=== PATIENT | female | born 1950 | race Two or more races ===

== ENCOUNTER 2025-06-16 16:02 | Inpatient (IN) | payer MEDICARE, MEDICAID ==
[~2025-06-16] VITALS: Ht 162.6 cm; Wt 97.7 kg
--- NOTE | 2025-06-16 16:23 | ED.PDOC ---
History of Present Illness HPI Comments HPI: 74 year old female presents to the ED via EMS with a chief complaint of generalized weakness onset 2 weeks. Per EMS, patient has been experiencing generalized weakness of the past 2 weeks, family noticed weakness worsened today. For the past 2 days she has been experiencing hematuria, diffused abdominal pain as well as bilateral lower extremity swelling. Patient was able to ambulate with assistance. Denies headache, dizziness, fever, chills, nausea, vomiting, chest pain, shortness of breath. No other symptoms or modifying factors present at this time. Initial Vitals BP: 116/67 HR: 82 RR: 16 O2 Sat: 95% Temp: 98.8 F Past Medical history: fibromyalgia, HTN Past Surgical history: Hernia repair Medications: denies Social History: Denies smoking, ETOH, and drug use. Allergies: NKDA misa: gen weak, hematuria, abd pain HPI: Poor Historian. REVIEW OF SYSTEMS: CONSTITUTIONAL: Denies acute: fever, diaphoresis, chills, HEAD: Denies acute: headache, photophobia Eyes: Denies acute: Double vision, vision loss, eye pain, eye discharge. EARS: Denies acute: tinnitus, hearing loss, ear discharge, ear pain, THROAT: Denies acute: sore throat, swelling, difficulty swallowing , pain with swallowing, change in voice. NECK: Denies acute: neck pain, neck swelling, stiff neck. HEART: Denies acute : chest pain, palpitations, LUNGS: Denies acute: SOB, wheezing, cough, hemoptysis ABDOMEN: Denies acute: , Vomiting, diarrhea, melena , hematemesis, hematochezia SKIN: Denies acute: rash, redness, lesions, itchiness. EXTREMITIES: Denies acute: calf pain, numbness, tingling, weakness, denies pain in extremity. Denies acute: Low back pain. Neuro: Denies acute: focal neurological deficit, motor or sensory focal neurological deficit, tremors, seizure like activity, confusion, dizziness, change in mental status, loss of bowel or bladder function, cauda equina like symptoms. : Denies acute: dysuria, flank pain, increase in urinary frequency. PSYCH: Denies acute: hallucination, suicidal ideation, homicidal ideation. FEMALE: Denies acute: abnormal vaginal bleeding, foul odor, unusual discharge. PHYSICAL EXAM: General: -----moderate---acute distress, awake and alert. Head: normocephalic, atraumatic. Neck: supple, trachea is midline, no swelling. Throat: Normal phonation. Dry oral mucosa Eyes:, no erythema, no purulent discharge, no proptosis, no icterus. Heart: regular rate, regular rhythm, no significant murmur appreciated. Lungs: no apparent respiratory distress, Able to speak in full sentences. No wheezing, no rhonchi, no crackles. No stridors Clear to auscultation bilaterally. Abdomen: Generalized tender to palpation, slightly distended, soft, no guarding, no rebound, + bowel sounds. Obese Neuro: Awake, Alert, oriented to name, self, situation, follows commands GCS=15. Speech is normal. Skin: no petechia, no purpura, no cyanosis, non-pale, not jaundice. Lower extremities: --2/4 bilateral- Pitting edema no deformity, no focal swelling, no calf TTP. Makes eye contact. moves all four extremities. Face: no apparent facial droop. Noted right [id number] anterior cornelius bruise. Patient recalls a fall from a standing position without any head or neck injury or loss of consciousness. Pedal pulses are palpable. ED COURSE: DISCLAIMER: This medical document was created using an electronic medical record system with voice recognition software and computerized dictation system. Although this document has been carefully reviewed, there might still be some phonetic and typographical errors. Occasional wrong-word or "sound-alike" substitutions may have occurred due to the inherent limitations of voice recognition software. These areas are purely typographical due to imperfections of the software programs and do not reflect any compromise in the patient's medical care. Please read the chart carefully and recognize, using context, where these substitutions have occurred. Chief Complaint: General Weakness Time Seen by MD: 16:10 Reviewed Notes: Medications, Allergies Allergies: Coded Allergies: Codeine (Verified Allergy, Unknown, 06/16/25) Home Meds Reported Medications Atenolol (Atenolol) 50 Mg Tab, 50 MG PO BID for 30 Days, MG 06/17/25 Information Source: Patient, Emergency Med Personnel Mode of Arrival: EMS Severity: Moderate Timing: Weeks Duration: Since onset Prehospital treatment: None Past Medical History PAST MEDICAL HISTORY: HTN Surgical History: Hernia Repair [employer] History: No Pertinent [employer] History Family History Family History: Reviewed,noncontributory to illness, No family hx of Cancer, No family hx of DM, No family hx of Heart conchis, No family hx of HTN, No family hx ofKidney conchis, No family hx of Liver conchis, No family hx of Lung conchis, No family hx of Stroke Social History Smoker: Non-Smoker Alcohol: Denies ETOH Use Drugs: Denies Drug Use Lives In: Home Was a procedure done? Was a procedure done?: No Differential Dx Considerations may include: As far as generalized weakness: Includes but not limited to thyroid disease, encephalopathy, electrolyte abnormality, sepsis, infection, intracranial pathology, drug adverse effects, arrhythmia, kidney insufficiency, ACS, CVA, malignancy, anemia As far as abdominal pain: DDX include Diverticulitis, colitis, gastroenteritis, acute abdomen, SBO, enteritis, constipation, volvulus, appendicitis, Gallbladder disease, choledocolithiasis, ascending cholangitis, pancreatitis, intraAbdominal mass/neoplasm, hepatitis, UTI, pylonephritis, kidney stone, aneurysm, dissection, Inflammatory bowel disease, gastroparesis, ischemic bowel, X-Ray, Labs, Meds, VS Vital Signs Date Time Temp Pulse Resp B/P (MAP) Pulse Ox O2 Delivery O2 Flow Rate FiO2 06/16/25 20:09 93 Room Air* 0 21 06/16/25 20:08 98.1 83 20 115/57 (76) 93 98.1 06/16/25 20:00 82 06/16/25 18:30 97.5 79 20 108/52 (70) 94 97.5 06/16/25 16:45 Room Air* 0 21 06/16/25 16:30 97.5 83 14 110/60 (77) 95 97.5 06/16/25 16:27 82 06/16/25 16:04 98.8 82 16 116/67 95 98.8 Lab Test 06/16/25 20:42 06/16/25 18:37 06/16/25 16:40 06/16/25 16:37 Range/Units Prothrombin Time 12.7 H 9.3-11.8 sec Prothrombin Time INR 1.22 H 0.9-1.15 Activated Partial Thromboplast Time 40.1 H 24.5-34.5 SEC Hemoglobin A1c 5.8 H <5.7 % A1C Phosphorus Level 5.0 2.4-5.1 mg/dL Magnesium Level 2.1 1.6-2.6 mg/dL Troponin I High Sensitivity 13 16 </=34 ng/L Triglycerides Level 152 H < 150 mg/dL Cholesterol Level 94 < 200 mg/dL LDL Cholesterol 50 < 100 mg/dL HDL Cholesterol 8 L 40-59 mg/dL Vitamin B12 Level 371 211-911 pg/mL Vitamin D 25-Hydroxy 6.7 L 30.0-100 ng/mL Thyroid Stimulating Hormone (TSH) 1.24 0.55-4.78 uIU/mL Urine Color Yellow Yellow Urine Clarity Turbid H Clear Urine pH 5.5 5.0-9.0 Urine Specific [place] 1.014 1.001-1.035 Urine Protein Trace H Negative Urine Ketones Negative Negative Urine Blood Negative Negative /uL Urine Nitrite Negative Negative Urine Bilirubin Negative Negative Urine Urobilinogen 3 H Negative mg/dL Urine Leukocyte Esterase Negative Negative /uL Urine RBC 2 0 - 4 /hpf Urine Microscopic WBC 5 0-5 /HPF Urine Squamous Epithelial Cells Few <5 /hpf Urine Bacteria None seen None Seen /hpf Urine Glucose Normal Normal mg/dL Beta-Hydroxybutyric Acid 2.296 H < 0.4 mmol/L Test 06/16/25 16:30 Range/Units White Blood Count 20.4 H 4.4-10.8 10^3/uL Red Blood Count 3.44 L 4.0-5.20 10^6/uL Hemoglobin 9.1 L 12.2-16.2 g/dL Hematocrit 28.2 L 36.0-46.0 % Mean Corpuscular Volume 82.1 80.0-100.0 fL Mean Corpuscular Hemoglobin 26.6 L 28.0-32.0 pg Mean Corpuscular Hemoglobin Concent 32.4 32.0-36.0 g/dL Red Cell Distribution Width 18.0 H 11.8-14.3 % Platelet Count 305 140-450 10^3/uL Mean Platelet Volume 7.6 6.9-10.8 fL Neutrophils (%) (Auto) 37.0-80.0 % Lymphocytes (%) (Auto) 10.0-50.0 % Monocytes (%) (Auto) 0.0-12.0 % Basophils (%) (Auto) 0.0-2.0 % Neutrophils # (Auto) 1.6-8.6 10 ^3/uL Lymphocytes # (Auto) 0.4-5.4 10 ^3/uL Monocytes # (Auto) 0-1.3 10 ^3/uL Differential Total Cells Counted 100.0 100 Neutrophils % (Manual) 81 H 37.0-80.0 Band Neutrophils % (Manual) 11 Lymphocytes % (Manual) 2 L 10.0-50.0 Monocytes % (Manual) 6 0-12 Eosinophils % (Manual) 0 0-7 Basophils % (Manual) 0 0.0-2.0 Metamyelocytes % (manual) 0 Myelocytes % (Manual) 0 Promyelocytes % (Manual) 0 Blast Cells % (Manual) 0 Reactive Lymphocytes 0 Platelet Estimate Adequate Anisocytosis (manual) Slight Tear Drop Cells Few [place] Cells Few Sodium Level 125 L 136-145 mmol/L Potassium Level 2.5 *L 3.5-5.1 mmol/L Chloride Level 91 L 98-107 mmol/L Carbon Dioxide Level 15 L 20-31 mmol/L Anion Gap 19 H 5-15 Blood Urea Nitrogen 72 H 9-23 mg/dL Creatinine 2.12 H 0.550-1.02 mg/dL Glomerular Filtration Rate Calc 24 >90 mL/min BUN/Creatinine Ratio 34.0 H 10.0-20.0 Serum Glucose 97 74-106 mg/dL Lactic Acid Level 1.4 0.4-2.0 mmol/L Calcium Level 7.4 L 8.7-10.4 mg/dL Magnesium Level 2.0 1.6-2.6 mg/dL Total Bilirubin 0.4 0.2-1.0 mg/dL Aspartate Amino Transferase (AST) 26 13-40 U/L Alanine Aminotransferase (ALT) 19 7-40 U/L Alkaline Phosphatase 128 H 46-116 U/L Troponin I High Sensitivity 15 </=34 ng/L B-Type Natriuretic Peptide 1669.81 0-100 pg/mL Total Protein 6.1 5.7-8.2 g/dL Albumin 2.2 L 3.2-4.8 g/dL Lipase 19 12-53 U/L Microbiology Date/Time Source Procedure Growth Status 06/16/25 18:36 Blood Blood Culture - Final NO GROWTH AFTER 5 DAYS OF INCUBATION. Complete 06/16/25 18:20 Blood Blood Culture - Final NO GROWTH AFTER 5 DAYS OF INCUBATION. Complete [address] [address] Ph: [phone] DIAGNOSTIC IMAGING Diagnostic Imaging Report : [id number] Signed PATIENT: SHANNON BULLOCK ACCT: [id number] UNIT: [id number] : 1950 LOC: ER ROOM / BED: / AGE / SEX: 74 / F ADM STATUS: REG ER SERVICE 44 ORDERING PHYSICIAN: SURENDRA MATT DO PROCEDURE(s): PELUS - PELVIC REASON: poss vag bleed ORDER NUMBER(s): [id number], ACCESSION NUMBER(s): [id number] EXAM: US PELVIC CLINICAL HISTORY: poss vag bleed TECHNIQUE: Transabdominal ultrasound of the pelvis with color Doppler flow as clinically indicated. COMPARISON: None Findings: Uterus measures 9.1 x 4.3 x 8.0 cm in size with relatively heterogeneous echotexture and normal contours. Endometrial thickness measures 1.1 cm with smooth contour. Cervix appears grossly unremarkable. Bilateral ovaries not visualized. No free fluid in the cul-de-sac. Anterior to the uterus, there is a 10.2 x 8.1 x 1.7 cm complex fluid collection. Impression: 1. Prominent uterus with thickened endometrium measuring 1.1 cm. Recommend contrast-enhanced MRI and tissue sampling for further evaluation. 2. 10.2 x 8.1 x 1.7 cm complex fluid collection anterior to the uterus, nonspecific. Attention on MRI. 3. Bilateral ovaries not visualized. ATED BY: CODI CAMACHO DO DICTATED DATE/TIME: 06/16/251745 SIGNED BY: CODI CAMACHO DO SIGNED DATE/TIME: 06/16/251745 CC: [address] [address] Ph: [phone] DIAGNOSTIC IMAGING Diagnostic Imaging Report : [id number] Signed PATIENT: SHANNON BULLOCK ACCT: [id number] UNIT: [id number] : 1950 LOC: ER ROOM / BED: / AGE / SEX: 74 / F ADM STATUS: REG ER SERVICE 13 ORDERING PHYSICIAN: SURENDRA MATT DO PROCEDURE(s): CXRP - CHEST PORTABLE REASON: gen weak, hematuria, abd pain ORDER NUMBER(s): [id number], ACCESSION NUMBER(s): [id number] INDICATION: gen weak, hematuria, abd pain TECHNIQUE: Frontal view of the chest. COMPARISON: None FINDINGS/IMPRESSION: Low lung volumes. The lungs are clear. There is prominence of the cardiomediastinal silhouette, likely accentuated by technique. No pleural effusion or pneumothorax. No acute osseous abnormality. ATED BY: CLAUDE COLLINS MD DICTATED DATE/TIME: 06/16/251743 SIGNED BY: CLAUDE COLLINS MD SIGNED DATE/TIME: 06/16/251743 CC: [place] [id number] Ph: [phone] DIAGNOSTIC IMAGING Diagnostic Imaging Report : [id number] Signed PATIENT: SHANNON BULLOCK ACCT: [id number] UNIT: [id number] : 1950 LOC: ER ROOM / BED: / AGE / SEX: 74 / F ADM STATUS: REG ER SERVICE 13 ORDERING PHYSICIAN: SURENDRA MATT DO PROCEDURE(s): ABPL - CT AB PEL WO CON-NO ORAL OR IV REASON: gen weak, hematuria, abd pain ORDER NUMBER(s): [id number], ACCESSION NUMBER(s): [id number] Indication: gen weak, hematuria, abd pain Technique: CT axial images of the abdomen and pelvis are obtained without contrast. Coronal and sagittal reformats were obtained. Radiation Dose Information: CTDI volume is 22.77 mGy. Dose-length product is 1196 mGy*cm Comparison: None FINDINGS: There is limited interpretation of the abdomen and pelvis without administration of intravenous contrast. Lung bases demonstrate atelectasis. Adrenal glands, spleen, pancreas unremarkable in shape. Liver unremarkable in shape. Gallbladder contracted/removed. No hydronephrosis. Colonic diverticular disease. Bowel wall thickening of the sigmoid colon. Moderate volume stool in the colon. Abdominal aortic atherosclerotic disease. Bladder decompressed by Morocho catheter. Complex collection in the lower anterior abdomen measuring 21.7 x 8.0 cm. Smaller anterior abdominal complex collection measuring 3.6 x 2.2 cm. Pelvic cul-de-sac complex collection measuring 2.4 x 7.2 cm. Collection anterior to the uterus and superior to the bladder measuring 6.4 x 2.2 cm. Left inguinal hernia which appears tip containing portion of the bladder. The hernia measures 4.8 x 4.1 cm. Hernia signal of the bladder measures 1.8 x 2.0 cm. Soft tissue edema/anasarca. Heterogeneous appearance of the uterus. Recommend pelvic ultrasound to evaluate. Bladder decompressed by Morocho catheter. Moderate bilateral sacroiliac degenerative joint disease. Moderate thoracolumbar degenerative disc disease. Acute/subacute posterior left 11th and 12th rib fractures. IMPRESSION: Limited evaluation without contrast. Multiple complex abdominal and pelvic collections measuring 21.7 x 8.0 cm, 3.6 x 2.2 cm, 2.4 x 2.7 cm and 6.4 x 2.2 cm. These could represent abscesses. Sigmoid colon wall thickening with underlying diverticular disease could represent diverticulitis/perforated diverticulitis. Recommend surgical consultation. Heterogeneous appearance of the uterus. Recommend pelvic ultrasound to evaluate. To exclude a uterine mass/ neoplasm. Left inguinal hernia containing a small portion of the bladder measuring 4.8 x 4.1 cm. There is thickening of the bladder wall within the hernia. Correlate for incarcerated Soft tissue edema/anasarca. Acute/ subacute posterior left 11th and 12th rib fractures. Other findings as described ATED BY: NIGEL JAMES MD DICTATED DATE/TIME: 06/16/251745 SIGNED BY: NIGEL JAMES MD SIGNED DATE/TIME: 06/16/251745 CC: Time of 1ST Reevaluation: 16:40 Reevaluation 1ST: Unchanged Time of 2ND Reevaluation: 18:42 (The case was discussed with the general surgery on-call team (HPI, physical exam, labs and diagnostic tests that were available at the time of disposition, ED course, treatment plan) on the phone. They agreed to come and evaluate the patient in the ED. Dr. Gonzalez. ) Patient Education/Counseling: Diagnosis, Treatment Family Education/Counseling: No Family Present Comments MDM: patient presented with the above HPI.---generalized weakness/abdominal pain---workup was initiated. patient was found with the above mentioned diagnosis. the following medications were ordered: please refer to order lists of meds and tests obtained by myself Dr. Matt. Patient ED course and VS have been stabilized. Patient has been reassessed in the ED and remained in a stable condition. Pertinent incidental findings were discussed with the patient and/or family. Patient/family voices understanding and is agreeable with plan. Patient has been observed in the ED adequate length of time to insure improvement/stability. Escalation of care considered: Consideration of escalation to observation or admission Patient was ADMITTED to the medicine team for further evaluation and treatment of their presentation. All the reports of any imaging studies that were ordered by myself were reviewed by myself. Departure 1 Departure Time of Disposition: 18:43 Impression: Primary Impression: Sepsis Additional Impressions: Abnormal finding on CT scan Abdominal mass Inguinal hernia Rib fracture Mass of uterus Leukocytosis Generalized weakness Hyponatremia Hypokalemia Acute renal failure Hypoalbuminemia Disposition: ADMITTED INPATIENT Admit to: [facility] Condition: Guarded Discharged With: Self Critical Care Note Critical Care Time?: Yes (1 hr-critical care time only) Heart Score Heart Score: Heart Score Response (Comments) Value History N/A 0 EKG N/A 0 Age N/A 0 Risk Factors N/A 0 Troponin N/A 0 Total 0 I personally scribed for SURENDRA MATT DO ([email or web address]) on 06/16/25 at 16:23. Electronically submitted by Radha Gallardo ([email or web address]). I personally scribed for SURENDRA MATT DO ([email or web address]) on 06/16/25 at 16:51. Electronically submitted by Radha Gallardo ([email or web address]). I personally scribed for SURENDRA MATT DO ([email or web address]) on 06/16/25 at 18:32. Electronically submitted by Radha Gallardo ([email or web address]). SURENDRA MATT DO Jun 16, 2025 16:23
--- NOTE | 2025-06-16 16:46 | ECG ---
[facility] Test Date: 2025-06-16 Test Time: 16:18:30 Pat Name: SHANNON BULLOCK Department: Room: [address] [place] [address] Gender: F [employer] Consultant: SHIRA : 1950 Requested By: SURENDRA MATT Order Number: [id number] Reading MD: Frederick Nino Measurements Intervals [place] Rate: 82 P: 50 [place]: 159 QRS: 8 QRSD: 99 T: -1 QT: 407 QTc: 476 Interpretive Statements Sinus rhythm Multiform ventricular premature complexes Inferior infarct, old Electronically Signed On 06-24-2025 21:37:13 PDT by Frederick Nino Please click the below link to view image of tracing.
[2025-06-16 17:10] LABS: Urine Protein, UAD TRACE (Negative)
--- NOTE | 2025-06-16 17:45 | DVH ---
Indication: gen weak, hematuria, abd pain Technique: CT axial images of the abdomen and pelvis are obtained without contrast. Coronal and sagit elli reformats were obtained. Radiation Dose Information: CTDI volume is 22.77 mGy. Dose-length product is 1196 mGy*cm Comparison: None FINDINGS: There is limited interpretation of the abdomen and pelvis without administration of intravenous contr ast. Lung bases demonstrate atelectasis. Adrenal glands, spleen, pancreas unremarkable in shape. Liver unremarkable in shape. Gallbladder con tracted/removed. No hydronephrosis. Colonic diverticular disease. Bowel wall thickening of the sigmoid colon. Moderate volume stool in t he colon. Abdominal aortic atherosclerotic disease. Bladder decompressed by Morocho catheter. Complex collection in the lower anterior abdomen measuring 21.7 x 8.0 cm. Smaller anterior abdominal complex collection measuring 3.6 x 2.2 cm. Pelvic cul-de-sac complex collection measuring 2.4 x 7.2 cm. Collection anterior to the uterus and superior to the bladder measuring 6.4 x 2.2 cm. Left inguinal hernia which appears tip containing portion of the bladder. The hernia measures 4.8 x 4.1 cm. Hernia signal of the bladder measures 1.8 x 2.0 cm. Soft tissue edema/anasarca. Heterogeneous appearance of the uterus. Recommend pelvic ultrasound to evaluate. Bladder decompressed by Morocho catheter. Moderate bilateral sacroiliac degenerative joint disease. Moderate thoracolumbar degenerative disc disease. Acute/subacute posterior left 11th and 12th rib fractures. IMPRESSION: Limited evaluation without contrast. Multiple complex abdominal and pelvic collections measuring 21.7 x 8.0 cm, 3.6 x 2.2 cm, 2.4 x 2.7 cm and 6.4 x 2.2 cm. These could represent abscesses. Sigmoid colon wall thickening with underlying diverticular disease could represent diverticulitis/per forated diverticulitis. Recommend surgical consultation. Heterogeneous appearance of the uterus. Recommend pelvic ultrasound to evaluate. To exclude a uterin e mass/ neoplasm. Left inguinal hernia containing a small portion of the bladder measuring 4.8 x 4.1 cm. There is thick ening of the bladder wall within the hernia. Correlate for incarcerated Soft tissue edema/anasarca. Acute/ subacute posterior left 11th and 12th rib fractures. Other findings as described
--- NOTE | 2025-06-16 17:46 | DVH ---
INDICATION: gen weak, hematuria, abd pain TECHNIQUE: Frontal view of the chest. COMPARISON: None FINDINGS/IMPRESSION: Low lung volumes. The lungs are clear. There is prominence of the cardiomediastinal silhouette, li nadia accentuated by technique. No pleural effusion or pneumothorax. No acute osseous abnormality.
--- NOTE | 2025-06-16 17:47 | DVH ---
EXAM: US PELVIC CLINICAL HISTORY: poss vag bleed TECHNIQUE: Transabdominal ultrasound of the pelvis with color Doppler flow as clinically indicated. COMPARISON: None Findings: Uterus measures 9.1 x 4.3 x 8.0 cm in size with relatively heterogeneous echotexture and normal conto urs. Endometrial thickness measures 1.1 cm with smooth contour. Cervix appears grossly unremarkable. Bilateral ovaries not visualized. No free fluid in the cul-de-sac. Anterior to the uterus, there is a 10.2 x 8.1 x 1.7 cm complex fluid collection. Impression: 1. Prominent uterus with thickened endometrium measuring 1.1 cm. Recommend contrast-enhanced MRI and tissue sampling for further evaluation. 2. 10.2 x 8.1 x 1.7 cm complex fluid collection anterior to the uterus, nonspecific. Attention on MR I. 3. Bilateral ovaries not visualized.
[2025-06-16 17:55] LABS: Hemoglobin 9.1 g/dL (12.2-16.2); Mean Corpuscular Hemoglobin 26.6 pg (28.0-32.0)
[2025-06-16 17:57] LABS: Hematocrit 28.2 % (36.0-46.0); Mean Corpuscular Volume 82.1 fL (80.0-100.0)
[2025-06-16 18:13] LABS: Alanine Aminotransferase 19 U/L (7-40); Anion Gap 19 (5-15); BUN/Creatinine Ratio 34.0 (10.0-20.0); Glucose 97 mg/dL (74-106); Lipase 19 U/L (12-53); Magnesium 2.0 mg/dL (1.6-2.6); Total Protein 6.1 g/dL (5.7-8.2)
[2025-06-16 18:14] LABS: Bilirubin, Total 0.4 mg/dL (0.2-1.0)
[2025-06-16 18:17] LABS: Albumin 2.2 g/dL (3.2-4.8); Alkaline Phosphatase 128 U/L (46-116); Blood Urea Nitrogen 72 mg/dL (9-23); Calcium 7.4 mg/dL (8.7-10.4); Carbon Dioxide 15 mmol/L (20-31); Chloride 91 mmol/L (98-107); Sodium 125 mmol/L (136-145)
[2025-06-16 18:18] LABS: Potassium 2.5 mmol/L (3.5-5.1)
[2025-06-16] MEDS: SODIUM CHLORIDE 0.9% 1,000 ML IV ONE ×3 (18:29→20:45)
[2025-06-16] MEDS: PIPERACILLIN-TAZOB 3.375GM 100 ML IV ONE (18:51)
[2025-06-16 19:07] LABS: Anisocytosis Slight; Total Cells Counted 100.0 (100)
[2025-06-16 19:08] LABS: Tear Drop Cells FEW
[2025-06-16 20:09] VITALS: O2SAT 93
--- NOTE | 2025-06-16 20:22 | DVHINCON2 ---
Consultation - Surgical Date Seen: Jun 16, 2025 Referring Physician Referring Physician ER Reason for Consultation Abdominal pain History of Present Illness History of Present Illness 74 year old female presents to the ED via EMS with a chief complaint of genera lized weakness onset 2 weeks. Per EMS, patient has been experiencing generalized weakness of the past 2 weeks, family noticed weakness worsened today. For the past 2 days she has been experiencing hematuria, diffused abdominal pain as well as bilateral lower extremity swelling. Patient has not felt well in over a month bed-bound for proximally two weeks. She does have a history of fibromyalgia as well as diverticulitis. Her appetite has diminished over the last two weeks as well. She continues to have normal bowel movements. Not nauseous or vomiting no fevers or chills. Currently complaining of lower abdominal pain. Has had her gallbladder removed as well as incisional hernia repair in the past. Last admission was approximately five years ago for an incisional hernia repair Past Medical/Surgical History Past Medical/Surgical History Fibromyalgia hypertension, cholecystectomy, incisional hernia repair Family and Social History Family and Social History nonsmoker nondrinker Allergies and medications Allergies: Coded Allergies: Codeine (Verified Allergy, Unknown, 06/16/25) Review of systems Review of Systems: HEENT:Normal, CVS:Normal, RESPIRATORY:Normal, GI:Abnormal (Generalized abdominal discomfort), :Abnormal, MSK:Abnormal (Lower extremity edema and weakness unable to stand), NEURO:Abnormal Examination Vital signs Vital Signs Date Time Temp Pulse Resp B/P (MAP) Pulse Ox O2 Delivery O2 Flow Rate FiO2 06/16/25 20:09 93 Room Air* 0 21 06/16/25 20:08 98.1 83 20 115/57 (76) 98.1 Medications Current Medications Medications (Trade) Dose Ordered Sig/Venessa Route PRN Reason Start Time Stop Time Status Last Admin Potassium Chloride 100 ml @ 50 mls/hr Q2H IV 06/16/25 18:45 06/16/25 22:44 Laboratory Labs Test 06/16/25 18:37 06/16/25 16:40 06/16/25 16:30 Range/Units Troponin I High Sensitivity 16 </=34 ng/L Urine Color Yellow Yellow Urine Clarity Turbid H Clear Urine pH 5.5 5.0-9.0 Urine Specific [place] 1.014 1.001-1.035 Urine Protein Trace H Negative Urine Ketones Negative Negative Urine Blood Negative Negative /uL Urine Nitrite Negative Negative Urine Bilirubin Negative Negative Urine Urobilinogen 3 H Negative mg/dL Urine Leukocyte Esterase Negative Negative /uL Urine RBC 2 0 - 4 /hpf Urine Microscopic WBC 5 0-5 /HPF Urine Squamous Epithelial Cells Few <5 /hpf Urine Bacteria None seen None Seen /hpf Urine Glucose Normal Normal mg/dL White Blood Count 20.4 H 4.4-10.8 10^3/uL Red Blood Count 3.44 L 4.0-5.20 10^6/uL Hemoglobin 9.1 L 12.2-16.2 g/dL Hematocrit 28.2 L 36.0-46.0 % Mean Corpuscular Volume 82.1 80.0-100.0 fL Mean Corpuscular Hemoglobin 26.6 L 28.0-32.0 pg Mean Corpuscular Hemoglobin Concent 32.4 32.0-36.0 g/dL Red Cell Distribution Width 18.0 H 11.8-14.3 % Platelet Count 305 140-450 10^3/uL Mean Platelet Volume 7.6 6.9-10.8 fL Neutrophils (%) (Auto) 37.0-80.0 % Lymphocytes (%) (Auto) 10.0-50.0 % Monocytes (%) (Auto) 0.0-12.0 % Basophils (%) (Auto) 0.0-2.0 % Neutrophils # (Auto) 1.6-8.6 10 ^3/uL Lymphocytes # (Auto) 0.4-5.4 10 ^3/uL Monocytes # (Auto) 0-1.3 10 ^3/uL Differential Total Cells Counted 100.0 100 Neutrophils % (Manual) 81 H 37.0-80.0 Band Neutrophils % (Manual) 11 Lymphocytes % (Manual) 2 L 10.0-50.0 Monocytes % (Manual) 6 0-12 Eosinophils % (Manual) 0 0-7 Basophils % (Manual) 0 0.0-2.0 Metamyelocytes % (manual) 0 Myelocytes % (Manual) 0 Promyelocytes % (Manual) 0 Blast Cells % (Manual) 0 Reactive Lymphocytes 0 Platelet Estimate Adequate Anisocytosis (manual) Slight Tear Drop Cells Few Theodore Cells Few Sodium Level 125 L 136-145 mmol/L Potassium Level 2.5 *L 3.5-5.1 mmol/L Chloride Level 91 L 98-107 mmol/L Carbon Dioxide Level 15 L 20-31 mmol/L Anion Gap 19 H 5-15 Blood Urea Nitrogen 72 H 9-23 mg/dL Creatinine 2.12 H 0.550-1.02 mg/dL Glomerular Filtration Rate Calc 24 >90 mL/min BUN/Creatinine Ratio 34.0 H 10.0-20.0 Serum Glucose 97 74-106 mg/dL Lactic Acid Level 1.4 0.4-2.0 mmol/L Calcium Level 7.4 L 8.7-10.4 mg/dL Magnesium Level 2.0 1.6-2.6 mg/dL Total Bilirubin 0.4 0.2-1.0 mg/dL Aspartate Amino Transferase (AST) 26 13-40 U/L Alanine Aminotransferase (ALT) 19 7-40 U/L Alkaline Phosphatase 128 H 46-116 U/L B-Type Natriuretic Peptide 1669.81 0-100 pg/mL Total Protein 6.1 5.7-8.2 g/dL Albumin 2.2 L 3.2-4.8 g/dL Lipase 19 12-53 U/L Indication: gen weak, hematuria, abd pain Technique: CT axial images of the abdomen and pelvis are obtained without contrast. Coronal and sagittal reformats were obtained. Radiation Dose Information: CTDI volume is 22.77 mGy. Dose-length product is 1196 mGy*cm Comparison: None FINDINGS: There is limited interpretation of the abdomen and pelvis without administration of intravenous contrast. Lung bases demonstrate atelectasis. Adrenal glands, spleen, pancreas unremarkable in shape. Liver unremarkable in shape. Gallbladder contracted/removed. No hydronephrosis. Colonic diverticular disease. Bowel wall thickening of the sigmoid colon. Moderate volume stool in the colon. Abdominal aortic atherosclerotic disease. Bladder decompressed by Morocho catheter. Complex collection in the lower anterior abdomen measuring 21.7 x 8.0 cm. Smaller anterior abdominal complex collection measuring 3.6 x 2.2 cm. Pelvic cul-de-sac complex collection measuring 2.4 x 7.2 cm. Collection anterior to the uterus and superior to the bladder measuring 6.4 x 2.2 cm. Left inguinal hernia which appears tip containing portion of the bladder. The hernia measures 4.8 x 4.1 cm. Hernia signal of the bladder measures 1.8 x 2.0 cm. Soft tissue edema/anasarca. Heterogeneous appearance of the uterus. Recommend pelvic ultrasound to evaluate. Bladder decompressed by Morocho catheter. Moderate bilateral sacroiliac degenerative joint disease. Moderate thoracolumbar degenerative disc disease. Acute/subacute posterior left 11th and 12th rib fractures. IMPRESSION: Limited evaluation without contrast. Multiple complex abdominal and pelvic collections measuring 21.7 x 8.0 cm, 3.6 x 2.2 cm, 2.4 x 2.7 cm and 6.4 x 2.2 cm. These could represent abscesses. Sigmoid colon wall thickening with underlying diverticular disease could represent diverticulitis/perforated diverticulitis. Recommend surgical consultation. Heterogeneous appearance of the uterus. Recommend pelvic ultrasound to evaluate. To exclude a uterine mass/ neoplasm. Left inguinal hernia containing a small portion of the bladder measuring 4.8 x 4.1 cm. There is thickening of the bladder wall within the hernia. Correlate for incarcerated Soft tissue edema/anasarca. Acute/ subacute posterior left 11th and 12th rib fractures. Other findings as described Examination: GENERAL:Normal, HEENT:Normal, NECK:Normal, LUNGS:Normal, CVS:Nor mal, ABDOMEN:Abnormal (Vague diffuse abdominal tenderness no rebound no guarding), MSK:Abnormal (1+ pitting edema), SKIN:Normal, NEURO:Normal, :Normal Problem List/Assessment/Plan Problems: (1) Abdominal mass Assessment and Plan Abdominal pain multiple fluid collections diverticulitis possible perforated diverticulitis. We will need IV fluid hydration IV antibiotics, Morocho catheter, strict I's and O's, We will re-evaluate in the morning for possible IR drainage versus surgical exploration. Plan discussed with Plan discussed with: Patient, Spouse Visit Coding Surgery Date of Service if different f: Jun 16, 2025 Billing Provider: MENDOZA MERRITT Jr., MD Surgery Visit Codes: 50770 - INP CONSULT <80 MIN MENDOZA MERRITT Jr., MD Jun 16, 2025 20:21
[2025-06-16] MEDS: SODIUM CHLORIDE 0.9% 1,000 ML IV SCH (20:30)
[2025-06-16] MEDS: POTASSIUM CHL 20MEQ/100ML 100 ML IV SCH (20:30)
--- NOTE | 2025-06-16 20:33 | DVHHPRES ---
History of Present Illness Resident Creating Document: JOHNATHON PIMENTEL History of Present Illness Dinora Montano this is a 74-year-old female patient who presents to ED with chief complaint of progressive drowsiness, generalized weakness and slurred speech which started two weeks before her admission. Per who is at bedside, she has not been herself recently and was concerned of a "flare-up of fibromyalgia" prompting him to bring her to the hospital via EMS. reports that when they try to mobilize her from the bed to the wheelchair patient fell with no loss of consciousness and bruised her right leg. also reports that patient presented abnormal uterine bleeding (spotting) for the past few months. Due to her clinical status could not obtain review of systems. Obtain past medical history from . Past medical history: Hypertension, Fibromyalgia, diverticulosis with multiple episodes of diverticulitis last episode was approximately one year. Surgical history: Colonoscopy completed five years ago which was within normal limits, cholecystectomy, umbilical hernia repair Family history: Noncontributory Social history: Lives in [place] with family (next of kin is ). Denies current tobacco, alcohol and other drug abuse. Allergies: Seasonal Home medication: Atenolol and Motrin p.r.n. Patient seen and examined at bedside. Patient is drowsy, oriented in all spheres, feels better after receiving IV antibiotics. Has no new complaints. Past Medical History Per HPI Past Surgical History Per HPI Family History Per HPI Past Social History Per HPI Review of Systems Review of Systems Per HPI Allergies: Coded Allergies: Codeine (Verified Allergy, Unknown, 06/16/25) Medications Current Medications Medications Dose Ordered Sig/Venessa Route Start Time Stop Time Status Last Admin Dose Admin Potassium Chloride 100 ml @ 50 mls/hr Q2H IV 06/16/25 18:45 06/16/25 22:44 Exam Vital Signs Vital Signs Date Time Temp Pulse Resp B/P (MAP) Pulse Ox O2 Delivery O2 Flow Rate FiO2 06/16/25 20:09 93 Room Air* 0 21 06/16/25 20:08 98.1 83 20 115/57 (76) 98.1 Exam Patient lying in bed, in no acute distress General: Melgar, febrile, mucosae are moist Cardiovascular: Normal S1 and S2. No murmurs, gallops or rubs Respiratory: Normal ventilation mechanics. Clear lung sounds on auscultation Abdomen: Soft, nontender, no organomegaly, normal bowel sounds MSK/skin: Mobilizes 4 limbs. Skin is dry and warm. Bilateral suprapatellar pitting edema Neurological: Oriented in 3 spheres, drowsy and somnolent. Slurred speech. No motor no sensitive deficits. Pupils are isocoric and reactive Labs/Xrays Labs Test 06/16/25 18:37 06/16/25 16:40 06/16/25 16:30 Range/Units Troponin I High Sensitivity 16 </=34 ng/L Urine Color Yellow Yellow Urine Clarity Turbid H Clear Urine pH 5.5 5.0-9.0 Urine Specific [place] 1.014 1.001-1.035 Urine Protein Trace H Negative Urine Ketones Negative Negative Urine Blood Negative Negative /uL Urine Nitrite Negative Negative Urine Bilirubin Negative Negative Urine Urobilinogen 3 H Negative mg/dL Urine Leukocyte Esterase Negative Negative /uL Urine RBC 2 0 - 4 /hpf Urine Microscopic WBC 5 0-5 /HPF Urine Squamous Epithelial Cells Few <5 /hpf Urine Bacteria None seen None Seen /hpf Urine Glucose Normal Normal mg/dL White Blood Count 20.4 H 4.4-10.8 10^3/uL Red Blood Count 3.44 L 4.0-5.20 10^6/uL Hemoglobin 9.1 L 12.2-16.2 g/dL Hematocrit 28.2 L 36.0-46.0 % Mean Corpuscular Volume 82.1 80.0-100.0 fL Mean Corpuscular Hemoglobin 26.6 L 28.0-32.0 pg Mean Corpuscular Hemoglobin Concent 32.4 32.0-36.0 g/dL Red Cell Distribution Width 18.0 H 11.8-14.3 % Platelet Count 305 140-450 10^3/uL Mean Platelet Volume 7.6 6.9-10.8 fL Neutrophils (%) (Auto) 37.0-80.0 % Lymphocytes (%) (Auto) 10.0-50.0 % Monocytes (%) (Auto) 0.0-12.0 % Basophils (%) (Auto) 0.0-2.0 % Neutrophils # (Auto) 1.6-8.6 10 ^3/uL Lymphocytes # (Auto) 0.4-5.4 10 ^3/uL Monocytes # (Auto) 0-1.3 10 ^3/uL Differential Total Cells Counted 100.0 100 Neutrophils % (Manual) 81 H 37.0-80.0 Band Neutrophils % (Manual) 11 Lymphocytes % (Manual) 2 L 10.0-50.0 Monocytes % (Manual) 6 0-12 Eosinophils % (Manual) 0 0-7 Basophils % (Manual) 0 0.0-2.0 Metamyelocytes % (manual) 0 Myelocytes % (Manual) 0 Promyelocytes % (Manual) 0 Blast Cells % (Manual) 0 Reactive Lymphocytes 0 Platelet Estimate Adequate Anisocytosis (manual) Slight Tear Drop Cells Few Zak Cells Few Sodium Level 125 L 136-145 mmol/L Potassium Level 2.5 *L 3.5-5.1 mmol/L Chloride Level 91 L 98-107 mmol/L Carbon Dioxide Level 15 L 20-31 mmol/L Anion Gap 19 H 5-15 Blood Urea Nitrogen 72 H 9-23 mg/dL Creatinine 2.12 H 0.550-1.02 mg/dL Glomerular Filtration Rate Calc 24 >90 mL/min BUN/Creatinine Ratio 34.0 H 10.0-20.0 Serum Glucose 97 74-106 mg/dL Lactic Acid Level 1.4 0.4-2.0 mmol/L Calcium Level 7.4 L 8.7-10.4 mg/dL Magnesium Level 2.0 1.6-2.6 mg/dL Total Bilirubin 0.4 0.2-1.0 mg/dL Aspartate Amino Transferase (AST) 26 13-40 U/L Alanine Aminotransferase (ALT) 19 7-40 U/L Alkaline Phosphatase 128 H 46-116 U/L B-Type Natriuretic Peptide 1669.81 0-100 pg/mL Total Protein 6.1 5.7-8.2 g/dL Albumin 2.2 L 3.2-4.8 g/dL Lipase 19 12-53 U/L SEPSIS Sepsis Screen Date sepsis recognized/suspect: Jun 16, 2025 Time Sepsis recognized/suspect: 2007 Recent Procedure: No On Antibiotic Therapy: No Respiratory Rate >20: No Heart Rate >90: No Temp<36 C (96.8 F) or >38.3 C: No SBP <90 or MAP <65 mmHG: No New Acute Mental Status Change: No Is the patient on CPAP, BIPAP,: No Physician Orders Conduit Mechanic (06/16/25 ) Chest Portable (06/16/25 16:14) Ct Ab Pel Wo Con-No Oral Or Iv (06/16/25 16:14) Troponin-I Hs (06/16/25 19:14) Pelvic (06/16/25 16:45) * Surgical Consult (06/16/25 ) Blood Culture (06/16/25 18:20) Potassium Chl 20meq/100ml (06/16/25 18:45) Vital Signs Date Time Temp Pulse Resp B/P (MAP) Pulse Ox O2 Delivery O2 Flow Rate FiO2 06/16/25 20:09 93 Room Air* 0 21 06/16/25 20:08 98.1 83 20 115/57 (76) 93 98.1 06/16/25 18:30 97.5 79 20 108/52 (70) 94 97.5 06/16/25 16:45 Room Air* 0 21 06/16/25 16:30 97.5 83 14 110/60 (77) 95 97.5 06/16/25 16:27 82 06/16/25 16:04 98.8 82 16 116/67 95 98.8 Laboratory Tests Test 06/16/25 16:30 Lactic Acid Level 1.4 mmol/L (0.4-2.0) White Blood Count 20.4 10^3/uL (4.4-10.8) H Medications Medications Dose Ordered Sig/Venessa Route Start Time Stop Time Status Last Admin Dose Admin Piperacillin Sod/ Tazobactam Sod 100 ml @ 100 mls/hr ONCE ONCE IV 06/16/25 18:15 06/16/25 19:14 DC 06/16/25 18:51 100 MLS/HR Sodium Chloride 1,000 ml @ 1,000 mls/hr Q1H ONCE IV 06/16/25 18:15 06/16/25 19:14 DC 06/16/25 18:29 1,000 MLS/HR Assessment/Plan Assessment/Plan ASSESSMENT Metabolic encephalopathy secondary to sepsis Sepsis due to complicated diverticulitis Complicated diverticulitis with multiple abscesses JILLIAN hemodynamically mediated (VMN) Metabolic acidosis with elevated anion gap and normal lactic acid Acute respiratory failure likely secondary to congestive heart failure Acute congestive heart failure (unknown LVEF) Questionable uterine malignancy Hyponatremia Hypokalemia Normocytic anemia Obesity Hypertension Fibromyalgia PLAN Completed head CT which showed no acute intracranial pathology Completed abdomen and pelvis CT: Multiple complex collections compatible with abscess, perforated diverticulitis, heterogeneous uterus compatible with uterine mass/neoplasm (recommend eventual MRI), left inguinal hernia Surgery was consulted, recommended re-evaluation in 24 hours and probable Interventional Radiology drainage we will be required. Currently under empiric IV antibiotic (meropenem and vancomycin) Ordered pancultures (blood, urine, sputum) Patient was given IV fluids, but presents acute respiratory failure probably secondary to CHF, discontinuing IV fluids. Currently on IV diuretics (20 mg IV daily). Echocardiogram was ordered Patient has elevated anion gap and acidosis with normal lactic acid. If acidosis keeps on worsening, evaluate need for bicarbonate drip Evaluate need for MRI of pelvis. Replenish electrolytes Goals of care discussed with patient and family for over 18 minutes: Full code status Discussed plan with Dr. Dueñas, patient and nurses: Patient has sepsis secondary to complicated diverticulitis with multiple abscesses seen in abdomen and pelvis CT, surgical aides teacher evaluated the patient recommending re- evaluation in the a.m. and probable interventional radiology drainage. Currently under broad-spectrum empiric IV antibiotic, had to discontinue IV fluids due to fluid overload, require electrolyte replenishment and oxygen therapy. Patient has poor prognosis Plan discussed with: Patient, Spouse, Other (Nurses) Date of Service: Jun 16, 2025 Billing Provider: MEKA DUEÑAS MD Common Visit Codes: 79647-UKCSWBR INP/OBS CARE (HIGH) Secondary Visit Codes: 23645-DAMDTEGX CARE PLAN 30 MINUTES JOHNATHON PIMENTEL RESIDENT Jun 16, 2025 20:33
[2025-06-16] MEDS ORDERED: ACETAMINOPHEN 325 MG TAB PO PRN (20:45)
[2025-06-16] MEDS ORDERED: NITROGLYCERIN 0.4 MG SL TAB SL PRN (20:45)
[2025-06-16] MEDS ORDERED: MORPHINE SULFATE INJ 2 MG/ml SYRG IV PRN ×2 (20:45)
[2025-06-16 21:21] LABS: Magnesium 2.1 mg/dL (1.6-2.6)
[2025-06-16] MEDS: FUROSEMIDE 40 MG/4 ML VIAL IV ONE (21:30)
[2025-06-16 21:33] LABS: INR 1.22 (0.9-1.15); Partial Thromboplastin Time 40.1 SEC (24.5-34.5); Prothrombin Time 12.7 sec (9.3-11.8)
[2025-06-16] MEDS ORDERED: POTASSIUM CHL 20MEQ/100ML 100 ML IV SCH (21:45)
[2025-06-16 21:56] LABS: Base Excess -11.2 mmol/L (-2.0-3.0)
[2025-06-16] MEDS: ALBUMIN 25% 100 ML IV ONE (22:00)
[2025-06-16 22:18] LABS: Cholesterol 94.0 mg/dL (< 200); HDL Cholesterol 8.0 mg/dL (40-59); Triglycerides 152.0 mg/dL (< 150)
[2025-06-16 23:45] VITALS: BP 119/55; PULSE 87; RESP 17; TEMP 97.5; O2SAT 97
[2025-06-16 23:51] LABS: BUN/Creatinine Ratio 28.8 (10.0-20.0)
[2025-06-16 23:56] LABS: Chloride 95 mmol/L (98-107); Sodium 127 mmol/L (136-145)
[2025-06-17] VITALS (85 sets, daily range): BP systolic 71–151; BP diastolic 39–71; PULSE 71–97; RESP 14–81; TEMP 97.5–98.5; O2SAT 96–100
[2025-06-17 00:04] LABS: Anion Gap 18 (5-15); Blood Urea Nitrogen 57 mg/dL (9-23); Calcium 7.5 mg/dL (8.7-10.4); Carbon Dioxide 14 mmol/L (20-31); Glucose 106 mg/dL (74-106); Potassium 2.5 mmol/L (3.5-5.1)
--- NOTE | 2025-06-17 00:08 | DVH ---
EXAM: CT HEAD WITHOUT CONTRAST INDICATION: ALOC TECHNIQUE: CT of the head without intravenous contrast. Radiation Dose Information: CT Dose: CTDI volume is 68.29 mGy. Dose-length product is 1367.49 mGy*cm The dose indicators for CT are the volume Computed Tomography (CT) Dose Index (CTDIvol) and the Dose Length Product (DLP), and are measured in units of mGy and mGy-cm, respectively. These indicators are not patient dose, but values generated from the CT scanner acquisition factors. The report includes radiation exposure data for exposures received during this examination. COMPARISON: None FINDINGS: There is no evidence of acute intracranial hemorrhage, extra-axial collection, mass effect, midline s hift, herniation or hydrocephalus. The ventricles, sulci and cisterns are age appropriate. The ovalle-white differentiation is intact. Patchy periventricular and subcortical white matter hypoattenuation is nonspecific but may be related to small vessel ischemic disease. The visualized paranasal sinuses and mastoid air cells are clear. The surrounding soft tissues and osseous structures are unremarkable. IMPRESSION: 1. No acute intracranial abnormality.
[2025-06-17] MEDS: MEROPENEM 500MG IVPB 50 ML IV SCH (00:53)
[2025-06-17] MEDS ORDERED: ATEN50TA PO (01:27)
[2025-06-17 02:42] LABS: Hemoglobin 8.1 g/dL (12.2-16.2)
[2025-06-17 02:44] LABS: Hematocrit 24.8 % (36.0-46.0); Mean Corpuscular Hemoglobin 26.9 pg (28.0-32.0); Mean Corpuscular Volume 82.1 fL (80.0-100.0)
[2025-06-17 02:59] LABS: Alanine Aminotransferase 17 U/L (7-40); Alkaline Phosphatase 109 U/L (46-116); Anion Gap 18 (5-15); BUN/Creatinine Ratio 30.8 (10.0-20.0); Total Protein 6.5 g/dL (5.7-8.2)
[2025-06-17 03:00] LABS: Bilirubin, Total 0.5 mg/dL (0.2-1.0)
[2025-06-17 03:03] LABS: Albumin 2.7 g/dL (3.2-4.8); Blood Urea Nitrogen 64 mg/dL (9-23); Calcium 7.6 mg/dL (8.7-10.4); Carbon Dioxide 15 mmol/L (20-31); Chloride 95 mmol/L (98-107); Glucose 107 mg/dL (74-106); Potassium 2.7 mmol/L (3.5-5.1); Sodium 128 mmol/L (136-145)
[2025-06-17 03:25] LABS: Total Cells Counted 100.0 (100)
[2025-06-17] MEDS: POTASSIUM CHL 20MEQ/100ML 100 ML IV SCH (03:56)
[2025-06-17 04:51] LABS: Amphetamine Screen, Urine Neg (NEGATIVE); Barbiturate Scree,Urine Neg (NEGATIVE); Benzodiazephine Screen, Urine Neg (NEGATIVE); Cannabinoid Screen, Urine Neg (NEGATIVE); Cocaine Screen, Urine Neg (NEGATIVE); Opiate Scree,Urine Neg (NEGATIVE); Phencyclidine Screen, Urine Neg (NEGATIVE)
[2025-06-17] MEDS ORDERED: PIPERACILLIN-TAZOB 3.375GM 100 ML IV SCH (06:00)
[2025-06-17] MEDS ORDERED: VANCOMYCIN PER PHARMACY 0 MG IV SCH (08:30)
[2025-06-17] MEDS ORDERED: VANCOMYCIN 1GM/250ML KIT 250 ML IV ONE (09:00)
--- NOTE | 2025-06-17 09:17 | DVH ---
EXAM: XY CHEST PORTABLE Indication: SOB Technique: Single frontal view of the chest was obtained Comparison: XY CHEST PORTABLE on DOS: 06/16/25 FINDINGS: Lines and Tubes: None Lungs: Elevation of the right hemidiaphragm with right basilar atelectasis. Low lung volumes. No pneumothorax. Cardiomediastinal contours: Unremarkable. Atherosclerotic vascular calcifications of the thoracic ao rta are noted. Bones: No acute osseous abnormality. IMPRESSION: Elevation of the right hemidiaphragm with right basilar atelectasis. Low lung volumes.
--- NOTE | 2025-06-17 09:29 | DVH ---
CLINICAL HISTORY: hematuria TECHNIQUE: Complete ultrasound exam of the kidneys and bladder was performed. COMPARISON: None FINDINGS: Evaluation is limited due to suboptimal visualization of the kidneys. The right kidney has normal echogenicity and measures 11.1 cm. There is no focal parenchymal abnormal ity or evidence for stone. There is no hydronephrosis. The left kidney has normal echogenicity and measures 9.6 cm. There is no focal parenchymal abnormali ty or evidence for stone. There is no hydronephrosis. The bladder is not seen, likely decompressed by Morocho catheter. There is trace ascites. IMPRESSION: No significant sonographic abnormality of the kidneys.
[2025-06-17] MEDS: ALBUTEROL SULF 2.5 MG/0.5ML(0.5%) NEB SOLN NEB ONE (09:53)
[2025-06-17] MEDS: IPRATROPIUM BROM 0.5 MG/2.5ML INH SOL NEB ONE (09:53)
[2025-06-17] MEDS: SODIUM CHLORIDE 0.9% 500 ML IV ONE (10:00)
[2025-06-17 10:01] LABS: Hematocrit 27.2 % (36.0-46.0); Hemoglobin 8.5 g/dL (12.2-16.2); Mean Corpuscular Hemoglobin 26.6 pg (28.0-32.0); Mean Corpuscular Volume 85.0 fL (80.0-100.0); Nucleated Red Blood Cells % 0.1 %
[2025-06-17] MEDS: ETOMIDATE (2MG/ML) 20ML VIAL IV ONE ×2 (10:07→10:15)
[2025-06-17] MEDS: fentaNYL Drip 2500mCg/250mlNS 250 ML IV ONE (10:07)
[2025-06-17] MEDS: PROPOFOL 100 ML IV ONE (10:08)
[2025-06-17] MEDS: MIDAZOLAM DRIP 50 mg/50mL 50 ML IV ONE (10:08)
[2025-06-17] MEDS: ROCURONIUM 10MG/ML 10ML VIAL IV ONE ×2 (10:08→10:15)
[2025-06-17] MEDS: MIDAZOLAM DRIP 50 mg/50mL 50 ML IV SCH (10:15)
[2025-06-17] MEDS: PROPOFOL 100 ML IV SCH (10:15)
[2025-06-17] MEDS: NOREPINEPHRINE 8 MG/250ML KIT 250 ML IV SCH (10:19)
[2025-06-17] MEDS: PHENYLEPHRINE IV 250 ML IV ONE (10:34)
[2025-06-17 10:43] LABS: Anion Gap 18 (5-15)
[2025-06-17 10:46] LABS: Calcium 7.6 mg/dL (8.7-10.4); Carbon Dioxide 12 mmol/L (20-31); Chloride 98 mmol/L (98-107); Potassium 3.4 mmol/L (3.5-5.1); Sodium 128 mmol/L (136-145)
[2025-06-17 10:48] LABS: BUN/Creatinine Ratio 25.6 (10.0-20.0); Glucose 103 mg/dL (74-106)
[2025-06-17 10:53] LABS: Blood Urea Nitrogen 56 mg/dL (9-23)
--- NOTE | 2025-06-17 11:28 | DVHPN2 ---
Progress Note Date Seen: Jun 17, 2025 Medical Necessity Reason Pt with a Central, PICC or Fol: No Objective vital signs Vital Sign Date Time Temp Pulse Resp B/P (MAP) Pulse Ox O2 Delivery O2 Flow Rate FiO2 06/17/25 10:19 85 20 80/39 (53) 100 100 06/17/25 09:53 Nasal Cannula* 2 06/17/25 05:00 98.3 98.3 Total Intake and Output 06/16/25 06/16/25 06/17/25 15:00 23:00 07:00 Intake Total 1100 ml 350 ml Output Total 150 ml Balance 1100 ml 200 ml medications Current Medications Medications Dose Ordered Sig/Venessa Route Start Time Stop Time Status Last Admin Dose Admin Acetaminophen 325 mg Q4HP PRN PO 06/16/25 20:45 Morphine Sulfate 2 mg Q4HPRN PRN IV 06/16/25 20:45 Meropenem 50 ml @ 17 mls/hr Q12HR IV 06/16/25 22:00 06/17/25 00:53 17 MLS/HR Vancomycin HCl 0 ml @ 0 mls/hr UD IV 06/17/25 08:30 UNV Norepinephrine Bitartrate 250 ml @ 3.75 mls/hr Q24H IV 06/17/25 08:45 Furosemide 20 mg DAILY IV 06/17/25 10:00 Propofol 100 ml @ 2.661 mls/ hr Q24H IV 06/17/25 10:15 Midazolam HCl 50 ml @ 1 mls/hr Q24H IV 06/17/25 10:15 Fentanyl Citrate 250 ml @ 2.5 mls/hr Q24H IV 06/17/25 10:15 laboratory and microbiology Laboratory Tests 06/17/25 09:33 Test 06/17/25 09:33 Range/Units Serum Glucose 103 74-106 mg/dL Problem List/Assessment/Plan Problem List/Assessment/Plan 06/17/25 I ARRIVED TO EXAMINE PATIENT SHE WAS BEING INTUBATED, SHE IS HYPOTENSIVE AND TACHYCARDIC. SHE NEEDS TO BE RE HYDRATED AND MEDICALLY STABILIZED AND I WILL OPERATE ON HER TOMORROW IF SHE IS STABLE ENOUGH TO TOLERATE ANESTHESIA Plan discussed with: POP Taylor MD Jun 17, 2025 11:28
[2025-06-17 11:35] LABS: Base Excess -16.3 mmol/L (-2.0-3.0)
--- NOTE | 2025-06-17 11:51 | DVH ---
EXAM: XY R ANKLE 2 VIEW XRAY CLINICAL INDICATION: Mechanical fall TECHNIQUE: XY R ANKLE 2 VIEW XRAY Comparison: None FINDINGS/IMPRESSION: There is no evidence of acute fracture or dislocation. The visualized joint space is well maintained. The alignment is anatomical. There is no radiopaque foreign body.
[2025-06-17] MEDS: fentaNYL Drip 2500mCg/250mlNS 250 ML IV SCH (12:00)
--- NOTE | 2025-06-17 12:23 | DVH ---
CHEST RADIOGRAPH Indication: POST INTUBATION. Technique: Single frontal view of the chest was obtained COMPARISON: XY CHEST PORTABLE on DOS: 06/17/25, XY CHEST PORTABLE on DOS: 06/16/25 FINDINGS: Lines and Tubes: Endotracheal tube and enteric catheter and right central venous catheter in satisfac tory position. Lungs: Congestion Pleura: No effusion. No pneumothorax. Cardiomediastinal contours: Cardiomegaly Bones: Unremarkable IMPRESSION: Lines and tubes in satisfactory position.
[2025-06-17 13:13] LABS: Hematocrit 25.5 % (36.0-46.0); Hemoglobin 8.0 g/dL (12.2-16.2); Mean Corpuscular Hemoglobin 26.3 pg (28.0-32.0); Mean Corpuscular Volume 83.7 fL (80.0-100.0); Nucleated Red Blood Cells % 0.1 %
[2025-06-17 13:27] LABS: Alanine Aminotransferase 18 U/L (7-40); Anion Gap 16 (5-15); BUN/Creatinine Ratio 29.5 (10.0-20.0); Bilirubin, Total 0.4 mg/dL (0.2-1.0); Magnesium 2.1 mg/dL (1.6-2.6); Potassium 3.6 mmol/L (3.5-5.1); Total Protein 6.3 g/dL (5.7-8.2)
[2025-06-17 13:29] LABS: Albumin 2.4 g/dL (3.2-4.8); Alkaline Phosphatase 119 U/L (46-116); Blood Urea Nitrogen 66 mg/dL (9-23); Calcium 7.6 mg/dL (8.7-10.4); Carbon Dioxide 14 mmol/L (20-31); Chloride 98 mmol/L (98-107); Glucose 126 mg/dL (74-106); Sodium 128 mmol/L (136-145)
--- NOTE | 2025-06-17 13:32 | DVHPNRES ---
Progress Note Date Seen: Jun 17, 2025 Resident Creating Document: STEPHEN SCHULTZ RESIDENT Has the PT tested + for MRSA If YES, has PT been informed?: No Medical Necessity Reason Pt with a Central, PICC or Fol: Yes The following are medically ne: Central Line, Turner Catheter Reason for turner catheter: Strict I&O Subjective Review of Systems This is a 74-year-old female who presented to the ED with progressive drowsiness, generalized weakness, and slurred speech for two weeks. at bedside reported the patient has not been herself. She has had abnormal uterine bleeding (spotting for several months). She sustained a fall at home during attempted transfer from bed to wheelchair but denied loss of consciousness; noted right leg bruise. She was admitted by the inpatient admissions team. On the floor, she developed wheezing and hypoxia with persistent MAP <65 mmHg unresponsive to IV fluid boluses. She was intubated for airway protection and respiratory failure, started on norepinephrine infusion, and a central venous line was placed. Transferred to ICU for further management. Currently intubated, sedated, and mechanically ventilated. Hemodynamically supported with norepinephrine. Todays Progress / Updates * Procedures performed today: Intubation, central line placement, initiation of norepinephrine. * Hemodynamics: On norepinephrine to maintain MAP >65 mmHg. * Ventilation: FiO? 30%, SpO? 33089%. Post-intubation CXR confirmed satisfactory ETT/NGT and central line placement. * Renal: Rising creatinine (2.12 ? 2.24 mg/dL), BUN 72 ? 66 mg/dL, GFR ~2224.. * Electrolytes: hypokalemia corrected * Cardiac: Troponin mildly elevated (15 ? 39 ng/L), BNP pending. EKG NORMAL. Likely demand ischemia. * Heme: WBC trending up (20.4 ? 23.2 K), Hgb trending down (9.1 ? 8.0 g/dL), normocytic indices. * Liver function: Mild ALP elevation (128), AST/ALT normal. * Cultures: Blood culture no growth at 24 hrs. Urinalysis proteinuria, trace abnormalities, otherwise negative for infection. * Imaging: * CT Abd/Pelvis: Multiple complex abdominal/pelvic fluid collections (largest 21.7 x 8.0 cm) concerning for abscesses; sigmoid colon wall thickening (diverticulitis vs perforation); heterogeneous uterus concerning for malignancy; left inguinal hernia with bladder involvement; soft tissue anasarca. * Pelvic US: Enlarged uterus (9.1 4.3 8.0 cm) with thickened endometrium (1.1 cm); complex 10.2 8.1 1.7 cm fluid collection anterior to uterus; bilateral ovaries not visualized. * CXR pre-intubation: Right basilar atelectasis, low lung volumes. * CXR post-intubation: ETT, NG tube, and central line in place; cardiomegaly with pulmonary congestion. * General: Previously weak, drowsy. * Neuro: Slurred speech, altered sensorium; currently sedated. * CV: Hypotension requiring norepinephrine. * Resp: Wheezing, hypoxia ? intubated. * GI: Abdominal pain; imaging shows abscess/diverticulitis. * : Vaginal spotting x months. * MSK: Right leg bruise after fall. * Skin: Generalized edema/anasarca. Objective vital signs Vital Sign Date Time Temp Pulse Resp B/P (MAP) Pulse Ox O2 Delivery O2 Flow Rate FiO2 06/17/25 11:47 96 24 111/61 (78) 98 50 06/17/25 09:53 Nasal Cannula* 2 06/17/25 05:00 98.3 98.3 Total Intake and Output 06/16/25 06/16/25 06/17/25 15:00 23:00 07:00 Intake Total 1100 ml 350 ml Output Total 150 ml Balance 1100 ml 200 ml medications Current Medications Medications Dose Ordered Sig/Venessa Route Start Time Stop Time Status Last Admin Dose Admin Acetaminophen 325 mg Q4HP PRN PO 06/16/25 20:45 Morphine Sulfate 2 mg Q4HPRN PRN IV 06/16/25 20:45 Meropenem 50 ml @ 17 mls/hr Q12HR IV 06/16/25 22:00 06/17/25 00:53 17 MLS/HR Vancomycin HCl 0 ml @ 0 mls/hr UD IV 06/17/25 08:30 Norepinephrine Bitartrate 250 ml @ 3.75 mls/hr Q24H IV 06/17/25 08:45 06/17/25 10:19 3.75 MLS/HR Furosemide 20 mg DAILY IV 06/17/25 10:00 Propofol 100 ml @ 2.661 mls/ hr Q24H IV 06/17/25 10:15 Midazolam HCl 50 ml @ 1 mls/hr Q24H IV 06/17/25 10:15 06/17/25 10:15 1 MLS/HR Fentanyl Citrate 250 ml @ 2.5 mls/hr Q24H IV 06/17/25 10:15 06/17/25 12:00 2.5 MLS/HR Vancomycin HCl 250 ml @ 250 mls/hr Q1H IV 06/17/25 11:45 06/17/25 13:44 Examination * General: Intubated, sedated, critically ill. * HEENT: Normocephalic, ETT secured. * CV: Hypotensive on norepinephrine, regular rhythm. * Resp: Intubated; ventilator dependent; improved O? saturations. * Abdomen: Distended, diffuse tenderness prior to sedation. * Extremities: Right leg ecchymosis, bilateral edema. * Neuro: Sedated; encephalopathic prior to intubation. * Skin: Warm, pale, with edema. laboratory and microbiology Laboratory Tests 06/17/25 13:00 Test 06/17/25 13:00 Range/Units Serum Glucose 126 H 74-106 mg/dL Problem List/Assessment/Plan Problem List/Assessment/Plan Assessment 1. Septic shock due to complicated diverticulitis with multiple abscesses requiring intubation, vasopressors, central line. 2. Acute hypoxic respiratory failure requiring intubation and mechanical ventilation. 3. Complicated diverticulitis with intra-abdominal abscesses (?21.7 cm) rule out perforation. 4. Possible endometrial malignancy (abnormal bleeding, thickened endometrium, uterine heterogeneity). 5. JILLIAN (Stage II, KDIGO)/VMN likely multifactorial (sepsis, shock, nephrotoxic exposure). 6. Hyponatremia (moderate), hypokalemia (corrected), hypocalcemia, hypoalbuminemia. 7. Normocytic anemia rule out chronic disease vs acute blood loss. 8. type II NSTEMI/demand ischemia. 9. HTN 10. fibromyalgia, 11. obesity. Plan System Doss Neuro: * Sedation with midazolam + fentanyl, daily sedation breaks. * Neuro checks q2h. Respiratory: * Ventilator management: ARDSnet lung protective strategy. * Daily ABG + CXR. Cardiovascular: * Continue norepinephrine; titrate to maintain MAP >65. * Add vasopressin if high requirements. * Echocardiogram to evaluate cardiac function. * Trend troponins. * Infectious Disease / GI: * Continue meropenem + vancomycin. * Follow cultures (blood/urine/sputum). * General surgery following possible surgical drainage when stable. * Renal: * Monitor strict I&O, daily BMP. * Avoid nephrotoxins. * Nephrology consult if worsening JILLIAN. * Heme/Onc: * Transfuse if Hgb <7. * MANAGER OF FINANCIAL/Onc consult post-stabilization for uterine evaluation (possible biopsy/MRI). Electrolytes/Nutrition: * Replace K, Mg, Ca as needed. * Nutrition consult: initiate tube feeds once stable. Endocrine: * Monitor glucose, target [id number]. * TSH elevated (2.296 H) subclinical hypothyroidism; defer management until stable. Prophylaxis: * DVT: Heparin SQ unless contraindicated. * GI: Pantoprazole IV daily. * Stress ulcer prophylaxis continued. Lines/Tubes: * ETT, central line, Turner maintain aseptic precautions. Critical Care Time Spent >45 minutes in direct critical care management, including chart/lab/imaging review, family counseling, intubation, vasopressor initiation, central line placement, and coordination with ICU and surgical teams. Discussion Case discussed in detail with the attending physician, including the clinical presentation, diagnostic workup, and comprehensive management plan. Plan discussed with: Spouse My Orders My Orders Orders - STEPHEN SCHULTZ RESIDENT Procedure Category Date Status Time Ct Ab Pel With Oral CT 06/17/25 Logged Con Only 12:59 Comprehensive LAB 06/18/25 Verified Metabolic Panel 04:00 Date of Service: Jun 17, 2025 Billing Provider: ELDA MULLER MD Common Visit Codes: 28708-[id number] CARE 30-74 MIN STEPHEN SCHULTZ RESIDENT Jun 17, 2025 13:32 ELDA MULLER MD Jun 23, 2025 22:26
--- NOTE | 2025-06-17 13:36 | DVH ---
EXAM: US BILAT LOWER DVT Clinical History: Lower limb swelling Comparison: None Technique: Duplex Doppler evaluation of the deep venous systems of both lower extremities from the common femora l veins to the popliteal veins including color Doppler and spectral/pulsed waveform analysis was perf ormed. Findings: No visible intraluminal venous thrombus. No evidence of incompressibility or abnormal color or spectr al Doppler flow visualized in the deep bilateral lower extremity veins. Proximal greater saphenous ve ins are grossly unremarkable. Impression: 1. No sonographic evidence of deep venous thrombosis throughout the bilateral lower extremities from the popliteal veins to the common femoral veins.
[2025-06-17 14:15] LABS: Protein, Urine 101.6 mg/dL (1-14)
[2025-06-17] MEDS: VANCOMYCIN 1GM/250ML KIT 250 ML IV SCH ×2 (14:49→16:30)
[2025-06-17] MEDS: FUROSEMIDE 20 MG/2 ML VIAL IV ONE (14:50)
[2025-06-17] MEDS: FUROSEMIDE 20 MG/2 ML VIAL IV SCH (14:51)
[2025-06-17] MEDS: OMNIPAQUE 12mg/ml 500ml ORAL SOLUTION PO ONE (17:01)
[2025-06-17] MEDS: PANTOPRAZOLE 40 MG/10 ML VIAL INJ IV ONE (20:14)
--- NOTE | 2025-06-17 20:58 | DVHNC2 ---
Intubation Indication: Respiratory Insufficiency Prep: Preoxygenation Pretreated with: Sedation, Other (etomidate) Medicated with: Other (rocuronium) Intubation Approach: Orotracheal Intubation size: cm (23 cm) Informed consent obtained: Yes Risks/benefits/alt described: Yes UTO Consent The risks and benefits of the procedure and the sedation options and risk were discussed with the patient's healthcare proxy. All questions were answered and informed consent was obtained. Notes Procedure: Endotracheal Intubation INDICATION: Acute respiratory failure, accessory muscle usage Physician: MD Gene CONSENT: Emergent procedure. Implied. The risks and benefits of the procedure and the sedation options and risk were discussed with the patient's healthcare proxy. All questions were answered and informed consent was obtained. Time out time: Patient medications and allergies reviewed. Patient identification and proposed procedure were verified prior to the procedure by the physician, and a nurse in the patient's room. The heart rate, respiratory rate, oxygen saturations, blood pressure, adequacy of pulmonary ventilation, and response to care were monitored throughout the procedure. The physical status of the patient was reassessed after the procedure. PROCEDURE SUMMARY: A time out was performed. My hands were washed immediately prior to the procedure. I wore a surgical cap, mask with protective eyewear, gown and gloves throughout the procedure. The patient was placed on a phototypesetting equipment monitor including continuous pulse oximetry. The patient received 16 mg Etomidate and 50 mg rocuronium for induction. Cricoid pressure was maintained from time induction agent was given to time of cuff balloon inflation. Using a MAC 4 GlideoScope and a size 8.0 endotracheal tube with stylet, the patient was intubated on the 1 attempt. The stylet was removed and cuff balloon was inflated. Appropriate endotracheal tube position was con firmed by direct visualization of vocal cord passage, fogging of the tube, CO2 colorimetric indicator and symmetric breath sounds. The tube was secured at 23 cm at the lips. Post intubation chest x-ray is demonstrates the ETT between 2-6 cm above the nadir. CPT Code: 13936 Date of Service: Jun 17, 2025 Billing Provider: ELDA MULLER MD Common Visit Codes: PROCEDURE ONLY Procedure Codes: [id number] STEPHEN SCHULTZ RESIDENT Jun 17, 2025 20:58 ELDA MULELR MD Jun 23, 2025 22:28
--- NOTE | 2025-06-17 20:58 | DVHNC2 ---
Central Line Recorder of insertion practice: Medical Records Coordinator, Observer Occupation of cornice upholsterer: Name of cornice upholsterer (Jon Rouse) Indication: Hypotension, Volume resuscitation, Suspected infection Room prepared for procedure: Yes Medical Records Coordinator performed hand hygien: Yes Maximal sterile barrier precau: Mask/Eye shield, Sterile gown, Cap, Sterlie gloves, Large sterlie drape Skin Preparation: Chlorhexidine gluconate, Providine iodine, Alcohol Skin preparation completely dr: Yes Insertion site: Right, Internal jugular Central line catheter type: Tunneled- not dialysis Number of lumens: 3 Central line exchanged over a: No Antiseptic ointment applied to: Yes Post Assessment: Chest X-Ray Informed consent obtained: Yes () Risks/benefits/alt described: Yes () UTO Consent Yes.During the informed consent discussion regarding the procedure, or treatment, I explained the following to the patient's : a. Nature of the procedure or treatment and who will perform the procedure or treatment. b. Necessity for procedure and the possible benefits. c. Risks and complications (most common and serious). d. Alternative treatments and the risks, benefits and side effects of each (including no treatment). e. Likelihood of the patient achieving her goals without this procedure and surgery treatment. f. Problems that might occur during the recuperation. Notes INTERNAL JUGULAR CENTRAL LINE (Central Line) PLACEMENT PROCEDURE NOTE: Recorder of insertion practice: Medical Records Coordinator Occupation of cornice upholsterer: Other (Resident physician) Indication: Hypotension Room prepared for procedure: Yes Medical Records Coordinator performed hand hygien: Yes Maximal sterile barrier precau: Mask/Eye shield, Sterile gown, Cap, Sterlie gloves, Large sterlie drape Skin Preparation: Chlorhexidine gluconate, Iodine. Skin preparation completely dry: Yes IJ Line Location: Right IJ PROCEDURE SUMMARY: The [facility] Central Line Insertion Practices form was completed by an independent healthcare worker starting with the first handwash prior to starting sterile technique. A time out was performed. My hands were washed immediately prior to the procedure. I wore a surgical cap, mask with protective eyewear, full gown and sterile gloves throughout the procedure. The patient was placed in Tr endelenburg position. RIGHT chest region was prepped using chlorhexidine scrub and draped in sterile fashion using a full drape and sterile probe cover and sterile gel employed. The medial and lateral heads of the sternocleidomastoid muscle were identified as was the carotid pulse. The Internal Jugular vein was identified using the ultrasound. Anesthesia was achieved over the vein using 1% lidocaine. Using real-time out of plane guidance, the introducer needle was inserted into the Internal Jugular vein under direct ultrasound visualization. Venous blood was withdrawn. The syringe was removed and a guidewire was advanced into the introducer needle. The guidewire was visualized in the Internal Jugular Vein by ultrasound in both short and long axis. A small incision was made at the skin surface with a scalpel and the introducer needle was exchanged for a dilator over the guidewire. After appropriate dilation was obtained, the dilator was exchanged over the wire for the central venous catheter. The wire was removed and the catheter was sutured to skin. A sterile sorbaview shield was placed over the catheter at the insertion site with date and time of placement. The patient tolerated the procedure without any hemodynamic compromise. At time of procedure completion, all ports aspirated and flushed properly. Checked pleural slide with bedside ultrasound without signs of pneumothorax. Post-procedure chest x-ray is pending at this time. Estimated blood loss is 10 ml (approx). Performed by Mikel Webb MD and Devendra Schultz MD at bedside. Follow up CXR bedside to confirm. Supervised by the attending Dr. Mills Date of Service: Jun 17, 2025 Billing Provider: ELDA MILLS MD Common Visit Codes: PROCEDURE ONLY Procedure Codes: [id number] NON-TUNNEL CV CATH DEVENDRA SCHULTZ Jun 17, 2025 20:58 ELDA MILLS MD Jun 23, 2025 22:27
[2025-06-18] VITALS (108 sets, daily range): BP systolic 55–161; BP diastolic 25–89; PULSE 63–90; RESP 11–30; TEMP 97.7–98.2; O2SAT 78–100
--- NOTE | 2025-06-18 00:18 | DVHINCON2 ---
Date of service: Jun 17, 2025 Referring Physician Tu Reason for Consultation Cardiac clearance for surgery History of Present Illness This is a 74-year-old female with a PMH of Hypertension, Fibromyalgia, diverticulosis with multiple episodes of diverticulitis who presents to ED with via EMS with a complaint of progressive drowsiness, generalized weakness and slurred speech x 2 weeks. Patient's at bedside states the patient has not been herself recently and was concerned of a "flare-up of fibromyalgia". reports that when they try to mobilize her from the bed to the wheelchair patient fell with no loss of consciousness and bruised her right leg. also reports that patient presented abnormal uterine bleeding (spotting) for the past few months. WBC 23.2, HGB 8, HCT 25.5, NA 128, BUN 66, HEAD CD REACTOR OPERATOR 2.24, CA 7.6, TROP 39. CT ABD PEL shows multiple complex abdominal and pelvic collections measuring 21.7 x 8.0 cm, 3.6 x 2.2 cm, 2.4 x 2.7 cm and 6.4 x 2.2 cm. Sigmoid colon wall thickening with underlying diverticular disease could represent diverticulitis/perforated diverticulitis. Heterogeneous appearance of the uterus. Left inguinal hernia containing a small portion of the bladder measuring 4.8 x 4.1 cm. There is thickening of the bladder wall within the hernia. Soft tissue edema/anasarca. Acute/ subacute posterior left 11th and 12th rib fractures. Patient was intubate for airway protection this afternoon.Patient was admitted to the hospital. I am asked to consult on this patient. Allergies: Coded Allergies: Codeine (Verified Allergy, Unknown, 06/16/25) Home Meds Reported Medications Atenolol (Atenolol) 50 Mg Tab, 50 MG PO BID for 30 Days, MG 06/17/25 Current Medications Current Medications Medications (Trade) Dose Ordered Sig/Venessa Route PRN Reason Start Time Stop Time Status Last Admin Sodium Chloride 1,000 ml @ 60 mls/hr [id number] IV 06/16/25 20:45 06/17/25 08:34 DC 06/16/25 22:30 Acetaminophen (Tylenol Tablet) 325 mg Q4HP PRN PO MILD PAIN (1-3 PAIN SCALE) 06/16/25 20:45 Morphine Sulfate 2 mg Q4HPRN PRN IV SEVERE PAIN (7-10 PAIN SCALE) 06/16/25 20:45 06/17/25 18:36 DC Nitroglycerin (Ntrostat Sublingual) 0.4 mg Q5MINP PRN SL FOR CHEST PAIN 06/16/25 20:45 06/17/25 08:34 DC Morphine Sulfate 2 mg Q30M PRN IV FOR CHEST PAIN 06/16/25 20:45 06/17/25 08:34 DC Piperacillin Sod/ Tazobactam Sod 100 ml @ 25 mls/hr Q8HR IV 06/17/25 06:00 06/16/25 21:51 DC Potassium Chloride 100 ml @ 50 mls/hr Q2H IV 06/16/25 21:45 06/16/25 22:34 DC Meropenem 50 ml @ 17 mls/hr Q12HR IV 06/16/25 22:00 06/17/25 16:19 Potassium Chloride 100 ml @ 50 mls/hr Q2H IV 06/17/25 03:45 06/17/25 09:44 DC 06/17/25 08:42 Vancomycin HCl 0 ml @ 0 mls/hr UD IV 06/17/25 08:30 Norepinephrine Bitartrate 250 ml @ 3.75 mls/hr Q24H IV 06/17/25 08:45 06/17/25 10:19 Furosemide (Lasix Injection) 20 mg DAILY IV 06/17/25 10:00 06/17/25 14:51 Propofol 100 ml @ 2.661 mls/ hr Q24H IV 06/17/25 10:15 Midazolam HCl 50 ml @ 1 mls/hr Q24H IV 06/17/25 10:15 06/17/25 10:15 Fentanyl Citrate 250 ml @ 2.5 mls/hr Q24H IV 06/17/25 10:15 06/17/25 12:00 Vancomycin HCl 250 ml @ 250 mls/hr Q1H IV 06/17/25 11:45 06/17/25 13:44 DC 06/17/25 16:46 Vancomycin HCl 250 ml @ 250 mls/hr Q1H IV 06/17/25 16:30 06/17/25 17:29 DC Pantoprazole Sodium (Protonix) 40 mg DAILY IV 06/18/25 10:00 Review of Systems unable to review: Patient is intubated. Vital Signs Vital Signs Date Time Temp Pulse Resp B/P (MAP) Pulse Ox O2 Delivery O2 Flow Rate FiO2 06/17/25 20:00 99/52 06/17/25 19:00 73 26 99 06/17/25 18:10 30 06/17/25 18:00 Mechanical Ventilator+ 06/17/25 12:39 98.5 98.5 06/17/25 09:53 2 Physical Exam GENERAL: Ill appearing, intubated on ventilator. Obese. EYES: PERRL, EOMI. Anicteric. HENT: Moist mucous membranes. LUNGS: breath sounds. CARDIOVASCULAR: Regular rate and rhythm. ABDOMEN: Soft, nontender and nondistended. EXTREMITIES: No edema. SKIN: Warm, dry. Labs/Diagnostic Data Labs Test 06/17/25 16:14 06/17/25 13:00 06/17/25 11:27 06/17/25 09:33 Range/Units White Blood Count 23.2 #H 4.4-10.8 10^3/uL Red Blood Count 3.04 L 4.0-5.20 10^6/uL Hemoglobin 8.0 L 12.2-16.2 g/dL Hematocrit 25.5 L 36.0-46.0 % Mean Corpuscular Volume 83.7 80.0-100.0 fL Mean Corpuscular Hemoglobin 26.3 L 28.0-32.0 pg Mean Corpuscular Hemoglobin Concent 31.4 L 32.0-36.0 g/dL Red Cell Distribution Width 18.1 H 11.8-14.3 % Platelet Count 280 140-450 10^3/uL Mean Platelet Volume 7.4 6.9-10.8 fL Neutrophils (%) (Auto) 94.1 H 37.0-80.0 % Lymphocytes (%) (Auto) 1.9 L 10.0-50.0 % Monocytes (%) (Auto) 3.8 0.0-12.0 % Eosinophils (%) (Auto) 0.1 0.0-7.0 % Basophils (%) (Auto) 0.1 0.0-2.0 % Neutrophils # (Auto) 21.8 H 1.6-8.6 10 ^3/uL Lymphocytes # (Auto) 0.4 0.4-5.4 10 ^3/uL Monocytes # (Auto) 0.9 0-1.3 10 ^3/uL Eosinophils # (Auto) 0 0-0.8 10 ^3/uL Basophils # (Auto) 0 0-0.2 10 ^3/uL Nucleated Red Blood Cells 0.1 % Sodium Level 128 L 136-145 mmol/L Potassium Level 3.6 3.5-5.1 mmol/L Chloride Level 98 98-107 mmol/L Carbon Dioxide Level 14 L 20-31 mmol/L Anion Gap 16 H 5-15 Blood Urea Nitrogen 66 #H 9-23 mg/dL Creatinine 2.24 H 0.550-1.02 mg/dL Glomerular Filtration Rate Calc 22 >90 mL/min BUN/Creatinine Ratio 29.5 H 10.0-20.0 Serum Glucose 126 H 74-106 mg/dL Calcium Level 7.6 L 8.7-10.4 mg/dL Magnesium Level 2.1 1.6-2.6 mg/dL Total Bilirubin 0.4 0.2-1.0 mg/dL Aspartate Amino Transferase (AST) 19 13-40 U/L Alanine Aminotransferase (ALT) 18 7-40 U/L Alkaline Phosphatase 119 H 46-116 U/L Troponin I High Sensitivity 39 *H </=34 ng/L Total Protein 6.3 5.7-8.2 g/dL Albumin 2.4 L 3.2-4.8 g/dL Blood Gas Specimen Type Arterial Blood Gas Sample Site Right radial Blood Gas Patient Temperature 37.0 Arterial Blood Date Drawn [id number] Arterial Blood pH 7.092 *L 7.350-7.450 Arterial Blood Partial Pressure CO2 42.3 32.0-45.0 mmHg Arterial Blood Partial Pressure O2 307.2 *H 83.0-108.0 mmHg Arterial Blood HCO3 12.6 L 21.0-28.0 mmol/L Arterial Blood Oxygen Saturation 99.0 H 94.0-98.0 % Arterial Blood Base Excess -16.3 L -2.0-3.0 mmol/L Arterial Blood Oxyhemoglobin 98.3 H 94.0-98.0 % Arterial Blood Carboxyhemoglobin 0.4 L 0.5-1.5 % Arterial Blood Methemoglobin 0.3 0.0-1.5 % Donnell Test Modified Blood Gas Total Hemoglobin 9.50 L 12.0-16.0 g/dL Blood Gas Set Respiration Rate 20.0 Blood Gas Modality Vent - ac FiO2 % 100.0 Blood Gas Tidal Volume 350.0 Blood Gas PEEP or CPAP 5.0 Blood Gas Critical Value Read Back Yes Blood Gas Notified Whom Blood Gas Notified Time [id number] Blood Gas Notified By Justyna louis rt Lactic Acid Level 1.1 0.4-2.0 mmol/L HIV (1&2) Antibody Negative Negative Test 06/17/25 03:45 06/17/25 02:31 06/16/25 21:48 06/16/25 20:42 Range/Units Urine Creatinine 78.91 30.0-125.0 mg/dL Urine Protein/Creatinine Ratio 1.29 Urine Total Protein 101.6 H 1-14 mg/dL Urine Opiates Screen Neg NEGATIVE Urine Fentanyl Screen Neg NEGATIVE Urine Barbiturates Screen Neg NEGATIVE Urine Phencyclidine Screen Neg NEGATIVE Urine Amphetamines Screen Neg NEGATIVE Urine Benzodiazepines Screen Neg NEGATIVE Urine Cocaine Screen Neg NEGATIVE Urine Cannabinoids Screen Neg NEGATIVE Differential Total Cells Counted 100.0 100 Neutrophils % (Manual) 85 H 37.0-80.0 Band Neutrophils % (Manual) 8 Lymphocytes % (Manual) 2 L 10.0-50.0 Monocytes % (Manual) 3 0-12 Eosinophils % (Manual) 0 0-7 Basophils % (Manual) 0 0.0-2.0 Metamyelocytes % (manual) 2 Myelocytes % (Manual) 0 Promyelocytes % (Manual) 0 Blast Cells % (Manual) 0 Reactive Lymphocytes 0 Platelet Estimate Adequate Blood Gas Liter Flow 0.00 Prothrombin Time 12.7 H 9.3-11.8 sec Prothrombin Time INR 1.22 H 0.9-1.15 Activated Partial Thromboplast Time 40.1 H 24.5-34.5 SEC Hemoglobin A1c 5.8 H <5.7 % A1C Phosphorus Level 5.0 2.4-5.1 mg/dL Triglycerides Level 152 H < 150 mg/dL Cholesterol Level 94 < 200 mg/dL LDL Cholesterol 50 < 100 mg/dL HDL Cholesterol 8 L 40-59 mg/dL Vitamin B12 Level 371 211-911 pg/mL Vitamin D 25-Hydroxy 6.7 L 30.0-100 ng/mL Thyroid Stimulating Hormone (TSH) 1.24 0.55-4.78 uIU/mL Test 06/16/25 16:40 06/16/25 16:37 06/16/25 16:30 Range/Units Urine Color Yellow Yellow Urine Clarity Turbid H Clear Urine pH 5.5 5.0-9.0 Urine Specific [place] 1.014 1.001-1.035 Urine Protein Trace H Negative Urine Ketones Negative Negative Urine Blood Negative Negative /uL Urine Nitrite Negative Negative Urine Bilirubin Negative Negative Urine Urobilinogen 3 H Negative mg/dL Urine Leukocyte Esterase Negative Negative /uL Urine RBC 2 0 - 4 /hpf Urine Microscopic WBC 5 0-5 /HPF Urine Squamous Epithelial Cells Few <5 /hpf Urine Bacteria None seen None Seen /hpf Urine Glucose Normal Normal mg/dL Beta-Hydroxybutyric Acid 2.296 H < 0.4 mmol/L Anisocytosis (manual) Slight Tear Drop Cells Few [place] Cells Few B-Type Natriuretic Peptide 1669.81 0-100 pg/mL Lipase 19 12-53 U/L Microbiology Date/Time Source Procedure Growth Status 06/16/25 18:36 Blood Blood Culture - Preliminary NO GROWTH AFTER 24 HOURS OF INCUBATION. Resulted Assessment Metabolic encephalopathy secondary to sepsis. Sepsis due to complicated diverticulitis. Complicated diverticulitis with multiple abscesses. JILLIAN hemodynamically mediated (VMN). Metabolic acidosis with elevated anion gap and normal lactic acid. Acute respiratory failure likely secondary to congestive heart failure. Acute congestive heart failure (unknown LVEF). Questionable uterine malignancy. Hyponatremia. Hypokalemia. Normocytic anemia. Obesity. Hypertension. Fibromyalgia. Plan/Recommendation I agree with your ongoing assessment and care of plan. Echocardiogram. Diuretics with Lasix. IV antibiotics as ordered. Vasopressors for hemodynamic support. GI prophylactics. Additional plan as per the hospital course. Critical care time of 90 minutes provided to include time spent evaluation of patient at bedside, when appropriate patient/family education for diagnosis, t reatment plan, review of pertinent medical information and discussion of care with specialty providers and PCP.Mechanical ventilator parameters, treatment and adjustments have personally been reviewed by me and treatment plan by cloth winding supervisor has also been reviewed. Plan discussed with: Other DANYELLE GIRALDO MD Jun 17, 2025 20:35
[2025-06-18 04:29] LABS: Hematocrit 25.6 % (36.0-46.0)
[2025-06-18 04:31] LABS: Hemoglobin 8.6 g/dL (12.2-16.2); Mean Corpuscular Hemoglobin 27.7 pg (28.0-32.0); Mean Corpuscular Volume 82.8 fL (80.0-100.0)
[2025-06-18 04:38] LABS: Alanine Aminotransferase 20 U/L (7-40); Alkaline Phosphatase 113 U/L (46-116); Anion Gap 15 (5-15); BUN/Creatinine Ratio 27.7 (10.0-20.0); Bilirubin, Total 0.4 mg/dL (0.2-1.0); Chloride 99 mmol/L (98-107); Total Protein 6.2 g/dL (5.7-8.2)
[2025-06-18 04:43] LABS: Albumin 2.4 g/dL (3.2-4.8); Blood Urea Nitrogen 70 mg/dL (9-23); Calcium 7.3 mg/dL (8.7-10.4); Carbon Dioxide 14 mmol/L (20-31); Glucose 138 mg/dL (74-106); Potassium 2.9 mmol/L (3.5-5.1); Sodium 128 mmol/L (136-145)
[2025-06-18 05:20] LABS: Total Cells Counted 100.0 (100)
[2025-06-18] MEDS: VASOPRESSIN 20 UNIT/ML ONE (05:23)
[2025-06-18] MEDS: VASOPRESSIN 20 UNITS in SODIUM CHL 0.9% 99 ML IV SCH (05:24)
[2025-06-18] MEDS: POTASSIUM CHL 20MEQ/100ML 100 ML IV SCH (05:24)
[2025-06-18 07:19] LABS: Base Excess -14.7 mmol/L (-2.0-3.0)
--- NOTE | 2025-06-18 07:56 | ECG ---
[facility] Test Date: 2025-06-17 Test Time: 09:25:11 Pat Name: SHANNON BULLOCK Department: Respiratoy Room: [address] [place] [address] Gender: F Director Of Finance: : 1950 Requested By: JUWAN BRIGHT Order Number: [id number] Reading MD: Frederick Nino Measurements Intervals [place] Rate: 81 P: 44 NE: 150 QRS: 9 QRSD: 97 T: -18 QT: 402 QTc: 467 Interpretive Statements Sinus rhythm Inferior infarct, age indeterminate Electronically Signed On 06-22-2025 21:37:05 PDT by Frederick Nino Please click the below link to view image of tracing.
--- NOTE | 2025-06-18 09:05 | DVHINCON2 ---
Date of service: Jun 17, 2025 Referring Physician hospitalist Reason for Consultation possible ovarian mass History of Present Illness pt is intubated cant obtain any information ,pelvic sono reveald 9 wks size uterus with thickened endometrium ,some collection of fluid ant to uterus noted Past Medical History htn,diverticular ds,fibromyalgai Past Surgical History cholecystectomy,umbilical hernia Family History na Social History na Allergies: Coded Allergies: Codeine (Verified Allergy, Unknown, 06/16/25) Home Meds Reported Medications Atenolol (Atenolol) 50 Mg Tab, 50 MG PO BID for 30 Days, MG 06/17/25 Current Medications Current Medications Medications (Trade) Dose Ordered Sig/Venessa Route PRN Reason Start Time Stop Time Status Last Admin Furosemide (Lasix Injection) 20 mg DAILY IV 06/17/25 10:00 06/17/25 14:51 Propofol 100 ml @ 2.661 mls/ hr Q24H IV 06/17/25 10:15 Midazolam HCl 50 ml @ 1 mls/hr Q24H IV 06/17/25 10:15 06/18/25 00:58 Fentanyl Citrate 250 ml @ 2.5 mls/hr Q24H IV 06/17/25 10:15 06/17/25 12:00 Vancomycin HCl 250 ml @ 250 mls/hr Q1H IV 06/17/25 11:45 06/17/25 13:44 DC 06/17/25 16:46 Vancomycin HCl 250 ml @ 250 mls/hr Q1H IV 06/17/25 16:30 06/17/25 17:29 DC Pantoprazole Sodium (Protonix) 40 mg DAILY IV 06/18/25 10:00 Potassium Chloride 100 ml @ 50 mls/hr Q2H IV 06/18/25 05:15 06/18/25 09:14 06/18/25 06:51 Vasopressin 20 units/Sodium Chloride 100 ml @ 9 mls/hr Q11H7M IV 06/18/25 05:15 06/18/25 05:24 Review of Systems Constitutional: no fever, chill, weight loss HEENT: no eye pain, no hearing loss, no oral lesion, no scleral icterus Heart: no chest pain, no chest pressure Lung: no cough, no dyspnea with exertion Abdomen: see HPI : no pain with urination, normal appearing urine Musculoskeletal: no joint pain, no muscle pain Neurological: no seizure, no loss of sensation, no weakness in extremities Pysch: no depression, no anxiety Derm: no rash, no jaundice Vital Signs Vital Signs Date Time Temp Pulse Resp B/P (MAP) Pulse Ox O2 Delivery O2 Flow Rate FiO2 06/18/25 08:19 67 26 91/67 (75) 98 30 06/18/25 07:30 Mechanical Ventilator+ 06/18/25 07:30 97.8 97.8 06/18/25 07:30 0 Physical Exam intubated breasts -symmet,no masses CARDIAC: [tachy rate ABDOMEN: distebnded pelvic-not done due to lack of consent Labs/Diagnostic Data Labs Test 06/18/25 06:50 06/18/25 04:10 06/17/25 16:14 06/17/25 13:00 Range/Units Blood Gas Specimen Type Arterial Blood Gas Sample Site Right radial Blood Gas Patient Temperature 37.0 Arterial Blood Date Drawn [id number] Arterial Blood pH 7.211 *L 7.350-7.450 Arterial Blood Partial Pressure CO2 30.4 L 32.0-45.0 mmHg Arterial Blood Partial Pressure O2 97.3 83.0-108.0 mmHg Arterial Blood HCO3 11.9 L 21.0-28.0 mmol/L Arterial Blood Oxygen Saturation 96.1 94.0-98.0 % Arterial Blood Base Excess -14.7 L -2.0-3.0 mmol/L Arterial Blood Oxyhemoglobin 95.0 94.0-98.0 % Arterial Blood Carboxyhemoglobin 0.8 0.5-1.5 % Arterial Blood Methemoglobin 0.3 0.0-1.5 % Donnell Test Modified Blood Gas Total Hemoglobin 9.20 L 12.0-16.0 g/dL Blood Gas Set Respiration Rate 24.0 Blood Gas Modality Vent - ac FiO2 % 30.0 Blood Gas Tidal Volume 350.0 Blood Gas PEEP or CPAP 5.0 Blood Gas Critical Value Read Back yes Blood Gas Notified Whom robi whittaker Blood Gas Notified Time [id number] Blood Gas Notified By esther dominguez White Blood Count 18.2 H 4.4-10.8 10^3/uL Red Blood Count 3.09 L 4.0-5.20 10^6/uL Hemoglobin 8.6 L 12.2-16.2 g/dL Hematocrit 25.6 L 36.0-46.0 % Mean Corpuscular Volume 82.8 80.0-100.0 fL Mean Corpuscular Hemoglobin 27.7 L 28.0-32.0 pg Mean Corpuscular Hemoglobin Concent 33.5 32.0-36.0 g/dL Red Cell Distribution Width 18.2 H 11.8-14.3 % Platelet Count 248 140-450 10^3/uL Mean Platelet Volume 7.2 6.9-10.8 fL Neutrophils (%) (Auto) 37.0-80.0 % Lymphocytes (%) (Auto) 10.0-50.0 % Monocytes (%) (Auto) 0.0-12.0 % Basophils (%) (Auto) 0.0-2.0 % Neutrophils # (Auto) 1.6-8.6 10 ^3/uL Lymphocytes # (Auto) 0.4-5.4 10 ^3/uL Monocytes # (Auto) 0-1.3 10 ^3/uL Differential Total Cells Counted 100.0 100 Neutrophils % (Manual) 83 H 37.0-80.0 Band Neutrophils % (Manual) 4 Lymphocytes % (Manual) 3 L 10.0-50.0 Monocytes % (Manual) 2 0-12 Eosinophils % (Manual) 3 0-7 Basophils % (Manual) 0 0.0-2.0 Metamyelocytes % (manual) 4 Myelocytes % (Manual) 1 Promyelocytes % (Manual) 0 Blast Cells % (Manual) 0 Reactive Lymphocytes 0 Platelet Estimate Adequate Sodium Level 128 L 136-145 mmol/L Potassium Level 2.9 L 3.5-5.1 mmol/L Chloride Level 99 98-107 mmol/L Carbon Dioxide Level 14 L 20-31 mmol/L Anion Gap 15 5-15 Blood Urea Nitrogen 70 H 9-23 mg/dL Creatinine 2.53 H 0.550-1.02 mg/dL Glomerular Filtration Rate Calc 19 >90 mL/min BUN/Creatinine Ratio 27.7 H 10.0-20.0 Serum Glucose 138 H 74-106 mg/dL Calcium Level 7.3 L 8.7-10.4 mg/dL Magnesium Level 2.0 1.6-2.6 mg/dL Total Bilirubin 0.4 0.2-1.0 mg/dL Aspartate Amino Transferase (AST) 20 13-40 U/L Alanine Aminotransferase (ALT) 20 7-40 U/L Alkaline Phosphatase 113 46-116 U/L Total Protein 6.2 5.7-8.2 g/dL Albumin 2.4 L 3.2-4.8 g/dL Random Vancomycin Level 25.8 H 5-10 ug/mL CA 125 Antigen 232.0 H 0.0-38.1 U/mL Eosinophils (%) (Auto) 0.1 0.0-7.0 % Eosinophils # (Auto) 0 0-0.8 10 ^3/uL Basophils # (Auto) 0 0-0.2 10 ^3/uL Nucleated Red Blood Cells 0.1 % Troponin I High Sensitivity 39 *H </=34 ng/L Test 06/17/25 09:33 06/17/25 03:45 06/17/25 02:31 06/16/25 21:48 Range/Units Lactic Acid Level 1.1 0.4-2.0 mmol/L HIV (1&2) Antibody Negative Negative Urine Creatinine 78.91 30.0-125.0 mg/dL Urine Protein/Creatinine Ratio 1.29 Urine Total Protein 101.6 H 1-14 mg/dL Urine Opiates Screen Neg NEGATIVE Urine Fentanyl Screen Neg NEGATIVE Urine Barbiturates Screen Neg NEGATIVE Urine Phencyclidine Screen Neg NEGATIVE Urine Amphetamines Screen Neg NEGATIVE Urine Benzodiazepines Screen Neg NEGATIVE Urine Cocaine Screen Neg NEGATIVE Urine Cannabinoids Screen Neg NEGATIVE Blood Gas Liter Flow 0.00 Test 06/16/25 20:42 06/16/25 16:40 06/16/25 16:37 06/16/25 16:30 Range/Units Prothrombin Time 12.7 H 9.3-11.8 sec Prothrombin Time INR 1.22 H 0.9-1.15 Activated Partial Thromboplast Time 40.1 H 24.5-34.5 SEC Hemoglobin A1c 5.8 H <5.7 % A1C Phosphorus Level 5.0 2.4-5.1 mg/dL Triglycerides Level 152 H < 150 mg/dL Cholesterol Level 94 < 200 mg/dL LDL Cholesterol 50 < 100 mg/dL HDL Cholesterol 8 L 40-59 mg/dL Vitamin B12 Level 371 211-911 pg/mL Vitamin D 25-Hydroxy 6.7 L 30.0-100 ng/mL Thyroid Stimulating Hormone (TSH) 1.24 0.55-4.78 uIU/mL Urine Color Yellow Yellow Urine Clarity Turbid H Clear Urine pH 5.5 5.0-9.0 Urine Specific [place] 1.014 1.001-1.035 Urine Protein Trace H Negative Urine Ketones Negative Negative Urine Blood Negative Negative /uL Urine Nitrite Negative Negative Urine Bilirubin Negative Negative Urine Urobilinogen 3 H Negative mg/dL Urine Leukocyte Esterase Negative Negative /uL Urine RBC 2 0 - 4 /hpf Urine Microscopic WBC 5 0-5 /HPF Urine Squamous Epithelial Cells Few <5 /hpf Urine Bacteria None seen None Seen /hpf Urine Glucose Normal Normal mg/dL Beta-Hydroxybutyric Acid 2.296 H < 0.4 mmol/L Anisocytosis (manual) Slight Tear Drop Cells Few [place] Cells Few B-Type Natriuretic Peptide 1669.81 0-100 pg/mL Lipase 19 12-53 U/L Microbiology Date/Time Source Procedure Growth Status 06/16/25 18:36 Blood Blood Culture - Preliminary NO GROWTH AFTER 24 HOURS OF INCUBATION. Resulted Primary Diagnosis sepsis endometrial hyperplasia per sono findings Plan pt will undergo expl lap needs to fu out pt for pap and endometrial biopsy thank you for this consultation will sign off Plan discussed with: Other Visit Coding OBGYN Date of Service: Jun 17, 2025 Billing Provider: TATY STOLL DO COLD WORKING SUPERVISOR Common Visit Codes: [id number] INP/OBS CARE(HIGH) COLD WORKING SUPERVISOR Consultation Codes: [id number] CONSULT <110MIN TATY STOLL DO Jun 18, 2025 09:05
--- NOTE | 2025-06-18 10:17 | DVH ---
CHEST RADIOGRAPH Indication: pulmonary vascular congestion Technique: Single frontal view of the chest was obtained Comparison: XY CHEST PORTABLE on DOS: 06/17/25, XY CHEST PORTABLE on DOS: 06/17/25, XY CHEST PORTABLE o n DOS: 06/16/25, XY CHEST PORTABLE on DOS: 06/17/25 FINDINGS: Lines and Tubes: Endotracheal tube and enteric catheter and right central venous catheter in satisfac tory position. Lungs: Congestion Pleura: No effusion. No pneumothorax. Cardiomediastinal contours: Cardiomegaly Bones: Unremarkable IMPRESSION: Lines and tubes in satisfactory position.
[2025-06-18] MEDS ORDERED: HYDROmorphone HCL 2 MG/ML VL/or syr ONE (10:29)
[2025-06-18] MEDS ORDERED: fentaNYL CITRATE 5 ML ONE (10:29)
[2025-06-18] MEDS ORDERED: MIDAZOLAM HCL 2MG/2ML 2ml VIAL (1mg/ml) ONE (10:29)
[2025-06-18] MEDS ORDERED: fentaNYL CITRATE 100 MCG/2 ML VL ONE (10:29)
[2025-06-18] MEDS: POTASSIUM CHLORIDE 40 MEQ, LIDOCAINE 1% (LOCAL ANESTH.) 4 ML in SODIUM CHL 0.9% 250 ML IV ONE (10:35)
[2025-06-18 10:52] LABS: Hepatitis B Surface Antigen Negative (Negative); Hepatitis C Antibody Negative (Negative)
[2025-06-18] MEDS: POTASSIUM CHL 20MEQ/100ML 100 ML IV ONE (11:01)
[2025-06-18] MEDS: PANTOPRAZOLE 40 MG/10 ML VIAL INJ IV SCH (11:06)
[2025-06-18] MEDS: LACTATED RINGER'S 2,000 ML IV ONE (13:45)
--- NOTE | 2025-06-18 14:17 | DVHOP ---
DATE OF SURGERY: 06/18/2025 PREOPERATIVE DIAGNOSES: * Septic shock. * Abdominal sepsis. * Abdominal and pelvic abscesses. * Uterine mass. * History of diverticulitis. ANESTHESIA: General endotracheal anesthesia accomplished by Orion Pantoja MD DESCRIPTION OF PROCEDURE: The abdomen was prepped and draped. Midline incision was made and copious amount of foul-smelling purulent material was evacuated. Cultures and sensitivities were submitted. The pus was approximately 1.5-2 liters in volume. There were pus pockets between loops of bowel, behind the uterus, anterior to the uterus, next to the concretions surrounding small bowel and large bowel. Tedious operation ensued with division of adhesions and evacuation of multiple inner loop abscesses. The patient's uterus was palpated. It contained a firm mass. There was extrusion of the mass through what appeared to be a perforation in the posterior aspect of the uterus. The tubes were affected, were edematous and swollen. It was at this point decided to proceed with a supracervical hysterectomy which was accomplished utilizing the Endo MITCHELL staplers. The cervix was dilated and a T tube was placed into the vagina through the cuff of the cervical hysterectomy. The patient's hysterectomy being completed (Dr. Orellana was requested to render an intraoperative consultation and confirmed the suspicion of a malignancy within the uterus), the patient's abdomen was profusely irrigated with warm saline which was aspirated. Two Jesus-Urbano drains were placed into the pelvis and into the space of Retzius as well as anteriorly. The drains were exteriorized separately and secured with 2-0 nylon sutures. Following assurance of complete hemostasis and assurance of accurate needle and sponge counts, the patient's abdomen was closed. It is of note that the patient has a Marlex mesh in the upper reaches of this abdominal incision which by definition is as well infected. However, due to the patient's unstable condition, no attempt was made at removing the Marlex. The skin was loosely approximated and a wound VAC was applied over the incision. The patient remained relatively stable throughout the procedure and left the operating room following an accurate needle and sponge count. Her Rocky was not in the waiting room behind the operating room or above in the [facility] waiting room. I had to call the patient's at [phone] and describe the findings as well as the poor prognosis for the patient due to the chronicity of her infection, due to the fact that she is septic, due to the fact that she has impending multiple organ failure. The patient's understood my explanation. All questions were answered. MD BRIGETTE Andres/HEAVENLY TID: [id number] RECEIPT: [id number]
[2025-06-18 14:38] LABS: Base Excess -12.9 mmol/L (-2.0-3.0)
[2025-06-18] MEDS: HYDROCORTISONE SOD SUCC 100 MG/2ML INJ VIAL IV ONE (16:46)
--- NOTE | 2025-06-18 17:57 | DVHPNRES ---
Progress Note Date Seen: Jun 18, 2025 Resident Creating Document: STEPHEN SCHULTZ RESIDENT Has the PT tested + for MRSA If YES, has PT been informed?: No Medical Necessity Reason Pt with a Central, PICC or Fol: Yes The following are medically ne: Central Line, Turner Catheter Reason for turner catheter: Strict I&O Subjective Review of Systems Today she underwent exploratory laparotomy with hysterectomy, bilateral salpingo-oophorectomy, and evacuation of multiple intra-abdominal abscesses. Intra-op findings included: * 1.52 L foul-smelling purulent material in multiple pockets throughout abdomen. * Firm uterine mass with posterior wall perforation, suspicious for malignancy (OB-RN LPN LVN intra-op consult confirmed). * Bilateral tubes edematous and swollen. * Abdomen irrigated, two MATT drains placed, wound VAC applied, A-line inserted. Immediate post-op course: Received ~2 L crystalloid in OR. Urine output improved (600 mL). Currently on norepinephrine 8 mcg/min, vasopressin 0.03 U/min, sedation with midazolam 35 mg/hr, fentanyl drip. Ventilated, SpO? 99% on FiO? 30%. Hemodynamics: BP 112/43, MAP 66, pulse 68. * Procedures today: hysterectomy + BSO, abscess drainage, wound VAC, MATT drains 2, A-line. * Hemodynamics: On norepinephrine and vasopressin for septic shock. * Ventilation: Intubated, FiO? 30%, SpO? 99%. * I&O: Positive balance; urine output improving post-op (600 mL). * Labs (06/17): * WBC 23.2 (?, sepsis) * Hgb 8.6 (anemia) * Plt 248 (normal) * Na 128 (hyponatremia) * K 2.9 ? repleted (hypokalemia) * HCO? 11.9, pH 7.20, Cristhian? 30.4, Becky? 97.3 (high-anion gap metabolic acidosis, partially compensated) * BUN 70, Cr 2.53 (JILLIAN) * Ca 7.6 (hypocalcemia), Mg 2.0 (nl) * LFTs WNL * CA-125 232 (?, concerning for uterine malignancy) * Neuro: Encephalopathy, sedated/intubated. * CV: Hypotension requiring pressors. * Resp: Intubated, mechanical ventilation. * GI: Abdominal pain prior to sedation; post-laparotomy with drains/VAC. * : Abnormal vaginal bleeding prior to surgery. * MSK: Right leg bruise post-fall. * Skin: Generalized edema, wound VAC. Objective vital signs Vital Sign Date Time Temp Pulse Resp B/P (MAP) Pulse Ox O2 Delivery O2 Flow Rate FiO2 06/18/25 17:28 124/43 06/18/25 16:45 68 24 98 06/18/25 16:00 30 06/18/25 16:00 Mechanical Ventilator+ 06/18/25 15:00 97.7 97.7 06/18/25 07:30 0 Total Intake and Output 06/17/25 06/17/25 06/18/25 15:00 23:00 07:00 Intake Total 60.00 ml 769.00 ml 481.50 ml Output Total 100 ml 300 ml Balance 60.00 ml 669.00 ml 181.50 ml medications Current Medications Medications Dose Ordered Sig/Venessa Route Start Time Stop Time Status Last Admin Dose Admin Acetaminophen 325 mg Q4HP PRN PO 06/16/25 20:45 Meropenem 50 ml @ 17 mls/hr Q12HR IV 06/16/25 22:00 06/18/25 11:02 17 MLS/HR Vancomycin HCl 0 ml @ 0 mls/hr UD IV 06/17/25 08:30 Propofol 100 ml @ 2.661 mls/ hr Q24H IV 06/17/25 10:15 Midazolam HCl 50 ml @ 1 mls/hr Q24H IV 06/17/25 10:15 06/18/25 16:46 3 MLS/HR Fentanyl Citrate 250 ml @ 2.5 mls/hr Q24H IV 06/17/25 10:15 06/17/25 12:00 2.5 MLS/HR Pantoprazole Sodium 40 mg DAILY IV 06/18/25 10:00 06/18/25 11:06 40 MG Vasopressin 20 units/Sodium Chloride 100 ml @ 9 mls/hr Q11H7M IV 06/18/25 05:15 06/18/25 14:33 9 MLS/HR Hydrocortisone Sodium Succinate 100 mg Q12HR IV 06/18/25 22:00 Norepinephrine Bitartrate 32 mg/ Sodium Chloride 250 ml @ 0.938 mls/ hr Q24H IV 06/18/25 16:45 Examination * General: Critically ill, intubated, sedated. * HEENT: Pupils sluggish but reactive. ETT secured. * CV: Regular rhythm, on pressors, A-line in place. * Resp: Intubated, ventilator support, bilateral air entry. * Abdomen: Post-laparotomy with midline incision, wound VAC, two MATT drains. Abdomen soft with decreased bowel sounds. * : Turner catheter in place, adequate urine output. * Extremities: No cyanosis, mild edema. Right leg bruise. * Neuro: Sedated. Previously encephalopathic. * Skin: Warm, pale, wound VAC dressing. laboratory and microbiology Laboratory Tests 06/18/25 04:10 Test 06/18/25 04:10 Range/Units Serum Glucose 138 H 74-106 mg/dL Microbiology Date/Time Source Procedure Growth Status 06/18/25 12:53 Abdomen Gram Stain - Final Resulted 06/18/25 12:53 Abdomen Anaerobic Culture Pending Resulted 06/18/25 12:53 Abdomen Aerobic Culture Pending Resulted 06/17/25 10:41 Sputum Gram Stain - Final Resulted 06/17/25 10:41 Sputum Respiratory Culture - Preliminary Resulted 06/16/25 18:36 Blood Blood Culture - Preliminary NO GROWTH AFTER 24 HOURS OF INCUBATION. Resulted Problem List/Assessment/Plan Problem List/Assessment/Plan Assessment 1. Septic shock due to complicated diverticulitis with multiple intra-abdominal abscesses, status post hysterectomy, BSO, abscess evacuation. POA 2. Acute hypoxic respiratory failure, mechanically ventilated due to sepsis POA 3. Suspected uterine malignancy (firm uterine mass, CA-125 232, intra-op OB-RN LPN LVN impression). POA 4. High-anion gap metabolic acidosis (HCO? 11.9, AG 15) with pH 7.2. POA 5. Acute kidney injury (Stage 3, KDIGO) Cr 2.53, oliguric. POA 6. Electrolyte abnormalities: Hyponatremia, hypokalemia (repleted), hypocalcemia, hypoalbuminemia. POA 7. Normocytic anemia Hgb 8.6, likely multifactorial. POA 8. Troponin elevation likely Type II NSTEMI/demand ischemia due to sepsis POA 9. Generalized anasarca. 10. HTN, 11. fibromyalgia, 12. obesity. Plan System-Doss Neuro: * Continue sedation (midazolam, fentanyl). * Daily sedation holiday, neuro checks. Respiratory: * Ventilator management per [facility] protocol. * Daily ABG, CXR. * Pulmonary/critical care following. Cardiovascular: * Continue norepinephrine (8 mcg/min). * Continue vasopressin 0.03 U/min. * Maintain MAP >65. * Echocardiogram to assess LVEF. * Trend troponin, monitor for ischemia. Infectious Disease / GI / Post-Op: * Continue broad spectrum abx (meropenem + vancomycin). * Follow intra-op cultures/sensitivities. * Surgery following for drain/wound VAC management. * OB-RN LPN LVN/Oncology follow-up for malignancy evaluation. Renal: * Strict I&O, daily BMP. * Monitor urine output via Turner. * Nephrology consult for JILLIAN, possible DIRECTOR MEDICAL SURGICAL if worsening. Heme/Onc: * Transfuse if Hgb <7. * Oncology referral for suspected uterine malignancy once stable. Electrolytes/Nutrition: * Replete K, Mg, Ca aggressively. * Start enteral nutrition once bowel function returns. * Albumin low monitor nutrition status. Endocrine: * Glucose monitoring, target [id number]. * TSH elevated but defer management until stable. Prophylaxis: * DVT: SQ heparin (unless contraindicated). * GI: IV pantoprazole. * Stress ulcer prophylaxis continued. Lines/Tubes: * ETT, central line, A-line, Turner, 2 MATT drains, wound VAC. Maintain aseptic care Critical Care Time Spent >45 minutes in direct critical care management, including chart/lab/imaging review, family counseling, intubation, vasopressor initiation, central line placement, and coordination with ICU and surgical teams. Discussion Case discussed in detail with the attending physician, including the clinical presentation, diagnostic workup, and comprehensive management plan. Plan discussed with: Spouse, Son My Orders My Orders Orders - STEPHEN SCHULTZ RESIDENT Procedure Category Date Status Time Chest Xray 1 View XY 06/18/25 Resulted 07:46 Chest Xray 1 View XY 06/19/25 Logged 04:00 Abg W/ Co-Ox RT 06/19/25 Logged 04:00 Complete Blood Count LAB 06/19/25 Verified 04:00 Comprehensive LAB 06/19/25 Verified Metabolic Panel 04:00 Hemoglobin & LAB 06/18/25 Logged Hematocrit 22:00 Hemoglobin & LAB 06/19/25 Verified Hematocrit 10:00 Hemoglobin & LAB 06/19/25 Verified Hematocrit 22:00 Hemoglobin & LAB 06/20/25 Verified Hematocrit 10:00 Hemoglobin & LAB 06/20/25 Verified Hematocrit 22:00 Dietary Evaluation Review Comments: 1. TPN per pharmacy if NPO>7 days 2. If GI assessible, Vital AF 1.2 @45ml/hr providing 81g Protein 1296kcal, 876ml free water Expected Outcomes/Goals: meeting pt's nutrition needs at 75-100% recovered GI function gradual wt loss Date of Service: Jun 18, 2025 Billing Provider: ELDA MULLER MD Common Visit Codes: [id number] CARE 30-74 MIN STEPHEN SCHULTZ RESIDENT Jun 18, 2025 17:57 ELDA MULLER MD Jun 23, 2025 22:28
[2025-06-18] MEDS: NOREPINEPHRINE 8 MG/250ML KIT 250 ML IV ONE (17:59)
--- NOTE | 2025-06-18 19:23 | DVHSR ---
APPROVED REPORT EXAM: Two-dimensional and M-mode echocardiogram with Doppler and color Doppler. Blood Pressure: 100/67 mmHg INDICATION CHF RISK FACTORS Height: 64, Weight: 195 DIMENSIONS LVDd4.6 (3.8-5.7cm)LA (2D)4.3 (1.9-4.0cm)Aortic Root3.0 (2.0-3.7cm) LVDs3.1 (2.5-4.0cm)LA (MM) (1.9-4.0cm)Aortic Cusp Exc1.7 (1.5-2.0cm) EF (%) 60.0 (55-70%)Rt. Atrium5.5 (1.9-4.0cm)Asc. Aorta cm IVSd0.9 (0.7-1.1cm)RV (D) (1.8-2.4cm) PWd1.1 (0.7-1.1cm) Mitral Valve MitralMitral Stenosis E wave0.90m/sMV Mean GR.mmHg A wave0.90m/sMV Peak GR.62mmHg E/A ratio1.02D MVAcm2 DECEL [id number] 1/2 [id number] IVRTmsDop MVA3.78cm2 Aortic Valve Aortic ValveAortic Stenosis V11.12m/Balwinder Mean GR.9mmHg V21.97m/Balwinder Peak GR.16mmHg LVOT Diameter2.1 (1.8-2.4cm)Doppler AVA1.97cm2 Tricuspid Valve TR Velocity3.70m/s [id number] Other Information Technically limited study due to patient on a vent. Conclusion MILD LVH AND MILD LV DIASTOLIC DYSFUNCTION LV EF IS 65% MODERATELY DILATED RV,LA AND RA CRITICAL PULMONARY HYPERTENSION RVSP IS 93 MM OF HG AND IS VERY HIGH NO EFFUSION
[2025-06-18] MEDS: HYDROCORTISONE SOD SUCC 100 MG/2ML INJ VIAL IV SCH (21:40)
[2025-06-18] MEDS: NOREPINEPHRINE BITARTRATE 32 MG in SODIUM CHL 0.9% 218 ML IV SCH (21:53)
[2025-06-18 22:18] LABS: Hematocrit 20.8 % (36.0-46.0)
[2025-06-18 22:21] LABS: Hemoglobin 6.7 g/dL (12.2-16.2)
--- NOTE | 2025-06-18 22:38 | DVHPN2 ---
Progress Note - Dictate Date Seen: Jun 18, 2025 Has the PT tested + for MRSA If YES, has PT been informed?: No Medical Necessity Reason Pt with a Central, PICC or Fol: Yes The following are medically ne: Central Line, Turner Catheter Reason for turner catheter: Strict I&O Subjective Patient was seen and evaluated in follow up in the ICU. Patient is intubated and sedated on ventilator. 30% FiO2. WBC 18.2, HGB 8.6, HCT 25.6, NA 128, K 2.9, CO2 14, BUN 70, SANDWICH PEDDLER 2.53, CA 7.3. Chest x-ray shows cardiomegaly. vital signs Vital Sign Date Time Temp Pulse Resp B/P (MAP) Pulse Ox O2 Delivery O2 Flow Rate FiO2 06/18/25 11:06 86/42 06/18/25 10:19 65 28 100 30 06/18/25 07:30 Mechanical Ventilator+ 06/18/25 07:30 97.8 97.8 06/18/25 07:30 0 Total Intake and Output 06/17/25 06/17/25 06/18/25 15:00 23:00 07:00 Intake Total 60.00 ml 769.00 ml 481.50 ml Output Total 100 ml 300 ml Balance 60.00 ml 669.00 ml 181.50 ml medications Current Medications Medications Dose Ordered Sig/Venessa Route Start Time Stop Time Status Last Admin Dose Admin Acetaminophen 325 mg Q4HP PRN PO 06/16/25 20:45 Meropenem 50 ml @ 17 mls/hr Q12HR IV 06/16/25 22:00 06/18/25 11:02 17 MLS/HR Vancomycin HCl 0 ml @ 0 mls/hr UD IV 06/17/25 08:30 Norepinephrine Bitartrate 250 ml @ 3.75 mls/hr Q24H IV 06/17/25 08:45 06/18/25 11:05 33.75 MLS/HR Furosemide 20 mg DAILY IV 06/17/25 10:00 06/18/25 11:06 20 MG Propofol 100 ml @ 2.661 mls/ hr Q24H IV 06/17/25 10:15 Midazolam HCl 50 ml @ 1 mls/hr Q24H IV 06/17/25 10:15 06/18/25 00:58 3 MLS/HR Fentanyl Citrate 250 ml @ 2.5 mls/hr Q24H IV 06/17/25 10:15 06/17/25 12:00 2.5 MLS/HR Pantoprazole Sodium 40 mg DAILY IV 06/18/25 10:00 06/18/25 11:06 40 MG Vasopressin 20 units/Sodium Chloride 100 ml @ 9 mls/hr Q11H7M IV 06/18/25 05:15 06/18/25 05:24 9 MLS/HR objective GENERAL: Ill appearing, intubated on ventilator. Obese. EYES: PERRL, EOMI. Anicteric. HENT: Moist mucous membranes. LUNGS: breath sounds. CARDIOVASCULAR: Regular rate and rhythm. ABDOMEN: Soft, nontender and nondistended. EXTREMITIES: No edema. SKIN: Warm, dry. laboratory and microbiology Laboratory Tests 06/18/25 04:10 Test 06/18/25 04:10 Range/Units Serum Glucose 138 H 74-106 mg/dL Problem List Metabolic encephalopathy secondary to sepsis. Sepsis due to complicated diverticulitis. Complicated diverticulitis with multiple abscesses. JILLIAN hemodynamically mediated (VMN). Metabolic acidosis with elevated anion gap and normal lactic acid. Acute respiratory failure likely secondary to congestive heart failure. Acute congestive heart failure (unknown LVEF). Questionable uterine malignancy. Hyponatremia. Hypokalemia. Normocytic anemia. Obesity. Hypertension. Fibromyalgia. Assessment/Plan Continued all current supportive medical care. Echocardiogram. Diuretics with Lasix. IV antibiotics as ordered. Vasopressors for hemodynamic support. GI prophylactics. Additional plan as per the hospital course. Critical care time of 45 minutes provided to include time spent evaluation of patient at bedside, when appropriate patient/family education for diagnosis, treatment plan, review of pertinent medical information and discussion of care with specialty providers and PCP.Mechanical ventilator parameters, treatment and adjustments have personally been reviewed by me and treatment plan by ballet teacher has also been reviewed. Dietary Evaluation Review Comments: 1. TPN per pharmacy if NPO>7 days 2. If GI assessible, Vital AF 1.2 @45ml/hr providing 81g Protein 1296kcal, 876ml free water Expected Outcomes/Goals: meeting pt's nutrition needs at 75-100% recovered GI function gradual wt loss Plan discussed with: Other DANYELLE GIRALDO MD Jun 18, 2025 12:42
[2025-06-19] VITALS (104 sets, daily range): BP systolic 95–149; BP diastolic 31–59; PULSE 62–75; RESP 0–38; TEMP 97.5–98.3; O2SAT 98–100
--- NOTE | 2025-06-19 06:10 | DVH ---
CHEST RADIOGRAPH Indication: Acute hypoxic respiratory failure Technique: Single frontal view of the chest was obtained COMPARISON: XY CHEST XRAY 1 VIEW on DOS: 06/18/25, XY CHEST PORTABLE on DOS: 06/17/25, XY CHEST PORTABL E on DOS: 06/17/25, XY CHEST PORTABLE on DOS: 06/16/25 FINDINGS: Lines and Tubes: Unchanged. Lungs: Mild interval increase in prominence of the pulmonary vasculature and interstitium. Pleura: No effusion. No pneumothorax. Cardiomediastinal contours: Unremarkable Bones: Unremarkable IMPRESSION: 1. Mild interval increase in prominence of the pulmonary vasculature and interstitium. 2. Lines and tubes unchanged.
--- NOTE | 2025-06-19 07:41 | DVHPN2 ---
Progress Note Date Seen: Jun 19, 2025 Has the PT tested + for MRSA If YES, has PT been informed?: No Medical Necessity Reason Pt with a Central, PICC or Fol: Yes The following are medically ne: Central Line, Turner Catheter Reason for turner catheter: Strict I&O Objective vital signs Vital Sign Date Time Temp Pulse Resp B/P (MAP) Pulse Ox O2 Delivery O2 Flow Rate FiO2 06/19/25 06:45 69 24 140/48 (78) 99 117/49 (71) 06/19/25 06:00 Mechanical Ventilator+ 30 30 06/19/25 04:00 97.6 97.6 06/18/25 20:00 0 Total Intake and Output 06/18/25 06/18/25 06/19/25 15:00 23:00 07:00 Intake Total 431.50 ml 334.626 ml 519.878 ml Output Total 650 ml 750 ml Balance 431.50 ml -315.374 ml -230.122 ml medications Current Medications Medications Dose Ordered Sig/Venessa Route Start Time Stop Time Status Last Admin Dose Admin Acetaminophen 325 mg Q4HP PRN PO 06/16/25 20:45 Meropenem 50 ml @ 17 mls/hr Q12HR IV 06/16/25 22:00 06/18/25 21:41 17 MLS/HR Vancomycin HCl 0 ml @ 0 mls/hr UD IV 06/17/25 08:30 Propofol 100 ml @ 2.661 mls/ hr Q24H IV 06/17/25 10:15 Midazolam HCl 50 ml @ 1 mls/hr Q24H IV 06/17/25 10:15 06/18/25 16:46 3 MLS/HR Fentanyl Citrate 250 ml @ 2.5 mls/hr Q24H IV 06/17/25 10:15 06/19/25 00:12 7.5 MLS/HR Pantoprazole Sodium 40 mg DAILY IV 06/18/25 10:00 06/18/25 11:06 40 MG Vasopressin 20 units/Sodium Chloride 100 ml @ 9 mls/hr Q11H7M IV 06/18/25 05:15 06/19/25 00:16 9 MLS/HR Hydrocortisone Sodium Succinate 100 mg Q12HR IV 06/18/25 22:00 06/18/25 21:40 100 MG Norepinephrine Bitartrate 32 mg/ Sodium Chloride 250 ml @ 0.938 mls/ hr Q24H IV 06/18/25 16:45 06/18/25 21:53 6.563 MLS/HR laboratory and microbiology Laboratory Tests 06/18/25 22:00 06/18/25 04:10 Test 06/18/25 04:10 Range/Units Serum Glucose 138 H 74-106 mg/dL Problem List/Assessment/Plan Problem List/Assessment/Plan 06/17/25 I ARRIVED TO EXAMINE PATIENT SHE WAS BEING INTUBATED, SHE IS HYPOTENSIVE AND TACHYCARDIC. SHE NEEDS TO BE RE HYDRATED AND MEDICALLY STABILIZED AND I WILL OPERATE ON HER TOMORROW IF SHE IS STABLE ENOUGH TO TOLERATE ANESTHESIA 06/19/25 patient remains sedated and intubated, BP being supported, heart rate in the 80's, abdomen soft, non distended MATT drainage serosanguineous, H?H low, will transfuse. good urine output, labs pending. Plan discussed with: Other Dietary Evaluation Review Comments: 1. TPN per pharmacy if NPO>7 days 2. If GI assessible, Vital AF 1.2 @45ml/hr providing 81g Protein 1296kcal, 876ml free water Expected Outcomes/Goals: meeting pt's nutrition needs at 75-100% recovered GI function gradual wt loss POP REYNA MD Jun 19, 2025 07:41
[2025-06-19 07:45] LABS: Base Excess -13.8 mmol/L (-2.0-3.0)
[2025-06-19 09:07] LABS: Hematocrit 25.1 % (36.0-46.0); Hemoglobin 7.9 g/dL (12.2-16.2); Mean Corpuscular Hemoglobin 27.2 pg (28.0-32.0); Mean Corpuscular Volume 87.0 fL (80.0-100.0); Nucleated Red Blood Cells % 0.1 %
[2025-06-19 09:22] LABS: Alanine Aminotransferase 17 U/L (7-40); Albumin 2.0 g/dL (3.2-4.8); Alkaline Phosphatase 95 U/L (46-116); Anion Gap 15 (5-15); BUN/Creatinine Ratio 36.8 (10.0-20.0); Blood Urea Nitrogen 75 mg/dL (9-23); Calcium 7.5 mg/dL (8.7-10.4); Carbon Dioxide 13 mmol/L (20-31); Chloride 103 mmol/L (98-107); Glucose 160 mg/dL (74-106); Potassium 4.1 mmol/L (3.5-5.1); Sodium 131 mmol/L (136-145); Total Protein 5.1 g/dL (5.7-8.2)
[2025-06-19 09:23] LABS: Bilirubin, Total 0.3 mg/dL (0.2-1.0)
[2025-06-19 11:37] LABS: INR 1.35 (0.9-1.15); Partial Thromboplastin Time 44.0 SEC (24.5-34.5); Prothrombin Time 13.9 sec (9.3-11.8)
--- NOTE | 2025-06-19 13:52 | DVHPNRES ---
Progress Note Date Seen: Jun 19, 2025 Resident Creating Document: JUWAN BRIGHT RESIDENT Has the PT tested + for MRSA If YES, has PT been informed?: No Medical Necessity Reason Pt with a Central, PICC or Fol: Yes The following are medically ne: Central Line, Turner Catheter Reason for turner catheter: Strict I&O Subjective Review of Systems Patient seen and examined at bedside Currently sedated and intubated Status post exploratory laparotomy day one Objective vital signs Vital Sign Date Time Temp Pulse Resp B/P (MAP) Pulse Ox O2 Delivery O2 Flow Rate FiO2 06/19/25 12:15 95/39 06/19/25 11:10 67 24 99 30 06/19/25 08:00 Mechanical Ventilator+ 0 06/19/25 07:45 98.0 98.0 Total Intake and Output 06/18/25 06/18/25 06/19/25 15:00 23:00 07:00 Intake Total 431.50 ml 334.626 ml 519.878 ml Output Total 650 ml 970 ml Balance 431.50 ml -315.374 ml -450.122 ml medications Current Medications Medications Dose Ordered Sig/Venessa Route Start Time Stop Time Status Last Admin Dose Admin Acetaminophen 325 mg Q4HP PRN PO 06/16/25 20:45 Meropenem 50 ml @ 17 mls/hr Q12HR IV 06/16/25 22:00 06/19/25 12:16 17 MLS/HR Vancomycin HCl 0 ml @ 0 mls/hr UD IV 06/17/25 08:30 Propofol 100 ml @ 2.661 mls/ hr Q24H IV 06/17/25 10:15 Midazolam HCl 50 ml @ 1 mls/hr Q24H IV 06/17/25 10:15 06/18/25 16:46 3 MLS/HR Fentanyl Citrate 250 ml @ 2.5 mls/hr Q24H IV 06/17/25 10:15 06/19/25 00:12 7.5 MLS/HR Pantoprazole Sodium 40 mg DAILY IV 06/18/25 10:00 06/19/25 12:16 40 MG Vasopressin 20 units/Sodium Chloride 100 ml @ 9 mls/hr Q11H7M IV 06/18/25 05:15 06/19/25 12:15 9 MLS/HR Hydrocortisone Sodium Succinate 100 mg Q12HR IV 06/18/25 22:00 06/19/25 12:16 100 MG Norepinephrine Bitartrate 32 mg/ Sodium Chloride 250 ml @ 0.938 mls/ hr Q24H IV 06/18/25 16:45 06/18/25 21:53 6.563 MLS/HR Examination Examination General Appearance: Sedated and intubated HEENT: EOMI Respiratory: Clear to auscultation, Normal air movement on mechanical ventilator Cardiovascular: Regular rate, Normal S1, Normal S2 Abdominal: Normal bowel sounds Extremities: Pedal edema, No cyanosis, No edema, Normal pulses, No tenderness/swelling Skin: No rashes, No breakdown Neuro: Sedated laboratory and microbiology Laboratory Tests 06/19/25 08:44 Test 06/19/25 08:44 Range/Units Serum Glucose 160 H 74-106 mg/dL Microbiology Date/Time Source Procedure Growth Status 06/18/25 12:53 Abdomen Gram Stain - Final Resulted 06/18/25 12:53 Abdomen Anaerobic Culture - Preliminary Resulted 06/18/25 12:53 Abdomen Aerobic Culture - Preliminary Resulted 06/17/25 10:41 Sputum Gram Stain - Final Resulted 06/17/25 10:41 Sputum Respiratory Culture - Preliminary Resulted 06/16/25 18:36 Blood Blood Culture - Preliminary NO GROWTH AFTER 48 HOURS OF INCUBATION. Resulted Labs and/or images reviewed: Labs reviewed by me, Image(s) reviewed by me Problem List/Assessment/Plan Problem List/Assessment/Plan Assessment/plan Neurology # metabolic encephalopathy due to sepsis Head CT Treat the underlying cause # sedation Currently on Versed and fentanyl Cardiology # shock, likely septic shock Currently on norepinephrine and vasopressin Hydrocortisone 100 mg q.12, we will taper # history of hypertension Currently in shock # generalized anasarca Seen on CT Likely due to hypo albuminuria and JILLIAN We will order echo Respiratory # Acute hypoxemic respiratory failure due to sepsis On mechanical ventilator Hematology oncology # severe anemia requiring blood transfusion Transfuse 2 units of PRBC per surgeon H&H # coagulopathy due to sepsis Monitor Endocrine and metabolism # hypoalbuminemia We will resume nutrition after surgical clearance # asymptomatic hypocalcemia Monitor Musculoskeletal # Acute/ subacute posterior left 11th and 12th rib fractures -we will monitor Nephrology # hyponatremia, hypovolemic, mild Monitor #hypokalemia -IV potassium -Monitor BMP # non-anion gap metabolic acidosis with partial compensated respiratory alkalosis Monitor with ABG # JILLIAN due to vasomotor nephropathy due to sepsis IV fluids On pressor Monitor GI # PPD prophylaxis Protonix # multiple complex abdominal and pelvic abscesses status post exploratory laparotomy Surgery on board Status post exploratory laparotomy IV antibiotics # acute diverticulitis with possible diverticular abscess Surgery on board Status post exploratory laparotomy IV antibiotics Genitourinary # ? Incarcerated left inguinal hernia CT: Left inguinal hernia containing a small portion of the bladder measuring 4.8 x 4.1 cm. There is thickening of the bladder wall within the hernia. Correlate for incarcerated Surgical consult # pelvic mass status post hysterectomy # ruptured uterus status post hysterectomy -surgery and OBGYN board # Turner catheter Infectious disease # sepsis with septic shock Due to abdominal and pelvic abscesses IV antibiotic Status post cystectomy IV fluids Lines : Right IJ 04/18/25 : Transfuse 2 units of PRBC as per surgeon. Kidney function improving, continue with IV fluids lactated ringer at 30 cc/hour considering patient's volume overload status. We will keep the patient NPO till surgeon's recommendations start diet, we will consider adding IV nutrition after surgeon's recommendation. Continue with the IV antibiotics. Patient is currently on norepinephrine and vasopressin. Repeat H&H. Family at bedside explained of the condition of the patient. Code status discussed with family for greater than 21 minutes, full code Case discussion with Dr. Mills Plan discussed with: Patient, Other My Orders My Orders Orders - JUWAN BRIGHT Procedure Category Date Status Time Hydrocortisone PHA 06/18/25 In Process Succinate Inj 22:00 Sodium Chl 0.9% PHA 06/18/25 In Process (Ns... 16:45 Communication Order ORDERS 06/19/25 Transmitted 06:49 Lactated Ringer's PHA 06/19/25 In Process 11:00 Dietary Evaluation Review Comments: 1. TPN per pharmacy if NPO>7 days 2. If GI assessible, Vital AF 1.2 @45ml/hr providing 81g Protein 1296kcal, 876ml free water Expected Outcomes/Goals: meeting pt's nutrition needs at 75-100% recovered GI function gradual wt loss Date of Service: Jun 19, 2025 Billing Provider: ELDA MILLS MD Common Visit Codes: [id number] CARE 30-74 MIN JUWAN BRIGHT Jun 19, 2025 13:52 ELDA MILLS MD Jun 23, 2025 22:29
[2025-06-19] MEDS: LACTATED RINGER'S 1,000 ML IV ONE (14:47)
[2025-06-19] MEDS ORDERED: VANCOMYCIN 1GM/250ML KIT 250 ML IV ONE (16:00)
[2025-06-19] MEDS: LACTATED RINGER'S 1,000 ML IV SCH (17:30)
--- NOTE | 2025-06-19 19:32 | DVHPN2 ---
Progress Note - Dictate Date Seen: Jun 19, 2025 Has the PT tested + for MRSA If YES, has PT been informed?: No Medical Necessity Reason Pt with a Central, PICC or Fol: Yes The following are medically ne: Central Line, Turner Catheter Reason for turner catheter: Strict I&O Subjective Patient was seen and evaluated in follow up in the ICU. Patient is intubated and sedated on ventilator. 30% FiO2. Echocardiogram shows LV EF of 65%. Patient is s/p exploratory laparotomy. Kori received 1 unit PRBCs. WBC 23.9, HGB 7.9, HCT 25.1, BUN 75, RUBBER PRODUCTION MACHINE OPERATOR 2.04, CA 7.5. Chest x-ray shows mild interval increase in prominence of the pulmonary vasculature and interstitium. vital signs Vital Sign Date Time Temp Pulse Resp B/P (MAP) Pulse Ox O2 Delivery O2 Flow Rate FiO2 06/19/25 18:00 24 99 Mechanical Ventilator+ 30 30 06/19/25 18:00 64 06/19/25 18:00 121/46 (71) 109/42 (64) 06/19/25 17:30 97.5 97.5 06/19/25 08:00 0 Total Intake and Output 06/18/25 06/18/25 06/19/25 15:00 23:00 07:00 Intake Total 431.50 ml 334.626 ml 519.878 ml Output Total 780 ml 970 ml Balance 431.50 ml -445.374 ml -450.122 ml medications Current Medications Medications Dose Ordered Sig/Venessa Route Start Time Stop Time Status Last Admin Dose Admin Acetaminophen 325 mg Q4HP PRN PO 06/16/25 20:45 Meropenem 50 ml @ 17 mls/hr Q12HR IV 06/16/25 22:00 06/19/25 12:16 17 MLS/HR Vancomycin HCl 0 ml @ 0 mls/hr UD IV 06/17/25 08:30 Propofol 100 ml @ 2.661 mls/ hr Q24H IV 06/17/25 10:15 Midazolam HCl 50 ml @ 1 mls/hr Q24H IV 06/17/25 10:15 06/18/25 16:46 3 MLS/HR Fentanyl Citrate 250 ml @ 2.5 mls/hr Q24H IV 06/17/25 10:15 06/19/25 00:12 7.5 MLS/HR Pantoprazole Sodium 40 mg DAILY IV 06/18/25 10:00 06/19/25 12:16 40 MG Vasopressin 20 units/Sodium Chloride 100 ml @ 9 mls/hr Q11H7M IV 06/18/25 05:15 06/19/25 12:15 9 MLS/HR Hydrocortisone Sodium Succinate 100 mg Q12HR IV 06/18/25 22:00 06/19/25 12:16 100 MG Norepinephrine Bitartrate 32 mg/ Sodium Chloride 250 ml @ 0.938 mls/ hr Q24H IV 06/18/25 16:45 06/18/25 21:53 6.563 MLS/HR Lactated Ringer's 1,002 ml @ 30 mls/hr Q24H IV 06/19/25 17:30 objective GENERAL: Ill appearing, intubated on ventilator. Obese. EYES: PERRL, EOMI. Anicteric. HENT: Moist mucous membranes. LUNGS: breath sounds. CARDIOVASCULAR: Regular rate and rhythm. ABDOMEN: Soft, nontender and nondistended. EXTREMITIES: No edema. SKIN: Warm, dry. laboratory and microbiology Laboratory Tests 06/19/25 08:44 Test 06/19/25 08:44 Range/Units Serum Glucose 160 H 74-106 mg/dL Problem List Metabolic encephalopathy secondary to sepsis. Sepsis due to complicated diverticulitis. Complicated diverticulitis with multiple abscesses. JILLIAN hemodynamically mediated (VMN). Metabolic acidosis with elevated anion gap and normal lactic acid. Acute respiratory failure likely secondary to congestive heart failure. Acute congestive heart failure (unknown LVEF). Questionable uterine malignancy. Hyponatremia. Hypokalemia. Normocytic anemia. Obesity. Hypertension. Fibromyalgia. Pulmonary HTN. Assessment/Plan Continued all current supportive medical care. IV antibiotics as ordered. Vasopressors for hemodynamic support. GI prophylactics. Additional plan as per the hospital course. Critical care time of 45 minutes provided to include time spent evaluation of patient at bedside, when appropriate patient/family education for diagnosis, treatment plan, review of pertinent medical information and discussion of care with specialty providers and PCP.Mechanical ventilator parameters, treatment and adjustments have personally been reviewed by me and treatment plan by shake loader has also been reviewed. Dietary Evaluation Review Comments: 1. TPN per pharmacy if NPO>7 days 2. If GI assessible, Vital AF 1.2 @45ml/hr providing 81g Protein 1296kcal, 876ml free water Expected Outcomes/Goals: meeting pt's nutrition needs at 75-100% recovered GI function gradual wt loss Plan discussed with: Other DANYELLE GIRALDO MD Jun 19, 2025 18:43
[2025-06-19] MEDS: VANCOMYCIN 500mg/100mL 100 ML IV ONE (20:56)
[2025-06-19 21:11] LABS: Hematocrit 26.0 % (36.0-46.0); Hemoglobin 8.5 g/dL (12.2-16.2); Mean Corpuscular Hemoglobin 27.5 pg (28.0-32.0); Mean Corpuscular Volume 84.4 fL (80.0-100.0); Nucleated Red Blood Cells % 0.1 %
[2025-06-19 21:26] LABS: Alanine Aminotransferase 14 U/L (7-40); Alkaline Phosphatase 86 U/L (46-116); Anion Gap 14 (5-15); BUN/Creatinine Ratio 28.4 (10.0-20.0); Chloride 105 mmol/L (98-107); Potassium 3.7 mmol/L (3.5-5.1)
[2025-06-19 21:41] LABS: Albumin 2.1 g/dL (3.2-4.8); Bilirubin, Total 0.2 mg/dL (0.2-1.0); Blood Urea Nitrogen 59 mg/dL (9-23); Calcium 7.8 mg/dL (8.7-10.4); Carbon Dioxide 14 mmol/L (20-31); Glucose 161 mg/dL (74-106); Sodium 133 mmol/L (136-145); Total Protein 5.4 g/dL (5.7-8.2)
[2025-06-20] VITALS (107 sets, daily range): BP systolic 96–157; BP diastolic 42–70; PULSE 55–71; RESP 12–29; TEMP 97.5–97.9; O2SAT 97–100
[2025-06-20 04:31] LABS: Alanine Aminotransferase 14 U/L (7-40); Albumin 1.9 g/dL (3.2-4.8); Alkaline Phosphatase 87 U/L (46-116); Anion Gap 15 (5-15); BUN/Creatinine Ratio 38.9 (10.0-20.0); Blood Urea Nitrogen 79 mg/dL (9-23); Calcium 7.6 mg/dL (8.7-10.4); Carbon Dioxide 13 mmol/L (20-31); Chloride 106 mmol/L (98-107); Glucose 165 mg/dL (74-106); Magnesium 2.0 mg/dL (1.6-2.6); Potassium 3.4 mmol/L (3.5-5.1); Sodium 134 mmol/L (136-145); Total Protein 4.9 g/dL (5.7-8.2)
[2025-06-20 04:32] LABS: Bilirubin, Total 0.2 mg/dL (0.2-1.0)
[2025-06-20 05:06] LABS: Mean Corpuscular Volume 87.4 fL (80.0-100.0); Nucleated Red Blood Cells % 0.1 %
[2025-06-20 05:10] LABS: Hematocrit 25.8 % (36.0-46.0); Hemoglobin 8.3 g/dL (12.2-16.2); Mean Corpuscular Hemoglobin 28.3 pg (28.0-32.0)
[2025-06-20 06:05] LABS: Base Excess -12.9 mmol/L (-2.0-3.0)
--- NOTE | 2025-06-20 06:11 | DVH ---
INDICATION: sob TECHNIQUE: Single frontal view of the chest was obtained COMPARISON: XY CHEST XRAY 1 VIEW on DOS: 06/19/25, XY CHEST XRAY 1 VIEW on DOS: 06/18/25, XY CHEST PORT ABLE on DOS: 06/17/25, XY CHEST PORTABLE on DOS: 06/17/25, XY CHEST PORTABLE on DOS: 06/16/25, XY CHEST XRAY 1 VIEW on DOS: 06/19/25 FINDINGS: Lines and Tubes: Unchanged. Lungs: Mild interval increase in prominence of the pulmonary vasculature and interstitium. Pleura: No effusion. No pneumothorax. Cardiomediastinal contours: Unremarkable Bones: Unremarkable IMPRESSION: 1. Mild interval increase in prominence of the pulmonary vasculature and interstitium. 2. Lines and tubes unchanged.
[2025-06-20] MEDS: POTASSIUM CHL 20MEQ/100ML 100 ML IV ONE (09:39)
--- NOTE | 2025-06-20 10:15 | DVHPN2 ---
Subjective Date Seen: Jun 20, 2025 Post op day Post op day: 2 Objective Vitals Vital Sign Date Time Temp Pulse Resp B/P (MAP) Pulse Ox O2 Delivery O2 Flow Rate FiO2 06/20/25 09:10 63 24 122/56 (78) 100 30 06/20/25 06:00 Mechanical Ventilator+ 06/20/25 04:00 97.8 97.8 06/19/25 20:00 0 Total Intake and Output 06/19/25 06/19/25 06/20/25 15:00 23:00 07:00 Intake Total 184.564 ml 879.315 ml 212.877 ml Output Total 390 ml 350 ml Balance 184.564 ml 489.315 ml -137.123 ml Medications Current Medications Medications Dose Ordered Sig/Venessa Route Start Time Stop Time Status Last Admin Dose Admin Acetaminophen 325 mg Q4HP PRN PO 06/16/25 20:45 Meropenem 50 ml @ 17 mls/hr Q12HR IV 06/16/25 22:00 06/20/25 09:39 17 MLS/HR Vancomycin HCl 0 ml @ 0 mls/hr UD IV 06/17/25 08:30 Propofol 100 ml @ 2.661 mls/ hr Q24H IV 06/17/25 10:15 Midazolam HCl 50 ml @ 1 mls/hr Q24H IV 06/17/25 10:15 06/20/25 04:27 3 MLS/HR Fentanyl Citrate 250 ml @ 2.5 mls/hr Q24H IV 06/17/25 10:15 06/20/25 04:28 10 MLS/HR Pantoprazole Sodium 40 mg DAILY IV 06/18/25 10:00 06/20/25 09:38 40 MG Vasopressin 20 units/Sodium Chloride 100 ml @ 9 mls/hr Q11H7M IV 06/18/25 05:15 06/19/25 21:57 9 MLS/HR Hydrocortisone Sodium Succinate 100 mg Q12HR IV 06/18/25 22:00 06/20/25 09:38 100 MG Norepinephrine Bitartrate 32 mg/ Sodium Chloride 250 ml @ 0.938 mls/ hr Q24H IV 06/18/25 16:45 06/20/25 03:56 2.813 MLS/HR Lactated Ringer's 1,002 ml @ 30 mls/hr Q24H IV 06/19/25 17:30 General: Obese Abdominal: Soft, No distension Labs and Microbiology Laboratory Tests 06/20/25 03:34 Test 06/20/25 03:34 Range/Units Serum Glucose 165 H 74-106 mg/dL Ass/Plan Labs and/or images reviewed: Labs reviewed by me, Image(s) reviewed by me Problem List Metabolic encephalopathy secondary to sepsis. Sepsis due to complicated diverticulitis. Complicated diverticulitis with multiple abscesses. JILLIAN hemodynamically mediated (VMN). Metabolic acidosis with elevated anion gap and normal lactic acid. Acute respiratory failure likely secondary to congestive heart failure. Acute congestive heart failure (unknown LVEF). Questionable uterine malignancy. Hyponatremia. Hypokalemia. Normocytic anemia. Obesity. Hypertension. Fibromyalgia. Pulmonary HTN. Assessment/Plan s/p exploratory laparotomy and supracervical hysterectomy. POD#2 currently intubated and sedated. The abdomen is soft and nondistended. The Jesus-Urbano drains have minimal serosanguineous output. Support for blood pressure is being provided with a vasopressor. The wound is clean, dry, and intact, and a wound vacuum is in place. Laboratory results and notes were reviewed. Plan: The case was discussed with Dr. Patel. continue with the current treatment regimen, which includes intravenous hydration and intravenous antibiotics. Prognosis: Poor Plan discussed with Dr. Patel Visit Coding Surgery Date of Service if different f: Jun 20, 2025 Billing Provider: POP PATEL MD Surgery Visit Codes: [id number] INP/OBS CARE(HIGH) FARRUKH CHOW NP Jun 20, 2025 10:15
[2025-06-20 11:01] LABS: Hematocrit 23.8 % (36.0-46.0); Hemoglobin 7.8 g/dL (12.2-16.2)
[2025-06-20] MEDS: SODIUM BICARB 8.4% 50Meq/50ml SYR Vial IV ONE (14:51)
--- NOTE | 2025-06-20 14:55 | DVHPNRES ---
Progress Note Date Seen: Jun 20, 2025 Resident Creating Document: STEPHEN SCHULTZ RESIDENT Has the PT tested + for MRSA If YES, has PT been informed?: No Medical Necessity Reason Pt with a Central, PICC or Fol: Yes The following are medically ne: Central Line, Turner Catheter Reason for turner catheter: Strict I&O Subjective Review of Systems Remains intubated and sedated in ICU. Hemodynamics: On norepinephrine; vasopressin being weaned. Hydrocortisone stress-dose standardized to 50 mg IV q6h. Antimicrobials/sedation/analgesia: Meropenem + vancomycin, midazolam infusion, fentanyl for analgesia. Surgery/wound: Abdomen soft, non-distended. Wound VAC in place; two MATT drains with minimal output, no sanguineous drainage. Cultures: Respiratory culture Staphylococcus aureus (no MRSA detected) current coverage appropriate. Blood cultures negative to date. CXR: Mild interval increase in pulmonary vascular congestion. Vitals currently: BP 126/56, MAP ~79; HR 56 (sinus lisa); RR 24 (vented); SpO? >96% on low FiO . Urine output improving. Progress: Stable perfusion on single pressor; vaso being weaned. Surgical sites clean, drains scant. Treatments: Lung-protective ventilation; norepi titration; hydrocortisone 50 q6h; meropenem + vanc; sedation/analgesia; electrolyte repletion. Bain new data: WBC 21.9 (from 21.3), Hgb 8.3 (from 8.5), Plt 136; Na 134, K 3.4 (repleted), BUN 79, Cr 2.03 (eGFR 25), BUN/Cr 38.9. ABG: pH 7.242, Cristhian? 31.6, HCO? 13.3 ? metabolic acidosis with respiratory compensation. ROS (limited by intubation/sedation) General: no fevers reported. Neuro: sedated, no purposeful complaints. CV: pressor-dependent shock improving. Resp: vented; no visible distress. GI: post- op abdomen as above; no emesis via OGT. : Turner with adequate output. Skin/MSK: right-leg ecchymosis from prior fall; no new rashes/bleeding. Objective vital signs Vital Sign Date Time Temp Pulse Resp B/P (MAP) Pulse Ox O2 Delivery O2 Flow Rate FiO2 06/20/25 13:05 57 24 122/57 (78) 100 30 9/28/25 12:00 Mechanical Ventilator+ 06/20/25 12:00 97.6 97.6 06/20/25 08:00 0 Total Intake and Output 06/19/25 06/19/25 06/20/25 15:00 23:00 07:00 Intake Total 184.564 ml 879.315 ml 212.877 ml Output Total 390 ml 350 ml Balance 184.564 ml 489.315 ml -137.123 ml medications Current Medications Medications Dose Ordered Sig/Venessa Route Start Time Stop Time Status Last Admin Dose Admin Acetaminophen 325 mg Q4HP PRN PO 06/16/25 20:45 Meropenem 50 ml @ 17 mls/hr Q12HR IV 06/16/25 22:00 06/20/25 09:39 17 MLS/HR Vancomycin HCl 0 ml @ 0 mls/hr UD IV 06/17/25 08:30 Propofol 100 ml @ 2.661 mls/ hr Q24H IV 06/17/25 10:15 Midazolam HCl 50 ml @ 1 mls/hr Q24H IV 06/17/25 10:15 06/20/25 12:43 2 MLS/HR Fentanyl Citrate 250 ml @ 2.5 mls/hr Q24H IV 06/17/25 10:15 06/20/25 04:28 10 MLS/HR Pantoprazole Sodium 40 mg DAILY IV 06/18/25 10:00 06/20/25 09:38 40 MG Vasopressin 20 units/Sodium Chloride 100 ml @ 9 mls/hr Q11H7M IV 06/18/25 05:15 06/19/25 21:57 9 MLS/HR Norepinephrine Bitartrate 32 mg/ Sodium Chloride 250 ml @ 0.938 mls/ hr Q24H IV 06/18/25 16:45 06/20/25 03:56 2.813 MLS/HR Lactated Ringer's 1,002 ml @ 30 mls/hr Q24H IV 06/19/25 17:30 Hydrocortisone Sodium Succinate 50 mg Q6HR IV 06/20/25 18:00 UNV Examination General: Intubated, sedated, critically ill but not in distress. HEENT: Pupils reactive; ETT secure; OGT in place. CV: Regular rhythm; extremities warm, mild edema. Resp: Bilateral breath sounds; synchronous with ventilator. Abdomen: Soft, non-distended; midline incision clean/dry/intact with wound VAC functioning; two MATT drains with minimal, non-bloody output; bowel sounds hypoactive. : Turner draining clear yellow. Skin: No new rashes/pressure injuries; right-leg ecchymosis stable. laboratory and microbiology Laboratory Tests 06/20/25 10:40 06/20/25 03:34 Test 06/20/25 03:34 Range/Units Serum Glucose 165 H 74-106 mg/dL Microbiology Date/Time Source Procedure Growth Status 06/18/25 12:53 Abdomen Gram Stain - Final Resulted 06/18/25 12:53 Abdomen Anaerobic Culture - Preliminary Resulted 06/18/25 12:53 Abdomen Aerobic Culture - Preliminary Resulted 06/17/25 10:41 Sputum Gram Stain - Final Complete 06/17/25 10:41 Respiratory Culture - Final Staphylococcus aureus Complete 06/16/25 18:36 Blood Blood Culture - Preliminary NO GROWTH AFTER 72 HOURS OF INCUBATION. Resulted Problem List/Assessment/Plan Problem List/Assessment/Plan Assessment 1. Septic shock due to complicated diverticulitis with multiple intra-abdominal abscesses, status post hysterectomy, BSO, abscess evacuation. POA 2. Acute hypoxic respiratory failure, mechanically ventilated due to sepsis POA 3. Suspected uterine malignancy (firm uterine mass, CA-125 [id number], intra-op OB-PBX INSTALLER impression). POA 4. High-anion gap metabolic acidosis (HCO? 11.9, AG 15) with pH 7.2. POA 5. Acute kidney injury (Stage 3, KDIGO) Cr 2.53, oliguric. POA 6. Electrolyte abnormalities: Hyponatremia, hypokalemia (repleted), hypocalcemia, hypoalbuminemia. POA 7. Normocytic anemia Hgb 8.6, likely multifactorial. POA 8. Troponin elevation likely Type II NSTEMI/demand ischemia due to sepsis POA 9. Generalized anasarca. 10. HTN, 11. fibromyalgia, 12. obesity Plan System-agudelo Neuro/Sedation & Analgesia * Continue midazolam infusion with fentanyl for analgesia; target RASS 2 to 0. * Daily SAT and readiness for SBT when norepi ?0.050.08 mcg/kg/min and FiO? ?40%, PEEP ?8. Respiratory * Lung-protective ventilation (VT 6 mL/kg IBW; plateau <30). * ABG in AM and PRN; VAP bundle (HOB 3045, oral CHG, subglottic suction, DVT/GI prophylaxis). Cardiovascular/Shock * Norepinephrine titrate to MAP ?65; wean vasopressin to off as tolerated. * Continue hydrocortisone 50 mg IV q6h; reassess for taper when off vasopressors ?24 h. * Strict I&O; consider gentle diuresis (furosemide) if congestion persists and pressor doses minimal. * If hemodynamics worsen, consider bedside echo for cardiac function/volume responsiveness. Infectious Disease / Surgery * Continue meropenem (renal dose) + vancomycin AUC-guided * Follow intra-op cultures and drain outputs; maintain wound VAC per protocol. * General Surgery & OB-Radiophone Operator/Radiophone Operator-Onc to follow; pathology pending. Renal/Fluids & Electrolytes * Renal-dose all meds; avoid nephrotoxins. * BMP/Mg/Phos q1224 h; K/Mg replacement to targets (K ?4.0, Mg ?2.0). * Nephrology consult if oliguria recurs, acidosis worsens, or PLASTIC PARTS FABRICATOR indications develop. AcidBase * Treat underlying sepsis/JILLIAN; ventilatory compensation appropriate. * Consider bicarbonate therapy only if pH ?7.15 or refractory hemodynamic compromise. Heme * Trend CBC daily; transfuse PRBC if Hgb <7 or instability. * Monitor platelets; if significant decline and heparin exposure >45 days ? 4T score and HIT testing. Endocrine/Glucose * ICU insulin protocol: target BG 251486 mg/dL. * Continue stress-dose steroids as above. Nutrition/GI * Mostly will initiate CLInemix from tomorrow. * Pantoprazole IV daily for stress-ulcer prophylaxis. Prophylaxis & Bundles * DVT prophylaxis: SCDs. * CLABSI/CAUTI bundles; pressure-injury prevention; daily device-necessity checklist (ETT, CVC, Turner, A-line, drains, wound VAC). Disposition * Continue ICU level care; evaluate daily for readiness to wean pressors/ventilation. Lines/Tubes: * ETT, central line, A-line, Turner, 2 MATT drains, wound VAC. Maintain aseptic care Critical Care Time Spent >45 minutes in direct critical care management, including chart/lab/imaging review, family counseling, intubation, vasopressor initiation, central line placement, and coordination with ICU and surgical teams. Discussion Case discussed in detail with the attending physician, including the clinical presentation, diagnostic workup, and comprehensive management plan. Plan discussed with: Spouse, Other (RN) My Orders My Orders Orders - STEPHEN SCHULTZ Procedure Category Date Status Time Complete Blood Count LAB 06/21/25 Verified 04:00 Comprehensive LAB 06/21/25 Verified Metabolic Panel 04:00 Chest Xray 1 View XY 06/21/25 Logged 04:00 Hydrocortisone PHA 06/20/25 Transmitted Succinate Inj 18:00 Dietary Evaluation Review Comments: 1. TPN per pharmacy if NPO>7 days 2. If GI assessible, Vital AF 1.2 @45ml/hr providing 81g Protein 1296kcal, 876ml free water Expected Outcomes/Goals: meeting pt's nutrition needs at 75-100% recovered GI function gradual wt loss Date of Service: Jun 20, 2025 Billing Provider: ELDA MULLER MD Common Visit Codes: [id number] CARE 30-74 MIN STEPHEN SCHULTZ RESIDENT Jun 20, 2025 14:55 ELDA MULLER MD Jun 23, 2025 22:29
[2025-06-20] MEDS: HYDROCORTISONE SOD SUCC 100 MG/2ML INJ VIAL IV SCH (17:35)
--- NOTE | 2025-06-20 21:37 | DVHPN2 ---
Progress Note - Dictate Date Seen: Jun 20, 2025 Has the PT tested + for MRSA If YES, has PT been informed?: No Medical Necessity Reason Pt with a Central, PICC or Fol: Yes The following are medically ne: Central Line, Turner Catheter Reason for turner catheter: Strict I&O Subjective Patient was seen and evaluated in follow up in the ICU. Patient is intubated and sedated on ventilator. 30% FiO2. Patient's Jesus-Urbano drains have minimal serosanguineous output. Wounds are clean, dry, and intact, and a wound vacuum is in place. WBC 21.9, HGB 7.8, HCT 23.8, K 3.4, CO2 13, BUN 79, HARNESS MAKER 2.03, CA 7.6. Chest x-ray shows mild interval increase in prominence of the pulmonary vasculature and interstitium. vital signs Vital Sign Date Time Temp Pulse Resp B/P (MAP) Pulse Ox O2 Delivery O2 Flow Rate FiO2 06/20/25 13:05 57 24 122/57 (78) 100 30 06/20/25 12:00 Mechanical Ventilator+ 06/20/25 12:00 97.6 97.6 06/20/25 08:00 0 Total Intake and Output 06/19/25 06/19/25 06/20/25 15:00 23:00 07:00 Intake Total 184.564 ml 879.315 ml 212.877 ml Output Total 390 ml 350 ml Balance 184.564 ml 489.315 ml -137.123 ml medications Current Medications Medications Dose Ordered Sig/Venessa Route Start Time Stop Time Status Last Admin Dose Admin Acetaminophen 325 mg Q4HP PRN PO 06/16/25 20:45 Meropenem 50 ml @ 17 mls/hr Q12HR IV 06/16/25 22:00 06/20/25 09:39 17 MLS/HR Vancomycin HCl 0 ml @ 0 mls/hr UD IV 06/17/25 08:30 Propofol 100 ml @ 2.661 mls/ hr Q24H IV 06/17/25 10:15 Midazolam HCl 50 ml @ 1 mls/hr Q24H IV 06/17/25 10:15 06/20/25 12:43 2 MLS/HR Fentanyl Citrate 250 ml @ 2.5 mls/hr Q24H IV 06/17/25 10:15 06/20/25 04:28 10 MLS/HR Pantoprazole Sodium 40 mg DAILY IV 06/18/25 10:00 06/20/25 09:38 40 MG Vasopressin 20 units/Sodium Chloride 100 ml @ 9 mls/hr Q11H7M IV 06/18/25 05:15 06/19/25 21:57 9 MLS/HR Hydrocortisone Sodium Succinate 100 mg Q12HR IV 06/18/25 22:00 06/20/25 09:38 100 MG Norepinephrine Bitartrate 32 mg/ Sodium Chloride 250 ml @ 0.938 mls/ hr Q24H IV 06/18/25 16:45 06/20/25 03:56 2.813 MLS/HR Lactated Ringer's 1,002 ml @ 30 mls/hr Q24H IV 06/19/25 17:30 objective GENERAL: Ill appearing, intubated on ventilator. Obese. EYES: PERRL, EOMI. Anicteric. HENT: Moist mucous membranes. LUNGS: breath sounds. CARDIOVASCULAR: Regular rate and rhythm. ABDOMEN: Soft, nontender and nondistended. EXTREMITIES: No edema. SKIN: Warm, dry. laboratory and microbiology Laboratory Tests 06/20/25 10:40 06/20/25 03:34 Test 06/20/25 03:34 Range/Units Serum Glucose 165 H 74-106 mg/dL Problem List Metabolic encephalopathy secondary to sepsis. Sepsis due to complicated diverticulitis. Complicated diverticulitis with multiple abscesses. JILLIAN hemodynamically mediated (VMN). Metabolic acidosis with elevated anion gap and normal lactic acid. Acute respiratory failure likely secondary to congestive heart failure. Acute congestive heart failure (unknown LVEF). Questionable uterine malignancy. Hyponatremia. Hypokalemia. Normocytic anemia. Obesity. Hypertension. Fibromyalgia. Pulmonary HTN. Assessment/Plan Continued all current supportive medical care. GI prophylactics. IV antibiotics as ordered. Vasopressors for hemodynamic support. Additional plan as per the hospital course. Critical care time of 45 minutes provided to include time spent evaluation of patient at bedside, when appropriate patient/family education for diagnosis, treatment plan, review of pertinent medical information and discussion of care with specialty providers and PCP.Mechanical ventilator parameters, treatment and adjustments have personally been reviewed by me and treatment plan by biochemistry specialist has also been reviewed. Dietary Evaluation Review Comments: 1. TPN per pharmacy if NPO>7 days 2. If GI assessible, Vital AF 1.2 @45ml/hr providing 81g Protein 1296kcal, 876ml free water Expected Outcomes/Goals: meeting pt's nutrition needs at 75-100% recovered GI function gradual wt loss Plan discussed with: Other DANYELLE GIRALDO MD Jun 20, 2025 13:40
--- NOTE | 2025-06-20 21:45 | DVHINCON2 ---
Date Seen: Jun 19, [address] Jacobsen Reason for Consultation Acute hypoxic respiratory failure requiring mechanical ventilator, pneumonia. History of Present Illness A 74-year-old woman with PMHx of hypertension, fibromyalgia, and diverticulosis with multiple episodes of diverticulitis who presented to the ED via EMS on 06/16/25 with c/o generalized weakness, onset 2 weeks. Family reported patient has not been herself recently and was concerned of a "flare-up of fibromyalgia," prompting the ED visit. Per report, over the past 2 days pt had been experiencing hematuria, diffuse abdominal pain, diminished appetite as well as bilateral lower extremity swelling. She has not felt well in over a month, bed- bound for approximately two weeks. reported that when they try to mobilize her from the bed to the wheelchair, patient fell - no LOC but bruised her right leg. also repor ts patient presented w/ abnormal uterine bleeding (spotting) for the past few months. Patient was admitted for further care. Pulmonary consultation is requested for evaluation and management of acute hypoxic respiratory failure requiring mechanical ventilator and pneumonia. Review of Systems: Unable to obtain d/t intubated status Past Medical History: Hypertension, Fibromyalgia. Diverticulosis with multiple episodes of diverticulitis; last episode was approximately one year ago. Past Surgical History: Colonoscopy completed five years ago which was within normal limits, cholecystectomy, umbilical hernia repair Medications: Reviewed. Allergies: Codeine. Seasonal. Family History: No family history of premature CAD. No family history of lung disorders. Social History: Nonsmoker. No alcohol or illicit drug use. Allergies: Coded Allergies: Codeine (Verified Allergy, Unknown, 06/16/25) Home Meds Reported Medications Atenolol (Atenolol) 50 Mg Tab, 50 MG PO BID for 30 Days, MG 06/17/25 Current Medications Current Medications Medications (Trade) Dose Ordered Sig/Venessa Route PRN Reason Start Time Stop Time Status Last Admin Hydrocortisone Sodium Succinate (Solu-CORTEF INJECTION) 50 mg Q6HR IV 06/20/25 18:00 06/20/25 17:35 Vital Signs Vital Signs Date Time Temp Pulse Resp B/P (MAP) Pulse Ox O2 Delivery O2 Flow Rate FiO2 06/20/25 20:36 61 24 115/51 (72) 100 30 06/20/25 20:00 Mechanical Ventilator+ 06/20/25 20:00 97.9 97.9 9/28/25 08:00 0 Physical Exam Gen.: Patient lying in bed in medical ICU. Sedated, intubated on mechanical ventilator. Head: Normocephalic, atraumatic. Eyes: PERRLA. Ears: Normal external anatomy. Throat: Endotracheal tube and orogastric tube in place. Neck: Supple, trachea midline. Chest: Transmitted breath sounds bilaterally. Decreased air entry bilaterally. No wheezing. Bibasilar crackles. Cardiovascular: Positive S1, positive S2. Regular rate and rhythm. Abdomen: Positive bowel sounds in all 4 quadrants. Soft, nontender, nondistended. : Morocho in place. Normal external genitalia. Rectal: Deferred. Skin: Warm, dry. Intact. Extremities: 2+ radial pulses bilaterally. No lower extremity edema. Neuro: Sedated. Labs/Diagnostic Data Labs Test 06/20/25 16:59 06/20/25 10:40 06/20/25 06:00 06/20/25 03:34 Range/Units Potassium Level 3.9 3.5-5.1 mmol/L Hemoglobin 7.8 L 12.2-16.2 g/dL Hematocrit 23.8 L 36.0-46.0 % Blood Gas Specimen Type Arterial Blood Gas Sample Site Arterial line Blood Gas Patient Temperature 37.0 Arterial Blood Date Drawn [id number] Arterial Blood pH 7.242 *L 7.350-7.450 Arterial Blood Partial Pressure CO2 31.6 L 32.0-45.0 mmHg Arterial Blood Partial Pressure O2 104.1 83.0-108.0 mmHg Arterial Blood HCO3 13.3 L 21.0-28.0 mmol/L Arterial Blood Oxygen Saturation 96.5 94.0-98.0 % Arterial Blood Base Excess -12.9 L -2.0-3.0 mmol/L Arterial Blood Oxyhemoglobin 95.5 94.0-98.0 % Arterial Blood Carboxyhemoglobin 1.0 0.5-1.5 % Arterial Blood Methemoglobin 0.0 0.0-1.5 % Donnell Test N/a Blood Gas Total Hemoglobin 9.00 L 12.0-16.0 g/dL Blood Gas Set Respiration Rate 24.0 Blood Gas Modality Vent - ac FiO2 % 30.0 Blood Gas Tidal Volume 350.0 Blood Gas PEEP or CPAP 5.0 Blood Gas Critical Value Read Back yes Blood Gas Notified Whom /nelli Blood Gas Notified Time [id number] Blood Gas Notified By counter hand lorna White Blood Count 21.9 H 4.4-10.8 10^3/uL Red Blood Count 2.95 L 4.0-5.20 10^6/uL Mean Corpuscular Volume 87.4 80.0-100.0 fL Mean Corpuscular Hemoglobin 28.3 28.0-32.0 pg Mean Corpuscular Hemoglobin Concent 32.4 32.0-36.0 g/dL Red Cell Distribution Width 18.0 H 11.8-14.3 % Platelet Count 136 L 140-450 10^3/uL Mean Platelet Volume 7.9 6.9-10.8 fL Neutrophils (%) (Auto) 95.8 H 37.0-80.0 % Lymphocytes (%) (Auto) 1.7 L 10.0-50.0 % Monocytes (%) (Auto) 2.3 0.0-12.0 % Eosinophils (%) (Auto) 0.1 0.0-7.0 % Basophils (%) (Auto) 0.1 0.0-2.0 % Neutrophils # (Auto) 21.0 H 1.6-8.6 10 ^3/uL Lymphocytes # (Auto) 0.4 0.4-5.4 10 ^3/uL Monocytes # (Auto) 0.5 0-1.3 10 ^3/uL Eosinophils # (Auto) 0 0-0.8 10 ^3/uL Basophils # (Auto) 0 0-0.2 10 ^3/uL Nucleated Red Blood Cells 0.1 % Sodium Level 134 L 136-145 mmol/L Chloride Level 106 98-107 mmol/L Carbon Dioxide Level 13 L 20-31 mmol/L Anion Gap 15 5-15 Blood Urea Nitrogen 79 #H 9-23 mg/dL Creatinine 2.03 H 0.550-1.02 mg/dL Glomerular Filtration Rate Calc 25 >90 mL/min BUN/Creatinine Ratio 38.9 H 10.0-20.0 Serum Glucose 165 H 74-106 mg/dL Calcium Level 7.6 L 8.7-10.4 mg/dL Magnesium Level 2.0 1.6-2.6 mg/dL Total Bilirubin 0.2 0.2-1.0 mg/dL Aspartate Amino Transferase (AST) 12 L 13-40 U/L Alanine Aminotransferase (ALT) 14 7-40 U/L Alkaline Phosphatase 87 46-116 U/L Total Protein 4.9 L 5.7-8.2 g/dL Albumin 1.9 L 3.2-4.8 g/dL Random Vancomycin Level 20.2 H 5-10 ug/mL Test 06/19/25 08:49 06/18/25 04:10 06/17/25 16:14 06/17/25 13:00 Range/Units Prothrombin Time 13.9 H 9.3-11.8 sec Prothrombin Time INR 1.35 H 0.9-1.15 Activated Partial Thromboplast Time 44.0 H 24.5-34.5 SEC Differential Total Cells Counted 100.0 100 Neutrophils % (Manual) 83 H 37.0-80.0 Band Neutrophils % (Manual) 4 Lymphocytes % (Manual) 3 L 10.0-50.0 Monocytes % (Manual) 2 0-12 Eosinophils % (Manual) 3 0-7 Basophils % (Manual) 0 0.0-2.0 Metamyelocytes % (manual) 4 Myelocytes % (Manual) 1 Promyelocytes % (Manual) 0 Blast Cells % (Manual) 0 Reactive Lymphocytes 0 Platelet Estimate Adequate CA 125 Antigen 232.0 H 0.0-38.1 U/mL Troponin I High Sensitivity 39 *H </=34 ng/L Test 06/17/25 09:33 06/17/25 03:45 06/17/25 02:31 06/16/25 21:48 Range/Units Lactic Acid Level 1.1 0.4-2.0 mmol/L HIV (1&2) Antibody Negative Negative Urine Creatinine 78.91 30.0-125.0 mg/dL Urine Protein/Creatinine Ratio 1.29 Urine Total Protein 101.6 H 1-14 mg/dL Urine Opiates Screen Neg NEGATIVE Urine Fentanyl Screen Neg NEGATIVE Urine Barbiturates Screen Neg NEGATIVE Urine Phencyclidine Screen Neg NEGATIVE Urine Amphetamines Screen Neg NEGATIVE Urine Benzodiazepines Screen Neg NEGATIVE Urine Cocaine Screen Neg NEGATIVE Urine Cannabinoids Screen Neg NEGATIVE Hepatitis A IgM Antibody Negative Hepatitis B Surface Antigen Negative Negative Hepatitis B Core IgM Antibody Negative Negative Hepatitis C Antibody Negative Negative Blood Gas Liter Flow 0.00 Test 06/16/25 20:42 06/16/25 16:40 06/16/25 16:37 06/16/25 16:30 Range/Units Hemoglobin A1c 5.8 H <5.7 % A1C Phosphorus Level 5.0 2.4-5.1 mg/dL Triglycerides Level 152 H < 150 mg/dL Cholesterol Level 94 < 200 mg/dL LDL Cholesterol 50 < 100 mg/dL HDL Cholesterol 8 L 40-59 mg/dL Vitamin B12 Level 371 211-911 pg/mL Vitamin D 25-Hydroxy 6.7 L 30.0-100 ng/mL Thyroid Stimulating Hormone (TSH) 1.24 0.55-4.78 uIU/mL Urine Color Yellow Yellow Urine Clarity Turbid H Clear Urine pH 5.5 5.0-9.0 Urine Specific Watkins 1.014 1.001-1.035 Urine Protein Trace H Negative Urine Ketones Negative Negative Urine Blood Negative Negative /uL Urine Nitrite Negative Negative Urine Bilirubin Negative Negative Urine Urobilinogen 3 H Negative mg/dL Urine Leukocyte Esterase Negative Negative /uL Urine RBC 2 0 - 4 /hpf Urine Microscopic WBC 5 0-5 /HPF Urine Squamous Epithelial Cells Few <5 /hpf Urine Bacteria None seen None Seen /hpf Urine Glucose Normal Normal mg/dL Beta-Hydroxybutyric Acid 2.296 H < 0.4 mmol/L Anisocytosis (manual) Slight Tear Drop Cells Few Zak Cells Few B-Type Natriuretic Peptide 1669.81 0-100 pg/mL Lipase 19 12-53 U/L Microbiology Date/Time Source Procedure Growth Status 06/18/25 12:53 Abdomen Gram Stain - Final Resulted 06/18/25 12:53 Abdomen Anaerobic Culture - Preliminary Resulted 06/18/25 12:53 Abdomen Aerobic Culture - Preliminary Resulted 06/17/25 10:41 Sputum Gram Stain - Final Complete 06/17/25 10:41 Respiratory Culture - Final Staphylococcus aureus Complete 06/16/25 18:36 Blood Blood Culture - Preliminary NO GROWTH AFTER 72 HOURS OF INCUBATION. Resulted Assessment Impression: Acute hypoxic respiratory failure On mechanical ventilator Hypokalemia Pneumonia with Staphylococcus aureus Anemia Septic shock Obesity, BMI 35.2 Plan: s/p intubation on mechanical ventilator. CXR image and report reviewed. Devices in place. . ABG reviewed, acidemia 2/2 metabolic acidosis. On AC mode; RR 24, VT 350, PEEP 5, FiO2 30% Titrate FIO2 to keep O2 saturation above 90%. VAP bundle. Daily ABG and CXR while intubated Sedate for ventilator synchrony Continue antibiotics. Follow up cultures. IV steroids On pressors for hemodynamic support Titrate to keep mean arterial pressure greater than 65 mmHg. Monitor renal function Monitor electrolytes. Supplement as necessary. Potassium supplementation Monitor ins and outs. Maintain euvolemia. Monitor hemoglobin Transfuse if less than 7.0 g/dL. Recommend diet and lifestyle modifications for weight reduction Obesity complicates all care GI prophylaxis. DVT prophylaxis. Prognosis: Poor given patient's multiple co-morbidities. Condition: Critical Rest of plan per hospitalist and other consultants. A total of 35 minutes of critical care time was spent reviewing the patient record, examining the patient, making a diagnostic and therapeutic plan, discussing this plan with the medical personnel, following up on diagnostic studies and following the patient for clinical stability excluding any and all procedures. At least 50% of this time was spent in direct, [id number] contact. Thank you, Dr. Jacobsen, for allowing me to participate in this patient's care. Further recommendations will depend on the patient's clinical course. Please do not hesitate to contact me if you have any questions or concerns. This medical document was created using an electronic medical record system with [employer] computerized dictation system. Although these documentations are being c arefully reviewed, there may still be some phonetic and typographical changes. The errors are purely typographical, due to imperfection on the software program, and do not reflect any compromise in the patient's medical care. Plan discussed with: Other (RN/) Date of Service: Jun 19, 2025 Billing Provider: TJ NGUYEN MD Common Visit Codes: [id number] INP/OBS CARE (HIGH), [id number] CARE 30- 74 MIN TJ NGUYEN MD Jun 20, 2025 21:45
[2025-06-20 22:23] LABS: Hemoglobin 7.1 g/dL (12.2-16.2)
[2025-06-20 22:24] LABS: Hematocrit 21.4 % (36.0-46.0)
--- NOTE | 2025-06-20 23:13 | DVHPN2 ---
Subjective DOS: 06/20/2025 [facility] Patient seen and examined at bedside. Sedated, intubated on mechanical ventilator. Overnight events reviewed. Changes from previous H/P or p: No Changes Objective Vitals Vital Signs Date Time Temp Pulse Resp B/P (MAP) Pulse Ox O2 Delivery O2 Flow Rate FiO2 06/20/25 22:47 61 24 112/49 (70) 100 30 06/20/25 20:00 Mechanical Ventilator+ 06/20/25 20:00 0 06/20/25 20:00 97.9 97.9 Intake/Output Intake and Output 06/20/25 07:00 Intake Total 1306.756 ml Output Total 740 ml Balance 566.756 ml IV Total 1014.756 ml Blood Product 292 ml Output Urine Total 400 ml Drainage Total 200 ml Other 140 ml Exam Gen.: Patient lying in bed in medical ICU. Sedated, intubated on mechanical ventilator. Head: Normocephalic, atraumatic. Eyes: PERRLA. Ears: Normal external anatomy. Throat: Endotracheal tube and orogastric tube in place. Neck: Supple, trachea midline. Chest: Transmitted breath sounds bilaterally. Decreased air entry bilaterally. No wheezing. Bibasilar crackles. Cardiovascular: Positive S1, positive S2. Regular rate and rhythm. Abdomen: Positive bowel sounds in all 4 quadrants. Soft, nontender, nondistended. : [place] in place. Normal external genitalia. Rectal: Deferred. Skin: Warm, dry. Intact. Extremities: 2+ radial pulses bilaterally. No lower extremity edema. Neuro: Sedated. Medications Current Medications Medications Dose Ordered Sig/[facility] Route Start Time Stop Time Status Last Admin Dose Admin Acetaminophen 325 mg Q4HP PRN PO 06/16/25 20:45 Meropenem 50 ml @ 17 mls/hr Q12HR IV 06/16/25 22:00 06/20/25 22:16 17 MLS/HR Vancomycin HCl 0 ml @ 0 mls/hr UD IV 06/17/25 08:30 Propofol 100 ml @ 2.661 mls/ hr Q24H IV 06/17/25 10:15 Midazolam HCl 50 ml @ 1 mls/hr Q24H IV 06/17/25 10:15 06/20/25 12:43 2 MLS/HR Fentanyl Citrate 250 ml @ 2.5 mls/hr Q24H IV 06/17/25 10:15 06/20/25 04:28 10 MLS/HR Pantoprazole Sodium 40 mg DAILY IV 06/18/25 10:00 06/20/25 09:38 40 MG Vasopressin 20 units/Sodium Chloride 100 ml @ 9 mls/hr Q11H7M IV 06/18/25 05:15 06/19/25 21:57 9 MLS/HR Norepinephrine Bitartrate 32 mg/ Sodium Chloride 250 ml @ 0.938 mls/ hr Q24H IV 06/18/25 16:45 06/20/25 15:22 0.938 MLS/HR Lactated Ringer's 1,002 ml @ 30 mls/hr Q24H IV 06/19/25 17:30 06/20/25 17:35 30 MLS/HR Hydrocortisone Sodium Succinate 50 mg Q6HR IV 06/20/25 18:00 06/20/25 17:35 50 MG Laboratory Results Laboratory Tests 06/20/25 03:34 06/20/25 16:59 06/20/25 22:17 Chemistry Test 06/20/25 03:34 Albumin 1.9 g/dL (3.2-4.8) L Calcium Level 7.6 mg/dL (8.7-10.4) L Magnesium Level 2.0 mg/dL (1.6-2.6) Total Protein 4.9 g/dL (5.7-8.2) L LFT Test 06/20/25 03:34 Alanine Aminotransferase (ALT) 14 U/L (7-40) Alkaline Phosphatase 87 U/L (46-116) Aspartate Amino Transferase (AST) 12 U/L (13-40) L Total Bilirubin 0.2 mg/dL (0.2-1.0) Urinalysis Test 06/16/25 16:40 06/17/25 03:45 Urine Color Yellow (Yellow) Urine Clarity Turbid (Clear) H Urine pH 5.5 (5.0-9.0) Urine Specific Baudette 1.014 (1.001-1.035) Urine Protein Trace (Negative) H Urine Ketones Negative (Negative) Urine Blood Negative /uL (Negative) Urine Nitrite Negative (Negative) Urine Bilirubin Negative (Negative) Urine Urobilinogen 3 mg/dL (Negative) H Urine Leukocyte Esterase Negative /uL (Negative) Urine RBC 2 /hpf (0 - 4) Urine Microscopic WBC 5 /HPF (0-5) Urine Squamous Epithelial Cells Few /hpf (<5) Urine Bacteria None seen /hpf (None Seen) Urine Glucose Normal mg/dL (Normal) Urine Creatinine 78.91 mg/dL (30.0-125.0) Urine Protein/Creatinine Ratio 1.29 Urine Total Protein 101.6 mg/dL (1-14) H Blood Gas Results Test 06/20/25 06:00 Arterial Blood pH 7.242 (7.350-7.450) FiO2 % 30.0 Microbiology Microbiology Date/Time Source Procedure Growth Status 06/18/25 12:53 Abdomen Gram Stain - Final Resulted 06/18/25 12:53 Abdomen Anaerobic Culture - Preliminary Resulted 06/18/25 12:53 Abdomen Aerobic Culture - Preliminary Resulted 06/17/25 10:41 Sputum Gram Stain - Final Complete 06/17/25 10:41 Respiratory Culture - Final Staphylococcus aureus Complete 06/16/25 18:36 Blood Blood Culture - Preliminary NO GROWTH AFTER 72 HOURS OF INCUBATION. Resulted Assessment/Plan Assessment/Plan Impression: Acute hypoxic respiratory failure On mechanical ventilator Hypokalemia Pneumonia with Staphylococcus aureus Anemia Septic shock Obesity, BMI 35.2 Events: Remains on vent support On AC mode; RR 24, VT 350, PEEP 5, FiO2 30% ABG reviewed, notable for acidemia d/t metabolic acidosis CXR reviewed, mild pulmonary vascular congestion. Devices in place. Continue antibiotics 2 amps bicarb given Monitor renal function Monitor electrolytes. Supplement as necessary. Potassium supplementation Monitor hemoglobin GI/DVT prophylaxis Labs and imaging reviewed. Rest of plan as noted below. Plan: s/p intubation on mechanical ventilator. On AC mode; RR 24, VT 350, PEEP 5, FiO2 30% Titrate FIO2 to keep O2 saturation above 90%. VAP bundle. Daily ABG and CXR while intubated Sedate for ventilator synchrony Continue antibiotics. Follow up cultures. IV steroids Pressors as necessary for hemodynamic support Titrate to keep mean arterial pressure greater than 65 mmHg. Monitor renal function Monitor electrolytes. Supplement as necessary. Potassium supplementation Monitor ins and outs. Maintain euvolemia. Monitor hemoglobin Transfuse if less than 7.0 g/dL. Recommend diet and lifestyle modifications for weight reduction Obesity complicates all care GI prophylaxis. DVT prophylaxis. Prognosis: Poor given patient's multiple co-morbidities. Condition: Critical Rest of plan per hospitalist and other consultants. A total of 35 minutes of critical care time was spent reviewing the patient record, examining the patient, making a diagnostic and therapeutic plan, discussing this plan with the medical personnel, following up on diagnostic studies and following the patient for clinical stability excluding any and all procedures. At least 50% of this time was spent in direct, [id number] contact. Thank you, Dr. Jacobsen, for allowing me to participate in this patient's care. Further recommendations will depend on the patient's clinical course. Please do not hesitate to contact me if you have any questions or concerns. This medical document was created using an electronic medical record system with [employer] dictation system. Although these documentations are being carefully reviewed, there may still be some phonetic and typographical changes. The errors are purely typographical, due to imperfection on the software program, and do not reflect any compromise in the patient's medical care Plan discussed with: Other (NEISHA Smith) Date of Service: Jun 20, 2025 Billing Provider: TJ NGUYEN MD Common Visit Codes: [id number] INP/OBS CARE(HIGH), [id number] CARE 30-74 MIN TJ NGUYEN MD Jun 20, 2025 23:13
[2025-06-21] VITALS (110 sets, daily range): BP systolic 106–143; BP diastolic 45–73; PULSE 51–63; RESP 21–26; TEMP 97.1–98.2; O2SAT 98–100
--- NOTE | 2025-06-21 04:43 | DVH ---
CHEST RADIOGRAPH Indication: Acute hypoxic respi failure Technique: Single frontal view of the chest was obtained COMPARISON: XY CHEST PORTABLE on DOS: 06/20/25, XY CHEST XRAY 1 VIEW on DOS: 06/19/25, XY CHEST XRAY 1 VIEW on DOS: 06/18/25, XY CHEST PORTABLE on DOS: 06/17/25, XY CHEST PORTABLE on DOS: 06/17/25 FINDINGS: Lines and Tubes: Unchanged. Lungs: Stable appearing diffuse increased prominence of the pulmonary vasculature, bibasilar pulmonar y airspace disease and small bilateral pleural effusions. No pneumothorax. Cardiomediastinal contours: Cardiomegaly. Bones: Unremarkable IMPRESSION: 1. Stable diffuse increased prominence of the pulmonary vasculature, Bibasilar pulmonary airspace dis ease and bilateral pleural effusions. 2. Cardiomegaly. 3. Lines and tubes unchanged.
[2025-06-21 05:17] LABS: Hematocrit 21.0 % (36.0-46.0); Mean Corpuscular Hemoglobin 28.2 pg (28.0-32.0); Mean Corpuscular Volume 84.2 fL (80.0-100.0)
[2025-06-21 05:32] LABS: Alanine Aminotransferase 12 U/L (7-40); Alkaline Phosphatase 79 U/L (46-116); Anion Gap 12 (5-15); BUN/Creatinine Ratio 38.1 (10.0-20.0); Potassium 3.6 mmol/L (3.5-5.1); Sodium 138 mmol/L (136-145)
[2025-06-21 05:41] LABS: Albumin 2.0 g/dL (3.2-4.8); Bilirubin, Total 0.2 mg/dL (0.2-1.0); Blood Urea Nitrogen 69 mg/dL (9-23); Calcium 7.6 mg/dL (8.7-10.4); Carbon Dioxide 18 mmol/L (20-31); Chloride 108 mmol/L (98-107); Glucose 113 mg/dL (74-106); Total Protein 4.7 g/dL (5.7-8.2)
[2025-06-21 06:05] LABS: Base Excess -8.1 mmol/L (-2.0-3.0)
[2025-06-21 06:20] LABS: Hemoglobin 7.0 g/dL (12.2-16.2)
[2025-06-21 06:46] LABS: Total Cells Counted 100.0 (100)
[2025-06-21] MEDS: MEROPENEM 1GM IVPB 50 ML IV SCH (10:00)
[2025-06-21 10:32] LABS: Hematocrit 20.8 % (36.0-46.0)
--- NOTE | 2025-06-21 10:57 | DVHPNRES ---
Progress Note Date Seen: Jun 21, 2025 Resident Creating Document: STEPHEN SCHULTZ RESIDENT Has the PT tested + for MRSA If YES, has PT been informed?: No Medical Necessity Reason Pt with a Central, PICC or Fol: Yes The following are medically ne: Central Line, Turner Catheter Reason for turner catheter: Strict I&O Subjective Review of Systems Patient remains intubated and sedated in ICU.? Hemodynamics: Now off norepinephrine and vasopressin, hemodynamically stable without vasopressors. Stress-dose steroids continued (hydrocortisone 50 mg IV q6h); plan to taper over 5 days.? Lines/Devices: A-line removed. Wound VAC in place. Two MATT drains present: left drain output 130 mL, right drain output 40 mL over past 24 h.? Feeding: Spoke with surgery regarding nutrition; no enteral feeds started yet, Clinimix TPN initiated.? Transfusion: Hemoglobin 7.0 g/dL ? ordered 2 units PRBC transfusion; plan to maintain Hgb ?8 g/dL.? Cultures: Biopsy pending. Blood cultures remain negative. Respiratory culture grew Staph aureus (no MRSA). Currently on meropenem + vancomycin.? CXR: Diffuse pulmonary vascular congestion, bilateral airspace disease, bilateral pleural effusions, and cardiomegaly.? Urine output: 1100 mL/24 h, ~0.48 mL/kg/hr; improving.? Patient remains sedated but oxygenating adequately on mechanical ventilation. Brief gist of today Progress: Patient now off vasopressors, maintaining stable MAP. Ongoing anemia managed with transfusion. Renal function improving with increased urine output. WBC trending down significantly.?Treatments: On hydrocortisone, vancomycin, meropenem, sedation (midazolam, fentanyl), TPN.?New data:? WBC 11.4 (improved from 21.9)? Hgb 7.0 (down from 8.3 yesterday)? Platelets [trend, pending latest]? Na [stable low], K 3.6 (normal after repletion)? BUN 16, Cr 1.81 (improving, GFR ~3035)? ABG: pH 7.30, Cristhian? 32.4, HCO? 16.9, Becky? 103.5 ? compensated metabolic acidosis improving? Urine output 1100 mL/24 h (?) Plan: Maintain hemodynamic stability; transfuse PRBC to maintain Hgb ?8; continue broad-spectrum antimicrobials with de-escalation once cultures finalized; maintain hydrocortisone with taper over 5 days; continue TPN (advance to enteral when safe); strict I&O; monitor MATT drains and wound VAC; daily CBC, BMP, ABG, and CXR. ROS General: sedated, intubated.? Neuro: unable to assess, sedated.? CV: off pressors, stable BP.? Resp: on ventilator, bilateral infiltrates/effusions.? GI: wound VAC in place, soft abdomen, MATT drains with output.? : Turner with improving output.? Skin/MSK: right-leg ecchymosis, surgical site CDI. Objective vital signs Vital Sign Date Time Temp Pulse Resp B/P (MAP) Pulse Ox O2 Delivery O2 Flow Rate FiO2 06/21/25 09:16 51 24 116/51 (72) 99 30 06/21/25 06:00 Mechanical Ventilator+ 06/21/25 04:00 97.5 97.5 06/20/25 20:00 0 Total Intake and Output 06/20/25 06/20/25 06/21/25 15:00 23:00 07:00 Intake Total 387.188 ml 325.876 ml 333.5 ml Output Total 325 ml 620 ml Balance 387.188 ml 0.876 ml -286.5 ml medications Current Medications Medications Dose Ordered Sig/Venessa Route Start Time Stop Time Status Last Admin Dose Admin Acetaminophen 325 mg Q4HP PRN PO 06/16/25 20:45 Vancomycin HCl 0 ml @ 0 mls/hr UD IV 06/17/25 08:30 Propofol 100 ml @ 2.661 mls/ hr Q24H IV 06/17/25 10:15 Midazolam HCl 50 ml @ 1 mls/hr Q24H IV 06/17/25 10:15 06/21/25 04:26 3 MLS/HR Fentanyl Citrate 250 ml @ 2.5 mls/hr Q24H IV 06/17/25 10:15 06/21/25 04:28 7.5 MLS/HR Pantoprazole Sodium 40 mg DAILY IV 06/18/25 10:00 06/20/25 09:38 40 MG Vasopressin 20 units/Sodium Chloride 100 ml @ 9 mls/hr Q11H7M IV 06/18/25 05:15 06/19/25 21:57 9 MLS/HR Norepinephrine Bitartrate 32 mg/ Sodium Chloride 250 ml @ 0.938 mls/ hr Q24H IV 06/18/25 16:45 06/20/25 15:22 0.938 MLS/HR Lactated Ringer's 1,002 ml @ 30 mls/hr Q24H IV 06/19/25 17:30 06/20/25 17:35 30 MLS/HR Hydrocortisone Sodium Succinate 50 mg Q6HR IV 06/20/25 18:00 06/21/25 06:30 50 MG Meropenem 50 ml @ 17 mls/hr Q12HR IV 06/21/25 10:00 Examination General: Intubated, sedated, critically ill but stable.?HEENT: Pupils reactive, ETT secure.?CV: Regular rhythm, no murmurs, stable MAP without vasopressors.?Resp: Bilateral crackles, vented, synchronous.?Abdomen: Soft, non- distended, wound VAC in place, MATT drains with modest output, incision CDI.?: Turner, urine output 1100 mL/24 h.?Skin: Warm, pale, ecchymosis RLE.?Neuro: Sedated, non-assessable. laboratory and microbiology Laboratory Tests 06/21/25 04:35 Test 06/21/25 04:35 Range/Units Serum Glucose 113 H 74-106 mg/dL Microbiology Date/Time Source Procedure Growth Status 06/18/25 12:53 Abdomen Gram Stain - Final Resulted 06/18/25 12:53 Abdomen Anaerobic Culture - Preliminary Resulted 06/18/25 12:53 Abdomen Aerobic Culture - Preliminary Resulted 06/17/25 10:41 Sputum Gram Stain - Final Complete 06/17/25 10:41 Respiratory Culture - Final Staphylococcus aureus Complete 06/16/25 18:36 Blood Blood Culture - Preliminary NO GROWTH AFTER 72 HOURS OF INCUBATION. Resulted Problem List/Assessment/Plan Problem List/Assessment/Plan Assessment 1. Septic shock due to complicated diverticulitis with multiple intra-abdominal abscesses, status post hysterectomy, BSO, abscess evacuation. POA 2. Acute hypoxic respiratory failure, mechanically ventilated due to sepsis POA 3. Suspected uterine malignancy (firm uterine mass, CA-125 232, intra-op OB-NAIL MAKING MACHINE TENDER impression). POA 4. High-anion gap metabolic acidosis (HCO? 11.9, AG 15) with pH 7.2. POA 5. Acute kidney injury (Stage 3, KDIGO) Cr 2.53, oliguric. POA 6. Electrolyte abnormalities: Hyponatremia, hypokalemia (repleted), hypocalcemia, hypoalbuminemia. POA 7. Normocytic anemia Hgb 8.6, likely multifactorial. POA 8. Troponin elevation likely Type II NSTEMI/demand ischemia due to sepsis POA 9. Generalized anasarca. 10. HTN, 11. fibromyalgia, 12. obesity Plan System-agudelo Neuro/Sedation & Analgesia * Continue midazolam infusion with fentanyl for analgesia; target RASS 2 to 0. * Daily SAT and readiness for SBT when FiO< ?40%, PEEP ?8. Respiratory * Lung-protective ventilation (VT 6 mL/kg IBW; plateau <30). * ABG in AM and PRN; VAP bundle (HOB 3045, oral CHG, subglottic suction, DVT/GI prophylaxis). Cardiovascular/Shock Monitor hemodynamics; maintain MAP >65 without pressors; telemetry. * Continue hydrocortisone 50 mg IV q6h; * Strict I&O; consider gentle diuresis (furosemide) if congestion persists . * If hemodynamics worsen, consider bedside echo for cardiac function/volume responsiveness. Infectious Disease / Surgery * Continue meropenem (renal dose) + vancomycin AUC-guided * Follow intra-op cultures and drain outputs; maintain wound VAC per protocol. * General Surgery & OB-Bookmobile Librarian/Bookmobile Librarian-Onc to follow; pathology pending. Renal/Fluids & Electrolytes * Renal-dose all meds; avoid nephrotoxins. * BMP/Mg/Phos q1224 h; K/Mg replacement to targets (K ?4.0, Mg ?2.0). * Nephrology consult if oliguria recurs, acidosis worsens, or WOOD CASKET MAKER indications develop. AcidBase * Treat underlying sepsis/JILLIAN; ventilatory compensation appropriate. * Consider bicarbonate therapy only if pH ?7.15 or refractory hemodynamic compromise. Heme * Trend CBC daily; transfuse PRBC if Hgb <8 or instability. * Monitor platelets; if significant decline and heparin exposure >45 days 4T score and HIT testing. Endocrine/Glucose * ICU insulin protocol: target BG 273067 mg/dL. * Continue stress-dose steroids as above. Nutrition: Continue Clinimix TPN; plan to transition to enteral feeds when bowel function returns. * Pantoprazole IV daily for stress-ulcer prophylaxis. Prophylaxis & Bundles * DVT prophylaxis: SCDs. * CLABSI/CAUTI bundles; pressure-injury prevention; daily device-necessity checklist (ETT, CVC, Turner,, drains, wound VAC). Disposition * Continue ICU level care; evaluate daily for readiness to wean pressors/ventilation. Lines/Tubes: * ETT, central line, Turner, 2 MATT drains, wound VAC. Maintain aseptic care Critical Care Time Spent >45 minutes in direct critical care management, including chart/lab/imaging review, family counseling, intubation, vasopressor initiation, central line placement, and coordination with ICU and surgical teams. Discussion Case discussed in detail with the attending physician, including the clinical presentation, diagnostic workup, and comprehensive management plan. Plan discussed with: Spouse My Orders My Orders Orders - STEPHEN SCHULTZ Procedure Category Date Status Time Chest Xray 1 View XY 06/21/25 Resulted 04:00 Hydrocortisone PHA 06/20/25 In Process Succinate Inj 18:00 Hemoglobin & LAB 06/21/25 In Process Hematocrit 08:33 Remove A Line NOAH 06/21/25 In Process 10:09 Dietary Evaluation Review Comments: 1. TPN per pharmacy if NPO>7 days 2. If GI assessible, Vital AF 1.2 @45ml/hr providing 81g Protein 1296kcal, 876ml free water Expected Outcomes/Goals: meeting pt's nutrition needs at 75-100% recovered GI function gradual wt loss Date of Service: Jun 21, 2025 Billing Provider: ELDA MULLER MD Common Visit Codes: [id number] CARE 30-74 MIN STEPHEN SCHULTZ RESIDENT Jun 21, 2025 10:57 ELDA MULLER MD Jun 23, 2025 22:30
[2025-06-21] MEDS: VANCOMYCIN 500mg/100mL 100 ML IV ONE (11:04)
[2025-06-21 11:23] LABS: Hemoglobin 6.9 g/dL (12.2-16.2)
--- NOTE | 2025-06-21 12:36 | MEDREC ---
[facility] ASP Intervention Section I [facility] ASP Intervention: Review courses of therapy (Sputum culture resulted as staphylococcus aureus, sensitive to oxacillin. May consider tailoring abx based on susceptibilities if/when clinically appropriate) ELKIN DEUTSCH [facility] RESIDENT Jun 21, 2025 12:36
[2025-06-21] MEDS ORDERED: CLINIMIX PER PHARMACY 0 ML IV SCH (15:15)
[2025-06-21 18:34] LABS: Hemoglobin 8.3 g/dL (12.2-16.2)
[2025-06-21 18:36] LABS: Hematocrit 25.0 % (36.0-46.0)
[2025-06-21 18:56] LABS: Magnesium 2.1 mg/dL (1.6-2.6)
--- NOTE | 2025-06-21 19:36 | DVHPN2 ---
Progress Note - Dictate Date Seen: Jun 21, 2025 Has the PT tested + for MRSA If YES, has PT been informed?: No Medical Necessity Reason Pt with a Central, PICC or Fol: Yes The following are medically ne: Central Line, Turner Catheter Reason for turner catheter: Strict I&O Subjective Patient was seen and evaluated in follow up in the ICU. Patient is intubated and sedated on ventilator. 30% FiO2. Patient off vasopressors. Patient had a drop in H&H and was ordered to receive PRBC transfusion. BUN 69, Machine Builder 1.81. vital signs Vital Sign Date Time Temp Pulse Resp B/P (MAP) Pulse Ox O2 Delivery O2 Flow Rate FiO2 06/21/25 18:30 54 24 132/60 (84) 100 06/21/25 18:10 30 06/21/25 18:00 Mechanical Ventilator+ 06/21/25 16:00 98.0 98.0 06/21/25 08:00 0 Total Intake and Output 06/20/25 06/20/25 06/21/25 14:59 22:59 06:59 Intake Total 397.125 ml 325.814 ml 374.0 ml Output Total 325 ml 620 ml Balance 397.125 ml 0.814 ml -246.0 ml medications Current Medications Medications Dose Ordered Sig/Venessa Route Start Time Stop Time Status Last Admin Dose Admin Acetaminophen 325 mg Q4HP PRN PO 06/16/25 20:45 Vancomycin HCl 0 ml @ 0 mls/hr UD IV 06/17/25 08:30 Propofol 100 ml @ 2.661 mls/ hr Q24H IV 06/17/25 10:15 Midazolam HCl 50 ml @ 1 mls/hr Q24H IV 06/17/25 10:15 06/21/25 04:26 3 MLS/HR Fentanyl Citrate 250 ml @ 2.5 mls/hr Q24H IV 06/17/25 10:15 06/21/25 04:28 7.5 MLS/HR Pantoprazole Sodium 40 mg DAILY IV 06/18/25 10:00 06/21/25 10:00 40 MG Vasopressin 20 units/Sodium Chloride 100 ml @ 9 mls/hr Q11H7M IV 06/18/25 05:15 06/19/25 21:57 9 MLS/HR Norepinephrine Bitartrate 32 mg/ Sodium Chloride 250 ml @ 0.938 mls/ hr Q24H IV 06/18/25 16:45 06/20/25 15:22 0.938 MLS/HR Hydrocortisone Sodium Succinate 50 mg Q6HR IV 06/20/25 18:00 06/21/25 17:56 50 MG Meropenem 50 ml @ 17 mls/hr Q12HR IV 06/21/25 10:00 06/21/25 10:00 17 MLS/HR Amino Acids 0 ml @ 0 mls/hr PER PHARMACY IV 06/21/25 15:15 Diagnostic Test (Pha) 1 strip Q6HR 06/22/25 00:00 Insulin Human Regular FOLLOW SLIDING SCALE Q6HR SC 06/22/25 00:00 Dextrose 50 ml UD IV 06/22/25 00:00 Amino Acids/ Electrolytes/ Dextrose 1,000 ml @ 41 mls/hr DAILY@2200 IV 06/21/25 22:00 objective GENERAL: Ill appearing, intubated on ventilator. Obese. EYES: PERRL, EOMI. Anicteric. HENT: Moist mucous membranes. LUNGS: breath sounds. CARDIOVASCULAR: Regular rate and rhythm. ABDOMEN: Soft, nontender and nondistended. EXTREMITIES: No edema. SKIN: Warm, dry. laboratory and microbiology Laboratory Tests 06/21/25 18:00 06/21/25 04:35 Test 06/21/25 04:35 Range/Units Serum Glucose 113 H 74-106 mg/dL Problem List Metabolic encephalopathy secondary to sepsis. Sepsis due to complicated diverticulitis. Complicated diverticulitis with multiple abscesses. JILLIAN hemodynamically mediated (VMN). Metabolic acidosis with elevated anion gap and normal lactic acid. Acute respiratory failure likely secondary to congestive heart failure. Acute congestive heart failure (unknown LVEF). Questionable uterine malignancy. Hyponatremia. Hypokalemia. Normocytic anemia. Obesity. Hypertension. Fibromyalgia. Pulmonary HTN. Assessment/Plan Continued all current supportive medical care. GI prophylactics. IV antibiotics as ordered. Vasopressors for hemodynamic support. Additional plan as per the hospital course. Critical care time of 45 minutes provided to include time spent evaluation of patient at bedside, when appropriate patient/family education for diagnosis, treatment plan, review of pertinent medical information and discussion of care with specialty providers and PCP.Mechanical ventilator parameters, treatment and adjustments have personally been reviewed by me and treatment plan by accounts receivable collector has also been reviewed. Dietary Evaluation Review Comments: 1. TPN per pharmacy if NPO>7 days 2. If GI assessible, Vital AF 1.2 @45ml/hr providing 81g Protein 1296kcal, 876ml free water Expected Outcomes/Goals: meeting pt's nutrition needs at 75-100% recovered GI function gradual wt loss Plan discussed with: Other DANYELLE GIRALDO MD Jun 21, 2025 19:36
--- NOTE | 2025-06-21 21:44 | DVHPN2 ---
Subjective DOS: 06/21/2025 [facility] Patient seen and examined at bedside. Sedated, intubated on mechanical ventilator. Overnight events reviewed. Changes from previous H/P or p: No Changes Objective Vitals Vital Signs Date Time Temp Pulse Resp B/P (MAP) Pulse Ox O2 Delivery O2 Flow Rate FiO2 06/21/25 20:18 59 24 143/62 (89) 100 30 06/21/25 20:00 Mechanical Ventilator+ 06/21/25 16:00 98.0 98.0 06/21/25 08:00 0 Intake/Output Intake and Output 06/21/25 07:00 Intake Total 1087.064 ml Output Total 945 ml Balance 142.064 ml IV Total 1087.064 ml Output Urine Total 700 ml Drainage Total 245 ml Exam Gen.: Patient lying in bed in medical ICU. Sedated, intubated on mechanical ventilator. Head: Normocephalic, atraumatic. Eyes: PERRLA. Ears: Normal external anatomy. Throat: Endotracheal tube and orogastric tube in place. Neck: Supple, trachea midline. Chest: Transmitted breath sounds bilaterally. Decreased air entry bilaterally. No wheezing. Bibasilar crackles. Cardiovascular: Positive S1, positive S2. Regular rate and rhythm. Abdomen: Positive bowel sounds in all 4 quadrants. Soft, nontender, nondistended. : [place] in place. Normal external genitalia. Rectal: Deferred. Skin: Warm, dry. Intact. Extremities: 2+ radial pulses bilaterally. No lower extremity edema. Neuro: Sedated. Medications Current Medications Medications Dose Ordered Sig/Venessa Route Start Time Stop Time Status Last Admin Dose Admin Acetaminophen 325 mg Q4HP PRN PO 06/16/25 20:45 Vancomycin HCl 0 ml @ 0 mls/hr UD IV 06/17/25 08:30 Propofol 100 ml @ 2.661 mls/ hr Q24H IV 06/17/25 10:15 Midazolam HCl 50 ml @ 1 mls/hr Q24H IV 06/17/25 10:15 06/21/25 04:26 3 MLS/HR Fentanyl Citrate 250 ml @ 2.5 mls/hr Q24H IV 06/17/25 10:15 06/21/25 04:28 7.5 MLS/HR Pantoprazole Sodium 40 mg DAILY IV 06/18/25 10:00 06/21/25 10:00 40 MG Vasopressin 20 units/Sodium Chloride 100 ml @ 9 mls/hr Q11H7M IV 06/18/25 05:15 06/19/25 21:57 9 MLS/HR Norepinephrine Bitartrate 32 mg/ Sodium Chloride 250 ml @ 0.938 mls/ hr Q24H IV 06/18/25 16:45 06/20/25 15:22 0.938 MLS/HR Hydrocortisone Sodium Succinate 50 mg Q6HR IV 06/20/25 18:00 06/21/25 17:56 50 MG Meropenem 50 ml @ 17 mls/hr Q12HR IV 06/21/25 10:00 06/21/25 10:00 17 MLS/HR Amino Acids 0 ml @ 0 mls/hr PER PHARMACY IV 06/21/25 15:15 Diagnostic Test (Pha) 1 strip Q6HR 06/22/25 00:00 Insulin Human Regular FOLLOW SLIDING SCALE Q6HR SC 06/22/25 00:00 Dextrose 50 ml UD IV 06/22/25 00:00 Amino Acids/ Electrolytes/ Dextrose 1,000 ml @ 41 mls/hr DAILY@2200 IV 06/21/25 22:00 Laboratory Results Laboratory Tests 06/21/25 04:35 06/21/25 18:00 Chemistry Test 06/21/25 04:35 Albumin 2.0 g/dL (3.2-4.8) L Calcium Level 7.6 mg/dL (8.7-10.4) L Magnesium Level 2.1 mg/dL (1.6-2.6) Phosphorus Level 5.3 mg/dL (2.4-5.1) H Total Protein 4.7 g/dL (5.7-8.2) L LFT Test 06/21/25 04:35 Alanine Aminotransferase (ALT) 12 U/L (7-40) Alkaline Phosphatase 79 U/L (46-116) Aspartate Amino Transferase (AST) 14 U/L (13-40) Total Bilirubin 0.2 mg/dL (0.2-1.0) Urinalysis Test 06/16/25 16:40 06/17/25 03:45 Urine Color Yellow (Yellow) Urine Clarity Turbid (Clear) H Urine pH 5.5 (5.0-9.0) Urine Specific Maddock 1.014 (1.001-1.035) Urine Protein Trace (Negative) H Urine Ketones Negative (Negative) Urine Blood Negative /uL (Negative) Urine Nitrite Negative (Negative) Urine Bilirubin Negative (Negative) Urine Urobilinogen 3 mg/dL (Negative) H Urine Leukocyte Esterase Negative /uL (Negative) Urine RBC 2 /hpf (0 - 4) Urine Microscopic WBC 5 /HPF (0-5) Urine Squamous Epithelial Cells Few /hpf (<5) Urine Bacteria None seen /hpf (None Seen) Urine Glucose Normal mg/dL (Normal) Urine Creatinine 78.91 mg/dL (30.0-125.0) Urine Protein/Creatinine Ratio 1.29 Urine Total Protein 101.6 mg/dL (1-14) H Blood Gas Results Test 06/21/25 05:58 Arterial Blood pH 7.334 (7.350-7.450) FiO2 % 30.0 Microbiology Microbiology Date/Time Source Procedure Growth Status 06/18/25 12:53 Abdomen Gram Stain - Final Resulted 06/18/25 12:53 Abdomen Anaerobic Culture - Preliminary Resulted 06/18/25 12:53 Abdomen Aerobic Culture - Preliminary Resulted 06/17/25 10:41 Sputum Gram Stain - Final Complete 06/17/25 10:41 Respiratory Culture - Final Staphylococcus aureus Complete 06/16/25 18:36 Blood Blood Culture - Final NO GROWTH AFTER 5 DAYS OF INCUBATION. Complete Assessment/Plan Assessment/Plan Impression: Acute hypoxic respiratory failure On mechanical ventilator Hypokalemia Pneumonia with Staphylococcus aureus Anemia Septic shock Obesity, BMI 35.2 Events: Remains on vent support On AC mode; RR 24, VT 350, PEEP 5, FiO2 30% Taper FiO2 as tolerated ABG reviewed, notable for slight acidemia d/t metabolic acidosis CXR reviewed, stable diffuse increased prominence of the pulmonary vasculature, bibasilar airspace disease and bilateral pleural effusions. Cardiomegaly. Devices in place. Sedated on Versed, Fentanyl. Off all pressors, hemodynamically stable. Continue antibiotics Monitor renal function Monitor electrolytes. Supplement as necessary. Surgery recommendations appreciated. Monitor hemoglobin GI/DVT prophylaxis Labs and imaging reviewed. Rest of plan as noted below. Plan: s/p intubation on mechanical ventilator. On AC mode; RR 24, VT 350, PEEP 5, FiO2 30% Titrate FIO2 to keep O2 saturation above 90%. VAP bundle. Daily ABG and CXR while intubated Sedate for ventilator synchrony Continue antibiotics. Follow up cultures. IV steroids Pressors as necessary for hemodynamic support Titrate to keep mean arterial pressure greater than 65 mmHg. Monitor renal function Monitor electrolytes. Supplement as necessary. Monitor ins and outs. Maintain euvolemia. Monitor hemoglobin Transfuse if less than 7.0 g/dL. Recommend diet and lifestyle modifications for weight reduction Obesity complicates all care GI prophylaxis. DVT prophylaxis. Prognosis: Poor given patient's multiple co-morbidities. Condition: Critical Rest of plan per hospitalist and other consultants. A total of 35 minutes of critical care time was spent reviewing the patient record, examining the patient, making a diagnostic and therapeutic plan, discussing this plan with the medical personnel, following up on diagnostic studies and following the patient for clinical stability excluding any and all procedures. At least 50% of this time was spent in direct, [id number] contact. Thank you, Dr. Jacobsen, for allowing me to participate in this patient's care. Further recommendations will depend on the patient's clinical course. Please do not hesitate to contact me if you have any questions or concerns. This medical document was created using an electronic medical record system with [employer] dictation system. Although these documentations are being carefully reviewed, there may still be some phonetic and typographical changes. The errors are purely typographical, due to imperfection on the software program, and do not reflect any compromise in the patient's medical care Plan discussed with: Other (NEISHA Daniel) My Orders Orders - TJ NGUYEN MD Procedure Category Date Status Time Abg W/ Co-Ox RT 06/21/25 Logged 06:00 Date of Service: Jun 21, 2025 Billing Provider: TJ NGUYEN MD Common Visit Codes: [id number] INP/OBS CARE(HIGH), [id number] CARE 30-74 MIN TJ NGUYEN MD Jun 21, 2025 21:44
[2025-06-21] MEDS: AMINO ACID INFUSION IN D10W 1,000 ML IV SCH (22:08)
[2025-06-22] VITALS (115 sets, daily range): BP systolic 115–143; BP diastolic 49–78; PULSE 51–73; RESP 9–34; TEMP 97.6–98.5; O2SAT 98–100
[2025-06-22] MEDS ORDERED: DEXTROSE (50%) 50ML SYRG IV SCH
[2025-06-22] MEDS: ACCU-CHEK COMFORT CURVE STRIP VI SCH (00:13)
[2025-06-22] MEDS: InsuLIN REG 1unit/0.01ml Soln (100units/ml) SC SCH (00:31)
[2025-06-22 05:07] LABS: Hematocrit 25.7 % (36.0-46.0); Hemoglobin 8.3 g/dL (12.2-16.2); Mean Corpuscular Hemoglobin 28.8 pg (28.0-32.0); Mean Corpuscular Volume 88.9 fL (80.0-100.0)
[2025-06-22 05:19] LABS: Alanine Aminotransferase 19 U/L (7-40); Alkaline Phosphatase 105 U/L (46-116); Anion Gap 12 (5-15); BUN/Creatinine Ratio 30.1 (10.0-20.0); Magnesium 2.2 mg/dL (1.6-2.6); Sodium 139 mmol/L (136-145)
[2025-06-22 05:20] LABS: Bilirubin, Total 0.5 mg/dL (0.2-1.0)
[2025-06-22 05:27] LABS: Albumin 2.0 g/dL (3.2-4.8); Blood Urea Nitrogen 52 mg/dL (9-23); Calcium 7.7 mg/dL (8.7-10.4); Carbon Dioxide 17 mmol/L (20-31); Chloride 110 mmol/L (98-107); Glucose 136 mg/dL (74-106); Potassium 3.5 mmol/L (3.5-5.1); Total Protein 5.0 g/dL (5.7-8.2)
[2025-06-22 05:47] LABS: Total Cells Counted 100.0 (100)
[2025-06-22 08:30] LABS: Base Excess -7.9 mmol/L (-2.0-3.0)
--- NOTE | 2025-06-22 09:35 | DVH ---
CHEST RADIOGRAPH Indication: Acute hypoxic respiratory failure Technique: Single frontal view of the chest was obtained COMPARISON: XY CHEST XRAY 1 VIEW on DOS: 06/21/25, XY CHEST PORTABLE on DOS: 06/20/25, XY CHEST XRAY 1 VIEW on DOS: 06/19/25, XY CHEST XRAY 1 VIEW on DOS: 06/18/25, XY CHEST PORTABLE on DOS: 06/17/25 FINDINGS: Lines and Tubes: Endotracheal tube, enteric catheter, and right central venous catheter in satisfacto ry position. Lungs: Unchanged pulmonary edema. Pleura: No effusion. No pneumothorax. Cardiomediastinal contours: Unchanged cardiomegaly. Bones: Unremarkable. IMPRESSION: Lines and tubes in satisfactory position. No significant interval change.
[2025-06-22] MEDS: FUROSEMIDE 40 MG/4 ML VIAL IV ONE (09:53)
--- NOTE | 2025-06-22 10:46 | DVHPN2 ---
Progress Note Date Seen: Jun 22, 2025 Has the PT tested + for MRSA If YES, has PT been informed?: No Medical Necessity Reason Pt with a Central, PICC or Fol: Yes The following are medically ne: Central Line, Turner Catheter Reason for turner catheter: Strict I&O Objective vital signs Vital Sign Date Time Temp Pulse Resp B/P (MAP) Pulse Ox O2 Delivery O2 Flow Rate FiO2 06/22/25 10:22 56 06/22/25 10:21 30 06/22/25 10:19 22 100 Mechanical Ventilator+ 06/22/25 09:53 130/67 06/22/25 04:00 98.5 98.5 06/21/25 08:00 0 Total Intake and Output 06/21/25 06/21/25 06/22/25 15:00 23:00 07:00 Intake Total 474.0 ml 425.0 ml 410.5 ml Output Total 490 ml 750 ml Balance 474.0 ml -65.0 ml -339.5 ml medications Current Medications Medications Dose Ordered Sig/Venessa Route Start Time Stop Time Status Last Admin Dose Admin Acetaminophen 325 mg Q4HP PRN PO 06/16/25 20:45 Vancomycin HCl 0 ml @ 0 mls/hr UD IV 06/17/25 08:30 Propofol 100 ml @ 2.661 mls/ hr Q24H IV 06/17/25 10:15 Midazolam HCl 50 ml @ 1 mls/hr Q24H IV 06/17/25 10:15 06/21/25 22:09 3 MLS/HR Fentanyl Citrate 250 ml @ 2.5 mls/hr Q24H IV 06/17/25 10:15 06/21/25 04:28 7.5 MLS/HR Pantoprazole Sodium 40 mg DAILY IV 06/18/25 10:00 06/22/25 09:54 40 MG Vasopressin 20 units/Sodium Chloride 100 ml @ 9 mls/hr Q11H7M IV 06/18/25 05:15 06/19/25 21:57 9 MLS/HR Norepinephrine Bitartrate 32 mg/ Sodium Chloride 250 ml @ 0.938 mls/ hr Q24H IV 06/18/25 16:45 06/20/25 15:22 0.938 MLS/HR Hydrocortisone Sodium Succinate 50 mg Q6HR IV 06/20/25 18:00 06/22/25 05:22 50 MG Meropenem 50 ml @ 17 mls/hr Q12HR IV 06/21/25 10:00 06/22/25 09:51 17 MLS/HR Amino Acids 0 ml @ 0 mls/hr PER PHARMACY IV 06/21/25 15:15 Diagnostic Test (Pha) 1 strip Q6HR 06/22/25 00:00 06/22/25 06:04 1 STRIP Insulin Human Regular FOLLOW SLIDING SCALE Q6HR SC 06/22/25 00:00 06/22/25 00:31 2 UNITS Dextrose 50 ml UD IV 06/22/25 00:00 Amino Acids/ Electrolytes/ Dextrose 1,000 ml @ 41 mls/hr DAILY@2200 IV 06/21/25 22:00 06/21/25 22:08 41 MLS/HR laboratory and microbiology Laboratory Tests 06/22/25 04:33 Test 06/22/25 04:33 Range/Units Serum Glucose 136 H 74-106 mg/dL Problem List/Assessment/Plan Problem List/Assessment/Plan 06/17/25 I ARRIVED TO EXAMINE PATIENT SHE WAS BEING INTUBATED, SHE IS HYPOTENSIVE AND TACHYCARDIC. SHE NEEDS TO BE RE HYDRATED AND MEDICALLY STABILIZED AND I WILL OPERATE ON HER TOMORROW IF SHE IS STABLE ENOUGH TO TOLERATE ANESTHESIA 06/19/25 patient remains sedated and intubated, BP being supported, heart rate in the 80's, abdomen soft, non distended MATT drainage serosanguineous, H?H low, will transfuse. good urine output, labs pending. 06/22/25 REMAINS INTUBATED AND ON VENTILATOR, ABDOMEN SOFT, NON DISTENDED, LABS REVIEWED, Plan discussed with: Other Dietary Evaluation Review Comments: 1. TPN per pharmacy if NPO>7 days 2. If GI assessible, Vital AF 1.2 @45ml/hr providing 81g Protein 1296kcal, 876ml free water Expected Outcomes/Goals: meeting pt's nutrition needs at 75-100% recovered GI function gradual wt loss POP REYNA MD Jun 22, 2025 10:46
[2025-06-22] MEDS: VANCOMYCIN 500mg/100mL 100 ML IV ONE (11:12)
--- NOTE | 2025-06-22 19:18 | DVHPNRES ---
Progress Note Date Seen: Jun 22, 2025 Resident Creating Document: STEPHEN SCHULTZ RESIDENT Has the PT tested + for MRSA If YES, has PT been informed?: No Medical Necessity Reason Pt with a Central, PICC or Fol: Yes The following are medically ne: Central Line, Turner Catheter Reason for turner catheter: Strict I&O Subjective Review of Systems Patient remains intubated and mechanically ventilated. Sedated, not interactive. Vitals: Pulse 57 (bradycardic), RR 24 (vent controlled), BP 130/59 (MAP stable). Afebrile. Fluid balance: Net +500 mL in past 24 hrs; received IV Lasix 1 with improvement in urine output. Cultures: Peritoneal cultures: positive for Prevotella and E. coli both covered with meropenem. Respiratory cultures: positive for Staphylococcus aureus covered with vancomycin. Blood cultures: negative to date. Labs: WBC 11.4 (improved from 21.9), Hgb 8.3 (stable post-transfusion), Plt 77 (downtrending thrombocytopenia), K 3.5 (normal), HCO? 17 (low), BUN 52 (improving), Cr 1.73 (improving). Imaging: CXR yesterday with bilateral airspace disease, pulmonary congestion, bilateral pleural effusions, cardiomegaly. No new film yet today. Exam: Abdomen soft, non-tender, non-distended. Wound VAC in place. MATT drains with expected output. No new bleeding noted. Biopsy: Pending Brief Gist of Todays Progress Hemodynamically stable, off vasopressors.? Sepsis improving: WBC trending down, urine output improving, cultures identified organisms with targeted coverage in place.? Renal function improving: BUN and Cr trending down, urine output improving.? Respiratory: Still ventilator-dependent with bilateral infiltrates/effusions.? Heme: Persistent anemia stable at 8.3, new thrombocytopenia (77) ? requires monitoring, evaluate for sepsis vs marrow suppression vs drug-induced (heparin, vanc).? Plan: Continue antimicrobials, monitor cultures, support renal recovery, correct electrolytes, manage thrombocytopenia, begin gradual mobilization and daily SAT/SBT readiness checks. ROS General: Sedated, no fever. Neuro: Unable to assess. CV: Stable off pressors. Resp: On ventilator, GI: Abdomen soft, VAC in place, drains functioning. : Turner with adequate urine output. Skin: No new lesions, incision clean. Objective vital signs Vital Sign Date Time Temp Pulse Resp B/P (MAP) Pulse Ox O2 Delivery O2 Flow Rate FiO2 06/22/25 19:13 126/59 06/22/25 18:59 54 24 99 30 06/22/25 18:58 Mechanical Ventilator+ 06/22/25 16:45 98.2 98.2 06/21/25 08:00 0 Total Intake and Output 06/21/25 06/21/25 06/22/25 15:00 23:00 07:00 Intake Total 474.0 ml 425.0 ml 410.5 ml Output Total 490 ml 750 ml Balance 474.0 ml -65.0 ml -339.5 ml medications Current Medications Medications Dose Ordered Sig/Venessa Route Start Time Stop Time Status Last Admin Dose Admin Acetaminophen 325 mg Q4HP PRN PO 06/16/25 20:45 Vancomycin HCl 0 ml @ 0 mls/hr UD IV 06/17/25 08:30 Propofol 100 ml @ 2.661 mls/ hr Q24H IV 06/17/25 10:15 Midazolam HCl 50 ml @ 1 mls/hr Q24H IV 06/17/25 10:15 06/22/25 19:13 1 MLS/HR Fentanyl Citrate 250 ml @ 2.5 mls/hr Q24H IV 06/17/25 10:15 06/22/25 17:41 10 MLS/HR Pantoprazole Sodium 40 mg DAILY IV 06/18/25 10:00 06/22/25 09:54 40 MG Vasopressin 20 units/Sodium Chloride 100 ml @ 9 mls/hr Q11H7M IV 06/18/25 05:15 06/19/25 21:57 9 MLS/HR Norepinephrine Bitartrate 32 mg/ Sodium Chloride 250 ml @ 0.938 mls/ hr Q24H IV 06/18/25 16:45 06/20/25 15:22 0.938 MLS/HR Hydrocortisone Sodium Succinate 50 mg Q6HR IV 06/20/25 18:00 06/22/25 17:29 50 MG Meropenem 50 ml @ 17 mls/hr Q12HR IV 06/21/25 10:00 06/22/25 10:00 17 MLS/HR Amino Acids 0 ml @ 0 mls/hr PER PHARMACY IV 06/21/25 15:15 Diagnostic Test (Pha) 1 strip Q6HR 06/22/25 00:00 06/22/25 17:32 1 STRIP Insulin Human Regular FOLLOW SLIDING SCALE Q6HR SC 06/22/25 00:00 06/22/25 17:30 4 UNITS Dextrose 50 ml UD IV 06/22/25 00:00 Amino Acids/ Electrolytes/ Dextrose 1,000 ml @ 41 mls/hr DAILY@2200 IV 06/21/25 22:00 06/21/25 22:08 41 MLS/HR Examination General: Intubated, sedated, critically ill but stable. HEENT: Pupils reactive, ETT secure. CV: Regular rhythm, bradycardic (57), stable MAP. Resp: Mechanically ventilated, bilateral coarse breath sounds.?Abdomen: Soft, non-distended, VAC in place, MATT drains draining minimal serosanguinous fluid. : Turner with adequate urine output. Skin: Warm, pale, right leg ecchymosis stable. Neuro: Sedated, RASS 2. laboratory and microbiology Laboratory Tests 06/22/25 04:33 Test 06/22/25 04:33 Range/Units Serum Glucose 136 H 74-106 mg/dL Microbiology Date/Time Source Procedure Growth Status 06/18/25 12:53 Abdomen Gram Stain - Final Complete 06/18/25 12:53 Anaerobic Culture - Final Prevotella bivia Complete 06/18/25 12:53 Aerobic Culture - Final Escherichia coli Complete 06/17/25 10:41 Sputum Gram Stain - Final Complete 06/17/25 10:41 Respiratory Culture - Final Staphylococcus aureus Complete 06/16/25 18:36 Blood Blood Culture - Final NO GROWTH AFTER 5 DAYS OF INCUBATION. Complete Problem List/Assessment/Plan Problem List/Assessment/Plan Assessment 1. Septic shock due to complicated diverticulitis with multiple intra-abdominal abscesses, status post hysterectomy, BSO, abscess evacuation. POA 2. Acute hypoxic respiratory failure, mechanically ventilated due to sepsis POA 3. Suspected uterine malignancy (firm uterine mass, [id number], intra-op OB-BUSINESS LINE CONTROLLER impression). POA 4. High-anion gap metabolic acidosis (HCO? 11.9, AG 15) with pH 7.2. POA 5. Acute kidney injury (Stage 3, KDIGO) Cr 2.53, oliguric. POA 6. Electrolyte abnormalities: Hyponatremia, hypokalemia (repleted), hypocalcemia, hypoalbuminemia. POA 7. Normocytic anemia Hgb 8.6, likely multifactorial. POA 8. Troponin elevation likely Type II NSTEMI/demand ischemia due to sepsis POA 9. Generalized anasarca. 10. HTN, 11. fibromyalgia, 12. obesity Plan System-agudelo Neuro: Continue sedation with midazolam/fentanyl; daily SAT. Neuro checks when sedation lightened. Respiratory: Maintain lung-protective ventilation. Daily CXR; ABG monitoring. Continue VAP prevention bundle. Assess for SBT readiness daily when safe. Cardiovascular: Off vasopressors, maintain MAP>65 Monitor for bradycardia; telemetry. Infectious Disease: Continue meropenem for intra-abdominal organisms. Continue vancomycin for S. aureus until sensitivities confirm MSSA vs MRSA; de-escalate if MSSA. Monitor MATT drain output and wound VAC. Renal/Fluids: Strict I&O, daily weights. Continue diuretics PRN to maintain euvolemia. Renal-dose antimicrobials. Heme: Monitor CBC daily. Maintain Hgb >8 transfuse if <8. Monitor platelets closely; evaluate for HIT if further decline. Coags and fibrinogen to rule out DIC if thrombocytopenia worsens. Electrolytes/AcidBase: Replace K, Mg, Phos per ICU protocol. Monitor and treat acidosis; bicarbonate only if pH <7.15. Endocrine: Continue hydrocortisone 50 mg IV q6h; taper in 5 days. BG control with insulin protocol (goal [id number]). Nutrition/GI: Continue Clinimix TPN. Advance to enteral feeds when safe per surgery. Continue PPI IV for GI prophylaxis. :Oncology: Follow-up biopsy/pathology. Consider Car Rental Clerk-Onc consult when pathology available. Nutrition: Continue Clinimix TPN; plan to transition to enteral feeds when bowel function returns. * Pantoprazole IV daily for stress-ulcer prophylaxis. Prophylaxis & Bundles * DVT prophylaxis: SCDs. * CLABSI/CAUTI bundles; pressure-injury prevention; daily device-necessity checklist (ETT, CVC, Turner,, drains, wound VAC). Disposition * Continue ICU level care; evaluate daily for readiness to wean pressors/ventilation. Lines/Tubes: * ETT, central line, Turner, 2 MATT drains, wound VAC. Maintain aseptic care Critical Care Time Spent >45 minutes in direct critical care management, including chart/lab/imaging review, family counseling, intubation, vasopressor initiation, central line placement, and coordination with ICU and surgical teams. Discussion Case discussed in detail with the attending physician, including the clinical presentation, diagnostic workup, and comprehensive management plan. Plan discussed with: Spouse My Orders My Orders Orders - STEPHEN SCHULTZ RESIDENT Procedure Category Date Status Time Chest Xray 1 View XY 06/22/25 Resulted 07:29 Comprehensive LAB 06/23/25 Verified Metabolic Panel 05:00 Magnesium LAB 06/23/25 Verified 05:00 Phosphorus LAB 06/23/25 Verified 05:00 Clinimix Per Pharmacy [facility] 06/22/25 In Process 22:00 Dietary Evaluation Review Comments: 1. TPN per pharmacy if NPO>7 days 2. If GI assessible, Vital AF 1.2 @45ml/hr providing 81g Protein 1296kcal, 876ml free water Expected Outcomes/Goals: meeting pt's nutrition needs at 75-100% recovered GI function gradual wt loss Date of Service: Jun 22, 2025 Billing Provider: ELDA MULLER MD Common Visit Codes: [id number] CARE 30-74 MIN STEPHEN SCHULTZ RESIDENT Jun 22, 2025 19:18 ELDA MULLER MD Jun 23, 2025 22:30
--- NOTE | 2025-06-22 21:27 | DVHPN2 ---
Subjective DOS: 06/22/2025 [facility] Patient seen and examined at bedside. Sedated, intubated on mechanical ventilator. Overnight events reviewed. Changes from previous H/P or p: No Changes Objective Vitals Vital Signs Date Time Temp Pulse Resp B/P (MAP) Pulse Ox O2 Delivery O2 Flow Rate FiO2 06/22/25 20:30 56 24 124/60 (81) 98 06/22/25 20:00 Mechanical Ventilator+ 30 30 06/22/25 20:00 98.1 98.1 06/21/25 08:00 0 Intake/Output Intake and Output 06/22/25 07:00 Intake Total 1309.5 ml Output Total 1240 ml Balance 69.5 ml IV Total 1009.5 ml Blood Product 300 ml Output Urine Total 800 ml Gastric Drainage Total 280 ml Drainage Total 160 ml Exam Gen.: Patient lying in bed in medical ICU. Sedated, intubated on mechanical ventilator. Head: Normocephalic, atraumatic. Eyes: PERRLA. Ears: Normal external anatomy. Throat: Endotracheal tube and orogastric tube in place. Neck: Supple, trachea midline. Chest: Transmitted breath sounds bilaterally. Decreased air entry bilaterally. No wheezing. Bibasilar crackles. Cardiovascular: Positive S1, positive S2. Regular rate and rhythm. Abdomen: Positive bowel sounds in all 4 quadrants. Soft, nontender, nondistended. : [place] in place. Normal external genitalia. Rectal: Deferred. Skin: Warm, dry. Intact. Extremities: 2+ radial pulses bilaterally. No lower extremity edema. Neuro: Sedated. Medications Current Medications Medications Dose Ordered Sig/[facility] Route Start Time Stop Time Status Last Admin Dose Admin Acetaminophen 325 mg Q4HP PRN PO 06/16/25 20:45 Vancomycin HCl 0 ml @ 0 mls/hr UD IV 06/17/25 08:30 Propofol 100 ml @ 2.661 mls/ hr Q24H IV 06/17/25 10:15 Midazolam HCl 50 ml @ 1 mls/hr Q24H IV 06/17/25 10:15 06/22/25 19:13 1 MLS/HR Fentanyl Citrate 250 ml @ 2.5 mls/hr Q24H IV 06/17/25 10:15 06/22/25 17:41 10 MLS/HR Pantoprazole Sodium 40 mg DAILY IV 06/18/25 10:00 06/22/25 09:54 40 MG Vasopressin 20 units/Sodium Chloride 100 ml @ 9 mls/hr Q11H7M IV 06/18/25 05:15 06/19/25 21:57 9 MLS/HR Norepinephrine Bitartrate 32 mg/ Sodium Chloride 250 ml @ 0.938 mls/ hr Q24H IV 06/18/25 16:45 06/20/25 15:22 0.938 MLS/HR Hydrocortisone Sodium Succinate 50 mg Q6HR IV 06/20/25 18:00 06/22/25 17:29 50 MG Amino Acids 0 ml @ 0 mls/hr PER PHARMACY IV 06/21/25 15:15 Diagnostic Test (Pha) 1 strip Q6HR 06/22/25 00:00 06/22/25 17:32 1 STRIP Insulin Human Regular FOLLOW SLIDING SCALE Q6HR SC 06/22/25 00:00 06/22/25 17:30 4 UNITS Dextrose 50 ml UD IV 06/22/25 00:00 Amino Acids/ Electrolytes/ Dextrose 1,000 ml @ 41 mls/hr DAILY@2200 IV 06/21/25 22:00 06/21/25 22:08 41 MLS/HR Meropenem 50 ml @ 17 mls/hr Q12HR IV 06/22/25 22:00 Laboratory Results Laboratory Tests 06/22/25 04:33 Chemistry Test 06/22/25 04:33 Albumin 2.0 g/dL (3.2-4.8) L Calcium Level 7.7 mg/dL (8.7-10.4) L Magnesium Level 2.2 mg/dL (1.6-2.6) Phosphorus Level 4.8 mg/dL (2.4-5.1) Total Protein 5.0 g/dL (5.7-8.2) L LFT Test 06/22/25 04:33 Alanine Aminotransferase (ALT) 19 U/L (7-40) Alkaline Phosphatase 105 U/L (46-116) Aspartate Amino Transferase (AST) 34 U/L (13-40) Total Bilirubin 0.5 mg/dL (0.2-1.0) Urinalysis Test 06/16/25 16:40 06/17/25 03:45 Urine Color Yellow (Yellow) Urine Clarity Turbid (Clear) H Urine pH 5.5 (5.0-9.0) Urine Specific Myton 1.014 (1.001-1.035) Urine Protein Trace (Negative) H Urine Ketones Negative (Negative) Urine Blood Negative /uL (Negative) Urine Nitrite Negative (Negative) Urine Bilirubin Negative (Negative) Urine Urobilinogen 3 mg/dL (Negative) H Urine Leukocyte Esterase Negative /uL (Negative) Urine RBC 2 /hpf (0 - 4) Urine Microscopic WBC 5 /HPF (0-5) Urine Squamous Epithelial Cells Few /hpf (<5) Urine Bacteria None seen /hpf (None Seen) Urine Glucose Normal mg/dL (Normal) Urine Creatinine 78.91 mg/dL (30.0-125.0) Urine Protein/Creatinine Ratio 1.29 Urine Total Protein 101.6 mg/dL (1-14) H Blood Gas Results Test 06/22/25 07:32 Arterial Blood pH 7.349 (7.350-7.450) FiO2 % 30.0 Microbiology Microbiology Date/Time Source Procedure Growth Status 06/18/25 12:53 Abdomen Gram Stain - Final Complete 06/18/25 12:53 Anaerobic Culture - Final Prevotella bivia Complete 06/18/25 12:53 Aerobic Culture - Final Escherichia coli Complete 06/17/25 10:41 Sputum Gram Stain - Final Complete 06/17/25 10:41 Respiratory Culture - Final Staphylococcus aureus Complete 06/16/25 18:36 Blood Blood Culture - Final NO GROWTH AFTER 5 DAYS OF INCUBATION. Complete Assessment/Plan Assessment/Plan Impression: Acute hypoxic respiratory failure On mechanical ventilator Hypokalemia Pneumonia with Staphylococcus aureus Anemia Septic shock Obesity, BMI 35.2 Events: Remains on vent support On AC mode; RR 24, VT 350, PEEP 5, FiO2 30% Taper FiO2 as tolerated ABG reviewed, notable for slight acidemia d/t metabolic acidosis CXR reviewed, unchanged cardiomegaly and pulmonary edema. Devices in place. Sedated on Versed, Fentanyl. Off all pressors, hemodynamically stable. Continue antibiotics Monitor WBC - 11.4 K Clinimix for nutritional support Continue to monitor renal function Monitor electrolytes. Supplement as necessary. Surgery recommendations appreciated. Monitor hemoglobin - currently 8.3 g/dL Transfuse if less than 7.0 g/dL. GI/DVT prophylaxis Labs and imaging reviewed. Rest of plan as noted below. Plan: s/p intubation on mechanical ventilator. On AC mode; RR 24, VT 350, PEEP 5, FiO2 30% Titrate FIO2 to keep O2 saturation above 90%. VAP bundle. Daily ABG and CXR while intubated Sedate for ventilator synchrony Continue antibiotics. Follow up cultures. IV steroids Pressors as necessary for hemodynamic support Titrate to keep mean arterial pressure greater than 65 mmHg. Monitor renal function Monitor electrolytes. Supplement as necessary. Monitor ins and outs. Maintain euvolemia. Monitor hemoglobin Transfuse if less than 7.0 g/dL. SBT/CARLOS. Recommend diet and lifestyle modifications for weight reduction Obesity complicates all care GI prophylaxis. DVT prophylaxis. Prognosis: Poor given patient's multiple co-morbidities. Condition: Critical Rest of plan per hospitalist and other consultants. A total of 35 minutes of critical care time was spent reviewing the patient record, examining the patient, making a diagnostic and therapeutic plan, discussing this plan with the medical personnel, following up on diagnostic studies and following the patient for clinical stability excluding any and all procedures. At least 50% of this time was spent in direct, [id number] contact. Thank you, Dr. Jacobsen, for allowing me to participate in this patient's care. Further recommendations will depend on the patient's clinical course. Please do not hesitate to contact me if you have any questions or concerns. This medical document was created using an electronic medical record system with Remark dictation system. Although these documentations are being carefully reviewed, there may still be some phonetic and typographical changes. The errors are purely typographical, due to imperfection on the software program, and do not reflect any compromise in the patient's medical care Plan discussed with: Other (NEISHA Freitas) My Orders Orders - TJ NGUYEN MD Procedure Category Date Status Time Abg W/ Co-Ox RT 06/22/25 Logged 06:00 Visit Coding Pulmonary Billing Provider: TJ NGUYEN MD Date of Service if different f: Jun 22, 2025 Common Visit Codes: [id number] INP/OBS CARE(HIGH), [id number] CARE 30-74 MIN TJ NGUYEN MD Jun 22, 2025 21:27
[2025-06-22] MEDS: MEROPENEM 1GM IVPB 50 ML IV SCH (21:40)
[2025-06-22 23:01] LABS: Hematocrit 26.3 % (36.0-46.0); Hemoglobin 8.6 g/dL (12.2-16.2)
[2025-06-23] VITALS (107 sets, daily range): BP systolic 109–149; BP diastolic 47–76; PULSE 50–79; RESP 12–26; TEMP 97.5–98.2; O2SAT 83–100
--- NOTE | 2025-06-23 00:01 | DVHPN2 ---
Progress Note - Dictate Date Seen: Jun 22, 2025 Has the PT tested + for MRSA If YES, has PT been informed?: No Medical Necessity Reason Pt with a Central, PICC or Fol: Yes The following are medically ne: Central Line, Turner Catheter Reason for turner catheter: Strict I&O Subjective Patient was seen and evaluated in follow up in the ICU. Patient is intubated and sedated on ventilator. 30% FiO2. WBC 11.4, HGB 8.3, HCT 25.7, BUN 52, Director Process Engineering 1.73. Chest x-ray shows pulmonary edema. vital signs Vital Sign Date Time Temp Pulse Resp B/P (MAP) Pulse Ox O2 Delivery O2 Flow Rate FiO2 06/22/25 22:00 24 99 Mechanical Ventilator+ 30 30 06/22/25 22:00 55 06/22/25 21:47 125/60 (81) 06/22/25 20:00 98.1 98.1 06/21/25 08:00 0 Total Intake and Output 06/21/25 06/21/25 06/22/25 15:00 23:00 07:00 Intake Total 474.0 ml 425.0 ml 410.5 ml Output Total 490 ml 750 ml Balance 474.0 ml -65.0 ml -339.5 ml medications Current Medications Medications Dose Ordered Sig/Venessa Route Start Time Stop Time Status Last Admin Dose Admin Acetaminophen 325 mg Q4HP PRN PO 06/16/25 20:45 Vancomycin HCl 0 ml @ 0 mls/hr UD IV 06/17/25 08:30 Propofol 100 ml @ 2.661 mls/ hr Q24H IV 06/17/25 10:15 Midazolam HCl 50 ml @ 1 mls/hr Q24H IV 06/17/25 10:15 06/22/25 19:13 2 MLS/HR Fentanyl Citrate 250 ml @ 2.5 mls/hr Q24H IV 06/17/25 10:15 06/22/25 17:41 10 MLS/HR Pantoprazole Sodium 40 mg DAILY IV 06/18/25 10:00 06/22/25 09:54 40 MG Vasopressin 20 units/Sodium Chloride 100 ml @ 9 mls/hr Q11H7M IV 06/18/25 05:15 06/19/25 21:57 9 MLS/HR Norepinephrine Bitartrate 32 mg/ Sodium Chloride 250 ml @ 0.938 mls/ hr Q24H IV 06/18/25 16:45 06/20/25 15:22 0.938 MLS/HR Hydrocortisone Sodium Succinate 50 mg Q6HR IV 06/20/25 18:00 06/22/25 23:36 50 MG Amino Acids 0 ml @ 0 mls/hr PER PHARMACY IV 06/21/25 15:15 Diagnostic Test (Pha) 1 strip Q6HR 06/22/25 00:00 06/22/25 23:36 1 STRIP Insulin Human Regular FOLLOW SLIDING SCALE Q6HR SC 06/22/25 00:00 06/22/25 23:42 2 UNITS Dextrose 50 ml UD IV 06/22/25 00:00 Amino Acids/ Electrolytes/ Dextrose 1,000 ml @ 41 mls/hr DAILY@2200 IV 06/21/25 22:00 06/22/25 21:40 41 MLS/HR Meropenem 50 ml @ 17 mls/hr Q12HR IV 06/22/25 22:00 06/22/25 21:40 17 MLS/HR objective GENERAL: Ill appearing, intubated on ventilator. Obese. EYES: PERRL, EOMI. Anicteric. HENT: Moist mucous membranes. LUNGS: breath sounds. CARDIOVASCULAR: Regular rate and rhythm. ABDOMEN: Soft, nontender and nondistended. EXTREMITIES: No edema. SKIN: Warm, dry. laboratory and microbiology Laboratory Tests 06/22/25 22:15 06/22/25 04:33 Test 06/22/25 04:33 Range/Units Serum Glucose 136 H 74-106 mg/dL Problem List Metabolic encephalopathy secondary to sepsis. Sepsis due to complicated diverticulitis. Complicated diverticulitis with multiple abscesses. JILLIAN hemodynamically mediated (VMN). Metabolic acidosis with elevated anion gap and normal lactic acid. Acute respiratory failure likely secondary to congestive heart failure. Acute congestive heart failure (unknown LVEF). Questionable uterine malignancy. Hyponatremia. Hypokalemia. Normocytic anemia. Obesity. Hypertension. Fibromyalgia. Pulmonary HTN. Assessment/Plan Continued all current supportive medical care. GI prophylactics. IV antibiotics as ordered. Vasopressors for hemodynamic support. Additional plan as per the hospital course. Critical care time of 45 minutes provided to include time spent evaluation of patient at bedside, when appropriate patient/family education for diagnosis, treatment plan, review of pertinent medical information and discussion of care with specialty providers and PCP.Mechanical ventilator parameters, treatment and adjustments have personally been reviewed by me and treatment plan by bilingual receptionist has also been reviewed. Dietary Evaluation Review Comments: 1. TPN per pharmacy if NPO>7 days 2. If GI assessible, Vital AF 1.2 @45ml/hr providing 81g Protein 1296kcal, 876ml free water Expected Outcomes/Goals: meeting pt's nutrition needs at 75-100% recovered GI function gradual wt loss Plan discussed with: Other DANYELLE GIRALDO MD Jun 23, 2025 00:01
[2025-06-23 03:32] LABS: Hematocrit 27.2 % (36.0-46.0); Hemoglobin 8.9 g/dL (12.2-16.2); Mean Corpuscular Hemoglobin 28.3 pg (28.0-32.0); Mean Corpuscular Volume 86.3 fL (80.0-100.0)
[2025-06-23 03:59] LABS: Anion Gap 11 (5-15); BUN/Creatinine Ratio 43.9 (10.0-20.0); Magnesium 2.2 mg/dL (1.6-2.6); Potassium 3.7 mmol/L (3.5-5.1); Sodium 140 mmol/L (136-145)
[2025-06-23 04:00] LABS: Alanine Aminotransferase 52 U/L (7-40); Albumin 2.3 g/dL (3.2-4.8); Alkaline Phosphatase 141 U/L (46-116); Bilirubin, Total 0.6 mg/dL (0.2-1.0); Blood Urea Nitrogen 65 mg/dL (9-23); Calcium 7.7 mg/dL (8.7-10.4); Carbon Dioxide 19 mmol/L (20-31); Chloride 110 mmol/L (98-107); Glucose 155 mg/dL (74-106); Total Protein 5.6 g/dL (5.7-8.2)
[2025-06-23 04:52] LABS: Total Cells Counted 100.0 (100)
--- NOTE | 2025-06-23 05:12 | DVH ---
CHEST RADIOGRAPH Indication: Acute hypoxic respiratory failure Technique: Single frontal view of the chest was obtained Comparison: XY CHEST XRAY 1 VIEW on DOS: 06/22/25 FINDINGS: Lines and Tubes: The endotracheal tube terminates 5.0 cm above the nadir. There is a right IJ acces s central venous catheter tip terminating in the superior vena cava. The enteric tube terminates in t he stomach. Lungs: Bilateral airspace disease which may reflect pulmonary edema. Pleura: No effusion. No pneumothorax. Cardiomediastinal contours: Stable cardiovascular silhouette. Bones: No acute osseous abnormality. IMPRESSION: 1. Support tubes in appropriate position. 2. Bilateral airspace disease which may reflect pulmonary edema. No significant interval change.
[2025-06-23 07:47] LABS: Base Excess -6.7 mmol/L (-2.0-3.0)
[2025-06-23] MEDS: ALBUMIN 25% 100 ML IV SCH (10:09)
[2025-06-23 10:32] LABS: Hemoglobin 8.4 g/dL (12.2-16.2)
[2025-06-23 10:34] LABS: Hematocrit 26.2 % (36.0-46.0)
[2025-06-23] MEDS: VANCOMYCIN 500mg/100mL 100 ML IV ONE (11:09)
[2025-06-23] MEDS: FUROSEMIDE 20 MG/2 ML VIAL IV SCH (11:34)
--- NOTE | 2025-06-23 12:17 | DVHPN2 ---
Progress Note Date Seen: Jun 23, 2025 Has the PT tested + for MRSA If YES, has PT been informed?: No Medical Necessity Reason Pt with a Central, PICC or Fol: Yes The following are medically ne: Central Line, Turner Catheter Reason for turner catheter: Strict I&O Objective vital signs Vital Sign Date Time Temp Pulse Resp B/P (MAP) Pulse Ox O2 Delivery O2 Flow Rate FiO2 06/23/25 12:03 56 26 131/59 (83) 98 30 06/23/25 12:00 Mechanical Ventilator+ 06/23/25 07:15 98.0 98.0 06/21/25 08:00 0 Total Intake and Output 06/22/25 06/22/25 06/23/25 15:00 23:00 07:00 Intake Total 554.5 ml 476 ml 474 ml Output Total 615 ml 745 ml Balance 554.5 ml -139 ml -271 ml medications Current Medications Medications Dose Ordered Sig/Venessa Route Start Time Stop Time Status Last Admin Dose Admin Acetaminophen 325 mg Q4HP PRN PO 06/16/25 20:45 Vancomycin HCl 0 ml @ 0 mls/hr UD IV 06/17/25 08:30 Propofol 100 ml @ 2.661 mls/ hr Q24H IV 06/17/25 10:15 Midazolam HCl 50 ml @ 1 mls/hr Q24H IV 06/17/25 10:15 06/22/25 19:13 2 MLS/HR Fentanyl Citrate 250 ml @ 2.5 mls/hr Q24H IV 06/17/25 10:15 06/23/25 05:34 10 MLS/HR Pantoprazole Sodium 40 mg DAILY IV 06/18/25 10:00 06/23/25 10:09 40 MG Vasopressin 20 units/Sodium Chloride 100 ml @ 9 mls/hr Q11H7M IV 06/18/25 05:15 06/19/25 21:57 9 MLS/HR Norepinephrine Bitartrate 32 mg/ Sodium Chloride 250 ml @ 0.938 mls/ hr Q24H IV 06/18/25 16:45 06/20/25 15:22 0.938 MLS/HR Hydrocortisone Sodium Succinate 50 mg Q6HR IV 06/20/25 18:00 06/23/25 12:00 50 MG Amino Acids 0 ml @ 0 mls/hr PER PHARMACY IV 06/21/25 15:15 Diagnostic Test (Pha) 1 strip Q6HR 06/22/25 00:00 06/23/25 12:02 1 STRIP Insulin Human Regular FOLLOW SLIDING SCALE Q6HR SC 06/22/25 00:00 06/23/25 12:02 2 UNITS Dextrose 50 ml UD IV 06/22/25 00:00 Amino Acids/ Electrolytes/ Dextrose 1,000 ml @ 41 mls/hr DAILY@2200 IV 06/21/25 22:00 06/22/25 21:40 41 MLS/HR Meropenem 50 ml @ 17 mls/hr Q12HR IV 06/22/25 22:00 06/23/25 10:09 17 MLS/HR Albumin Human 100 ml @ 100 mls/hr Q8H IV 06/23/25 09:15 06/24/25 02:14 06/23/25 10:09 100 MLS/HR Furosemide 20 mg TID IV 06/23/25 10:00 06/23/25 11:34 20 MG laboratory and microbiology Laboratory Tests 06/23/25 10:00 06/23/25 02:05 Test 06/23/25 02:05 Range/Units Serum Glucose 155 H 74-106 mg/dL Problem List/Assessment/Plan Problem List/Assessment/Plan 06/17/25 I ARRIVED TO EXAMINE PATIENT SHE WAS BEING INTUBATED, SHE IS HYPOTENSIVE AND TACHYCARDIC. SHE NEEDS TO BE RE HYDRATED AND MEDICALLY STABILIZED AND I WILL OPERATE ON HER TOMORROW IF SHE IS STABLE ENOUGH TO TOLERATE ANESTHESIA 06/19/25 patient remains sedated and intubated, BP being supported, heart rate in the 80's, abdomen soft, non distended JOSEE drainage serosanguineous, H?H low, will transfuse. good urine output, labs pending. 06/22/25 REMAINS INTUBATED AND ON VENTILATOR, ABDOMEN SOFT, NON DISTENDED, LABS REVIEWED, 06/23/25 afebrile normotensive, wound vac in place, josee drainage clear, labs reviewed. will order gastrografin bowel series Plan discussed with: Patient, Spouse Dietary Evaluation Review Comments: 1. TPN per pharmacy if NPO>7 days 2. If GI assessible, Vital AF 1.2 @45ml/hr providing 81g Protein 1296kcal, 876ml free water Expected Outcomes/Goals: meeting pt's nutrition needs at 75-100% recovered GI function gradual wt loss POP REYNA MD Jun 23, 2025 12:17
[2025-06-23] MEDS: GASTROGRAFIN 30 ML SOL ONE (12:51)
[2025-06-23] MEDS: GASTROGRAFIN 120 ML SOL ONE (12:57)
--- NOTE | 2025-06-23 12:59 | DVH ---
Date: 06/23/2025 11:33 AM Examination: XY KUB ABDOMEN SINGLE VIEW History: Evaluate for bowel obstruction; pain Comparison: US KIDNEY on DOS: 06/17/25, CT CT AB PEL WO CON-NO ORAL OR IV on DOS: 06/16/25 TECHNIQUE: Frontal views of the abdomen was obtained. FINDINGS: Bowel gas pattern is unremarkable. Enteric tube tip projects over the expected region of the stomach. The lung bases demonstrates left retrocardiac opacity. Paucity of bowel gas limits evaluation. Surgic al drain projects over left lower quadrant. No acute osseous abnormality identified. IMPRESSION: Enteric tube tip projects over the expected region of the stomach. Paucity of bowel gas limits evalua tion.
--- NOTE | 2025-06-23 13:48 | DVHPNRES ---
Progress Note Date Seen: Jun 23, 2025 Resident Creating Document: STEPHEN SCHULTZ RESIDENT Has the PT tested + for MRSA If YES, has PT been informed?: No Medical Necessity Reason Pt with a Central, PICC or Fol: Yes The following are medically ne: Central Line, Turner Catheter Reason for turner catheter: Strict I&O Subjective Review of Systems Patient remains intubated and mechanically ventilated. Sedated on propofol infusion. Yesterday an attempt at sedation wean was unsuccessful due to respiratory distress and accessory muscle use, so sedation resumed. Overnight/Today: * Vitals: BP 131/61, Pulse 53, SpO? 99% on vent, RR 24. Afebrile. * Labs:? Hgb stable 8.9 (? from 8.3).? WBC 17.5 (? from 11.4), neutrophils 81% (?).? Platelets 103 (low but ? from 77).? pH 7.349 (low), Cristhian? 30.6 (low), HCO? 16.5 (low), base excess 7.9 ? ongoing metabolic acidosis with partial respiratory compensation.? BUN 65 (? from 52), Cr 1.48 (? from 1.75, improving renal clearance).? LFTs ?: AST 91, ALT 52, ALP 141.? Albumin low at 1.0 g/dL. * Cultures: Previous peritoneal cultures positive for E. coli and Prevotella (on meropenem). Respiratory culture positive for Staph aureus (covered with vancomycin). Blood cultures repeated today. * Respiratory: Vent requirements increasing, PEEP rising to 4050% FiO?. Intermittent coarse breath sounds, wheezing; started duonebs (albuterol/ipratropium). * Imaging:? CXR: Stable pulmonary vascular congestion, bilateral airspace disease, pleural effusions.? KUB/Abdominal XR: DHT tip in stomach; paucity of bowel gas, limited evaluation.? Surgeon has ordered gastrografin study for further evaluation. * Exam: Abdomen soft, non-tender, non-distended. VAC and drains intact. +3 pedal edema. * Fluids: Net positive balance, signs of volume overload. Started Lasix 20 mg IV TID with albumin infusion prior to diuresis. ROS General: Intubated, sedated, no fever. Neuro: Sedated, RASS 3. CV: Bradycardic, stable BP, no chest pain (unable to report). Resp: Intubated, increased FiO?/PEEP requirement, coarse breath sounds, wheezing. GI: Abdomen soft, VAC in place, drains with minimal output. : Turner, urine output improving with diuretics. Skin: Warm, pale, +3 pedal edema. Objective vital signs Vital Sign Date Time Temp Pulse Resp B/P (MAP) Pulse Ox O2 Delivery O2 Flow Rate FiO2 06/23/25 12:15 59 24 143/72 (95) 98 06/23/25 12:03 30 06/23/25 12:00 Mechanical Ventilator+ 06/23/25 11:30 98.2 98.2 06/21/25 08:00 0 Total Intake and Output 06/22/25 06/22/25 06/23/25 15:00 23:00 07:00 Intake Total 554.5 ml 476 ml 474 ml Output Total 615 ml 745 ml Balance 554.5 ml -139 ml -271 ml medications Current Medications Medications Dose Ordered Sig/Venessa Route Start Time Stop Time Status Last Admin Dose Admin Acetaminophen 325 mg Q4HP PRN PO 06/16/25 20:45 Vancomycin HCl 0 ml @ 0 mls/hr UD IV 06/17/25 08:30 Propofol 100 ml @ 2.661 mls/ hr Q24H IV 06/17/25 10:15 Midazolam HCl 50 ml @ 1 mls/hr Q24H IV 06/17/25 10:15 06/22/25 19:13 2 MLS/HR Fentanyl Citrate 250 ml @ 2.5 mls/hr Q24H IV 06/17/25 10:15 06/23/25 05:34 10 MLS/HR Pantoprazole Sodium 40 mg DAILY IV 06/18/25 10:00 06/23/25 10:09 40 MG Vasopressin 20 units/Sodium Chloride 100 ml @ 9 mls/hr Q11H7M IV 06/18/25 05:15 06/19/25 21:57 9 MLS/HR Norepinephrine Bitartrate 32 mg/ Sodium Chloride 250 ml @ 0.938 mls/ hr Q24H IV 06/18/25 16:45 06/20/25 15:22 0.938 MLS/HR Hydrocortisone Sodium Succinate 50 mg Q6HR IV 06/20/25 18:00 06/23/25 12:00 50 MG Amino Acids 0 ml @ 0 mls/hr PER PHARMACY IV 06/21/25 15:15 Diagnostic Test (Pha) 1 strip Q6HR 06/22/25 00:00 06/23/25 12:02 1 STRIP Insulin Human Regular FOLLOW SLIDING SCALE Q6HR SC 06/22/25 00:00 06/23/25 12:02 2 UNITS Dextrose 50 ml UD IV 06/22/25 00:00 Amino Acids/ Electrolytes/ Dextrose 1,000 ml @ 41 mls/hr DAILY@2200 IV 06/21/25 22:00 06/22/25 21:40 41 MLS/HR Meropenem 50 ml @ 17 mls/hr Q12HR IV 06/22/25 22:00 06/23/25 10:09 17 MLS/HR Albumin Human 100 ml @ 100 mls/hr Q8H IV 06/23/25 09:15 06/24/25 02:14 06/23/25 10:09 100 MLS/HR Furosemide 20 mg TID IV 06/23/25 10:00 06/23/25 11:34 20 MG Examination General: Critically ill, intubated, sedated. HEENT: ETT in place, pupils reactive. CV: Regular rhythm, bradycardic (53), stable MAP >65. Resp: On vent, FiO 4050%, bilateral coarse breath sounds with intermittent wheezing. Abdomen: Soft, VAC intact, MATT drains minimal output. : Turner catheter with improving urine output. Extremities: +3 pedal edema. Neuro: Sedated on propofol, laboratory and microbiology Laboratory Tests 06/23/25 10:00 06/23/25 02:05 Test 06/23/25 02:05 Range/Units Serum Glucose 155 H 74-106 mg/dL Microbiology Date/Time Source Procedure Growth Status 06/18/25 12:53 Abdomen Gram Stain - Final Complete 06/18/25 12:53 Anaerobic Culture - Final Prevotella bivia Complete 06/18/25 12:53 Aerobic Culture - Final Escherichia coli Complete 06/17/25 10:41 Sputum Gram Stain - Final Complete 06/17/25 10:41 Respiratory Culture - Final Staphylococcus aureus Complete 06/16/25 18:36 Blood Blood Culture - Final NO GROWTH AFTER 5 DAYS OF INCUBATION. Complete Problem List/Assessment/Plan Problem List/Assessment/Plan Assessment 1. Septic shock due to complicated diverticulitis with multiple intra-abdominal abscesses, status post hysterectomy, BSO, abscess evacuation. POA 2. Acute hypoxic respiratory failure, mechanically ventilated due to sepsis POA 3. Suspected uterine malignancy (firm uterine mass, CA-125 [id number], intra-op OB-[employer] impression). POA 4. High-anion gap metabolic acidosis (HCO? 11.9, AG 15) with pH 7.2. POA 5. Acute kidney injury (Stage 3, KDIGO) Cr 2.53, oliguric. POA 6. Electrolyte abnormalities: Hyponatremia, hypokalemia (repleted), hypocalcemia, hypoalbuminemia. POA 7. Normocytic anemia Hgb 8.6, likely multifactorial. POA 8. Troponin elevation likely Type II NSTEMI/demand ischemia due to sepsis POA 9. Generalized anasarca. 10. HTN, 11. fibromyalgia, 12. obesity Plan System-agudelo Neuro: Continue propofol; daily sedation holidays when safe. Monitor RASS, daily neuro checks. Respiratory: Maintain lung-protective ventilation; monitor FiO?/PEEP requirements. Start albuterol/ipratropium nebs q6h. Repeat CXR daily. Consider diuresis to optimize lung mechanics. Cardiovascular: Continue hemodynamic monitoring, maintain MAP above 65. Telemetry for bradycardia. Infectious Disease: Continue meropenem + vancomycin. Repeated blood cultures today; follow-up results. Monitor drain output. Renal/Fluids: Strict I&O, daily weights. Lasix 20 mg IV TID with albumin pre-dosing. Monitor electrolytes closely with aggressive diuresis. Renal dosing of all meds. Heme: Monitor CBC daily. Maintain Hgb >8. Monitor platelets; order HIT panel if further decline. Check coags/fibrinogen if concern for DIC. Electrolytes/AcidBase: Monitor daily BMP, Mg, Phos. Replace electrolytes per ICU protocol. Monitor acidosis; sodium bicarbonate infusion only if pH <7.15. Endocrine: Continue hydrocortisone 50 mg IV q6h; taper per plan. Insulin /SSI for BG [id number]. Nutrition/GI: TPN via [facility]. Gastrografin study as per surgeon to evaluate gut. Stress ulcer prophylaxis with PPI. Prophylaxis: DVT: SCDs; consider heparin SQ once platelets >50 and stable. GI: IV PPI daily. Oncology: Follow-up biopsy results. Consult [employer] [facility]-Onc once pathology finalized. Prophylaxis & Bundles * DVT prophylaxis: SCDs. * CLABSI/CAUTI bundles; pressure-injury prevention; daily device-necessity checklist (ETT, CVC, Turner,, drains, wound VAC). Disposition * Continue ICU level care; evaluate daily for readiness to wean pressors/ventilation. Lines/Tubes: * ETT, central line, Turner, 2 MATT drains, wound VAC. Maintain aseptic care Critical Care Time Spent >45 minutes in direct critical care management, including chart/lab/imaging review, family counseling, intubation, vasopressor initiation, central line placement, and coordination with ICU and surgical teams. Discussion Case discussed in detail with the attending physician, including the clinical presentation, diagnostic workup, and comprehensive management plan. Plan discussed with: Spouse My Orders My Orders Orders - STEPHEN SCHULTZ Procedure Category Date Status Time Abg W/ Co-Ox RT 06/23/25 Logged 04:00 Chest Xray 1 View XY 06/23/25 Resulted 04:00 * Wound Consult CONS 06/23/25 Transmitted Comprehensive LAB 06/24/25 Verified Metabolic Panel 04:00 Magnesium LAB 06/24/25 Verified 04:00 Phosphorus LAB 06/24/25 Verified 04:00 Clinimix Per Pharmacy [facility] 06/23/25 In Process 22:00 Kub Abdomen Single XY 06/23/25 Resulted View 10:56 Blood Culture CHACHA 06/23/25 Uncollected 10:58 Dietary Evaluation Review Comments: 1. TPN per pharmacy if NPO>7 days 2. If GI assessible, Vital AF 1.2 @45ml/hr providing 81g Protein 1296kcal, 876ml free water Expected Outcomes/Goals: meeting pt's nutrition needs at 75-100% recovered GI function gradual wt loss Date of Service: Jun 23, 2025 Billing Provider: ELDA MULLER MD Common Visit Codes: [id number] CARE 30-74 MIN STEPHEN SCHULTZ RESIDENT Jun 23, 2025 13:48 ELDA MULLER MD Jun 23, 2025 22:15
[2025-06-23] MEDS: ALBUTEROL SULF 2.5 MG/0.5ML(0.5%) NEB SOLN NEB PRN (14:38)
[2025-06-23] MEDS: IPRATROPIUM BROM 0.5 MG/2.5ML INH SOL ONE (14:38)
[2025-06-23] MEDS: IPRATROPIUM BROM 0.5 MG/2.5ML INH SOL NEB PRN (14:38)
[2025-06-23] MEDS: ALBUTEROL SULF 2.5 MG/0.5ML(0.5%) NEB SOLN ONE (14:39)
--- NOTE | 2025-06-23 17:02 | DVH ---
CHEST RADIOGRAPH Indication: Acute Hypoxic respi failure Technique: Single frontal view of the chest was obtained COMPARISON: XY CHEST XRAY 1 VIEW on DOS: 06/23/25, XY CHEST XRAY 1 VIEW on DOS: 06/22/25, XY CHEST XRAY 1 VIEW on DOS: 06/21/25, XY CHEST PORTABLE on DOS: 06/20/25, XY CHEST XRAY 1 VIEW on DOS: 06/19/25 FINDINGS: Lines and Tubes: Endotracheal tube, enteric catheter, and right central venous catheter in satisfacto ry position. Lungs: Pulmonary vascular congestion, slightly increased. Pleura: Small bilateral pleural effusions.No pneumothorax. Cardiomediastinal contours: Cardiomegaly. Bones: Unremarkable. IMPRESSION: Lines and tubes in satisfactory position. Slightly increased pulmonary vascular congestion.
[2025-06-23] MEDS: FUROSEMIDE 20 MG/2 ML VIAL IV ONE (17:58)
[2025-06-23] MEDS ORDERED: IPRATROPIUM BROM 0.5 MG/2.5ML INH SOL NEB SCH (18:00)
--- NOTE | 2025-06-23 18:26 | DVH ---
Procedure: XY SMALL BOWEL SERIES-W GASTROGRA Exam Date: 06/23/2025 05:36 PM Reason for study/Clinical History: r/o obstr Comparison Study: None Technique: Single contrast small bowel series performed. Findings: Initial chalk cutter view of the abdomen and pelvis appears demonstrates no acute process. Contrast is identified within the colon by 4 hr. Small bowel loops are normal in size. Normal mucosal pattern. No evidence of small bowel obstructi on, stricture, or mucosal abnormality. The terminal ileum is well visualized and is unremarkable. IMPRESSION: Normal small bowel series. END IMPRESSION:
[2025-06-23] MEDS: ALBUTEROL SULF 2.5 MG/0.5ML(0.5%) NEB SOLN NEB SCH (18:34)
[2025-06-23] MEDS: IPRATROPIUM BROM 0.5 MG/2.5ML INH SOL NEB SCH (18:34)
--- NOTE | 2025-06-23 21:04 | DVHPN2 ---
Subjective DOS: 06/23/2025 [facility] Patient seen and examined at bedside. Sedated, intubated on mechanical ventilator. Overnight events reviewed. Changes from previous H/P or p: No Changes Objective Vitals Vital Signs Date Time Temp Pulse Resp B/P (MAP) Pulse Ox O2 Delivery O2 Flow Rate FiO2 06/23/25 20:01 71 24 123/56 (78) 98 30 06/23/25 18:00 Mechanical Ventilator+ 06/23/25 17:15 97.8 97.8 06/21/25 08:00 0 Intake/Output Intake and Output 06/23/25 07:00 Intake Total 1504.5 ml Output Total 1360 ml Balance 144.5 ml IV Total 1504.5 ml Output Urine Total 1175 ml Drainage Total 185 ml Exam Gen.: Patient lying in bed in medical ICU. Sedated, intubated on mechanical ventilator. Head: Normocephalic, atraumatic. Eyes: PERRLA. Ears: Normal external anatomy. Throat: Endotracheal tube and orogastric tube in place. Neck: Supple, trachea midline. Chest: Transmitted breath sounds bilaterally. Decreased air entry bilaterally. No wheezing. Bibasilar crackles. Cardiovascular: Positive S1, positive S2. Regular rate and rhythm. Abdomen: Positive bowel sounds in all 4 quadrants. Soft, nontender, nondistended. : [place]o in place. Normal external genitalia. Rectal: Deferred. Skin: Warm, dry. Intact. Extremities: 2+ radial pulses bilaterally. No lower extremity edema. Neuro: Sedated. Medications Current Medications Medications Dose Ordered Sig/Venessa Route Start Time Stop Time Status Last Admin Dose Admin Acetaminophen 325 mg Q4HP PRN PO 06/16/25 20:45 Vancomycin HCl 0 ml @ 0 mls/hr UD IV 06/17/25 08:30 Propofol 100 ml @ 2.661 mls/ hr Q24H IV 06/17/25 10:15 06/23/25 14:10 2.661 MLS/HR Midazolam HCl 50 ml @ 1 mls/hr Q24H IV 06/17/25 10:15 06/23/25 16:54 4 MLS/HR Fentanyl Citrate 250 ml @ 2.5 mls/hr Q24H IV 06/17/25 10:15 06/23/25 05:34 10 MLS/HR Pantoprazole Sodium 40 mg DAILY IV 06/18/25 10:00 06/23/25 10:09 40 MG Vasopressin 20 units/Sodium Chloride 100 ml @ 9 mls/hr Q11H7M IV 06/18/25 05:15 06/19/25 21:57 9 MLS/HR Norepinephrine Bitartrate 32 mg/ Sodium Chloride 250 ml @ 0.938 mls/ hr Q24H IV 06/18/25 16:45 06/20/25 15:22 0.938 MLS/HR Hydrocortisone Sodium Succinate 50 mg Q6HR IV 06/20/25 18:00 06/23/25 17:58 50 MG Amino Acids 0 ml @ 0 mls/hr PER PHARMACY IV 06/21/25 15:15 Diagnostic Test (Pha) 1 strip Q6HR 06/22/25 00:00 06/23/25 17:55 1 STRIP Insulin Human Regular FOLLOW SLIDING SCALE Q6HR SC 06/22/25 00:00 06/23/25 17:54 2 UNITS Dextrose 50 ml UD IV 06/22/25 00:00 Amino Acids/ Electrolytes/ Dextrose 1,000 ml @ 41 mls/hr DAILY@2200 IV 06/21/25 22:00 06/22/25 21:40 41 MLS/HR Meropenem 50 ml @ 17 mls/hr Q12HR IV 06/22/25 22:00 06/23/25 10:09 17 MLS/HR Albumin Human 100 ml @ 100 mls/hr Q8H IV 06/23/25 09:15 06/24/25 02:14 06/23/25 16:54 100 MLS/HR Albuterol 2.5 mg Q6HR NEB 06/23/25 18:00 06/23/25 18:34 2.5 MG Albuterol 2.5 mg Q4HR PRN NEB 06/23/25 18:00 Ipratropium Romayor 0.5 mg Q4HR NEB 06/23/25 18:00 06/23/25 18:34 0.5 MG Budesonide 0.5 mg BID NEB 06/23/25 22:00 Laboratory Results Laboratory Tests 06/23/25 02:05 06/23/25 10:00 Chemistry Test 06/23/25 02:05 Albumin 2.3 g/dL (3.2-4.8) L Calcium Level 7.7 mg/dL (8.7-10.4) L Magnesium Level 2.2 mg/dL (1.6-2.6) Phosphorus Level 4.2 mg/dL (2.4-5.1) Total Protein 5.6 g/dL (5.7-8.2) L LFT Test 06/23/25 02:05 Alanine Aminotransferase (ALT) 52 U/L (7-40) H Alkaline Phosphatase 141 U/L (46-116) H Aspartate Amino Transferase (AST) 91 U/L (13-40) H Total Bilirubin 0.6 mg/dL (0.2-1.0) Urinalysis Test 06/16/25 16:40 06/17/25 03:45 Urine Color Yellow (Yellow) Urine Clarity Turbid (Clear) H Urine pH 5.5 (5.0-9.0) Urine Specific Hansen 1.014 (1.001-1.035) Urine Protein Trace (Negative) H Urine Ketones Negative (Negative) Urine Blood Negative /uL (Negative) Urine Nitrite Negative (Negative) Urine Bilirubin Negative (Negative) Urine Urobilinogen 3 mg/dL (Negative) H Urine Leukocyte Esterase Negative /uL (Negative) Urine RBC 2 /hpf (0 - 4) Urine Microscopic WBC 5 /HPF (0-5) Urine Squamous Epithelial Cells Few /hpf (<5) Urine Bacteria None seen /hpf (None Seen) Urine Glucose Normal mg/dL (Normal) Urine Creatinine 78.91 mg/dL (30.0-125.0) Urine Protein/Creatinine Ratio 1.29 Urine Total Protein 101.6 mg/dL (1-14) H Blood Gas Results Test 06/23/25 07:34 Arterial Blood pH 7.335 (7.350-7.450) FiO2 % 30.0 Microbiology Microbiology Date/Time Source Procedure Growth Status 06/18/25 12:53 Abdomen Gram Stain - Final Complete 06/18/25 12:53 Anaerobic Culture - Final Prevotella bivia Complete 06/18/25 12:53 Aerobic Culture - Final Escherichia coli Complete 06/17/25 10:41 Sputum Gram Stain - Final Complete 06/17/25 10:41 Respiratory Culture - Final Staphylococcus aureus Complete 06/16/25 18:36 Blood Blood Culture - Final NO GROWTH AFTER 5 DAYS OF INCUBATION. Complete Assessment/Plan Assessment/Plan Impression: Acute hypoxic respiratory failure On mechanical ventilator Hypokalemia Pneumonia with Staphylococcus aureus Anemia Septic shock Obesity, BMI 35.2 Events: Remains on vent support On AC mode; RR 24, VT 350, PEEP 5, FiO2 30% Taper FiO2 as tolerated ABG reviewed, notable for slight acidemia d/t metabolic acidosis Remains off all pressors, hemodynamically stable. Start bronchodilators Antibiotics - on vancomycin and meropenem Monitor WBC Continue steroids Accu-Cheks, ISS Clinimix for nutritional support KUB and Gastrografin study performed Follow up results Follow up Surgery recommendations Continue to monitor renal function Monitor electrolytes. Supplement as necessary. Monitor hemoglobin - currently 8.4 g/dL Transfuse if less than 7.0 g/dL. GI/DVT prophylaxis Labs and imaging reviewed. Rest of plan as noted below. Plan: s/p intubation on mechanical ventilator. On AC mode; RR 24, VT 350, PEEP 5, FiO2 30% Titrate FIO2 to keep O2 saturation above 90%. VAP bundle. Daily ABG and CXR while intubated Sedate for ventilator synchrony Continue antibiotics. Follow up cultures. IV steroids Pressors as necessary for hemodynamic support Titrate to keep mean arterial pressure greater than 65 mmHg. Monitor renal function Monitor electrolytes. Supplement as necessary. Monitor ins and outs. Maintain euvolemia. Monitor hemoglobin Transfuse if less than 7.0 g/dL. SBT/CARLOS. Recommend diet and lifestyle modifications for weight reduction Obesity complicates all care GI prophylaxis. DVT prophylaxis. Prognosis: Poor given patient's multiple co-morbidities. Condition: Critical Rest of plan per hospitalist and other consultants. A total of 35 minutes of critical care time was spent reviewing the patient record, examining the patient, making a diagnostic and therapeutic plan, discussing this plan with the medical personnel, following up on diagnostic studies and following the patient for clinical stability excluding any and all procedures. At least 50% of this time was spent in direct, [id number] contact. Thank you, Dr. Jacobsen, for allowing me to participate in this patient's care. Further recommendations will depend on the patient's clinical course. Please do not hesitate to contact me if you have any questions or concerns. This medical document was created using an electronic medical record system with [employer] system. Although these documentations are being carefully reviewed, there may still be some phonetic and typographical changes. The errors are purely typographical, due to imperfection on the software program, and do not reflect any compromise in the patient's medical care Plan discussed with: Other (RN Yasemin Lazo) My Orders Orders - TJ NGUYEN MD Procedure Category Date Status Time Albuterol Medneb PHA 06/23/25 In Process (Ventolin Medneb) 18:00 Ipratropium Medneb PHA 06/23/25 In Process (Atrovent Medneb) 18:00 Budesonide PHA 06/23/25 In Process (Inhalation) 22:00 Visit Coding Pulmonary Billing Provider: TJ NGUYEN MD Date of Service if different f: Jun 23, 2025 Common Visit Codes: [id number] INP/OBS CARE(HIGH), [id number] CARE 30-74 MIN TJ NGUYEN MD Jun 23, 2025 21:04
[2025-06-23] MEDS: BUDESONIDE (INHALATION) 0.5 MG/2 ML NEB NEB SCH (22:05)
[2025-06-23 22:12] LABS: Hemoglobin 7.9 g/dL (12.2-16.2)
[2025-06-23 22:14] LABS: Hematocrit 24.6 % (36.0-46.0)
[2025-06-24] VITALS (116 sets, daily range): BP systolic 99–142; BP diastolic 31–79; PULSE 69–96; RESP 13–25; TEMP 96.5–98.1; O2SAT 94–100
--- NOTE | 2025-06-24 00:01 | DVHPN2 ---
Progress Note - Dictate Date Seen: Jun 23, 2025 Has the PT tested + for MRSA If YES, has PT been informed?: No Medical Necessity Reason Pt with a Central, PICC or Fol: Yes The following are medically ne: Central Line, Turner Catheter Reason for turner catheter: Strict I&O Subjective Patient was seen and evaluated in follow up in the ICU. Patient is intubated and sedated on ventilator. 30% FiO2. MATT drains are in place. WBC 17.5, HGB 8.4, HCT 26.2, CO2 19, BUN 65, CARRIER DRIVER 1.48, CA 7.7, AST 91, ALT 52. KUB showed enteric tube tip projects over the expected region of the stomach, paucity of bowel gas limits evaluation. Chest x-ray showed slightly increased pulmonary vascular congestion. vital signs Vital Sign Date Time Temp Pulse Resp B/P (MAP) Pulse Ox O2 Delivery O2 Flow Rate FiO2 06/23/25 17:00 60 24 126/60 (82) 99 06/23/25 16:04 30 06/23/25 16:00 Mechanical Ventilator+ 06/23/25 11:30 98.2 98.2 06/21/25 08:00 0 Total Intake and Output 06/22/25 06/22/25 06/23/25 15:00 23:00 07:00 Intake Total 554.5 ml 476 ml 474 ml Output Total 615 ml 745 ml Balance 554.5 ml -139 ml -271 ml medications Current Medications Medications Dose Ordered Sig/Venessa Route Start Time Stop Time Status Last Admin Dose Admin Acetaminophen 325 mg Q4HP PRN PO 06/16/25 20:45 Vancomycin HCl 0 ml @ 0 mls/hr UD IV 06/17/25 08:30 Propofol 100 ml @ 2.661 mls/ hr Q24H IV 06/17/25 10:15 06/23/25 14:10 2.661 MLS/HR Midazolam HCl 50 ml @ 1 mls/hr Q24H IV 06/17/25 10:15 06/23/25 16:54 4 MLS/HR Fentanyl Citrate 250 ml @ 2.5 mls/hr Q24H IV 06/17/25 10:15 06/23/25 05:34 10 MLS/HR Pantoprazole Sodium 40 mg DAILY IV 06/18/25 10:00 06/23/25 10:09 40 MG Vasopressin 20 units/Sodium Chloride 100 ml @ 9 mls/hr Q11H7M IV 06/18/25 05:15 06/19/25 21:57 9 MLS/HR Norepinephrine Bitartrate 32 mg/ Sodium Chloride 250 ml @ 0.938 mls/ hr Q24H IV 06/18/25 16:45 06/20/25 15:22 0.938 MLS/HR Hydrocortisone Sodium Succinate 50 mg Q6HR IV 06/20/25 18:00 06/23/25 12:00 50 MG Amino Acids 0 ml @ 0 mls/hr PER PHARMACY IV 06/21/25 15:15 Diagnostic Test (Pha) 1 strip Q6HR 06/22/25 00:00 06/23/25 12:02 1 STRIP Insulin Human Regular FOLLOW SLIDING SCALE Q6HR SC 06/22/25 00:00 06/23/25 12:02 2 UNITS Dextrose 50 ml UD IV 06/22/25 00:00 Amino Acids/ Electrolytes/ Dextrose 1,000 ml @ 41 mls/hr DAILY@2200 IV 06/21/25 22:00 06/22/25 21:40 41 MLS/HR Meropenem 50 ml @ 17 mls/hr Q12HR IV 06/22/25 22:00 06/23/25 10:09 17 MLS/HR Albumin Human 100 ml @ 100 mls/hr Q8H IV 06/23/25 09:15 06/24/25 02:14 06/23/25 16:54 100 MLS/HR Albuterol 2.5 mg Q6HR NEB 06/23/25 18:00 Albuterol 2.5 mg Q4HR PRN NEB 06/23/25 18:00 Ipratropium [place] 0.5 mg Q4HR NEB 06/23/25 18:00 Budesonide 0.5 mg BID NEB 06/23/25 22:00 objective GENERAL: Ill appearing, intubated on ventilator. Obese. EYES: PERRL, EOMI. Anicteric. HENT: Moist mucous membranes. LUNGS: breath sounds. CARDIOVASCULAR: Regular rate and rhythm. ABDOMEN: Soft, nontender and nondistended. EXTREMITIES: No edema. SKIN: Warm, dry. laboratory and microbiology Laboratory Tests 06/23/25 10:00 06/23/25 02:05 Test 06/23/25 02:05 Range/Units Serum Glucose 155 H 74-106 mg/dL Problem List Metabolic encephalopathy secondary to sepsis. Sepsis due to complicated diverticulitis. Complicated diverticulitis with multiple abscesses. JILLIAN hemodynamically mediated (VMN). Metabolic acidosis with elevated anion gap and normal lactic acid. Acute respiratory failure likely secondary to congestive heart failure. Acute congestive heart failure (unknown LVEF). Questionable uterine malignancy. Hyponatremia. Hypokalemia. Normocytic anemia. Obesity. Hypertension. Fibromyalgia. Pulmonary HTN. Assessment/Plan Continued all current supportive medical care. GI prophylactics. Diuretics with Lasix. IV antibiotics as ordered. Nebulized breathing treatments. Additional plan as per the hospital course. Critical care time of 45 minutes provided to include time spent evaluation of patient at bedside, when appropriate patient/family education for diagnosis, treatment plan, review of pertinent medical information and discussion of care with specialty providers and PCP.Mechanical ventilator parameters, treatment and adjustments have personally been reviewed by me and treatment plan by low pressure boiler tender has also been reviewed. Dietary Evaluation Review Comments: 1. TPN per pharmacy if NPO>7 days 2. If GI assessible, Vital AF 1.2 @45ml/hr providing 81g Protein 1296kcal, 876ml free water Expected Outcomes/Goals: meeting pt's nutrition needs at 75-100% recovered GI function gradual wt loss Plan discussed with: Other DANYELLE GIRALDO MD Jun 23, 2025 17:28
[2025-06-24] MEDS: ALBUTEROL SULF 2.5 MG/0.5ML(0.5%) NEB SOLN NEB PRN (01:47)
[2025-06-24 04:47] LABS: Hematocrit 28.2 % (36.0-46.0); Hemoglobin 9.1 g/dL (12.2-16.2); Mean Corpuscular Hemoglobin 28.8 pg (28.0-32.0); Mean Corpuscular Volume 88.6 fL (80.0-100.0)
[2025-06-24 05:02] LABS: Albumin 3.2 g/dL (3.2-4.8); Anion Gap 13 (5-15); BUN/Creatinine Ratio 43.4 (10.0-20.0); Magnesium 2.2 mg/dL (1.6-2.6); Sodium 143 mmol/L (136-145); Total Protein 6.0 g/dL (5.7-8.2)
[2025-06-24 05:03] LABS: Bilirubin, Total 0.9 mg/dL (0.2-1.0)
[2025-06-24 05:11] LABS: Alanine Aminotransferase 68 U/L (7-40); Alkaline Phosphatase 151 U/L (46-116); Blood Urea Nitrogen 69 mg/dL (9-23); Calcium 8.2 mg/dL (8.7-10.4); Carbon Dioxide 19 mmol/L (20-31); Chloride 111 mmol/L (98-107); Glucose 147 mg/dL (74-106); Potassium 3.4 mmol/L (3.5-5.1)
[2025-06-24] MEDS: FUROSEMIDE 20 MG/2 ML VIAL IV ONE (05:18)
[2025-06-24 05:30] LABS: Total Cells Counted 100.0 (100)
--- NOTE | 2025-06-24 05:37 | DVH ---
CHEST RADIOGRAPH Indication: Respiratory failure Technique: Single frontal view of the chest was obtained COMPARISON: XY CHEST XRAY 1 VIEW on DOS: 06/23/25, XY CHEST XRAY 1 VIEW on DOS: 06/23/25, XY CHEST XRAY 1 VIEW on DOS: 06/22/25, XY CHEST XRAY 1 VIEW on DOS: 06/21/25, XY CHEST PORTABLE on DOS: 06/20/25 FINDINGS: Lines and Tubes: Endotracheal tube, enteric catheter, and right central venous catheter in satisfacto ry position. Lungs: Unchanged pulmonary vascular congestion. Pleura: No effusion. No pneumothorax. Cardiomediastinal contours: Cardiomegaly. Bones: Unremarkable. IMPRESSION: Lines and tubes in satisfactory position. No significant interval change.
[2025-06-24] MEDS: POTASSIUM CHL 20MEQ/100ML 100 ML IV ONE ×2 (09:13→11:30)
[2025-06-24] MEDS: FUROSEMIDE 100 MG/10ML VIAL IV ONE (09:24)
--- NOTE | 2025-06-24 09:25 | DVH ---
Date: 06/24/2025 08:31 AM Examination: XY KUB ABDOMEN SINGLE VIEW History: evaluate for abdominal obstruction Comparison: XY SMALL BOWEL SERIES-W GASTROGRA on DOS: 06/23/25, XY KUB ABDOMEN SINGLE VIEW on DOS: 06/23/25, CT CT AB PEL WO CON-NO ORAL OR IV on DOS: 06/16/25 TECHNIQUE: Frontal views of the abdomen was obtained. FINDINGS: Bowel gas pattern is unremarkable. Enteric tube tip projects over the expected region. Contrast is vi sualized in the colon. The lung bases are unremarkable. No acute osseous abnormality identified. IMPRESSION: Bowel gas pattern is unremarkable. Enteric tube tip projects over the expected region. Contrast is vi sualized in the colon.
[2025-06-24 09:39] LABS: Base Excess -9.6 mmol/L (-2.0-3.0)
[2025-06-24] MEDS: ALBUTEROL SULF 2.5 MG/0.5ML(0.5%) NEB SOLN NEB SCH (10:26)
[2025-06-24] MEDS: VANCOMYCIN 500mg/100mL 100 ML IV ONE (11:45)
--- NOTE | 2025-06-24 13:52 | DVHPN2 ---
Progress Note Date Seen: Jun 24, 2025 Has the PT tested + for MRSA If YES, has PT been informed?: No Medical Necessity Reason Pt with a Central, PICC or Fol: Yes The following are medically ne: Central Line, Turner Catheter Reason for turner catheter: Strict I&O Objective vital signs Vital Sign Date Time Temp Pulse Resp B/P (MAP) Pulse Ox O2 Delivery O2 Flow Rate FiO2 06/24/25 13:30 72 24 125/58 (80) 98 06/24/25 13:15 97.5 97.5 06/24/25 12:44 30 06/24/25 12:30 Mechanical Ventilator+ Total Intake and Output 06/23/25 06/23/25 06/24/25 15:00 23:00 07:00 Intake Total 593.983 ml 850.429 ml 871.762 ml Output Total 595 ml 630 ml Balance 593.983 ml 255.429 ml 241.762 ml medications Current Medications Medications Dose Ordered Sig/Venessa Route Start Time Stop Time Status Last Admin Dose Admin Acetaminophen 325 mg Q4HP PRN PO 06/16/25 20:45 Vancomycin HCl 0 ml @ 0 mls/hr UD IV 06/17/25 08:30 Propofol 100 ml @ 2.661 mls/ hr Q24H IV 06/17/25 10:15 06/24/25 11:01 2.661 MLS/HR Midazolam HCl 50 ml @ 1 mls/hr Q24H IV 06/17/25 10:15 06/24/25 06:26 4 MLS/HR Fentanyl Citrate 250 ml @ 2.5 mls/hr Q24H IV 06/17/25 10:15 06/23/25 23:31 12.5 MLS/HR Pantoprazole Sodium 40 mg DAILY IV 06/18/25 10:00 06/24/25 09:24 40 MG Vasopressin 20 units/Sodium Chloride 100 ml @ 9 mls/hr Q11H7M IV 06/18/25 05:15 06/19/25 21:57 9 MLS/HR Norepinephrine Bitartrate 32 mg/ Sodium Chloride 250 ml @ 0.938 mls/ hr Q24H IV 06/18/25 16:45 06/20/25 15:22 0.938 MLS/HR Hydrocortisone Sodium Succinate 50 mg Q6HR IV 06/20/25 18:00 06/24/25 11:34 50 MG Amino Acids 0 ml @ 0 mls/hr PER PHARMACY IV 06/21/25 15:15 Diagnostic Test (Pha) 1 strip Q6HR 06/22/25 00:00 06/24/25 05:18 1 STRIP Insulin Human Regular FOLLOW SLIDING SCALE Q6HR SC 06/22/25 00:00 06/24/25 11:53 4 UNITS Dextrose 50 ml UD IV 06/22/25 00:00 Amino Acids/ Electrolytes/ Dextrose 1,000 ml @ 41 mls/hr DAILY@2200 IV 06/21/25 22:00 06/23/25 21:10 41 MLS/HR Meropenem 50 ml @ 17 mls/hr Q12HR IV 06/22/25 22:00 06/24/25 09:20 17 MLS/HR Albuterol 2.5 mg Q4HR PRN NEB 06/23/25 18:00 06/24/25 01:47 2.5 MG Ipratropium [place] 0.5 mg Q4HR NEB 06/23/25 18:00 06/24/25 10:26 0.5 MG Budesonide 0.5 mg BID NEB 06/23/25 22:00 06/24/25 06:09 0.5 MG Albuterol 2.5 mg Q4HR NEB 06/24/25 10:30 06/24/25 10:26 2.5 MG laboratory and microbiology Laboratory Tests 06/24/25 04:10 Test 06/24/25 04:10 Range/Units Serum Glucose 147 H 74-106 mg/dL Problem List/Assessment/Plan Problem List/Assessment/Plan 06/17/25 I ARRIVED TO EXAMINE PATIENT SHE WAS BEING INTUBATED, SHE IS HYPOTENSIVE AND TACHYCARDIC. SHE NEEDS TO BE RE HYDRATED AND MEDICALLY STABILIZED AND I WILL OPERATE ON HER TOMORROW IF SHE IS STABLE ENOUGH TO TOLERATE ANESTHESIA 06/19/25 patient remains sedated and intubated, BP being supported, heart rate in the 80's, abdomen soft, non distended JOSEE drainage serosanguineous, H?H low, will transfuse. good urine output, labs pending. 06/22/25 REMAINS INTUBATED AND ON VENTILATOR, ABDOMEN SOFT, NON DISTENDED, LABS REVIEWED, 06/23/25 afebrile normotensive, wound vac in place, josee drainage clear, labs reviewed. will order gastrografin bowel series 06/24/25 GASTROGRAFIN SMALL BOWEL SERIES IS NORMAL AND CONTRAST IS IN THE COLON ON FOLLOW-UP KUB XRAY, WOUND CLEAN ABDOMEN NON DISTENDED, LEUKOCYTOSIS , WILL GET CT SCAN IN 48 HOURS TO R/O ANOTHER ABSCESS IN THE ABDOMEN OR PELVIS Plan discussed with: Spouse, Other Dietary Evaluation Review Comments: 1. TPN per pharmacy if NPO>7 days 2. If GI assessible, Vital AF 1.2 @45ml/hr providing 81g Protein 1296kcal, 876ml free water Expected Outcomes/Goals: meeting pt's nutrition needs at 75-100% recovered GI function gradual wt loss POP REYNA MD Jun 24, 2025 13:52
--- NOTE | 2025-06-24 13:57 | DVHPNRES ---
Progress Note Date Seen: Jun 24, 2025 Resident Creating Document: STEPHEN SCHULTZ RESIDENT Has the PT tested + for MRSA If YES, has PT been informed?: No Medical Necessity Reason Pt with a Central, PICC or Fol: Yes The following are medically ne: Central Line, Turner Catheter Reason for turner catheter: Strict I&O Subjective Review of Systems Todays course: * Remains intubated on vent. Tidal volume ? to 420 (from 350) due to acidosis and ventilator dyssynchrony; sedation ? (propofol). * Vitals: BP 139/61, HR 73, RR 24, SpO? 99% (FiO? 4050%). * ABG: pH 7.194 (low), Cristhian? 48 (high), HCO? 18.1 (low), Becky? 86 ? mixed metabolic and respiratory acidosis. * Labs: Hgb 9.1 (? from 7.9), WBC 23.4 (? from 17.5), Plt 103K, K 3.4 (repleted 40 mEq), BUN 69 (?), Cr 1.59 (slightly improved), LFTs: AST 91, ALT 52, ALP 141, Albumin ~1.0 g/dL. * Renal/I&O: UOP 1225 mL (~0.42 mL/kg/hr). Net positive balance +1086 mL. Furosemide 60 mg IV given with albumin pre-dosing; K replaced. * GI: NG suction 300 mL overnight; 3 BMs since yesterday. KUB ? DHT/NG in stomach, contrast visualized in colon, bowel gas unremarkable. MATT output is brown and stool-like ? highly concerning for enteric/anastomotic leak or fistula. Surgery notified. Culture of the fluid ordered. * Steroids: Hydrocortisone taper; planned discontinuation tomorrow. * Nutrition: On TPN (Clinimix). Surgeon to decide enteral feeds pending leak eval. ROS (limited by intubation/sedation) * General: Sedated, intubated, afebrile. * CV: Stable BP, no arrhythmia noted. * Resp: Mechanically ventilated; accessory use when sedation lightened. * GI: Abdomen soft; VAC intact; MATT brown output. 3 BMs. * : Turner with adequate output. * Skin/MSK: +3 pedal edema; right leg ecchymosis from fall. Objective vital signs Vital Sign Date Time Temp Pulse Resp B/P (MAP) Pulse Ox O2 Delivery O2 Flow Rate FiO2 06/24/25 13:30 72 24 125/58 (80) 98 06/24/25 13:15 97.5 97.5 06/24/25 12:44 30 06/24/25 12:30 Mechanical Ventilator+ Total Intake and Output 06/23/25 06/23/25 06/24/25 15:00 23:00 07:00 Intake Total 593.983 ml 850.429 ml 871.762 ml Output Total 595 ml 630 ml Balance 593.983 ml 255.429 ml 241.762 ml medications Current Medications Medications Dose Ordered Sig/Venessa Route Start Time Stop Time Status Last Admin Dose Admin Acetaminophen 325 mg Q4HP PRN PO 06/16/25 20:45 Vancomycin HCl 0 ml @ 0 mls/hr UD IV 06/17/25 08:30 Propofol 100 ml @ 2.661 mls/ hr Q24H IV 06/17/25 10:15 06/24/25 11:01 2.661 MLS/HR Midazolam HCl 50 ml @ 1 mls/hr Q24H IV 06/17/25 10:15 06/24/25 06:26 4 MLS/HR Fentanyl Citrate 250 ml @ 2.5 mls/hr Q24H IV 06/17/25 10:15 06/23/25 23:31 12.5 MLS/HR Pantoprazole Sodium 40 mg DAILY IV 06/18/25 10:00 06/24/25 09:24 40 MG Vasopressin 20 units/Sodium Chloride 100 ml @ 9 mls/hr Q11H7M IV 06/18/25 05:15 06/19/25 21:57 9 MLS/HR Norepinephrine Bitartrate 32 mg/ Sodium Chloride 250 ml @ 0.938 mls/ hr Q24H IV 06/18/25 16:45 06/20/25 15:22 0.938 MLS/HR Hydrocortisone Sodium Succinate 50 mg Q6HR IV 06/20/25 18:00 06/24/25 11:34 50 MG Amino Acids 0 ml @ 0 mls/hr PER PHARMACY IV 06/21/25 15:15 Diagnostic Test (Pha) 1 strip Q6HR 06/22/25 00:00 06/24/25 05:18 1 STRIP Insulin Human Regular FOLLOW SLIDING SCALE Q6HR SC 06/22/25 00:00 06/24/25 11:53 4 UNITS Dextrose 50 ml UD IV 06/22/25 00:00 Amino Acids/ Electrolytes/ Dextrose 1,000 ml @ 41 mls/hr DAILY@2200 IV 06/21/25 22:00 06/23/25 21:10 41 MLS/HR Meropenem 50 ml @ 17 mls/hr Q12HR IV 06/22/25 22:00 06/24/25 09:20 17 MLS/HR Albuterol 2.5 mg Q4HR PRN NEB 06/23/25 18:00 06/24/25 01:47 2.5 MG Ipratropium [place] 0.5 mg Q4HR NEB 06/23/25 18:00 06/24/25 10:26 0.5 MG Budesonide 0.5 mg BID NEB 06/23/25 22:00 06/24/25 06:09 0.5 MG Albuterol 2.5 mg Q4HR NEB 06/24/25 10:30 06/24/25 10:26 2.5 MG Examination * General: Intubated, sedated, critically ill. * Neuro: Pupils reactive; RASS 3. * CV: HR 73, BP stable; peripheral edema +3. * Resp: Coarse bilateral sounds; ventilator dependent. * Abd: Soft, non-distended, VAC intact; 2 MATT drains ? one with brown/stool-like output. * : Turner, clear urine. * Skin: Warm, pale; right leg ecchymosis stable. laboratory and microbiology Laboratory Tests 06/24/25 04:10 Test 06/24/25 04:10 Range/Units Serum Glucose 147 H 74-106 mg/dL Microbiology Date/Time Source Procedure Growth Status 06/18/25 12:53 Abdomen Gram Stain - Final Complete 06/18/25 12:53 Anaerobic Culture - Final Prevotella bivia Complete 06/18/25 12:53 Aerobic Culture - Final Escherichia coli Complete 06/17/25 10:41 Sputum Gram Stain - Final Complete 06/17/25 10:41 Respiratory Culture - Final Staphylococcus aureus Complete 06/16/25 18:36 Blood Blood Culture - Final NO GROWTH AFTER 5 DAYS OF INCUBATION. Complete Problem List/Assessment/Plan Problem List/Assessment/Plan Assessment 1. Septic shock due to complicated diverticulitis with multiple intra-abdominal abscesses, status post hysterectomy, BSO, abscess evacuation. POA 2. Acute hypoxic respiratory failure, mechanically ventilated due to sepsis POA 3. Suspected uterine malignancy (firm uterine mass, CA-125 232, intra-op OB-SHOE HANDLER impression). POA 4. High-anion gap metabolic acidosis (HCO? 11.9, AG 15) with pH 7.2. POA 5. Acute kidney injury (Stage 3, KDIGO) Cr 2.53, oliguric. POA 6. Electrolyte abnormalities: Hyponatremia, hypokalemia (repleted), hypocalcemia, hypoalbuminemia. POA 7. Normocytic anemia Hgb 8.6, likely multifactorial. POA 8. Troponin elevation likely Type II NSTEMI/demand ischemia due to sepsis POA 9. Generalized anasarca. 10. HTN, 11. fibromyalgia, 12. obesity Plan System-agudelo Plan System-agudelo Airway/Respiratory * Continue vent; VT 420, lung-protective strategy. * Daily ABG, CXR; adjust RR for CO? clearance. * Bronchodilators: albuterol/ipratropium q6h. * Sedation with propofol; daily SAT when safe. Cardiovascular/Volume * Hemodynamically stable, off pressors. * Diurese with furosemide 60 mg IV once and Fursemide 30 mg iv TID as tolerated; monitor K/Mg. * Goal net ?0.5 to ?1 L/day. Infectious Disease / Surgery * Continue meropenem + vancomycin; de-escalate based on cultures. * Repeat blood cultures (ordered). * Brown MATT output ? possible leak: keep NPO, notified surgery, obtain CT A/P with oral/rectal water-soluble contrast to evaluate leak/fistula. * Consider antifungal coverage (e.g., micafungin) if cultures or fevers persist. Renal/Electrolytes/AcidBase * Strict I&O, daily BMP, Mg, Phos. * Replete K to ?4.0, Mg ?2.0. * Monitor acidbase; bicarb infusion only if pH <7.15. Hematology * Hgb 9.1 ? no transfusion today (goal ?7). * Platelets 103K ? monitor; HIT workup if further fall. * Coags, fibrinogen, D-dimer if worsening thrombocytopenia. Hepatic/GI/Nutrition * Trend LFTs daily. * NPO; continue TPN; nutrition consult. * Stress ulcer prophylaxis with pantoprazole. Endocrine * Hydrocortisone taper to complete tomorrow; then stop if stable. * BG control with insulin protocol. Oncology * Pathology negative for malignancy Prophylaxis & Bundles * DVT prophylaxis: SCDs. * CLABSI/CAUTI bundles; pressure-injury prevention; daily device-necessity checklist (ETT, CVC, Turner,, drains, wound VAC). Lines/Tubes: * ETT, central line, Turner, 2 MATT drains, wound VAC. Maintain aseptic care Critical Care Time Spent >45 minutes in direct critical care management, including chart/lab/imaging review, family counseling, intubation, vasopressor initiation, central line placement, and coordination with ICU and surgical teams. Discussion Case discussed in detail with the attending physician, including the clinical presentation, diagnostic workup, and comprehensive management plan. Plan discussed with: Spouse My Orders My Orders Orders - STEPHEN SCHULTZ RESIDENT Procedure Category Date Status Time Chest Xray 1 View XY 06/24/25 Resulted 04:00 Chest Xray 1 View XY 06/23/25 Resulted 15:56 Kub Abdomen Single XY 06/24/25 Resulted View 08:19 Comprehensive LAB 06/25/25 Verified Metabolic Panel 04:00 Magnesium LAB 06/25/25 Verified 04:00 Phosphorus LAB 06/25/25 Verified 04:00 Clinimix Per Pharmacy NO[facility] 06/24/25 In Process 08:59 Routine Bacterial CHACHA 06/24/25 Logged Culture 09:19 Ventilator Orders RT 06/24/25 Transmitted 10:10 Abg W/ Co-Ox RT 06/24/25 Logged 11:10 Abg W/ Co-Ox RT 06/24/25 Logged 06:00 Albuterol Medneb PHA 06/24/25 In Process (Ventolin Medneb) 10:30 Complete Blood Count LAB 06/25/25 Verified 04:00 Abg W/ Co-Ox RT 06/25/25 Logged 04:00 Chest Xray 1 View XY 06/25/25 Logged 04:00 Body Fluid Culture W/ CHACHA 06/24/25 Uncollected GS 13:42 Dietary Evaluation Review Comments: 1. TPN per pharmacy if NPO>7 days 2. If GI assessible, Vital AF 1.2 @45ml/hr providing 81g Protein 1296kcal, 876ml free water Expected Outcomes/Goals: meeting pt's nutrition needs at 75-100% recovered GI function gradual wt loss Date of Service: Jun 24, 2025 Billing Provider: ELDA MULLER MD Common Visit Codes: 88384-XFIMCORE CARE 30-74 MIN STEPHEN SCHULTZ RESIDENT Jun 24, 2025 13:57 ELDA MULLER MD Jun 25, 2025 19:46
[2025-06-24 13:58] LABS: Base Excess -9.4 mmol/L (-2.0-3.0)
--- NOTE | 2025-06-24 21:59 | DVHPN2 ---
Progress Note - Dictate Date Seen: Jun 24, 2025 Has the PT tested + for MRSA If YES, has PT been informed?: No Medical Necessity Reason Pt with a Central, PICC or Fol: Yes The following are medically ne: Central Line, Turner Catheter Reason for turner catheter: Strict I&O Subjective Patient was seen and evaluated in follow up in the ICU. Patient is intubated and sedated on ventilator. 30% FiO2. MATT drain has approx 300 cc greenish output. WBC 23.4, HGB 9.1, HCT 28.2, K 3.4, CO2 19, BUN 69, EXPLORATION DRILLER 1.59, CA 8.2, AST 111, ALT 68. KUB shows bowel gas pattern is unremarkable. vital signs Vital Sign Date Time Temp Pulse Resp B/P (MAP) Pulse Ox O2 Delivery O2 Flow Rate FiO2 06/24/25 11:45 73 24 139/61 (87) 98 06/24/25 10:26 30 06/24/25 10:20 Mechanical Ventilator+ 06/24/25 09:00 96.5 96.5 Total Intake and Output 06/23/25 06/23/25 06/24/25 14:59 22:59 06:59 Intake Total 581.5 ml 839.785 ml 890.389 ml Output Total 595 ml 630 ml Balance 581.5 ml 244.785 ml 260.389 ml medications Current Medications Medications Dose Ordered Sig/Venessa Route Start Time Stop Time Status Last Admin Dose Admin Acetaminophen 325 mg Q4HP PRN PO 06/16/25 20:45 Vancomycin HCl 0 ml @ 0 mls/hr UD IV 06/17/25 08:30 Propofol 100 ml @ 2.661 mls/ hr Q24H IV 06/17/25 10:15 06/24/25 11:01 2.661 MLS/HR Midazolam HCl 50 ml @ 1 mls/hr Q24H IV 06/17/25 10:06/24/25 06:26 4 MLS/HR Fentanyl Citrate 250 ml @ 2.5 mls/hr Q24H IV 06/17/25 10:06/23/25 23:31 12.5 MLS/HR Pantoprazole Sodium 40 mg DAILY IV 06/18/25 10:00 06/24/25 09:24 40 MG Vasopressin 20 units/Sodium Chloride 100 ml @ 9 mls/hr Q11H7M IV 06/18/25 05:15 06/19/25 21:57 9 MLS/HR Norepinephrine Bitartrate 32 mg/ Sodium Chloride 250 ml @ 0.938 mls/ hr Q24H IV 06/18/25 16:45 06/20/25 15:22 0.938 MLS/HR Hydrocortisone Sodium Succinate 50 mg Q6HR IV 06/20/25 18:00 06/24/25 11:34 50 MG Amino Acids 0 ml @ 0 mls/hr PER PHARMACY IV 06/21/25 15:15 Diagnostic Test (Pha) 1 strip Q6HR 06/22/25 00:00 06/24/25 05:18 1 STRIP Insulin Human Regular FOLLOW SLIDING SCALE Q6HR SC 06/22/25 00:00 06/24/25 11:53 4 UNITS Dextrose 50 ml UD IV 06/22/25 00:00 Amino Acids/ Electrolytes/ Dextrose 1,000 ml @ 41 mls/hr DAILY@2200 IV 06/21/25 22:00 06/23/25 21:10 41 MLS/HR Meropenem 50 ml @ 17 mls/hr Q12HR IV 06/22/25 22:00 06/24/25 09:20 17 MLS/HR Albuterol 2.5 mg Q4HR PRN NEB 06/23/25 18:00 06/24/25 01:47 2.5 MG Ipratropium [place] 0.5 mg Q4HR NEB 06/23/25 18:00 06/24/25 10:26 0.5 MG Budesonide 0.5 mg BID NEB 06/23/25 22:00 06/24/25 06:09 0.5 MG Albuterol 2.5 mg Q4HR NEB 06/24/25 10:30 06/24/25 10:26 2.5 MG objective GENERAL: Ill appearing, intubated on ventilator. Obese. EYES: PERRL, EOMI. Anicteric. HENT: Moist mucous membranes. LUNGS: breath sounds. CARDIOVASCULAR: Regular rate and rhythm. ABDOMEN: Soft, nontender and nondistended. EXTREMITIES: No edema. SKIN: Warm, dry. laboratory and microbiology Laboratory Tests 06/24/25 04:10 Test 06/24/25 04:10 Range/Units Serum Glucose 147 H 74-106 mg/dL Problem List Metabolic encephalopathy secondary to sepsis. Sepsis due to complicated diverticulitis. Complicated diverticulitis with multiple abscesses. JILLIAN hemodynamically mediated (VMN). Metabolic acidosis with elevated anion gap and normal lactic acid. Acute respiratory failure likely secondary to congestive heart failure. Acute congestive heart failure (unknown LVEF). Questionable uterine malignancy. Hyponatremia. Hypokalemia. Normocytic anemia. Obesity. Hypertension. Fibromyalgia. Pulmonary HTN. Assessment/Plan Continued all current supportive medical care. GI prophylactics. IV antibiotics as ordered. Nebulized breathing treatments. Additional plan as per the hospital course. Critical care time of 45 minutes provided to include time spent evaluation of patient at bedside, when appropriate patient/family education for diagnosis, treatment plan, review of pertinent medical information and discussion of care with specialty providers and PCP.Mechanical ventilator parameters, treatment and adjustments have personally been reviewed by me and treatment plan by vacuum kettle cook has also been reviewed. Dietary Evaluation Review Comments: 1. TPN per pharmacy if NPO>7 days 2. If GI assessible, Vital AF 1.2 @45ml/hr providing 81g Protein 1296kcal, 876ml free water Expected Outcomes/Goals: meeting pt's nutrition needs at 75-100% recovered GI function gradual wt loss Plan discussed with: Other DANYELLE GIRALDO MD Jun 24, 2025 12:10
--- NOTE | 2025-06-24 23:10 | DVHPN2 ---
Subjective DOS: 06/24/2025 [facility] Patient seen and examined at bedside. Sedated, intubated on mechanical ventilator. Overnight events reviewed. Changes from previous H/P or p: No Changes Objective Vitals Vital Signs Date Time Temp Pulse Resp B/P (MAP) Pulse Ox O2 Delivery O2 Flow Rate FiO2 06/24/25 22:30 82 24 133/57 (82) 100 06/24/25 22:19 30 06/24/25 20:00 97.1 97.1 06/24/25 17:45 Mechanical Ventilator+ Intake/Output Intake and Output 06/24/25 07:00 Intake Total 2334.801 ml Output Total 1225 ml Balance 1109.801 ml Intake Oral 200 ml IV Total 1834.801 ml Blood Product 300 ml Output Urine Total 900 ml Drainage Total 325 ml Exam Gen.: Patient lying in bed in medical ICU. Sedated, intubated on mechanical ventilator. Head: Normocephalic, atraumatic. Eyes: PERRLA. Ears: Normal external anatomy. Throat: Endotracheal tube and orogastric tube in place. Neck: Supple, trachea midline. Chest: Transmitted breath sounds bilaterally. Decreased air entry bilaterally. No wheezing. Bibasilar crackles. Cardiovascular: Positive S1, positive S2. Regular rate and rhythm. Abdomen: Positive bowel sounds in all 4 quadrants. Soft, nontender, nondistended. : Mor[place]o in place. Normal external genitalia. Rectal: Deferred. Skin: Warm, dry. Intact. Extremities: 2+ radial pulses bilaterally. No lower extremity edema. Neuro: Sedated. Medications Current Medications Medications Dose Ordered Sig/[facility] Route Start Time Stop Time Status Last Admin Dose Admin Acetaminophen 325 mg Q4HP PRN PO 06/16/25 20:45 Vancomycin HCl 0 ml @ 0 mls/hr UD IV 06/17/25 08:30 Propofol 100 ml @ 2.661 mls/ hr Q24H IV 06/17/25 10:15 06/24/25 11:01 2.661 MLS/HR Midazolam HCl 50 ml @ 1 mls/hr Q24H IV 06/17/25 10:15 06/24/25 06:26 4 MLS/HR Fentanyl Citrate 250 ml @ 2.5 mls/hr Q24H IV 06/17/25 10:15 06/24/25 19:40 10 MLS/HR Pantoprazole Sodium 40 mg DAILY IV 06/18/25 10:00 06/24/25 09:24 40 MG Vasopressin 20 units/Sodium Chloride 100 ml @ 9 mls/hr Q11H7M IV 06/18/25 05:15 06/19/25 21:57 9 MLS/HR Norepinephrine Bitartrate 32 mg/ Sodium Chloride 250 ml @ 0.938 mls/ hr Q24H IV 06/18/25 16:45 06/20/25 15:22 0.938 MLS/HR Hydrocortisone Sodium Succinate 50 mg Q6HR IV 06/20/25 18:00 06/24/25 17:34 50 MG Amino Acids 0 ml @ 0 mls/hr PER PHARMACY IV 06/21/25 15:15 Diagnostic Test (Pha) 1 strip Q6HR 06/22/25 00:00 06/24/25 17:30 1 STRIP Insulin Human Regular FOLLOW SLIDING SCALE Q6HR SC 06/22/25 00:00 06/24/25 17:31 2 UNITS Dextrose 50 ml UD IV 06/22/25 00:00 Amino Acids/ Electrolytes/ Dextrose 1,000 ml @ 41 mls/hr DAILY@2200 IV 06/21/25 22:00 06/24/25 21:29 41 MLS/HR Meropenem 50 ml @ 17 mls/hr Q12HR IV 06/22/25 22:00 06/24/25 21:27 17 MLS/HR Albuterol 2.5 mg Q4HR PRN NEB 06/23/25 18:00 06/24/25 01:47 2.5 MG Ipratropium [place] 0.5 mg Q4HR NEB 06/23/25 18:00 06/24/25 22:18 0.5 MG Budesonide 0.5 mg BID NEB 06/23/25 22:00 06/24/25 22:18 0.5 MG Albuterol 2.5 mg Q4HR NEB 06/24/25 10:30 06/24/25 22:18 2.5 MG Laboratory Results Laboratory Tests 06/24/25 04:10 Chemistry Test 06/24/25 04:10 Albumin 3.2 g/dL (3.2-4.8) Calcium Level 8.2 mg/dL (8.7-10.4) L Magnesium Level 2.2 mg/dL (1.6-2.6) Phosphorus Level 4.6 mg/dL (2.4-5.1) Total Protein 6.0 g/dL (5.7-8.2) LFT Test 06/24/25 04:10 Alanine Aminotransferase (ALT) 68 U/L (7-40) H Alkaline Phosphatase 151 U/L (46-116) H Aspartate Amino Transferase (AST) 111 U/L (13-40) H Total Bilirubin 0.9 mg/dL (0.2-1.0) Urinalysis Test 06/16/25 16:40 06/17/25 03:45 Urine Color Yellow (Yellow) Urine Clarity Turbid (Clear) H Urine pH 5.5 (5.0-9.0) Urine Specific [place] 1.014 (1.001-1.035) Urine Protein Trace (Negative) H Urine Ketones Negative (Negative) Urine Blood Negative /uL (Negative) Urine Nitrite Negative (Negative) Urine Bilirubin Negative (Negative) Urine Urobilinogen 3 mg/dL (Negative) H Urine Leukocyte Esterase Negative /uL (Negative) Urine RBC 2 /hpf (0 - 4) Urine Microscopic WBC 5 /HPF (0-5) Urine Squamous Epithelial Cells Few /hpf (<5) Urine Bacteria None seen /hpf (None Seen) Urine Glucose Normal mg/dL (Normal) Urine Creatinine 78.91 mg/dL (30.0-125.0) Urine Protein/Creatinine Ratio 1.29 Urine Total Protein 101.6 mg/dL (1-14) H Blood Gas Results Test 06/24/25 09:24 06/24/25 13:41 Arterial Blood pH 7.194 (7.350-7.450) 7.319 (7.350-7.450) FiO2 % 30.0 30.0 Microbiology Microbiology Date/Time Source Procedure Growth Status 06/18/25 12:53 Abdomen Gram Stain - Final Complete 06/18/25 12:53 Anaerobic Culture - Final Prevotella bivia Complete 06/18/25 12:53 Aerobic Culture - Final Escherichia coli Complete 06/17/25 10:41 Sputum Gram Stain - Final Complete 06/17/25 10:41 Respiratory Culture - Final Staphylococcus aureus Complete 06/16/25 18:36 Blood Blood Culture - Final NO GROWTH AFTER 5 DAYS OF INCUBATION. Complete Assessment/Plan Assessment/Plan Impression: Acute hypoxic respiratory failure On mechanical ventilator Hypokalemia Pneumonia with Staphylococcus aureus Anemia Septic shock Obesity, BMI 35.2 Events: Remains on vent support On AC mode; RR 24, VT 420, PEEP 5, FiO2 30% Taper FiO2 as tolerated ABG reviewed, notable for acidemia d/t metabolic acidosis CXR notable for unchanged pulmonary vascular congestion and cardiomegaly MATT drain has approx 300 cc greenish output. WBC 23.4, HGB 9.1, HCT 28.2. K 3.4, CO2 19, BUN 69, MEDICINE TECHNOLOGIST 1.59, CA 8.2, AST 111, ALT 68. Remains off all pressors, hemodynamically stable. Continue bronchodilators Antibiotics - on vancomycin and meropenem Monitor WBC Continue IV steroids Accu-Cheks, ISS Clinimix for nutritional support KUB shows bowel gas pattern is unremarkable. GI recommendations appreciated. Surgery recommendations appreciated Diurese with Lasix Continue to monitor renal function Monitor electrolytes. Supplement as necessary. Potassium supplementation Monitor hemoglobin - trended up to 9.1 g/dL Transfuse if less than 7.0 g/dL. GI/DVT prophylaxis Labs and imaging reviewed. Rest of plan as noted below. Plan: s/p intubation on mechanical ventilator. On AC mode; RR 24, VT 420, PEEP 5, FiO2 30% Titrate FIO2 to keep O2 saturation above 90%. VAP bundle. Daily ABG and CXR while intubated Continue antibiotics. Follow up cultures. IV steroids Pressors as necessary for hemodynamic support Titrate to keep mean arterial pressure greater than 65 mmHg. Monitor renal function Monitor electrolytes. Supplement as necessary. Monitor ins and outs. Maintain euvolemia. Monitor hemoglobin Transfuse if less than 7.0 g/dL. SBT/CARLOS. Recommend diet and lifestyle modifications for weight reduction Obesity complicates all care GI prophylaxis. DVT prophylaxis. Prognosis: Poor given patient's multiple co-morbidities. Condition: Critical Rest of plan per hospitalist and other consultants. A total of 35 minutes of critical care time was spent reviewing the patient record, examining the patient, making a diagnostic and therapeutic plan, discussing this plan with the medical personnel, following up on diagnostic studies and following the patient for clinical stability excluding any and all procedures. At least 50% of this time was spent in direct, [id number] contact. Thank you, Dr. Jacobsen, for allowing me to participate in this patient's care. Further recommendations will depend on the patient's clinical course. Please do not hesitate to contact me if you have any questions or concerns. This medical document was created using an electronic medical record system with Doodle dictation system. Although these documentations are being carefully reviewed, there may still be some phonetic and typographical changes. The errors are purely typographical, due to imperfection on the software program, and do not reflect any compromise in the patient's medical care Plan discussed with: Other (RN) Visit Coding Pulmonary Billing Provider: TJ NGUYEN MD Date of Service if different f: Jun 24, 2025 Common Visit Codes: [id number] INP/OBS CARE(HIGH), [id number] CARE 30-74 MIN TJ NGUYEN MD Jun 24, 2025 23:10
[2025-06-25] VITALS (106 sets, daily range): BP systolic 110–156; BP diastolic 49–71; PULSE 74–99; RESP 14–26; TEMP 98.5–99; O2SAT 97–100
[2025-06-25 04:15] LABS: Hematocrit 31.0 % (36.0-46.0); Hemoglobin 10.1 g/dL (12.2-16.2); Mean Corpuscular Hemoglobin 28.9 pg (28.0-32.0); Mean Corpuscular Volume 88.7 fL (80.0-100.0)
[2025-06-25 04:42] LABS: Alanine Aminotransferase 39 U/L (7-40); Anion Gap 14 (5-15); BUN/Creatinine Ratio 46.8 (10.0-20.0); Magnesium 2.2 mg/dL (1.6-2.6); Potassium 4.0 mmol/L (3.5-5.1); Sodium 144 mmol/L (136-145)
[2025-06-25 04:43] LABS: Bilirubin, Total 0.7 mg/dL (0.2-1.0)
[2025-06-25 05:13] LABS: Albumin 2.8 g/dL (3.2-4.8); Alkaline Phosphatase 141 U/L (46-116); Blood Urea Nitrogen 66 mg/dL (9-23); Calcium 8.3 mg/dL (8.7-10.4); Carbon Dioxide 17 mmol/L (20-31); Chloride 113 mmol/L (98-107); Glucose 112 mg/dL (74-106); Total Protein 5.5 g/dL (5.7-8.2)
--- NOTE | 2025-06-25 05:41 | DVH ---
CHEST RADIOGRAPH Indication: Volume overload status Technique: Single frontal view of the chest was obtained COMPARISON: XY CHEST XRAY 1 VIEW on DOS: 06/24/25, XY CHEST XRAY 1 VIEW on DOS: 06/23/25, XY CHEST XRAY 1 VIEW on DOS: 06/23/25, XY CHEST XRAY 1 VIEW on DOS: 06/22/25, XY CHEST XRAY 1 VIEW on DOS: 06/21/25 FINDINGS: Lines and Tubes: Endotracheal tube, enteric catheter, and right central venous catheter in satisfacto ry position. Lungs: Unchanged pulmonary vascular congestion. Pleura: No effusion. No pneumothorax. Cardiomediastinal contours: Unremarkable. Bones: Unremarkable. IMPRESSION: Unchanged pulmonary vascular congestion.
[2025-06-25 08:46] LABS: Total Cells Counted 100.0 (100)
[2025-06-25 08:53] LABS: Base Excess -7.5 mmol/L (-2.0-3.0)
--- NOTE | 2025-06-25 09:07 | DVHPN2 ---
Progress Note Date Seen: Jun 25, 2025 Has the PT tested + for MRSA If YES, has PT been informed?: No Medical Necessity Reason Pt with a Central, PICC or Fol: Yes The following are medically ne: Central Line, Turner Catheter Reason for turner catheter: Strict I&O Objective vital signs Vital Sign Date Time Temp Pulse Resp B/P (MAP) Pulse Ox O2 Delivery O2 Flow Rate FiO2 06/25/25 08:15 88 25 135/58 (83) 99 30 06/25/25 06:00 Mechanical Ventilator+ 06/25/25 04:00 98.5 98.5 Total Intake and Output 06/24/25 06/24/25 06/25/25 15:00 23:00 07:00 Intake Total 1026.694 ml 413.322 ml 397 ml Output Total 1330 ml 1000 ml Balance 1026.694 ml -916.678 ml -603 ml medications Current Medications Medications Dose Ordered Sig/[facility] Route Start Time Stop Time Status Last Admin Dose Admin Acetaminophen 325 mg Q4HP PRN PO 06/16/25 20:45 Vancomycin HCl 0 ml @ 0 mls/hr UD IV 06/17/25 08:30 Propofol 100 ml @ 2.661 mls/ hr Q24H IV 06/17/25 10:15 06/24/25 11:01 2.661 MLS/HR Midazolam HCl 50 ml @ 1 mls/hr Q24H IV 06/17/25 10:15 06/24/25 06:26 4 MLS/HR Fentanyl Citrate 250 ml @ 2.5 mls/hr Q24H IV 06/17/25 10:15 06/24/25 19:40 10 MLS/HR Pantoprazole Sodium 40 mg DAILY IV 06/18/25 10:00 06/24/25 09:24 40 MG Vasopressin 20 units/Sodium Chloride 100 ml @ 9 mls/hr Q11H7M IV 06/18/25 05:15 06/19/25 21:57 9 MLS/HR Norepinephrine Bitartrate 32 mg/ Sodium Chloride 250 ml @ 0.938 mls/ hr Q24H IV 06/18/25 16:45 06/20/25 15:22 0.938 MLS/HR Hydrocortisone Sodium Succinate 50 mg Q6HR IV 06/20/25 18:00 06/25/25 05:25 50 MG Amino Acids 0 ml @ 0 mls/hr PER PHARMACY IV 06/21/25 15:15 Diagnostic Test (Pha) 1 strip Q6HR 06/22/25 00:00 06/25/25 05:25 1 STRIP Insulin Human Regular FOLLOW SLIDING SCALE Q6HR SC 06/22/25 00:00 06/24/25 17:31 2 UNITS Dextrose 50 ml UD IV 06/22/25 00:00 Amino Acids/ Electrolytes/ Dextrose 1,000 ml @ 41 mls/hr DAILY@2200 IV 06/21/25 22:00 06/24/25 21:29 41 MLS/HR Meropenem 50 ml @ 17 mls/hr Q12HR IV 06/22/25 22:00 06/24/25 21:27 17 MLS/HR Albuterol 2.5 mg Q4HR PRN NEB 06/23/25 18:00 06/24/25 01:47 2.5 MG Ipratropium [place] 0.5 mg Q4HR NEB 06/23/25 18:00 06/25/25 06:13 0.5 MG Budesonide 0.5 mg BID NEB 06/23/25 22:00 06/25/25 06:13 0.5 MG Albuterol 2.5 mg Q4HR NEB 06/24/25 10:30 06/25/25 06:13 2.5 MG laboratory and microbiology Laboratory Tests 06/25/25 03:30 Test 06/25/25 03:30 Range/Units Serum Glucose 112 H 74-106 mg/dL Problem List/Assessment/Plan Problem List/Assessment/Plan 06/17/25 I ARRIVED TO EXAMINE PATIENT SHE WAS BEING INTUBATED, SHE IS HYPOTENSIVE AND TACHYCARDIC. SHE NEEDS TO BE RE HYDRATED AND MEDICALLY STABILIZED AND I WILL OPERATE ON HER TOMORROW IF SHE IS STABLE ENOUGH TO TOLERATE ANESTHESIA 06/19/25 patient remains sedated and intubated, BP being supported, heart rate in the 80's, abdomen soft, non distended JOSEE drainage serosanguineous, H?H low, will transfuse. good urine output, labs pending. 06/22/25 REMAINS INTUBATED AND ON VENTILATOR, ABDOMEN SOFT, NON DISTENDED, LABS REVIEWED, 06/23/25 afebrile normotensive, wound vac in place, josee drainage clear, labs reviewed. will order gastrografin bowel series 06/24/25 GASTROGRAFIN SMALL BOWEL SERIES IS NORMAL AND CONTRAST IS IN THE COLON ON FOLLOW-UP KUB XRAY, WOUND CLEAN ABDOMEN NON DISTENDED, LEUKOCYTOSIS , WILL GET CT SCAN IN 48 HOURS TO R/O ANOTHER ABSCESS IN THE ABDOMEN OR PELVIS 06/25/25 brownish JOSEE drainage ,also some drainage through midline wound, will get a ct scan and possibly will have top explore abdomen later today or tomorrow, have discussed with at great length, explained patient may need several operations before hopefully getting well. awaiting ct scan result Plan discussed with: Patient Dietary Evaluation Review Comments: 1. TPN per pharmacy if NPO>7 days 2. If GI assessible, Vital AF 1.2 @45ml/hr providing 81g Protein 1296kcal, 876ml free water Expected Outcomes/Goals: meeting pt's nutrition needs at 75-100% recovered GI function gradual wt loss POP REYNA MD Jun 25, 2025 09:07
[2025-06-25] MEDS: FUROSEMIDE 40 MG/4 ML VIAL IV ONE (10:40)
[2025-06-25] MEDS: VANCOMYCIN 500mg/100mL 100 ML IV ONE (11:02)
--- NOTE | 2025-06-25 11:15 | DVH ---
EXAM: CT CT AB PEL WO CON-NO ORAL OR IV HISTORY: R/O ABSCESS COMPARISON: CT CT AB PEL WO CON-NO ORAL OR IV on DOS: 06/16/25 TECHNIQUE: Helical CT images of the abdomen and pelvis were performed without IV contrast and with or al contrast. Sagittal and coronal reformatted images were obtained. This CT exam was performed using one or more of the following dose reduction techniques: Automated exposure control, adjustment of the mA and/or kv according to patient size, or the use of iterative reconstruction techniques. Radiation Dose: Abdomen/Pelvis: CTDIvol 26.36 mGy, DLP 3.52 mGy*cm. FINDINGS: CT abdomen: There is a partially visualized right IJ central line with its tip in the mid SVC. There is an NG tube with its tip in the stomach about 5 cm distal to the GE junction. There are bilateral l ower lobe consolidative infiltrates and bilateralsmall to moderate pleural effusions. The central pul monary arteries are ectatic. There are coronary artery calcifications. The heart is enlarged. The ga llbladder is surgically absent. The noncontrast liver, spleen, pancreas, kidneys, and adrenal glands are unremarkable. No abdominal aortic aneurysm. CT pelvis: No abnormal small bowel dilatation or free air. There are 2 percutaneous drainage catheter s in the pelvis, new compared with prior CT scan. There is trace free fluid in the pelvis. There are descending and sigmoid colon diverticula. There is rectosigmoid wall thickening, greater than that se en previously. [place] catheter decompresses the urinary bladder. The appendix is not visualized, likel y surgically absent. There are bilateral fatty inguinal hernias, likely indirect. There are mild-to-m oderate degenerative changes of the spine and hips. There is diffuse subcutaneous edema. IMPRESSION: 1. Bilateral lower lobe atelectasis and nor or pneumonia, with bilateral pleural effusions, new ethan red with CT scan dated 06/16/2025. 2. Cardiomegaly and coronary artery disease. 3. Pulmonary arterial hypertension. 4. Interval postoperative changes of 2 percutaneous pelvic drains with near-complete resolution of th e free fluid and sigmoid colon diverticular abscess seen on the prior CT scan. There is increased rec tosigmoid wall thickening however, consistent with ongoing acute diverticulitis. 5. Postoperative changes of cholecystectomy and possibly also appendectomy. 6. Diffuse subcutaneous edema suggestive of anasarca.
--- NOTE | 2025-06-25 13:50 | DVHPN2 ---
Progress Note - Dictate Date Seen: Jun 25, 2025 Has the PT tested + for MRSA If YES, has PT been informed?: No Medical Necessity Reason Pt with a Central, PICC or Fol: Yes The following are medically ne: Central Line, Turner Catheter Reason for turner catheter: Strict I&O vital signs Vital Sign Date Time Temp Pulse Resp B/P (MAP) Pulse Ox O2 Delivery O2 Flow Rate FiO2 06/25/25 12:00 81 06/25/25 12:00 24 98 Mechanical Ventilator+ 30 30 06/25/25 10:48 137/58 (84) 06/25/25 10:30 98.6 98.6 Total Intake and Output 06/24/25 06/24/25 06/25/25 15:00 23:00 07:00 Intake Total 1026.694 ml 413.322 ml 448 ml Output Total 1330 ml 1000 ml Balance 1026.694 ml -916.678 ml -552 ml medications Current Medications Medications Dose Ordered Sig/V[facility]a Route Start Time Stop Time Status Last Admin Dose Admin Acetaminophen 325 mg Q4HP PRN PO 06/16/25 20:45 Vancomycin HCl 0 ml @ 0 mls/hr UD IV 06/17/25 08:30 Propofol 100 ml @ 2.661 mls/ hr Q24H IV 06/17/25 10:15 06/24/25 11:01 2.661 MLS/HR Midazolam HCl 50 ml @ 1 mls/hr Q24H IV 06/17/25 10:15 06/24/25 06:26 4 MLS/HR Fentanyl Citrate 250 ml @ 2.5 mls/hr Q24H IV 06/17/25 10:15 06/24/25 19:40 10 MLS/HR Pantoprazole Sodium 40 mg DAILY IV 06/18/25 10:00 06/25/25 10:40 40 MG Vasopressin 20 units/Sodium Chloride 100 ml @ 9 mls/hr Q11H7M IV 06/18/25 05:15 06/19/25 21:57 9 MLS/HR Norepinephrine Bitartrate 32 mg/ Sodium Chloride 250 ml @ 0.938 mls/ hr Q24H IV 06/18/25 16:45 06/20/25 15:22 0.938 MLS/HR Hydrocortisone Sodium Succinate 50 mg Q6HR IV 06/20/25 18:00 06/25/25 12:22 50 MG Amino Acids 0 ml @ 0 mls/hr PER PHARMACY IV 06/21/25 15:15 Diagnostic Test (Pha) 1 strip Q6HR 06/22/25 00:00 06/25/25 05:25 1 STRIP Insulin Human Regular FOLLOW SLIDING SCALE Q6HR SC 06/22/25 00:00 06/24/25 17:31 2 UNITS Dextrose 50 ml UD IV 06/22/25 00:00 Amino Acids/ Electrolytes/ Dextrose 1,000 ml @ 41 mls/hr DAILY@2200 IV 06/21/25 22:00 06/24/25 21:29 41 MLS/HR Meropenem 50 ml @ 17 mls/hr Q12HR IV 06/22/25 22:00 06/25/25 10:00 17 MLS/HR Albuterol 2.5 mg Q4HR PRN NEB 06/23/25 18:00 06/24/25 01:47 2.5 MG Ipratropium [place] 0.5 mg Q4HR NEB 06/23/25 18:00 06/25/25 10:42 0.5 MG Budesonide 0.5 mg BID NEB 06/23/25 22:00 06/25/25 06:13 0.5 MG Albuterol 2.5 mg Q4HR NEB 06/24/25 10:30 06/25/25 10:42 2.5 MG laboratory and microbiology Laboratory Tests 06/25/25 03:30 Test 06/25/25 03:30 Range/Units Serum Glucose 112 H 74-106 mg/dL Assessment/Plan Acute hypoxic respiratory failure On mechanical ventilator Hypokalemia Pneumonia with Staphylococcus aureus Anemia Septic shock Obesity, BMI 35.2 Events: Remains on vent support s/p ex lap for SBO On AC mode; RR 24, VT 420, PEEP 5, FiO2 30% ABG reviewed, CT abd and pelvis repeated today for suspected leak 1. Bilateral lower lobe atelectasis and nor or pneumonia, with bilateral pleural effusions, new compared with CT scan dated 06/16/2025. 2. Cardiomegaly and coronary artery disease. 3. Pulmonary arterial hypertension. 4. Interval postoperative changes of 2 percutaneous pelvic drains with near- complete resolution of the free fluid and sigmoid colon diverticular abscess seen on the prior CT scan. There is increased rectosigmoid wall thickening however, consistent with ongoing acute diverticulitis. 5. Postoperative changes of cholecystectomy and possibly also appendectomy. 6. Diffuse subcutaneous edema suggestive of anasarca. management plan Continue bronchodilators Antibiotics - on vancomycin and meropenem Monitor WBC diurese with Lasix Continue to monitor renal function Monitor electrolytes. Supplement as necessary. Potassium supplementation Monitor hemoglobin - GI/DVT prophylaxis Labs and imaging reviewed. Rest of plan as noted below. Pressors as necessary for hemodynamic support Titrate to keep mean arterial pressure greater than 65 mmHg. Monitor renal function Monitor electrolytes. Supplement as necessary. Monitor ins and outs. Maintain euvolemia. Monitor hemoglobin Transfuse if less than 7.0 g/dL. GI prophylaxis. DVT prophylaxis. Prognosis: Poor given patient's multiple co-morbidities. crit care time 35 min Dietary Evaluation Review Comments: 1. TPN per pharmacy if NPO>7 days 2. If GI assessible, Vital AF 1.2 @45ml/hr providing 81g Protein 1296kcal, 876ml free water Expected Outcomes/Goals: meeting pt's nutrition needs at 75-100% recovered GI function gradual wt loss Plan discussed with: Other (rn) ESTELA MENDEZ MD Jun 25, 2025 13:50
--- NOTE | 2025-06-25 14:48 | DVHPNRES ---
Progress Note Date Seen: Jun 25, 2025 Resident Creating Document: STEPHEN SCHULTZ RESIDENT Has the PT tested + for MRSA If YES, has PT been informed?: No Medical Necessity Reason Pt with a Central, PICC or Fol: Yes The following are medically ne: Central Line, Turner Catheter Reason for turner catheter: Strict I&O Subjective Review of Systems The patient remains critically ill, intubated, sedated, and mechanically ventilated. She is post-operative day 5 from exploratory laparotomy, supracervical hysterectomy, washout of multiple abscesses, and MATT drain placement. Todays course: * Infectious markers: WBC spiked from 23.4 ? 27.2 (worsening leukocytosis). Hemoglobin stable 10.1, platelets 120K. * ABG: pH 7.30, Cristhian? 34.1 (low-normal), Becky? 97.4, HCO? 17.6 (low), BE 7.5 ? persistent metabolic acidosis with partial respiratory compensation. * Renal: Creatinine 1.41 (improved), BUN 66 (slightly down). Net fluid balance 416 mL. * LFTs: ALP 141; mild transaminitis persists. Albumin low. * Imaging: * CT A/P with contrast: Interval post-op changes with near resolution of prior fluid collection. Persistent rectosigmoid diverticulitis with wall thickening. New bilateral pleural effusions, bilateral lower lobe atelectasis vs pneumonia, diffuse anasarca, cardiomegaly, coronary calcifications, pulmonary artery hypertension. * Surgical drains: Ongoing brown MATT drainage + drainage through midline wound ? concerning for enteric leak/fistula. * Planned management: Repeat exploratory laparotomy tomorrow, surgeon anticipates need for staged/serial procedures. * Interventions today: Lasix IV given (40 mg), PICC line consult placed for long-term IV antibiotics/TPN. Overall: Patient remains critically ill with severe sepsis from complicated diverticulitis with possible enteric leak, multiorgan dysfunction, and ongoing need for ventilatory and ICU support. REVIEW OF SYSTEMS (limited by intubation) * General: Critically ill, sedated. * Neuro: Sedated, non-responsive to commands. * Resp: Intubated, ventilated, bilateral coarse sounds. * CV: Stable BP, sinus rhythm. * GI: Abdomen soft, VAC in place, brown MATT/wound drainage. * : Turner present, UOP adequate. * Extremities: Anasarca, +3 pedal edema. Objective vital signs Vital Sign Date Time Temp Pulse Resp B/P (MAP) Pulse Ox O2 Delivery O2 Flow Rate FiO2 06/25/25 14:36 85 24 148/66 (93) 100 30 06/25/25 12:00 Mechanical Ventilator+ 06/25/25 10:30 98.6 98.6 Total Intake and Output 06/24/25 06/24/25 06/25/25 15:00 23:00 07:00 Intake Total 1026.694 ml 413.322 ml 448 ml Output Total 1330 ml 1000 ml Balance 1026.694 ml -916.678 ml -552 ml medications Current Medications Medications Dose Ordered Sig/Venessa Route Start Time Stop Time Status Last Admin Dose Admin Acetaminophen 325 mg Q4HP PRN PO 06/16/25 20:45 Vancomycin HCl 0 ml @ 0 mls/hr UD IV 06/17/25 08:30 Propofol 100 ml @ 2.661 mls/ hr Q24H IV 06/17/25 10:15 06/24/25 11:01 2.661 MLS/HR Midazolam HCl 50 ml @ 1 mls/hr Q24H IV 06/17/25 10:15 06/24/25 06:26 4 MLS/HR Fentanyl Citrate 250 ml @ 2.5 mls/hr Q24H IV 06/17/25 10:15 06/24/25 19:40 10 MLS/HR Pantoprazole Sodium 40 mg DAILY IV 06/18/25 10:00 06/25/25 10:40 40 MG Vasopressin 20 units/Sodium Chloride 100 ml @ 9 mls/hr Q11H7M IV 06/18/25 05:15 06/19/25 21:57 9 MLS/HR Norepinephrine Bitartrate 32 mg/ Sodium Chloride 250 ml @ 0.938 mls/ hr Q24H IV 06/18/25 16:45 06/20/25 15:22 0.938 MLS/HR Hydrocortisone Sodium Succinate 50 mg Q6HR IV 06/20/25 18:00 06/25/25 12:22 50 MG Amino Acids 0 ml @ 0 mls/hr PER PHARMACY IV 06/21/25 15:15 Diagnostic Test (Pha) 1 strip Q6HR 06/22/25 00:00 06/25/25 05:25 1 STRIP Insulin Human Regular FOLLOW SLIDING SCALE Q6HR SC 06/22/25 00:00 06/24/25 17:31 2 UNITS Dextrose 50 ml UD IV 06/22/25 00:00 Amino Acids/ Electrolytes/ Dextrose 1,000 ml @ 41 mls/hr DAILY@2200 IV 06/21/25 22:00 06/24/25 21:29 41 MLS/HR Meropenem 50 ml @ 17 mls/hr Q12HR IV 06/22/25 22:00 06/25/25 10:00 17 MLS/HR Albuterol 2.5 mg Q4HR PRN NEB 06/23/25 18:00 06/24/25 01:47 2.5 MG Ipratropium [place] 0.5 mg Q4HR NEB 06/23/25 18:00 06/25/25 14:32 0.5 MG Budesonide 0.5 mg BID NEB 06/23/25 22:00 06/25/25 06:13 0.5 MG Albuterol 2.5 mg Q4HR NEB 06/24/25 10:30 06/25/25 14:32 2.5 MG Examination * General: Intubated, sedated, critically ill. * Neuro: RASS 3, pupils reactive. * Resp: Ventilated, decreased bases, bilateral coarse sounds. * Abdomen: VAC intact, 2 MATT drains, brown/stool-like drainage, mild tenderness, soft, non-distended. * : Turner with clear urine. * Extremities: Anasarca, +3 pedal edema. * Skin: Midline incision draining brown fluid. laboratory and microbiology Laboratory Tests 06/25/25 03:30 Test 06/25/25 03:30 Range/Units Serum Glucose 112 H 74-106 mg/dL Microbiology Date/Time Source Procedure Growth Status 06/24/25 15:09 Other Aerobic Culture - Preliminary Resulted 06/24/25 11:50 Blood Blood Culture - Preliminary NO GROWTH AFTER 24 HOURS OF INCUBATION. Resulted 06/17/25 10:41 Sputum Gram Stain - Final Complete 06/17/25 10:41 Respiratory Culture - Final Staphylococcus aureus Complete Problem List/Assessment/Plan Problem List/Assessment/Plan Assessment 1. Septic shock due to complicated diverticulitis with multiple intra-abdominal abscesses, status post hysterectomy, BSO, abscess evacuation. POA 2. Acute hypoxic respiratory failure, mechanically ventilated due to sepsis POA 3. Suspected uterine malignancy .Biopsy negative 4. High-anion gap metabolic acidosis (HCO? 11.9, AG 15) with pH 7.2. POA 5. Acute kidney injury (Stage 3, KDIGO) Cr 2.53, oliguric. POA 6. Electrolyte abnormalities: Hyponatremia, hypokalemia (repleted), hypocalcemia, hypoalbuminemia. POA 7. Normocytic anemia Hgb 8.6, likely multifactorial. POA 8. Troponin elevation likely Type II NSTEMI/demand ischemia due to sepsis POA 9. Generalized anasarca. 10. HTN, 11. fibromyalgia, 12. obesity PLAN System-agudelo Respiratory * Continue lung-protective mechanical ventilation. * Daily ABG, CXR. * Continue bronchodilators (albuterol/ipratropium). * Wean sedation cautiously; avoid dyssynchrony. Cardiovascular / Volume * Hemodynamically stable, off vasopressors. * Diuresis: Lasix 2040 mg IV PRN with albumin support for anasarca. * Strict I&O; goal net negative fluid balance. Infectious Disease / Surgery * Continue broad coverage (meropenem + vancomycin). * Monitor cultures; consider antifungal (micafungin) if clinical worsening. * Exploratory laparotomy planned tomorrow ? enteric leak management, possible diversion/ostomy. * Repeat blood cultures ordered. Renal / Electrolytes / AcidBase * Daily BMP, Mg, Phos. * Replete K >4.0, Mg >2.0. * Continue Turner for strict UOP monitoring. Hematology * Monitor CBC daily. * Transfuse if Hgb <7 or active bleeding. * Platelets ? monitor; check HIT panel if fall continues. * DVT prophylaxis: SCDs + heparin if Plt >50K, otherwise mechanical only. GI / Nutrition * NPO, continue TPN via PICC (consult placed today). * Monitor MATT/wound output closely. * Surgery following; possible serial procedures. * Stress ulcer prophylaxis: PPI IV daily. Endocrine * Steroids: complete taper tomorrow, then discontinue. * Glucose control with insulin protocol. Prophylaxis & Supportive Care * DVT prophylaxis as above. * VAP, CAUTI, CLABSI bundles. * Frequent repositioning to prevent pressure ulcers. Oncology * Pathology negative for malignancy Prophylaxis & Bundles * DVT prophylaxis: SCDs. * CLABSI/CAUTI bundles; pressure-injury prevention; daily device-necessity checklist (ETT, CVC, Turner,, drains, wound VAC). Lines/Tubes: * ETT, central line, Turner, 2 MATT drains, wound VAC. Maintain aseptic care Critical Care Time Spent >45 minutes in direct critical care management, including chart/lab/imaging review, family counseling, intubation, vasopressor initiation, central line placement, and coordination with ICU and surgical teams. Discussion Case discussed in detail with the attending physician, including the clinical presentation, diagnostic workup, and comprehensive management plan. Plan discussed with: Spouse My Orders My Orders Orders - STEPHEN SCHULTZ Procedure Category Date Status Time Clinimix Per Pharmacy NOAH 06/25/25 In Process 22:00 Comprehensive LAB 06/26/25 Verified Metabolic Panel 04:00 Magnesium LAB 06/26/25 Verified 04:00 Phosphorus LAB 06/26/25 Verified 04:00 Dietary Evaluation Review Comments: 1. TPN per pharmacy if NPO>7 days 2. If GI assessible, Vital AF 1.2 @45ml/hr providing 81g Protein 1296kcal, 876ml free water Expected Outcomes/Goals: meeting pt's nutrition needs at 75-100% recovered GI function gradual wt loss Date of Service: Jun 25, 2025 Billing Provider: STEPHEN SCHULTZ Common Visit Codes: 62555-BVCBVIOH CARE 30-74 MIN STEPHEN SCHULTZ Jun 25, 2025 14:48 ELDA MULLER MD Jun 25, 2025 20:00
[2025-06-25 15:22] LABS: INR 1.08 (0.9-1.15); Partial Thromboplastin Time 38.5 SEC (24.5-34.5); Prothrombin Time 11.4 sec (9.3-11.8)
[2025-06-25] MEDS ORDERED: TPN PER PHARMACY 0 ML IV SCH (18:15)
[2025-06-25] MEDS: LIDOCAINE 1% (LOCAL ANESTH.) PF 5ml SDV ID ONE (19:03)
[2025-06-25] MEDS: SODIUM CHLOR 0.9% PF (SALINE LOCK) 10ML VIAL/SYR IV SCH (21:56)
--- NOTE | 2025-06-25 23:23 | DVHPN2 ---
Progress Note - Dictate Date Seen: Jun 25, 2025 Has the PT tested + for MRSA If YES, has PT been informed?: No Medical Necessity Reason Pt with a Central, PICC or Fol: Yes The following are medically ne: Central Line, Turner Catheter Reason for turner catheter: Strict I&O Subjective Patient was seen and evaluated in follow up in the ICU. Patient is intubated and sedated on ventilator. 30% FiO2. WBC 27.2, CO2 17, BUN 66, FIREWALL SECURITY ENGINEER 1.41, CA 8.3. Chest x-ray shows unchanged pulmonary vascular congestion. CT ABD PEL showed bilateral lower lobe atelectasis and nor or pneumonia, with bilateral pleural effusions, new compared with CT scan dated 06/16/2025. Cardiomegaly and coronary artery disease. Pulmonary arterial hypertension. Interval postoperative changes of 2 percutaneous pelvic drains with near-complete resolution of the free fluid and sigmoid colon diverticular abscess seen on the prior CT scan. There is increased rectosigmoid wall thickening however, consistent with ongoing acute diverticulitis. Postoperative changes of cholecystectomy and possibly also appendectomy. Diffuse subcutaneous edema suggestive of anasarca. vital signs Vital Sign Date Time Temp Pulse Resp B/P (MAP) Pulse Ox O2 Delivery O2 Flow Rate FiO2 06/25/25 10:48 82 24 137/58 (84) 100 30 06/25/25 10:30 98.6 98.6 06/25/25 10:00 Mechanical Ventilator+ Total Intake and Output 06/24/25 06/24/25 06/25/25 15:00 23:00 07:00 Intake Total 1026.694 ml 413.322 ml 448 ml Output Total 1330 ml 1000 ml Balance 1026.694 ml -916.678 ml -552 ml medications Current Medications Medications Dose Ordered Sig/Venessa Route Start Time Stop Time Status Last Admin Dose Admin Acetaminophen 325 mg Q4HP PRN PO 06/16/25 20:45 Vancomycin HCl 0 ml @ 0 mls/hr UD IV 06/17/25 08:30 Propofol 100 ml @ 2.661 mls/ hr Q24H IV 06/17/25 10:15 06/24/25 11:01 2.661 MLS/HR Midazolam HCl 50 ml @ 1 mls/hr Q24H IV 06/17/25 10:15 06/24/25 06:26 4 MLS/HR Fentanyl Citrate 250 ml @ 2.5 mls/hr Q24H IV 06/17/25 10:15 06/24/25 19:40 10 MLS/HR Pantoprazole Sodium 40 mg DAILY IV 06/18/25 10:00 06/25/25 10:40 40 MG Vasopressin 20 units/Sodium Chloride 100 ml @ 9 mls/hr Q11H7M IV 06/18/25 05:15 06/19/25 21:57 9 MLS/HR Norepinephrine Bitartrate 32 mg/ Sodium Chloride 250 ml @ 0.938 mls/ hr Q24H IV 06/18/25 16:45 06/20/25 15:22 0.938 MLS/HR Hydrocortisone Sodium Succinate 50 mg Q6HR IV 06/20/25 18:00 06/25/25 05:25 50 MG Amino Acids 0 ml @ 0 mls/hr PER PHARMACY IV 06/21/25 15:15 Diagnostic Test (Pha) 1 strip Q6HR 06/22/25 00:00 06/25/25 05:25 1 STRIP Insulin Human Regular FOLLOW SLIDING SCALE Q6HR SC 06/22/25 00:00 06/24/25 17:31 2 UNITS Dextrose 50 ml UD IV 06/22/25 00:00 Amino Acids/ Electrolytes/ Dextrose 1,000 ml @ 41 mls/hr DAILY@2200 IV 06/21/25 22:00 06/24/25 21:29 41 MLS/HR Meropenem 50 ml @ 17 mls/hr Q12HR IV 06/22/25 22:00 06/25/25 10:00 17 MLS/HR Albuterol 2.5 mg Q4HR PRN NEB 06/23/25 18:00 06/24/25 01:47 2.5 MG Ipratropium [place] 0.5 mg Q4HR NEB 06/23/25 18:00 06/25/25 10:42 0.5 MG Budesonide 0.5 mg BID NEB 06/23/25 22:00 06/25/25 06:13 0.5 MG Albuterol 2.5 mg Q4HR NEB 06/24/25 10:30 06/25/25 10:42 2.5 MG objective GENERAL: Ill appearing, intubated on ventilator. Obese. EYES: PERRL, EOMI. Anicteric. HENT: Moist mucous membranes. LUNGS: breath sounds. CARDIOVASCULAR: Regular rate and rhythm. ABDOMEN: Soft, nontender and nondistended. EXTREMITIES: No edema. SKIN: Warm, dry. laboratory and microbiology Laboratory Tests 06/25/25 03:30 Test 06/25/25 03:30 Range/Units Serum Glucose 112 H 74-106 mg/dL Problem List Metabolic encephalopathy secondary to sepsis. Sepsis due to complicated diverticulitis. Complicated diverticulitis with multiple abscesses. JILLIAN hemodynamically mediated (VMN). Metabolic acidosis with elevated anion gap and normal lactic acid. Acute respiratory failure likely secondary to congestive heart failure. Acute congestive heart failure (unknown LVEF). Questionable uterine malignancy. Hyponatremia. Hypokalemia. Normocytic anemia. Obesity. Hypertension. Fibromyalgia. Pulmonary HTN. Assessment/Plan Continued all current supportive medical care. GI prophylactics. IV antibiotics as ordered. Nebulized breathing treatments. Additional plan as per the hospital course. Critical care time of 45 minutes provided to include time spent evaluation of patient at bedside, when appropriate patient/family education for diagnosis, treatment plan, review of pertinent medical information and discussion of care with specialty providers and PCP.Mechanical ventilator parameters, treatment and adjustments have personally been reviewed by me and treatment plan by solar lab technician has also been reviewed. Dietary Evaluation Review Comments: 1. TPN per pharmacy if NPO>7 days 2. If GI assessible, Vital AF 1.2 @45ml/hr providing 81g Protein 1296kcal, 876ml free water Expected Outcomes/Goals: meeting pt's nutrition needs at 75-100% recovered GI function gradual wt loss Plan discussed with: Other DANYELLE GIRALDO MD Jun 25, 2025 11:54
[2025-06-26] VITALS (96 sets, daily range): BP systolic 37–158; BP diastolic 16–188; PULSE 75–190; RESP 0–27; TEMP 96.7–98.5; O2SAT 93–100
[2025-06-26 04:19] LABS: Hematocrit 27.6 % (36.0-46.0); Hemoglobin 9.1 g/dL (12.2-16.2); Mean Corpuscular Hemoglobin 28.8 pg (28.0-32.0); Mean Corpuscular Volume 87.5 fL (80.0-100.0); Nucleated Red Blood Cells % 0.5 %
[2025-06-26 04:40] LABS: Alanine Aminotransferase 23 U/L (7-40); Alkaline Phosphatase 114 U/L (46-116); Anion Gap 13 (5-15); BUN/Creatinine Ratio 67.9 (10.0-20.0); Glucose 97 mg/dL (74-106); Magnesium 1.9 mg/dL (1.6-2.6)
[2025-06-26 04:42] LABS: Bilirubin, Total 0.6 mg/dL (0.2-1.0)
[2025-06-26 04:47] LABS: Albumin 2.3 g/dL (3.2-4.8); Blood Urea Nitrogen 74 mg/dL (9-23); Calcium 8.1 mg/dL (8.7-10.4); Carbon Dioxide 20 mmol/L (20-31); Chloride 114 mmol/L (98-107); Potassium 3.1 mmol/L (3.5-5.1); Sodium 147 mmol/L (136-145); Total Protein 4.7 g/dL (5.7-8.2)
[2025-06-26] MEDS: POTASSIUM CHL 20MEQ/100ML 100 ML IV SCH (05:40)
[2025-06-26] MEDS: MAGNESIUM SULFATE 1GM/100ML 100 ML IV SCH (05:40)
--- NOTE | 2025-06-26 05:47 | DVH ---
CHEST RADIOGRAPH Indication: Evaluate For volume overload and acute hypoxic respi failure Technique: 1 view Comparison: XY CHEST XRAY 1 VIEW on DOS: 06/25/25, XY CHEST XRAY 1 VIEW on DOS: 06/24/25, XY CHEST XRAY 1 VIEW on DOS: 06/23/25, XY CHEST XRAY 1 VIEW on DOS: 06/23/25, XY CHEST XRAY 1 VIEW on DOS: 06/22/25 FINDINGS: Lines and Tubes: Intervally removed right IJ catheter and placement of a right upper extremity PICC t erminating over the superior cavoatrial junction. Unchanged endotracheal and enteric tubes. Lungs/Pleura: Unchanged. Cardiomediastinum: Unchanged. Other: Unchanged. IMPRESSION: 1. Intervally placed right upper extremity PICC projects in adequate position. Right IJ catheter has been removed. Endotracheal and enteric tubes are stable. 2. Unchanged cardiopulmonary findings. Sloqg-[id number]-vrkv-left mixed pulmonary opacities and small pl eural effusions.
[2025-06-26 07:15] LABS: Base Excess -7.0 mmol/L (-2.0-3.0)
[2025-06-26] MEDS ORDERED: ROCURONIUM 10MG/ML 10ML VIAL IV ONE (07:40)
[2025-06-26] MEDS ORDERED: SODIUM CHLORIDE LOCK 10 ML ONE (07:54)
[2025-06-26] MEDS ORDERED: ONDANSETRON HCL 4 MG/2 ML VIAL ONE (08:18)
[2025-06-26] MEDS ORDERED: PHENYLEPHRINE HCL 10 MG/ML VL ONE (08:32)
[2025-06-26] MEDS: PHENYLEPHRINE IV 250 ML IV SCH (10:20)
[2025-06-26 10:38] LABS: Hematocrit 23.6 % (36.0-46.0); Hemoglobin 7.3 g/dL (12.2-16.2)
--- NOTE | 2025-06-26 10:42 | DVHOP ---
DATE OF SURGERY: 06/26/2025 PREOPERATIVE DIAGNOSES: Diverticulitis with perforation, peritonitis. SURGEON: Clement Patel MD ANESTHESIA: General endotracheal. ANESTHESIOLOGIST: Emiliano Street. PROCEDURES: Laparotomy, resection of rectosigmoid diverticulitis with perforation, descending colon colostomy, lysis of adhesions. DESCRIPTION OF PROCEDURE: Under general endotracheal anesthesia with the patient's skin prepped and draped, previous drains and kostas were removed and the patient's abdomen was reopened. There was feculent contamination of the peritoneal cavity, which emanated from what appeared to be a perforation in the rectosigmoid section of the colon just proximal to an indurated rectum and rectosigmoid segment. The rectum was mobilized to the best of my ability, although the rectum was cemented into the true pelvis. Mobilization resulted in small amount of bleeding, which was controlled by compression. The rectosigmoid that was proximal to the diverticulitis was transected over a bowel clamp and there was a complete obstruction of the rectosigmoid with a pinpoint opening just superior to the perforation. The rectosigmoid and rectal conjunction was oversewn with Monocryl sutures and the mucosa was inverted. Subsequently, the descending colon was transected with a MITCHELL stapler in the segment of chronic and acute diverticulitis with a perforation was then submitted for his pathologic examination. The colon was mobilized along the white line of Toldt. The abdomen was essentially obliterated by adhesions. The patient had a previous cholecystectomy and the transverse colon was redundant and frozen into adhesions around the gallbladder fossa. Additionally, the patient has Marlex mesh in the abdominal wall and most of the transverse colon was densely adherent to this Marlex mesh. All these adhesions needed to be mobilized in order to establish a descending colon colostomy because of the scarring in the patient's obesity and previous operations resulted in limited extensibility of the colon. All these adhesions were lysed and the patient's colon was mobilized. Additional segment of the descending colon was removed for fear of ischemic change upon placing the colon through the colostomy defect in this morbidly obese abdomen. A colostomy defect was then created superior to the iliac crest and dilated to 2 fingerbreadths through this descending colon just adjacent to the splenic flexure was exteriorized. Following assurance of complete hemostasis, 2 Jesus-Urbano drains were inserted into the abdominal cavity and exteriorized separately and secured with 2-0 nylon suture. The abdomen was then profusely irrigated with approximately 3 L of warm saline. Surgeon's gloves were changed. The abdomen was inspected for hemostasis and integrity of the bowel wall. There was no evidence of any bowel wall injury following return of the viscera into the normal anatomical position, the descending colon having been exteriorized through the colostomy defect. The abdomen was closed using #1 double-stranded PDS suture. The subcutaneous tissues were contaminated with feculent exudates and for this reason, no closure was attempted. The abdominal wall was packed with iodine saturated Kerlix. Subsequent to placement of the iodine saturated Kerlix, the colostomy was matured utilizing 3-0 Monocryl sutures. The mucosa appeared pink and viable at the termination of the colostomy maturation. The operation was concluded and the final needle and sponge count was reported as accurate and the patient was then taken back to the ICU on the ventilator. The patient's was thoroughly informed and person in the waiting area. MD BRIGETTE Andres/JOSE TID: [id number] RECEIPT: [id number]
[2025-06-26 10:46] LABS: Potassium 3.5 mmol/L (3.5-5.1); Sodium 142 mmol/L (136-145)
[2025-06-26 10:47] LABS: Anion Gap 10 (5-15)
[2025-06-26 10:48] LABS: Calcium 7.0 mg/dL (8.7-10.4); Carbon Dioxide 18 mmol/L (20-31); Chloride 114 mmol/L (98-107)
[2025-06-26 10:52] LABS: BUN/Creatinine Ratio 56.6 (10.0-20.0)
[2025-06-26 10:53] LABS: Magnesium 2.0 mg/dL (1.6-2.6)
[2025-06-26] MEDS: D5W/SOD CHL 0.45%/KCL 20MEQ 1,000 ML IV SCH (11:06)
[2025-06-26] MEDS: D5W/SOD CHL 0.45%/KCL 20MEQ 1,000 ML IV ONE (11:06)
[2025-06-26 11:11] LABS: Blood Urea Nitrogen 64 mg/dL (9-23); Glucose 340 mg/dL (74-106)
[2025-06-26] MEDS: NOREPINEPHRINE 8 MG/250ML KIT 250 ML IV SCH (12:12)
[2025-06-26 12:42] LABS: Base Excess -12.7 mmol/L (-2.0-3.0)
[2025-06-26] MEDS: NOREPINEPHRINE 8 MG/250ML KIT 250 ML IV ONE ×2 (12:42→18:30)
[2025-06-26] MEDS: SODIUM CHLORIDE 0.9% 500 ML IV ONE (12:58)
[2025-06-26] MEDS: PHENYLEPHRINE HCL 10 MG/ML VL ONE (13:12)
[2025-06-26] MEDS: FUROSEMIDE 20 MG/2 ML VIAL IV ONE (14:00)
[2025-06-26] MEDS: FUROSEMIDE 20 MG/2 ML VIAL ONE (14:19)
[2025-06-26] MEDS: SODIUM BICARB 8.4% 50Meq/50ml SYR Vial IV ONE ×5 (15:25→21:30)
[2025-06-26] MEDS: ALBUMIN 25% 50 ML IV ONE (15:42)
[2025-06-26] MEDS: LACTATED RINGER'S 1,000 ML IV ONE ×3 (16:15→22:15)
[2025-06-26] MEDS: DOBUTamine 1000MCG/ML 250 ML IV SCH (16:19)
[2025-06-26] MEDS: DOBUTamine 1000MCG/ML 250 ML IV ONE (16:20)
[2025-06-26] MEDS: EPINEPHrine HCL 250 ML IV SCH (16:21)
[2025-06-26] MEDS: EPINEPHrine HCL 250 ML IV ONE (16:22)
[2025-06-26] MEDS: CALCIUM GLUC 1,000mg/50ml-NS 50 ML IV ONE (17:15)
--- NOTE | 2025-06-26 17:48 | DVHPN2 ---
Progress Note - Dictate Date Seen: Jun 26, 2025 Has the PT tested + for MRSA If YES, has PT been informed?: No Medical Necessity Reason Pt with a Central, PICC or Fol: Yes The following are medically ne: Central Line, Turner Catheter Reason for turner catheter: Strict I&O Subjective Patient was seen and evaluated in follow up in the ICU. Patient is intubated and sedated on ventilator. 30% FiO2. Patient underwent laparotomy, resection of rectosigmoid diverticulitis with perforation, descending colon colostomy, lysis of adhesions by Dr. aPtel. HGB 7.3, HCT 23.6, CO2 18, BUN 64, SHEET CUTTING OPERATOR 1.13, GLUC 340, CA 7. Chest x-ray showed internally placed right [id number] mixed pulmonary opacities and small pleural effusions. vital signs Vital Sign Date Time Temp Pulse Resp B/P (MAP) Pulse Ox O2 Delivery O2 Flow Rate FiO2 06/26/25 10:30 97/47 06/26/25 10:10 92 24 97 30 06/26/25 05:59 Mechanical Ventilator+ 06/26/25 04:00 98.5 98.5 Total Intake and Output 06/25/25 06/25/25 06/26/25 15:00 23:00 07:00 Intake Total 563.0 ml 439.5 ml 563 ml Output Total 985 ml 1370 ml Balance 563.0 ml -545.5 ml -807 ml medications Current Medications Medications Dose Ordered Sig/Venessa Route Start Time Stop Time Status Last Admin Dose Admin Acetaminophen 325 mg Q4HP PRN PO 06/16/25 20:45 Vancomycin HCl 0 ml @ 0 mls/hr UD IV 06/17/25 08:30 Propofol 100 ml @ 2.661 mls/ hr Q24H IV 06/17/25 10:15 06/24/25 11:01 2.661 MLS/HR Midazolam HCl 50 ml @ 1 mls/hr Q24H IV 06/17/25 10:06/26/25 06:24 3 MLS/HR Fentanyl Citrate 250 ml @ 2.5 mls/hr Q24H IV 06/17/25 10:15 06/25/25 20:21 15 MLS/HR Pantoprazole Sodium 40 mg DAILY IV 06/18/25 10:00 06/26/25 11:13 40 MG Vasopressin 20 units/Sodium Chloride 100 ml @ 9 mls/hr Q11H7M IV 06/18/25 05:15 06/19/25 21:57 9 MLS/HR Norepinephrine Bitartrate 32 mg/ Sodium Chloride 250 ml @ 0.938 mls/ hr Q24H IV 06/18/25 16:45 06/20/25 15:22 0.938 MLS/HR Diagnostic Test (Pha) 1 strip Q6HR 06/22/25 00:00 06/26/25 05:35 1 STRIP Insulin Human Regular FOLLOW SLIDING SCALE Q6HR SC 06/22/25 00:00 06/24/25 17:31 2 UNITS Dextrose 50 ml UD IV 06/22/25 00:00 Amino Acids/ Electrolytes/ Dextrose 1,000 ml @ 41 mls/hr DAILY@2200 IV 06/21/25 22:00 06/26/25 21:59 06/25/25 21:56 41 MLS/HR Meropenem 50 ml @ 17 mls/hr Q12HR IV 06/22/25 22:00 06/26/25 11:13 17 MLS/HR Albuterol 2.5 mg Q4HR PRN NEB 06/23/25 18:00 06/24/25 01:47 2.5 MG Ipratropium [place]ner 0.5 mg Q4HR NEB 06/23/25 18:00 06/26/25 10:10 0.5 MG Budesonide 0.5 mg BID NEB 06/23/25 22:00 06/26/25 06:04 0.5 MG Albuterol 2.5 mg Q4HR NEB 06/24/25 10:30 06/26/25 10:10 2.5 MG Amino Acids 0 ml @ 0 mls/hr PER PHARMACY IV 06/25/25 18:15 Sodium Chloride 10 ml QSHIFT@10,22 IV 06/25/25 22:00 06/26/25 11:07 10 ML Potassium Chloride 100 ml @ 50 mls/hr Q2H IV 06/26/25 05:30 06/26/25 13:29 06/26/25 05:40 50 MLS/HR Phenylephrine HCl 250 ml @ 30 mls/hr Q8H20M IV 06/26/25 10:00 06/26/25 10:20 30 MLS/HR Potassium Chloride/Dextrose/ Sod Cl 1,000 ml @ 120 mls/hr Q8H20M IV 06/26/25 10:30 06/26/25 11:06 120 MLS/HR Fat Emulsion Intravenous 50 ml/ Sodium Acetate 20 meq/Potassium Acetate 40 meq/ Calcium Gluconate 4.65 meq/ Magnesium Sulfate 4 meq/ Multivitamins 10 ml/Chromium/ Copper/Manganese/ Zinc 1 ml/Amino Acids/Dextrose 1,052 ml @ 44 mls/hr [id number] IV 06/26/25 22:00 06/27/25 21:59 objective GENERAL: Ill appearing, intubated on ventilator. Obese. EYES: PERRL, EOMI. Anicteric. HENT: Moist mucous membranes. LUNGS: breath sounds. CARDIOVASCULAR: Regular rate and rhythm. ABDOMEN: Soft, nontender and nondistended. EXTREMITIES: No edema. SKIN: Warm, dry. laboratory and microbiology Laboratory Tests 06/26/25 10:26 06/26/25 02:45 Test 06/26/25 10:26 Range/Units Serum Glucose 340 H 74-106 mg/dL Problem List Metabolic encephalopathy secondary to sepsis. Sepsis due to complicated diverticulitis. Complicated diverticulitis with multiple abscesses. JILLIAN hemodynamically mediated (VMN). Metabolic acidosis with elevated anion gap and normal lactic acid. Acute respiratory failure likely secondary to congestive heart failure. Acute congestive heart failure (unknown LVEF). Questionable uterine malignancy. Hyponatremia. Hypokalemia. Normocytic anemia. Obesity. Hypertension. Fibromyalgia. Pulmonary HTN. Assessment/Plan Continued all current supportive medical care. GI prophylactics. IV antibiotics as ordered. Nebulized breathing treatments. Additional plan as per the hospital course. Critical care time of 45 minutes provided to include time spent evaluation of patient at bedside, when appropriate patient/family education for diagnosis, treatment plan, review of pertinent medical information and discussion of care with specialty providers and PCP.Mechanical ventilator parameters, treatment and adjustments have personally been reviewed by me and treatment plan by slab lifting supervisor has also been reviewed. Dietary Evaluation Review Comments: 1. TPN per pharmacy if NPO>7 days 2. If GI assessible, Vital AF 1.2 @45ml/hr providing 81g Protein 1296kcal, 876ml free water Expected Outcomes/Goals: meeting pt's nutrition needs at 75-100% recovered GI function gradual wt loss Plan discussed with: Other DANYELLE GIRALDO MD Jun 26, 2025 11:48
--- NOTE | 2025-06-26 18:29 | DVHPN2 ---
Progress Note - Dictate Date Seen: Jun 26, 2025 Has the PT tested + for MRSA If YES, has PT been informed?: No Medical Necessity Reason Pt with a Central, PICC or Fol: Yes The following are medically ne: Central Line, Turner Catheter Reason for turner catheter: Strict I&O vital signs Vital Sign Date Time Temp Pulse Resp B/P (MAP) Pulse Ox O2 Delivery O2 Flow Rate FiO2 06/26/25 18:16 84/41 06/26/25 18:08 133 24 98 30 06/26/25 15:57 96.7 96.7 06/26/25 10:30 Mechanical Ventilator+ Total Intake and Output 06/25/25 06/25/25 06/26/25 15:00 23:00 07:00 Intake Total 563.0 ml 439.5 ml 563 ml Output Total 985 ml 1370 ml Balance 563.0 ml -545.5 ml -807 ml medications Current Medications Medications Dose Ordered Sig/Venessa Route Start Time Stop Time Status Last Admin Dose Admin Acetaminophen 325 mg Q4HP PRN PO 06/16/25 20:45 Vancomycin HCl 0 ml @ 0 mls/hr UD IV 06/17/25 08:30 Propofol 100 ml @ 2.661 mls/ hr Q24H IV 06/17/25 10:15 06/24/25 11:01 2.661 MLS/HR Midazolam HCl 50 ml @ 1 mls/hr Q24H IV 06/17/25 10:15 06/26/25 06:24 3 MLS/HR Fentanyl Citrate 250 ml @ 2.5 mls/hr Q24H IV 06/17/25 10:15 06/25/25 20:21 15 MLS/HR Pantoprazole Sodium 40 mg DAILY IV 06/18/25 10:00 06/26/25 11:13 40 MG Vasopressin 20 units/Sodium Chloride 100 ml @ 9 mls/hr Q11H7M IV 06/18/25 05:15 06/26/25 12:40 9 MLS/HR Norepinephrine Bitartrate 32 mg/ Sodium Chloride 250 ml @ 0.938 mls/ hr Q24H IV 06/18/25 16:45 06/20/25 15:22 0.938 MLS/HR Diagnostic Test (Pha) 1 strip Q6HR 06/22/25 00:00 06/26/25 11:49 1 STRIP Insulin Human Regular FOLLOW SLIDING SCALE Q6HR SC 06/22/25 00:00 06/26/25 11:52 2 UNITS Dextrose 50 ml UD IV 06/22/25 00:00 Amino Acids/ Electrolytes/ Dextrose 1,000 ml @ 41 mls/hr DAILY@2200 IV 06/21/25 22:00 06/26/25 21:59 06/25/25 21:56 41 MLS/HR Meropenem 50 ml @ 17 mls/hr Q12HR IV 06/22/25 22:00 06/26/25 11:13 17 MLS/HR Albuterol 2.5 mg Q4HR PRN NEB 06/23/25 18:00 06/24/25 01:47 2.5 MG Ipratropium [place] 0.5 mg Q4HR NEB 06/23/25 18:00 06/26/25 14:36 0.5 MG Budesonide 0.5 mg BID NEB 06/23/25 22:00 06/26/25 06:04 0.5 MG Albuterol 2.5 mg Q4HR NEB 06/24/25 10:30 06/26/25 14:36 2.5 MG Amino Acids 0 ml @ 0 mls/hr PER PHARMACY IV 06/25/25 18:15 Sodium Chloride 10 ml QSHIFT@10,22 IV 06/25/25 22:00 06/26/25 11:07 10 ML Phenylephrine HCl 250 ml @ 30 mls/hr Q8H20M IV 06/26/25 10:00 06/26/25 18:16 135 MLS/HR Potassium Chloride/Dextrose/ Sod Cl 1,000 ml @ 120 mls/hr Q8H20M IV 06/26/25 10:30 06/26/25 11:06 120 MLS/HR Fat Emulsion Intravenous 50 ml/ Sodium Acetate 20 meq/Potassium Acetate 40 meq/ Calcium Gluconate 4.65 meq/ Magnesium Sulfate 4 meq/ Multivitamins 10 ml/Chromium/ Copper/Manganese/ Zinc 1 ml/Amino Acids/Dextrose 1,052 ml @ 44 mls/hr [id number] IV 06/26/25 22:00 06/27/25 21:59 Dobutamine HCl/ Dextrose 250 ml @ 29.31 mls/ hr Q8H32M IV 06/26/25 16:15 06/26/25 18:16 117.24 MLS/HR Epinephrine HCl 250 ml @ 7.5 mls/hr Q24H IV 06/26/25 16:15 06/26/25 16:21 37.5 MLS/HR laboratory and microbiology Laboratory Tests 06/26/25 10:26 06/26/25 02:45 Test 06/26/25 10:26 Range/Units Serum Glucose 340 H 74-106 mg/dL Assessment/Plan Acute hypoxic respiratory failure On mechanical ventilator Hypokalemia Pneumonia with Staphylococcus aureus Anemia Septic shock Obesity, BMI 35.2 Events: \patient is considerably worse Required further bowel resection and colostomy earlier today For diverticulitis Returned back from the OR profoundly hypotensive on three pressors A line placed by myself and confirms hypotension Patient has appeared swollen edematous Minimal urine output BUN and creatinine trending up Consistent with multiorgan failure Ventilator settings On AC mode; RR 24, VT 420, PEEP 5, FiO2 30% ABG reviewed, CT abd and pelvis repeated today for suspected leak 1. Bilateral lower lobe atelectasis and nor or pneumonia, with bilateral pleural effusions, new compared with CT scan dated 06/16/2025. 2. Cardiomegaly and coronary artery disease. 3. Pulmonary arterial hypertension. 4. Interval postoperative changes of 2 percutaneous pelvic drains with near- complete resolution of the free fluid and sigmoid colon diverticular abscess seen on the prior CT scan. There is increased rectosigmoid wall thickening however, consistent with ongoing acute diverticulitis. 5. Postoperative changes of cholecystectomy and possibly also appendectomy. 6. Diffuse subcutaneous edema suggestive of anasarca. management plan Vent support Daily ABG and x-ray Continue pressors to keep MAP be above 65 mmHg Postop care by General surgery SBP Continue bronchodilators Antibiotics - on vancomycin and meropenem Monitor WBC Continue to monitor renal function Monitor electrolytes. Supplement as necessary. Potassium supplementation Monitor hemoglobin - GI/DVT prophylaxis Labs and imaging reviewed. Rest of plan as noted below. Pressors as necessary for hemodynamic support Titrate to keep mean arterial pressure greater than 65 mmHg. Monitor renal function Monitor electrolytes. Supplement as necessary. Monitor ins and outs. Maintain euvolemia. Monitor hemoglobin Transfuse if less than 7.0 g/dL. GI prophylaxis. DVT prophylaxis. Prognosis: Poor given patient's multiple co-morbidities. crit care time 35 min Dietary Evaluation Review Comments: 1. TPN per pharmacy if NPO>7 days 2. If GI assessible, Vital AF 1.2 @45ml/hr providing 81g Protein 1296kcal, 876ml free water Expected Outcomes/Goals: meeting pt's nutrition needs at 75-100% recovered GI function gradual wt loss Plan discussed with: Other (rn) ESTELA MENDEZ MD Jun 26, 2025 18:29
--- NOTE | 2025-06-26 18:31 | DVHNC2 ---
Procedure - Procedure left axillary a line placement ultrasound guided Indication hypotension Consent obtained time-out performed per protocol patient was placed in supine position. Left axillary artery was visualized using ultrasound sonosite and Seldinger technique employed ChloraPrep x3 was used to clean The operative field local analgesia achieved with lidocaine 1% 3 cc Arterial catheter was placed in correct position was confirmed by visualizing a good a waveform The catheter was secured with a suture and BiPAP with sterile dressing applied No complications ESTELA MENDEZ MD Jun 26, 2025 18:31
[2025-06-26 18:48] LABS: Base Excess -21.2 mmol/L (-2.0-3.0)
[2025-06-26] MEDS: D5W/LACTATED RINGERS 1,000 ML IV SCH (19:00)
[2025-06-26] MEDS: SODIUM BICARB 50mEq/50ml Vial 150 ML in D5W 5% 1,000 ML IV SCH (19:05)
[2025-06-26] MEDS: SODIUM BICARB 8.4% 50Meq/50ml SYR INJ ONE ×2 (19:05→21:19)
--- NOTE | 2025-06-26 19:59 | DVHPNRES ---
Progress Note Date Seen: Jun 26, 2025 Resident Creating Document: STEPHEN SCHULTZ RESIDENT Has the PT tested + for MRSA If YES, has PT been informed?: No Medical Necessity Reason Pt with a Central, PICC or Fol: Yes The following are medically ne: Central Line, PICC Line, Turner Catheter Reason for turner catheter: Strict I&O Subjective Review of Systems The patient remains critically ill, intubated, sedated, and mechanically ventilated in the ICU. She is status post exploratory laparotomy, resection of rectosigmoid colon for diverticulitis with perforation, descending colon colostomy, and extensive lysis of adhesions performed today under general anesthesia. Intraoperative Findings: * Feculent peritonitis due to perforation of rectosigmoid colon with chronic and acute diverticulitis. * Dense intra-abdominal adhesions requiring extensive lysis. * Previous marlex mesh noted with adhesions of transverse colon. * Partial colectomy with descending colostomy performed. * Abdomen irrigated with 3L warm saline; no bowel injury post-repair. * Two Jesus-Urbano (MATT) drains placed and exteriorized; abdominal wall left partially open and packed due to feculent contamination. * Estimated blood loss minimal; all counts correct at closure. * Patient transferred to ICU intubated and critically unstable. Post-operative course: * Patient developed hemodynamic instability with hypotension (BP 84/41, HR 133) and severe metabolic acidosis (pH 7.028, HCO? 8.2, base excess 21.2). * Required multiple vasopressors (norepinephrine, epinephrine, phenylephrine, dobutamine, vasopressin) for refractory septic shock. * Started on IV sodium bicarbonate, furosemide 20 mg IV, albumin 25% IV, and LR boluses for volume support by Dr Patel and Dr Suh * Received calcium gluconate 1g IV, D5W/LR infusion at 125 mL/hr, and TPN for nutrition. * Urine output 0.13 mL/kg/hr (oliguric); total I/O positive * MATT drains were placed, NG drainage 405 mL, chest tube 250 mL. * Labs reveal severe metabolic acidosis, acute kidney injury, and worsening hemodynamics consistent with septic shock Surgical and critical care teams actively managing. All pressor adjustments and fluid management performed collaboratively by surgery (Dr. Chance) and pulmonary/critical care (Dr. Landrum). REVIEW OF SYSTEMS (limited due to sedation and intubation) * General: Critically ill, sedated, intubated. * Neurological: Deeply sedated, unresponsive to stimuli. * Cardiac: Hypotensive, tachycardic, on multiple pressors. * Respiratory: Mechanically ventilated. * GI: Abdomen open, colostomy present, MATT drains in place. * : Turner catheter, oliguria. * Skin: Edematous, surgical wound packed. Objective vital signs Vital Sign Date Time Temp Pulse Resp B/P (MAP) Pulse Ox O2 Delivery O2 Flow Rate FiO2 06/26/25 18:16 84/41 06/26/25 18:08 133 24 98 30 06/26/25 16:15 96.8 96.8 06/26/25 10:30 Mechanical Ventilator+ Total Intake and Output 06/25/25 06/25/25 06/26/25 15:00 23:00 07:00 Intake Total 563.0 ml 439.5 ml 563 ml Output Total 985 ml 1370 ml Balance 563.0 ml -545.5 ml -807 ml medications Current Medications Medications Dose Ordered Sig/Venessa Route Start Time Stop Time Status Last Admin Dose Admin Acetaminophen 325 mg Q4HP PRN PO 06/16/25 20:45 Vancomycin HCl 0 ml @ 0 mls/hr UD IV 06/17/25 08:30 Propofol 100 ml @ 2.661 mls/ hr Q24H IV 06/17/25 10:15 06/24/25 11:01 2.661 MLS/HR Midazolam HCl 50 ml @ 1 mls/hr Q24H IV 06/17/25 10:15 06/26/25 06:24 3 MLS/HR Fentanyl Citrate 250 ml @ 2.5 mls/hr Q24H IV 06/17/25 10:15 06/25/25 20:21 15 MLS/HR Pantoprazole Sodium 40 mg DAILY IV 06/18/25 10:00 06/26/25 11:13 40 MG Vasopressin 20 units/Sodium Chloride 100 ml @ 9 mls/hr Q11H7M IV 06/18/25 05:15 06/26/25 12:40 9 MLS/HR Diagnostic Test (Pha) 1 strip Q6HR 06/22/25 00:00 06/26/25 18:28 1 STRIP Insulin Human Regular FOLLOW SLIDING SCALE Q6HR SC 06/22/25 00:00 06/26/25 11:52 2 UNITS Dextrose 50 ml UD IV 06/22/25 00:00 Amino Acids/ Electrolytes/ Dextrose 1,000 ml @ 41 mls/hr DAILY@2200 IV 06/21/25 22:00 06/26/25 21:59 06/25/25 21:56 41 MLS/HR Meropenem 50 ml @ 17 mls/hr Q12HR IV 06/22/25 22:00 06/26/25 11:13 17 MLS/HR Albuterol 2.5 mg Q4HR PRN NEB 06/23/25 18:00 06/24/25 01:47 2.5 MG Ipratropium [place] 0.5 mg Q4HR NEB 06/23/25 18:00 06/26/25 18:49 0.5 MG Budesonide 0.5 mg BID NEB 06/23/25 22:00 06/26/25 06:04 0.5 MG Albuterol 2.5 mg Q4HR NEB 06/24/25 10:30 06/26/25 18:49 2.5 MG Amino Acids 0 ml @ 0 mls/hr PER PHARMACY IV 06/25/25 18:15 Sodium Chloride 10 ml QSHIFT@10,22 IV 06/25/25 22:00 06/26/25 11:07 10 ML Phenylephrine HCl 250 ml @ 30 mls/hr Q8H20M IV 06/26/25 10:00 06/26/25 18:16 135 MLS/HR Fat Emulsion Intravenous 50 ml/ Sodium Acetate 20 meq/Potassium Acetate 40 meq/ Calcium Gluconate 4.65 meq/ Magnesium Sulfate 4 meq/ Multivitamins 10 ml/Chromium/ Copper/Manganese/ Zinc 1 ml/Amino Acids/Dextrose 1,052 ml @ 44 mls/hr [id number] IV 06/26/25 22:00 06/27/25 21:59 Dobutamine HCl/ Dextrose 250 ml @ 29.31 mls/ hr Q8H32M IV 06/26/25 16:15 06/26/25 18:16 117.24 MLS/HR Epinephrine HCl 250 ml @ 7.5 mls/hr Q24H IV 06/26/25 16:15 06/26/25 16:21 37.5 MLS/HR Norepinephrine Bitartrate 250 ml @ 3.75 mls/hr Q24H IV 06/26/25 12:00 06/26/25 12:12 11.25 MLS/HR Sodium Bicarbonate 150 ml/Dextrose 1,150 ml @ 150 mls/hr Q7H40M IV 06/26/25 18:45 06/26/25 19:05 150 MLS/HR Dextrose/Lactated Ringer's 1,000 ml @ 125 mls/hr Q8H IV 06/26/25 19:00 Examination General: Intubated, sedated, critically ill, pale, anasarcic. Neuro: Sedated, non-responsive, on midazolam and propofol. CV: HR 133 (sinus tachycardia), BP 84/41, on norepinephrine, epinephrine, phenylephrine, dobutamine, vasopressin drips. Resp: Intubated, coarse breath sounds, bilateral airspace opacities on imaging. GI: Abdomen soft, partially open with packing; colostomy pink and viable; MATT drains : Turner with minimal urine output. Extremities: +3 pitting edema, cool to touch. Skin: Wound VAC in place; no cyanosis noted. laboratory and microbiology Laboratory Tests 06/26/25 10:26 06/26/25 02:45 Test 06/26/25 10:26 Range/Units Serum Glucose 340 H 74-106 mg/dL Microbiology Date/Time Source Procedure Growth Status 06/24/25 15:09 Other Aerobic Culture - Preliminary Resulted 06/24/25 11:50 Blood Blood Culture - Preliminary NO GROWTH AFTER 48 HOURS OF INCUBATION. Resulted 06/17/25 10:41 Sputum Gram Stain - Final Complete 06/17/25 10:41 Respiratory Culture - Final Staphylococcus aureus Complete Problem List/Assessment/Plan Problem List/Assessment/Plan Assessment 1. Septic shock due to perforated rectosigmoid diverticulitis with feculent peritonitis. with multiple intra-abdominal abscesses, status post hysterectomy, BSO, abscess evacuation. and resection. POA 2. Acute hypoxic respiratory failure, mechanically ventilated due to sepsis POA 3. Suspected uterine malignancy .Biopsy negative 4. High-anion gap metabolic acidosis (HCO? 11.9, AG 15) with pH 7.2. POA 5. Acute kidney injury (Stage 3, KDIGO) Cr 2.53, oliguric. POA 6. Electrolyte abnormalities: Hyponatremia, hypokalemia (repleted), hypocalcemia, hypoalbuminemia. POA 7. Normocytic anemia Hgb 8.6, likely multifactorial. POA 8. Troponin elevation likely Type II NSTEMI/demand ischemia due to sepsis POA 9. Generalized anasarca. 10. HTN, 11. fibromyalgia, 12. obesity PLAN SYSTEM HEARD 1. Respiratory: * Continue full ventilatory support (lung-protective strategy). * ABG q24 hours; adjust ventilator based on Cristhian? and oxygenation. * Maintain FiO? to target SpO? >92%. * Bronchodilators (albuterol/ipratropium), budesonide nebs q12h. * Consider chest physiotherapy and suctioning. 2. Cardiovascular: * Continue norepinephrine, epinephrine, phenylephrine, dobutamine, vasopressin to maintain MAP >65 mmHg. * Trend MAP, lactate, and urine output. * Albumin 25% IV + cautious LR boluses for intravascular refill. * Consider addition of hydrocortisone 50 mg IV q6h if pressor-resistant (stress- dose steroid protocol). * Continuous cardiac monitoring. 3. Renal / Electrolytes / Acid-Base: * Continue IV sodium bicarbonate 50 mEq q6h PRN for pH <7.1. * Monitor BMP, Mg, Phos q6h. * Maintain K >4.0, Mg >2.0 (replete as needed). * Turner for strict I&O; assess for renal replacement therapy if oliguria persists. * Avoid nephrotoxins. 4. Infectious Disease / Surgical: * Continue meropenem + vancomycin for polymicrobial coverage (Prevotella, E. coli, Staph aureus). * Follow intra-abdominal cultures and adjust antibiotics per sensitivities. * Monitor for colostomy viability, MATT output, and wound status. * Surgical team following closely; expect staged re-operations. 5. Hematology: * CBC q6h with H&H trending. * Transfuse PRBCs to maintain Hgb >8.0 g/dL. * Evaluate for DIC or HIT if thrombocytopenia worsens. * DVT prophylaxis with sequential compression devices; hold heparin given coagulopathy risk. 6. GI / Nutrition: * NPO, continue Clinimix TPN (PICC line in process). * Monitor MATT drains for feculent output ? possible anastomotic leak. * Colostomy care and monitoring for necrosis/ischemia. * Stress ulcer prophylaxis with Pantoprazole IV daily. 7. 8. Endo * Insulin sliding scale to maintain glucose <180 mg/dL. * Continue steroids if needed for refractory shock. 8. Neurological / Sedation: * Continue midazolam, fentanyl, propofol for sedation and analgesia. * Titrate sedation to maintain RASS 3 to 4. * Monitor for sedation weaning when hemodynamically stable. 9. Prophylaxis: * DVT: SCDs, consider heparin when platelets >50K. * GI: Pantoprazole IV daily. * Pressure ulcer: Reposition q2h, specialty mattress. * Line/Device: Daily review of lines, tubes, drains to prevent CLABSI/VAP. Oncology * Pathology negative for malignancy Prophylaxis & Bundles * DVT prophylaxis: SCDs. * CLABSI/CAUTI bundles; pressure-injury prevention; daily device-necessity checklist (ETT, CVC, Turner,, drains, wound VAC). Lines/Tubes: * ETT, central line, Turner, 2 MATT drains, wound VAC. Maintain aseptic care Critical Care Time Spent >45 minutes in direct critical care management, including chart/lab/imaging review, family counseling, intubation, vasopressor initiation, central line placement, and coordination with ICU and surgical teams. Discussion Case discussed in detail with the attending physician, including the clinical presentation, diagnostic workup, and comprehensive management plan. Plan discussed with: Spouse Dietary Evaluation Review Comments: 1. TPN per pharmacy if NPO>7 days 2. If GI assessible, Vital AF 1.2 @45ml/hr providing 81g Protein 1296kcal, 876ml free water Expected Outcomes/Goals: meeting pt's nutrition needs at 75-100% recovered GI function gradual wt loss Date of Service: Jun 26, 2025 Billing Provider: ROXANNA ACE DO Date of Service: Jun 26, 2025 Billing Provider: ROXANNA ACE DO Common Visit Codes: 68012-CPQMAPRI CARE 30-74 MIN, 92213-PJROQPQK CARE-EACH +30MIN STEPHEN SCHULTZ RESIDENT Jun 26, 2025 19:59 ROXANNA ACE DO Jun 28, 2025 23:20
[2025-06-26] MEDS: VANCOMYCIN 500mg/100mL 100 ML IV ONE (20:27)
[2025-06-26 20:29] LABS: Hematocrit 24.8 % (36.0-46.0); Hemoglobin 7.7 g/dL (12.2-16.2); Mean Corpuscular Hemoglobin 28.5 pg (28.0-32.0); Mean Corpuscular Volume 92.3 fL (80.0-100.0)
[2025-06-26 20:34] LABS: Base Excess -16.4 mmol/L (-2.0-3.0)
[2025-06-26 21:02] LABS: Anisocytosis Slight; Macrocytosis Slight; Nucleated Red Blood Cells % 9.0 %; Total Cells Counted 100.0 (100)
[2025-06-26 21:34] LABS: Potassium 4.3 mmol/L (3.5-5.1)
[2025-06-26 21:35] LABS: Anion Gap 19 (5-15)
[2025-06-26 21:36] LABS: Calcium 6.5 mg/dL (8.7-10.4); Carbon Dioxide 13 mmol/L (20-31); Chloride 114 mmol/L (98-107); Sodium 146 mmol/L (136-145)
[2025-06-26 21:41] LABS: BUN/Creatinine Ratio 54.8 (10.0-20.0); Blood Urea Nitrogen 69 mg/dL (9-23); Glucose 361 mg/dL (74-106)
[2025-06-26] MEDS ORDERED: TPN PER PHARMACY IV NR (22:00)
[2025-06-26 22:05] LABS: Hematocrit 24.1 % (36.0-46.0); Hemoglobin 7.2 g/dL (12.2-16.2)
[2025-06-26] MEDS ORDERED: CALCIUM GLUC 1,000mg/50ml-NS 50 ML IV SCH (22:15)
[2025-06-26] MEDS ORDERED: InsuLIN REG 1unit/0.01ml Soln (100units/ml) SC ONE (22:15)
[2025-06-26] MEDS: CALCIUM GLUC 1,000mg/50ml-NS 100 ML IV ONE (22:18)
[2025-06-26 22:38] LABS: INR 3.34 (0.9-1.15); Prothrombin Time 31.4 sec (9.3-11.8)
[2025-06-26 22:46] LABS: Partial Thromboplastin Time > 139.0 SEC (24.5-34.5)
--- NOTE | 2025-06-26 23:44 | RESUS ---
LEDA GOMES ASSESSSMENT History of Events History of Events: Pt admitted on 06/16/25 to telemetry for complicated diverticulitis and upgraded to ICU on 06/17/25. Per primary RN, pt's heart rate dropped and was given atropine and then pulses were lost. LEDA GOMES called. Initial Information Date: Jun 26, 2025 Time: 22:19 Location of Arrest: ICU ([place]) Arrest Witnessed: Yes CPR started initial time: 22:19 CPR started by whom: Hospital Staff Pre-Hospital Care: Pre-Code Care (inpatient) Type of arrest: Cardiac, Respiratory, Adult, Witnessed Spontaneous Respirations: No Pulse Present: No Monitoring: Pulse Oximetry, Telemetry Crash Cart Opened and Supplies: Yes Airway Ventilation Breathing at Onset: Assisted Oxygen Delivery Method: Mechanical Ventilator Time of first Assisted Ventila: :19 Artificial Ventilation: Bag/Endo tube Intubation Size: 8.0 cuffed Intubated orally: Yes Tube secured at: 22 (cm at lip) Comments: Pt was previously intubated prior to code Circulation Circulation #1: Time: 22:19 Pulse Rate (adult): 0 Blood Pressure Systolic: 0 Blood Pressure Diastolic: 0 Temperature (Fahrenheit): 98.2 (F) Circulation #2: Time: 22:21 Pulse Rate (adult): 0 Blood Pressure Systolic: 0 Blood Pressure Diastolic: 0 Circulation Comment: PEA Circulation #3: Time: 22:23 Pulse Rate (adult): 0 Blood Pressure Systolic: 0 Blood Pressure Diastolic: 0 Circulation Comment: VFib Circulation #4: Time: 22:24 Pulse Rate (adult): 0 Blood Pressure Systolic: 0 Blood Pressure Diastolic: 0 Circulation Comment: Family requesting to withdraw care; PEA; TOD Defibrillation Defbrillation : Time Defibrillator Applied: 22:23 EKG Rhythm: V-Fibrillation Time Defibrillator Shocked Pt.: 22:23 Defib. Joules: 120 Pulse Present: No EKG Rhythm: PEA Procedure - IV Procedure - IV : IV Side: Right IV Location: Upper Arm Anterior IV Catheter Type: PICC Line (Triple lumen) IV Placed: In Hospital Comment PICC line was placed prior to code Medications & Response Medications and Responses #1: Medication Time: 22:20 ADULT Medications Given ADULT: Epinephrine 1 mg Route of Administration: IV Heart Rate: 0 EKG Rhythm: Asystole Blood Pressure Systolic: 0 Blood Pressure Diastolic: 0 Respiratory Rate: 0 Medications and Responses #2: Medication Time: 22:23 ADULT Medications Given ADULT: Sodium Bacarbinate 50 meq, Calcium Chloride 10 mL Route of Administration: IV Heart Rate: 0 EKG Rhythm: PEA Blood Pressure Systolic: 0 Blood Pressure Diastolic: 0 Respiratory Rate: 0 Procedure - NG/OG Tube Procedure - NG/OG Tube : Type of gastric tube placed: NG Gastric Tube Location: Right Nare GI Tube Secured: Yes (50 cm) Gastric Tube Suction Type/Desc: Low, Intermittant Comment NG inserted prior to code Procedure - Morocho Catheter Urinary Catheter Type/Location: Uretheral (Morocho) Morocho Catheter Secured: Yes Comment: Inserted prior to code Nurses Notes [place] Coma Scale Eye Opening: None (1) [place] Coma Scale Verbal: None (1) Remi Coma Scale Motor: None (1) Glascow Total: 3 Pupil Reaction: Non Reactive (4mm) Nurses Notes - Comment: Family brought into code while code in progress. requested for team to stop. Compressions held; pt PEA on monitor. Time Code Ended Time Code Ended: 22:24 Post Arrest Status: Outcome of code: Unsuccessful Patient pronounced by: CRISTEL Mar Time patient pronounced: 22:24 Family notified: Yes Code Team Present: CRISTEL Mar - Hospitalist; Shaniqua Garcia RN - ICU Charge; Madison Rivers RN - Building Equipment Inspector; Neeru Marquez RN - Primary RN; Meagan Aviles RN; Natalie Rey RN; Samantha Villarreal, RN; Cony Aviles RT; Madison Norman Jun 26, 2025 23:44
[2025-06-26] MEDS ORDERED: ATROPINE SULF 1 MG/10ml SYR IV ONE (23:54)
--- NOTE | 2025-06-28 23:23 | DVHDS2 ---
Discharge Summary Date of Admission Jun 16, 2025 at 20:43 Date of Discharge: Jun 26, 2025 Labs/Diagnostic Data: Laboratory Results Test 06/26/25 22:12 06/26/25 21:55 06/26/25 21:03 06/26/25 20:25 POC Glucose 350 mg/dl (70-106) Hemoglobin 7.2 g/dL (12.2-16.2) Hematocrit 24.1 % (36.0-46.0) Prothrombin Time 31.4 sec (9.3-11.8) Prothrombin Time INR 3.34 (0.9-1.15) Activated Partial Thromboplast Time > 139.0 SEC (24.5-34.5) Troponin I High Sensitivity 236 ng/L (</=34) Blood Gas Specimen Type Arterial Blood Gas Sample Site Arterial line Blood Gas Patient Temperature 37.0 Arterial Blood Date Drawn [id number] Arterial Blood pH 7.149 (7.350-7.450) Arterial Blood Partial Pressure CO2 32.8 mmHg (32.0-45.0) Arterial Blood Partial Pressure O2 70.0 mmHg (83.0-108.0) Arterial Blood HCO3 11.1 mmol/L (21.0-28.0) Arterial Blood Oxygen Saturation 90.2 % (94.0-98.0) Arterial Blood Base Excess -16.4 mmol/L (-2.0-3.0) Arterial Blood Oxyhemoglobin 89.5 % (94.0-98.0) Arterial Blood Carboxyhemoglobin 0.6 % (0.5-1.5) Arterial Blood Methemoglobin 0.2 % (0.0-1.5) Donnell Test N/a Blood Gas Total Hemoglobin 8.30 g/dL (12.0-16.0) Blood Gas Set Respiration Rate 24.0 Blood Gas Modality Vent - ac FiO2 % 30.0 Blood Gas Tidal Volume 420.0 Blood Gas PEEP or CPAP 5.0 Blood Gas Critical Value Read Back Yes Blood Gas Notified Whom adriana Boyle Blood Gas Notified Time [id number] Blood Gas Notified By Elo schaeffer, alberto Test 06/26/25 20:10 06/26/25 10:26 06/26/25 02:45 06/17/25 16:14 White Blood Count 34.6 10^3/uL (4.4-10.8) Red Blood Count 2.69 10^6/uL (4.0-5.20) Mean Corpuscular Volume 92.3 fL (80.0-100.0) Mean Corpuscular Hemoglobin 28.5 pg (28.0-32.0) Mean Corpuscular Hemoglobin Concent 30.9 g/dL (32.0-36.0) Red Cell Distribution Width 15.5 % (11.8-14.3) Platelet Count 83 10^3/uL (140-450) Mean Platelet Volume 9.5 fL (6.9-10.8) Neutrophils (%) (Auto) % (37.0-80.0) Lymphocytes (%) (Auto) % (10.0-50.0) Monocytes (%) (Auto) % (0.0-12.0) Basophils (%) (Auto) % (0.0-2.0) Neutrophils # (Auto) 10 ^3/uL (1.6-8.6) Lymphocytes # (Auto) 10 ^3/uL (0.4-5.4) Monocytes # (Auto) 10 ^3/uL (0-1.3) Differential Total Cells Counted 100.0 (100) Neutrophils % (Manual) 61 (37.0-80.0) Band Neutrophils % (Manual) 27 Lymphocytes % (Manual) 3 (10.0-50.0) Monocytes % (Manual) 7 (0-12) Eosinophils % (Manual) 0 (0-7) Basophils % (Manual) 0 (0.0-2.0) Metamyelocytes % (manual) 0 Myelocytes % (Manual) 2 Promyelocytes % (Manual) 0 Blast Cells % (Manual) 0 Nucleated Red Blood Cells 9.0 % Reactive Lymphocytes 0 Platelet Estimate Decrea Large Platelets Few Anisocytosis (manual) Slight Microcytosis Slight Macrocytosis Slight Sodium Level 146 mmol/L (136-145) Potassium Level 4.3 mmol/L (3.5-5.1) Chloride Level 114 mmol/L (98-107) Carbon Dioxide Level 13 mmol/L (20-31) Anion Gap 19 (5-15) Blood Urea Nitrogen 69 mg/dL (9-23) Creatinine 1.26 mg/dL (0.550-1.02) Glomerular Filtration Rate Calc 45 mL/min (>90) BUN/Creatinine Ratio 54.8 (10.0-20.0) Serum Glucose 361 mg/dL (74-106) Calcium Level 6.5 mg/dL (8.7-10.4) Magnesium Level 2.0 mg/dL (1.6-2.6) Eosinophils (%) (Auto) 1.4 % (0.0-7.0) Eosinophils # (Auto) 0.2 10 ^3/uL (0-0.8) Basophils # (Auto) 0 10 ^3/uL (0-0.2) Phosphorus Level 2.8 mg/dL (2.4-5.1) Total Bilirubin 0.6 mg/dL (0.2-1.0) Aspartate Amino Transferase (AST) 15 U/L (13-40) Alanine Aminotransferase (ALT) 23 U/L (7-40) Alkaline Phosphatase 114 U/L (46-116) Total Protein 4.7 g/dL (5.7-8.2) Albumin 2.3 g/dL (3.2-4.8) Triglycerides Level 114 mg/dL (< 150) Random Vancomycin Level 18.7 ug/mL (5-10) CA 125 Antigen 232.0 U/mL (0.0-38.1) Test 06/17/25 09:33 06/17/25 03:45 06/17/25 02:31 06/16/25 21:48 Lactic Acid Level 1.1 mmol/L (0.4-2.0) HIV (1&2) Antibody Negative (Negative) Urine Creatinine 78.91 mg/dL (30.0-125.0) Urine Protein/Creatinine Ratio 1.29 Urine Total Protein 101.6 mg/dL (1-14) Urine Opiates Screen Neg (NEGATIVE) Urine Fentanyl Screen Neg (NEGATIVE) Urine Barbiturates Screen Neg (NEGATIVE) Urine Phencyclidine Screen Neg (NEGATIVE) Urine Amphetamines Screen Neg (NEGATIVE) Urine Benzodiazepines Screen Neg (NEGATIVE) Urine Cocaine Screen Neg (NEGATIVE) Urine Cannabinoids Screen Neg (NEGATIVE) Hepatitis A IgM Antibody Negative Hepatitis B Surface Antigen Negative (Negative) Hepatitis B Core IgM Antibody Negative (Negative) Hepatitis C Antibody Negative (Negative) Blood Gas Liter Flow 0.00 Test 06/16/25 20:42 06/16/25 16:40 06/16/25 16:37 06/16/25 16:30 Hemoglobin A1c 5.8 % A1C (<5.7) Cholesterol Level 94 mg/dL (< 200) LDL Cholesterol 50 mg/dL (< 100) HDL Cholesterol 8 mg/dL (40-59) Vitamin B12 Level 371 pg/mL (211-911) Vitamin D 25-Hydroxy 6.7 ng/mL (30.0-100) Thyroid Stimulating Hormone (TSH) 1.24 uIU/mL (0.55-4.78) Urine Color Yellow (Yellow) Urine Clarity Turbid (Clear) Urine pH 5.5 (5.0-9.0) Urine Specific [place] 1.014 (1.001-1.035) Urine Protein Trace (Negative) Urine Ketones Negative (Negative) Urine Blood Negative /uL (Negative) Urine Nitrite Negative (Negative) Urine Bilirubin Negative (Negative) Urine Urobilinogen 3 mg/dL (Negative) Urine Leukocyte Esterase Negative /uL (Negative) Urine RBC 2 /hpf (0 - 4) Urine Microscopic WBC 5 /HPF (0-5) Urine Squamous Epithelial Cells Few /hpf (<5) Urine Bacteria None seen /hpf (None Seen) Urine Glucose Normal mg/dL (Normal) Beta-Hydroxybutyric Acid 2.296 mmol/L (< 0.4) Tear Drop Cells Few Zka Cells Few B-Type Natriuretic Peptide 1669.81 pg/mL (0-100) Lipase 19 U/L (12-53) Other Laboratory Tests 06/26/25 21:55 06/26/25 20:10 Brief Hx & Hospital Course: 1. Septic shock due to perforated rectosigmoid diverticulitis with feculent peritonitis. with multiple intra-abdominal abscesses, status post hysterectomy, BSO, abscess evacuation. and resection. POA 2. Acute hypoxic respiratory failure, mechanically ventilated due to sepsis POA 3. Suspected uterine malignancy .Biopsy negative 4. High-anion gap metabolic acidosis (HCO? 11.9, AG 15) with pH 7.2. POA 5. Acute kidney injury (Stage 3, KDIGO) Cr 2.53, oliguric. POA 6. Electrolyte abnormalities: Hyponatremia, hypokalemia (repleted), hypocalcemia, hypoalbuminemia. POA 7. Normocytic anemia Hgb 8.6, likely multifactorial. POA 8. Troponin elevation likely Type II NSTEMI/demand ischemia due to sepsis POA 9. Generalized anasarca. 10. HTN, 11. fibromyalgia, 12. obesity causes of : primary: cardiopulmonary arrest (minutes) secondary: septic shock (hours) tertiary: peritonitis Condition at Discharge: Poor Final Diagnosis/Problems List see above Discharge Disposition: at Hospital Discharge Instruct/Medications Scheduled Atenolol (Atenolol), 50 MG PO BID, (Reported) Discharge Statement: "Patient was advised to return to the ER or call 911 if any headaches, dizziness, shortness of breath, chest pain, abdominal pain, bleeding, fevers, or worsening of medical condition. Patient was counseled about treatment plan, medications, possible side effects, patientverbalized understanding. All questions were answered to the best of my ability. This discharge took greater then 30 minutes in planning, reviewing documentation, counseling the patient, and discussing with other team members." ASSESSMENT ASSESSMENT Assessment Date of Service: Jun 26, 2025 Billing Provider: ROXANNA ACE DO Common Visit Codes: [id number] CARE 30-74 MIN, [id number] CARE-EACH +30MIN ROXANNA ACE DO Jun 28, 2025 23:23
== END 2025-06-26 23:55 | DRG 853 ==
LOC: EDBD 16:02 → ER 16:02 → OVERFLOW 20:43 → TELE-CENTR 20:51 → DOU 06-17 09:32 → ICU CENTRL 06-17 10:59 → ICU WEST 06-22 05:50
PROVIDERS: ADMIT Student in an Organized Health Care Education/Training Program; ATTEND Surgery
PROC: 5A1955Z Respiratory Ventilation, Greater than 96 Consecutive Hours (ICD-10-PCS; 2025-06-17)
PROC: 0BH17EZ Insertion of Endotracheal Airway into Trachea, Via Natural or Artificial Opening (ICD-10-PCS; 2025-06-17)
PROC: 05HM33Z Insertion of Infusion Device into Right Internal Jugular Vein, Percutaneous Approach (ICD-10-PCS; 2025-06-17)
PROC: B543ZZA Ultrasonography of Right Jugular Veins, Guidance (ICD-10-PCS; 2025-06-17)
PROC: 0UT97ZL Resection of Uterus, Supracervical, Via Natural or Artificial Opening (ICD-10-PCS; 2025-06-18)
PROC: 30233N1 Transfusion of Nonautologous Red Blood Cells into Peripheral Vein, Percutaneous Approach (ICD-10-PCS; principal; 2025-06-18 11:59)
PROC: 02HV33Z Insertion of Infusion Device into Superior Vena Cava, Percutaneous Approach (ICD-10-PCS; 2025-06-25)
PROC: B548ZZA Ultrasonography of Superior Vena Cava, Guidance (ICD-10-PCS; 2025-06-25)
PROC: 0D1M0Z4 Bypass Descending Colon to Cutaneous, Open Approach (ICD-10-PCS; 2025-06-26)
PROC: 0DBN0ZZ Excision of Sigmoid Colon, Open Approach (ICD-10-PCS; 2025-06-26)
PROC: 0DBP0ZZ Excision of Rectum, Open Approach (ICD-10-PCS; 2025-06-26)
PROC: 5A2204Z Restoration of Cardiac Rhythm, Single (ICD-10-PCS; 2025-06-26)
PROC: 5A12012 Performance of Cardiac Output, Single, Manual (ICD-10-PCS; 2025-06-26)
PROC: 03HY32Z Insertion of Monitoring Device into Upper Artery, Percutaneous Approach (ICD-10-PCS; 2025-06-26)
DX: A41.9 Sepsis, unspecified organism (principal); G93.41 Metabolic encephalopathy; R65.21 Severe sepsis with septic shock; N17.0 Acute kidney failure with tubular necrosis; J15.211 Pneumonia due to Methicillin susceptible Staphylococcus aureus; J96.01 Acute respiratory failure with hypoxia; I21.A1 Myocardial infarction type 2; K65.1 Peritoneal abscess; E87.1 Hypo-osmolality and hyponatremia; E87.20 Acidosis, unspecified; S22.42XA Multiple fractures of ribs, left side, initial encounter for closed fracture; K57.20 Diverticulitis of large intestine with perforation and abscess without bleeding; J98.11 Atelectasis; I46.9 Cardiac arrest, cause unspecified; I27.21 Secondary pulmonary arterial hypertension; N73.9 Female pelvic inflammatory disease, unspecified; K43.2 Incisional hernia without obstruction or gangrene; K66.0 Peritoneal adhesions (postprocedural) (postinfection); K40.90 Unilateral inguinal hernia, without obstruction or gangrene, not specified as recurrent; E83.51 Hypocalcemia; I25.10 Atherosclerotic heart disease of native coronary artery without angina pectoris; E88.09 Other disorders of plasma-protein metabolism, not elsewhere classified; E66.9 Obesity, unspecified; D64.9 Anemia, unspecified; I11.0 Hypertensive heart disease with heart failure; I50.9 Heart failure, unspecified; Z68.35 Body mass index [BMI] 35.0-35.9, adult; E87.6 Hypokalemia; M79.7 Fibromyalgia; Z90.711 Acquired absence of uterus with remaining cervical stump; Z83.3 Family history of diabetes mellitus; Z82.49 Family history of ischemic heart disease and other diseases of the circulatory system; Z88.5 Allergy status to narcotic agent; W06.XXXA Fall from bed, initial encounter; Y93.89 Activity, other specified; Y92.89 Other specified places as the place of occurrence of the external cause; Y99.8 Other external cause status
CPT/HCPCS: 36415; 36556; 36569; 36600; 36620; 70450; 71045; 73600; 74018; 74176; 74250; 76775; 76856; 76937; 80048; 80053; 80061; 80074; 80202; 80307; 81001; 82010; 82306; 82570; 82607; 82805; 82962; 83036; 83605; 83690; 83735; 83880; 84100; 84132; 84156; 84443; 84478; 84484; 85007; 85014; 85018; 85025; 85027; 85610; 85730; 86304; 86703; 86850; 86900; 86901; 86920; 87040; 87070; 87075; 87076; 87077; 87081; 87186; 87205; 92950; 93005; 93306; 93970; 94003; 94640; 96365; 96375; G0378; J0169; J1100; J1815; J2003; J2185; J2250; J2405; J2470; J2543; J2704; J3480; P9047